=== PATIENT | female | born 1960 | race Caucasian/White ===

== ENCOUNTER 2020-12-03 07:13 | Outpatient (REF) | payer BC, SELFPAY ==
--- NOTE | ~2020-12-03 | XR_ITS ---
EXAMINATION: XR hand LT min 3V, XR hand RT min 3V CLINICAL INFORMATION: Other specified joint disorders both hands. COMPARISON: None. TECHNIQUE: 3 views of each hand. FINDINGS: RIGHT HAND: Mild degenerative changes are seen in the distal interphalangeal joints of the second through fifth digits and at the PIP joints of the second and third digits with joint space narrowing and mild marginal osteophytosis. Joint spaces are otherwise well-maintained. No erosions are demonstrated. Carpal bones are unremarkable. LEFT HAND: There are similar mild degenerative changes in the DIP joints and PIP joints of the second through fourth digits. No erosions. Carpal bones are unremarkable. 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
--- NOTE | ~2020-12-03 | XR_ITS ---
EXAMINATION: XR hand LT min 3V, XR hand RT min 3V CLINICAL INFORMATION: Other specified joint disorders both hands. COMPARISON: None. TECHNIQUE: 3 views of each hand. FINDINGS: RIGHT HAND: Mild degenerative changes are seen in the distal interphalangeal joints of the second through fifth digits and at the PIP joints of the second and third digits with joint space narrowing and mild marginal osteophytosis. Joint spaces are otherwise well-maintained. No erosions are demonstrated. Carpal bones are unremarkable. LEFT HAND: There are similar mild degenerative changes in the DIP joints and PIP joints of the second through fourth digits. No erosions. Carpal bones are unremarkable. XR/XR hand LT min 3V IMPRESSION: Mild changes of degenerative osteoarthritis in both hands as described.
[2020-12-03 07:43] LABS: MANUAL DIFF FLAG NO
[2020-12-03 07:54] LABS: Basophils Absolute Auto 0.1 X10*3/uL (0.0-0.2); Basophils Percent Auto 1.1 % (0-2); Eosinophils Absolute Auto 0.1 X10*3/uL (0.0-0.4); Eosinophils Percent Auto 1.9 % (0-4); Hematocrit 47.9 % (37-47); Hemoglobin 16.2 g/dl (12.0-16.0); Imm Gran Abs Auto 0.05 X10*3/uL (0.00-0.03); Imm Gran Pct Auto 0.7 % (0.0-0.4); Lymphocytes Absolute Auto 2.3 X10*3/uL (1.2-4.9); Lymphocytes Percent Auto 31.4 % (20-40); Mean Corpuscular HGB Conc 33.8 g/dl (31.0-35.0); Mean Corpuscular Hemoglobin 32.6 pg (27.0-33.0); Mean Corpuscular Volume 96.4 fL (80-98); Monocytes Absolute Auto 0.9 X10*3/uL (0.1-1.2); Monocytes Percent Auto 11.7 % (2-11); Neutrophils Absolute Auto 3.9 X10*3/uL (2.0-8.3); Neutrophils Percent Auto 53.2 % (45-73); Platelet Count 187 X10*3/uL (160-400); Red Blood Count 4.97 X10*6/uL (4.20-5.50); Red Cell Distribution Width 12.1 % (11.0-16.0); White Blood Count 7.2 X10*3/uL (4.8-10.8)
[2020-12-03 08:33] LABS: Alanine Aminotransferase 38 U/L (0-31); Alkaline Phosphatase 62 U/L (39-117); Anion Gap 16 (12-20); Aspartate Amino Transferase 33 U/L (5-31); Bilirubin Total 0.8 mg/dL (0.0-1.0); Blood Urea Nitrogen 21 mg/dL (9-16); Calcium 10.1 mg/dL (8.4-10.2); Carbon Dioxide 29 mmol/L (22-29); Chloride 102 mmol/L (96-108); Cholesterol 205 mg/dL; Estimated Glomerular Filt Rate > 60; Glucose Fasting 147 mg/dL (60-99); HDL Cholesterol 95 mg/dL; LDL Cholesterol Calculated 88 mg/dl; Potassium 4.6 mmol/L (3.3-5.1); Sodium 142 mmol/L (135-145); Total Protein 7.1 g/dL (6.5-8.0); Triglycerides 113 mg/dL
[2020-12-03 08:39] LABS: TSH reflex Free T4 2.17 uIU/mL (0.32-4.0)
[2020-12-08 12:11] LABS: Vitamin D 25-OH, D2 <4 ng/mL; Vitamin D 25-OH, D3 40 ng/mL; Vitamin D 25-OH, Total 40 ng/mL (30-100)
== END 2020-12-03 07:14 | disposition home or self-care (01) ==
LOC: HO.LAB 07:13
PROVIDERS: PCP Internal Medicine; Visit Provider Internal Medicine
DX: E66.9 Obesity, unspecified (principal); R73.02 Impaired glucose tolerance (oral); E78.5 Hyperlipidemia, unspecified; I10 Essential (primary) hypertension; E55.9 Vitamin D deficiency, unspecified; M25.841 Other specified joint disorders, right hand; M25.842 Other specified joint disorders, left hand; D64.9 Anemia, unspecified
CPT/HCPCS: 36415; 73130; 80053; 80061; 82306; 84443; 85025

== ENCOUNTER → 2021-01-04 12:59 | Outpatient (BNVA) | payer BC, SELFPAY | PROVIDERS: PCP Internal Medicine; Visit Provider Internal Medicine ==

== ENCOUNTER 2021-01-25 12:43 | Outpatient (REF) | payer BC, SELFPAY ==
--- NOTE | 2021-01-25 14:27 | PFT_ITS ---
FLOWS: FEV1 61% of predicted at 1.53 L. FVC 70% of predicted at 2.27 L. FEV1 to FVC ratio of 0.67. Positive bronchodilator response. LUNG VOLUMES: Total lung capacity 114% of predicted at 5.76 L. Residual volume 174% of predicted at 3.57 L. Slow vital capacity 72% of predicted at 2.19 L. Expiratory reserve volume 30% of predicted at 0.5 L. Diffusion capacity is mildly decreased, diffusion capacity adjust to normal after correction for alveolar ventilation. IMPRESSION: Moderate obstructive ventilatory defect with positive bronchodilator response. Increased residual volume suggests air trapping. Decreased expiratory reserve volume suggests extrathoracic restriction likely secondary to abdominal obesity. Mitch Carrillo MD AP/MODL / [id number]
== END 2021-01-25 12:44 | disposition home or self-care (01) ==
LOC: HO.RESP 12:43
PROVIDERS: Visit Provider Internal Medicine
DX: J42 Unspecified chronic bronchitis (principal); E66.9 Obesity, unspecified; Z87.891 Personal history of nicotine dependence
CPT/HCPCS: 94060; 94727; 94729

== ENCOUNTER → 2021-01-30 13:19 | Outpatient (BNVA) | payer BC, SELFPAY | PROVIDERS: PCP Internal Medicine; Visit Provider Internal Medicine ==

== ENCOUNTER 2021-09-16 15:22 | Emergency (ER) | payer BC, SELFPAY ==
--- NOTE | ~2021-09-16 | CT_ITS ---
EXAMINATION: CT ABDOMEN AND PELVIS WITHOUT CONTRAST CLINICAL INFORMATION: Left flank pain COMPARISON: None TECHNIQUE: Multidetector volumetric imaging was performed from the superior aspect of the liver through the pubic symphysis. Sagittal and coronal reformatted images were obtained on the technologist's workstation. This CT examination was performed using dose optimization techniques as appropriate, variously including the following: *Automated exposure control *Adjustment of mA and/or kV according to patient size (this includes techniques or standardized protocols for targeted exams where dose is matched to indication/reason for exam; i.e. extremities or head) *Use of iterative reconstruction technique DLP: 1172 mGy-cm FINDINGS: LUNG BASES: There are regions of mild subpleural groundglass opacity and reticulation which could reflect nonspecific interstitial lung disease. LIVER, GALLBLADDER, AND BILIARY TREE: There is hypoattenuation of the liver suspicious for steatosis. No intrahepatic biliary ductal dilatation is seen. Patient is status post cholecystectomy. PANCREAS: Unremarkable. SPLEEN: Unremarkable. ADRENAL GLANDS: Unremarkable. KIDNEYS AND URETERS: There is a 2 mm calculus at the left ureterovesicular junction with mild to moderate hydroureteronephrosis and subtle perinephric stranding. There is a 8 mm calculus located in the left lower pole. The calculus measures approximately 800 Hounsfield units in density. When measured from the posterior mid axillary skin line, the distance from the skin to the calculus is approximately 18 cm. No right-sided hydronephrosis or calculus. BLADDER: Nearly empty and not adequately evaluated. GASTROINTESTINAL TRACT: No evidence of bowel obstruction or significant wall thickening. No free fluid or free air is seen. ABDOMINAL WALL: No significant hernia is appreciated. LYMPH NODES: There is a low-density structure in the anterior upper abdomen along the midline measuring 2.7 x 2.1 x 2.3 cm with thin peripheral calcification, of uncertain etiology. VASCULAR: There is trace atherosclerotic calcification. PELVIC VISCERA: Small calcified uterine fibroids are suspected. OSSEOUS STRUCTURES: Degenerative changes are noted in the spine. CT/CT abdomen pelvis wo con IMPRESSION: 1. Calculus at the left ureterovesicular junction measuring 2 mm with mild to moderate hydroureteronephrosis. 2. Left lower pole renal calculi. 3. Hepatic steatosis. 4. Low-density structure in the anterior abdomen measuring up to 2.7 cm with thin peripheral calcification. This is of uncertain etiology and could reflect a complex cystic structure. Without prior studies to assess chronicity, follow-up CT in 3 months is advised to assess for stability. Fleischner guidelines were followed.
[2021-09-16 16:31] VITALS: PULSE 90; RESP 18; TEMP 36.8; O2SAT 96; BMI 41.1
[2021-09-16 16:39] LABS: Appearance Urine CLEAR; Color Urine STRAW; Glucose Urine UA NEG (NEG); Leukocyte Esterase Urine TRACE (NEG); Nitrite Urine NEG (NEG); Specific Gravity - Urine <= 1.005 (1.005-1.025); UACC Culture Trigger YES; Urine Blood 1+ (NEG); Urine Ketones NEG (NEG); Urine Protein NEG (NEG-TRACE)
[2021-09-16 16:50] LABS: Squamous Epithelial Cell Urine 1+ /LPF
[2021-09-16 20:11] LABS: MANUAL DIFF FLAG NO
[2021-09-16 20:16] LABS: Basophils Absolute Auto 0.1 X10*3/uL (0.0-0.2); Basophils Percent Auto 0.9 % (0-2); Eosinophils Absolute Auto 0.2 X10*3/uL (0.0-0.4); Eosinophils Percent Auto 1.6 % (0-4); Hematocrit 44.1 % (37.0-47.0); Hemoglobin 15.4 g/dl (12.0-16.0); Imm Gran Abs Auto 0.06 X10*3/uL (0.00-0.03); Imm Gran Pct Auto 0.6 % (0.0-0.4); Lymphocytes Absolute Auto 2.9 X10*3/uL (1.2-4.9); Lymphocytes Percent Auto 29.2 % (20-40); Mean Corpuscular HGB Conc 34.9 g/dl (31.0-35.0); Mean Corpuscular Hemoglobin 33.3 pg (27.0-33.0); Mean Corpuscular Volume 95.5 fL (80.0-98.0); Mean Platelet Volume 9.4 fL (9.4-12.3); Monocytes Absolute Auto 0.9 X10*3/uL (0.1-1.2); Monocytes Percent Auto 9.3 % (2-11); Neutrophils Absolute Auto 5.7 x10*3/uL (2.0-8.3); Neutrophils Percent Auto 58.4 % (45-73); Platelet Count 192 X10*3/uL (160-400); Red Blood Count 4.62 X10*6/uL (4.20-5.50); Red Cell Distribution Width 12.2 % (11.0-16.0); White Blood Count 9.8 X10*3/uL (4.8-10.8)
[2021-09-16 20:36] LABS: Alanine Aminotransferase 38 U/L (0-31); Albumin Level 3.9 g/dL (3.5-5.0); Alkaline Phosphatase 60 U/L (39-117); Anion Gap 12 (12-20); Aspartate Amino Transferase 31 U/L (5-31); Blood Urea Nitrogen 7 mg/dL (9-16); Calcium 9.4 mg/dL (8.4-10.2); Carbon Dioxide 28 mmol/L (22-29); Chloride 103 mmol/L (96-108); Creatinine Clr Calc Pharmacy 106.8; Estimated Glomerular Filt Rate > 60; Glucose Random 108 mg/dL (60-115); Potassium 3.3 mmol/L (3.3-5.1); Sodium 140 mmol/L (135-145); Total Protein 7.5 g/dL (6.5-8.0)
--- NOTE | 2021-09-16 22:28 | ED.ABDPAIN ---
HPI - Abdominal Pain General Chief Complaint: Abdominal Pain Stated Complaint: left flank pain Time Seen by Provider: 09/16/21 22:21 Source: patient Mode of arrival: ambulatory Limitations: no limitations History of Present Illness HPI narrative: Patient comes to emergency room complaining of left flank pain since yesterday. Patient states that she has a pulling sensation that radiates from the left flank towards the groin area. Patient also complaining of mild dysuria. Patient denies fever or chills. No hematuria. Patient has a history of kidney stones. Related Data Home Medications Medication Instructions Recorded Confirmed calcium citrate 315 mg 1 tab PO DAILY 01/04/21 calcium-vitamin D3 6.25 mcg (250 unit) tablet (Citracal + Vitamin D Maximum) acetaminophen 650 mg 1,300 mg PO Q12H 01/30/21 tablet,extended release (Tylenol Arthritis Pain) Previous Rx's Medication Instructions Recorded lisinopril 20 mg tablet 20 mg PO DAILY 90 Days #90 tab 12/19/20 Symbicort 160 mcg-4.5 2 puff PO BID #10.2 g NS 03/06/21 mcg/actuation HFA aerosol inhaler (budesonide-formoterol) albuterol sulfate 90 mcg/actuation 2 puff PO Q4H PRN #8.5 ea 08/07/21 aerosol inhaler clonazepam 0.5 mg tablet 0.5 mg PO BID 30 Days #60 tab 08/07/21 furosemide 40 mg tablet 40 mg PO DAILY #60 tab 08/09/21 metformin 500 mg tablet 500 mg PO BID 30 Days #60 tab 08/30/21 ibuprofen 600 mg tablet 600 mg PO Q6H PRN #20 tab 09/17/21 levofloxacin 500 mg tablet 500 mg PO DAILY #6 tab 09/17/21 ondansetron HCl 4 mg tablet 4 mg PO Q6H PRN #7 tab 09/17/21 (Zofran) prednisone 20 mg tablet 20 mg PO DAILY #3 tab 09/17/21 tamsulosin 0.4 mg capsule 0.4 mg PO DAILY #7 cap 09/17/21 Allergies Allergy/AdvReac Type Severity Reaction Status Date / Time bee pollen [BEE STINGS] Allergy Intermediate SWELLING, Verified 09/16/21 16:30 ITCHING--SENSITIVITY oxycodone [From PERCOCET] Allergy Intermediate N/V, RASH Verified 09/16/21 16:30 Penicillins [PENICILLINS] Allergy Intermediate RASH/ITCH Verified 09/16/21 16:30 vancomycin [VANCOMYCIN] Allergy Intermediate ITCHING Verified 09/16/21 16:30 codeine [Codeine] Allergy Unknown HIVES,VOMIT Verified 09/16/21 16:30 ING Review of Systems Review of Systems Constitutional : No Weight loss, No Fever, No Chills, No Night Sweats, No Fatigue, No Malaise ENT/Mouth : No Hearing loss, No Ear Pain, No Nasal Congestion, No Sinus Pain, No Hoarseness, No sore throat, No Rhinorrhea, No Swallowing Difficulty Eyes: No Eye Pain, No Swelling, No Redness, No Foreign Body, No Discharge, No Vision Changes Cardiovascular : No Chest Pain, No SOB, No Dyspnea on Exertion, No Orthopnea, No Edema, No Palpitations Respiratory : No Cough, No Sputum, No Wheezing, No Smoke Exposure, No Dyspnea Gastrointestinal : No Nausea, No Vomiting, No Diarrhea, No Constipation, No abdominal Pain, No Hematochezia, No Melena Genitourinary : no irregular bleeding, complaining of Dysuria, No Urinary Frequency, No Hematuria, No Urinary Incontinence, No Urgency, complaining of left-sided Flank Pain radiating towards the left groin area, No Urinary Flow Changes, No Hesitancy Musculoskeletal : No joint pain, No Myalgias, No Joint Swelling Skin : No Skin Lesions, No rash Neuro : No Weakness, No Numbness, No Paresthesias, No Loss of Consciousness, No Dizziness, No Headache Psych : No Anxiety/Panic, No Depression, No SI/HI/AH/VH, No Social Issues, Heme/Lymph: No Bruising, No Bleeding,No Lymphadenopathy Endocrine : No Polyuria, No Polydipsia, No Temperature Intolerance Physical Exam Vital Signs: Vital Signs: Last Vital Signs Temp 98.2 F 09/16/21 16:31 Pulse 90 09/16/21 16:31 Resp 18 09/16/21 16:31 Pulse Ox 96 09/16/21 16:31 BMI result Body Mass Index 41.1 Const: Other: Appearance: Alert. Oriented X3. No acute distress. Well-appearing Eyes: Pupils equal, round and reactive to light. ENT: Pharynx normal. Neck: Normal inspection. Neck supple. No lymph nodes noted. No crepitus CVS: Normal heart rate and rhythm. Pulses normal. Normal S1 and S2 Respiratory: No respiratory distress. Breath sounds normal. No Wheezing. No rales Abdomen: Soft and nontender. No rigidity. No distention. Back: Positive CVA tenderness on the left flank Skin: Skin warm and dry. Normal skin color. Normal skin turgor. Extremities: No lower extremity edema. No lower extremity edema. No Lacerations. No Rash Neuro: Oriented X 3. No motor deficit. No sensory deficit. Moving all extermities. No slurred speech. Course Course Course Narrative: I discussed with the patient that she does have a small stone at the UPJ on the left side. Patient was given Levaquin, she does have a slight UTI. Patient was given tamsulosin, prednisone MDM - Abdominal Pain Lab Data Result diagrams: 09/16/21 20:07 09/16/21 20:07 Labs: Lab Results 09/16/21 09/16/21 09/16/21 Range/Units 16:32 20:07 20:07 WBC 9.8 (4.8-10.8) X10*3/uL RBC 4.62 (4.20-5.50) X10*6/uL Hgb 15.4 (12.0-16.0) g/dl Hct 44.1 (37.0-47.0) % MCV 95.5 (80.0-98.0) fL MCH 33.3 H (27.0-33.0) pg MCHC 34.9 (31.0-35.0) g/dl RDW 12.2 (11.0-16.0) % Plt Count 192 (160-400) X10*3/uL MPV 9.4 (9.4-12.3) fL Immature Gran % (Auto) 0.6 H (0.0-0.4) % Neut % (Auto) 58.4 (45-73) % Lymph % (Auto) 29.2 (20-40) % [place] % (Auto) 9.3 (2-11) % Eos % (Auto) 1.6 (0-4) % Baso % (Auto) 0.9 (0-2) % Lymph # (Auto) 2.9 (1.2-4.9) X10*3/uL [place] # (Auto) 0.9 (0.1-1.2) X10*3/uL Eos # (Auto) 0.2 (0.0-0.4) X10*3/uL Baso # (Auto) 0.1 (0.0-0.2) X10*3/uL Abs Immat Gran (auto) 0.06 H (0.00-0.03) X10*3/uL Absolute Neuts (auto) 5.7 (2.0-8.3) x10*3/uL Absolute Nucleated RBC 0.000 (0.0-0.012) X10*3/uL Nucleated RBC % (auto) 0.0 (0.0-0.2) /100WBC Sodium 140 (135-145) mmol/L Potassium 3.3 D (3.3-5.1) mmol/L Chloride 103 (96-108) mmol/L Carbon Dioxide 28 (22-29) mmol/L Anion Gap 12 (12-20) BUN 7 L (9-16) mg/dL Creatinine 0.65 (0.5-1.4) mg/dL Estim Creat Clear Calc 106.8 Estimated GFR > 60 Random Glucose 108 (60-115) mg/dL Calcium 9.4 D (8.4-10.2) mg/dL Total Bilirubin 1.0 (0.0-1.0) mg/dL AST 31 (5-31) U/L ALT 38 H (0-31) U/L Alkaline Phosphatase 60 (39-117) U/L Total Protein 7.5 (6.5-8.0) g/dL Albumin 3.9 (3.5-5.0) g/dL Urine Color STRAW Urine Appearance CLEAR Urine pH 6.0 (5.0-8.0) Ur Specific [place] <= 1.005 (1.005-1.025) Urine Protein NEG (NEG-TRACE) MG/DL Urine Glucose (UA) NEG (NEG) MG/DL Urine Ketones NEG (NEG) MG/DL Urine Blood 1+ H (NEG) Urine Nitrite NEG (NEG) Ur Leukocyte Esterase TRACE H (NEG) Urine RBC 1-4 (0) /HPF Urine WBC 1-4 (0-4) /HPF Ur Squamous Epith Cells 1+ /LPF Urine Bacteria NONE /LPF Imaging Data CT scan - abdomen: Radiologist's impression: FINDINGS: LUNG BASES: There are regions of mild subpleural groundglass opacity and reticulation which could reflect nonspecific interstitial lung disease.? LIVER, GALLBLADDER, AND BILIARY TREE: There is hypoattenuation of the liver suspicious for steatosis. No intrahepatic biliary ductal dilatation is seen. Patient is status post cholecystectomy.? PANCREAS: Unremarkable.? SPLEEN: Unremarkable.? ADRENAL GLANDS: Unremarkable.? KIDNEYS AND URETERS: There is a 2 mm calculus at the left ureterovesicular junction with mild to moderate hydroureteronephrosis and subtle perinephric stranding. There is a 8 mm calculus located in the left lower pole. The calculus measures approximately 800 Hounsfield units in density. When measured from the posterior mid axillary skin line, the distance from the skin to the calculus is approximately 18 cm. No right-sided hydronephrosis or calculus. BLADDER: Nearly empty and not adequately evaluated.? GASTROINTESTINAL TRACT: No evidence of bowel obstruction or significant wall thickening. No free fluid or free air is seen. ABDOMINAL WALL: No significant hernia is appreciated.? LYMPH NODES: There is a low-density structure in the anterior upper abdomen along the midline measuring 2.7 x 2.1 x 2.3 cm with thin peripheral calcification, of uncertain etiology. VASCULAR: There is trace atherosclerotic calcification. PELVIC VISCERA: Small calcified uterine fibroids are suspected.? OSSEOUS STRUCTURES: Degenerative changes are noted in the spine.? CT/CT abdomen pelvis wo con IMPRESSION: 1.? Calculus at the left ureterovesicular junction measuring 2 mm with mild to moderate hydroureteronephrosis. 2.? Left lower pole renal calculi. 3.? Hepatic steatosis. 4.? Low-density structure in the anterior abdomen measuring up to 2.7 cm with thin peripheral calcification. This is of uncertain etiology and could reflect a complex cystic structure. Without prior studies to assess chronicity, follow-up CT in 3 months is advised to assess for stability. Discharge Plan Discharge Clinical Impression: Kidney stone, UTI (urinary tract infection) Patient Disposition: Home, Self-Care Instructions: Kidney Stones (ED), Urinary Tract Infection in Women (ED) Additional Instructions: Please follow-up with your primary care physician tomorrow. If you have any worsening or new symptoms, please return to the emergency room or call 911 Prescriptions: New tamsulosin 0.4 mg capsule 0.4 mg PO DAILY Qty: 7 RF: 0 prednisone 20 mg tablet 20 mg PO DAILY Qty: 3 RF: 0 ondansetron HCl [Zofran] 4 mg tablet 4 mg PO Q6H PRN (Reason: nausea and vomiting) Qty: 7 RF: 0 ibuprofen 600 mg tablet 600 mg PO Q6H PRN (Reason: fever or pain) Qty: 20 RF: 0 levofloxacin 500 mg tablet 500 mg PO DAILY Qty: 6 RF: 0 No Action lisinopril 20 mg tablet 20 mg PO DAILY 90 Days Qty: 90 RF: 3 budesonide-formoterol [Symbicort] 160-4.5 mcg/actuation HFA aerosol inhaler 2 puff PO BID Qty: 10.2 RF: 1 clonazepam 0.5 mg tablet 0.5 mg PO BID 30 Days Qty: 60 RF: 1 albuterol sulfate 90 mcg/actuation HFA aerosol inhaler 2 puff PO Q4H PRN (Reason: for wheezing) Qty: 8.5 RF: 0 furosemide 40 mg tablet 40 mg PO DAILY Qty: 60 RF: 1 metformin 500 mg tablet 500 mg PO BID 30 Days Qty: 60 RF: 6 calcium citrate-vitamin D3 [Citracal + D Maximum] 315 mg-6.25 mcg (250 unit) tablet 1 tab PO DAILY RF: 0 acetaminophen [Tylenol Arthritis Pain] 650 mg tablet extended release 1,300 mg PO Q12H RF: 0 Referrals: Luis Cruz MD [Physician] - 1 week Stand Alone Forms: Work/School Release [facility] Past Medical History Medical History Anxiety Calcification of left hand joint Calcification of right hand joint Chronic bronchitis COPD (chronic obstructive pulmonary disease) Diabetes mellitus Essential hypertension Ex-smoker Ex-smoker Hand pain Impaired glucose tolerance Left knee pain Obese Obesity Surgical History Ganglion cyst History of appendectomy Hx laparoscopic cholecystectomy Previous section Family History Family History Mother Hypertension Father Cancer Social History Social History (Updated 11/29/20 @ 08:12 by Gena Lucas Siva) Alcohol intake: current Alcohol intake frequency: holidays/special occasions only Advance Directives: No Advance Directives Information Provided: Yes
[2021-09-16] MEDS: levoFLOXacin 500 MG TABLET PO (22:43)
[2021-09-17] MEDS: predniSONE 20 MG TABLET PO (00:30)
[2021-09-17] MEDS: Tamsulosin HCL 0.4 MG CAPSULE PO (00:30)
[2021-09-17 00:31] VITALS: BP 182/96; PULSE 90; RESP 18; TEMP 37; O2SAT 97
== END 2021-09-17 00:36 | disposition home or self-care (01) ==
PROVIDERS: Emergency Provider Emergency Medicine; PCP Internal Medicine
DX: N20.0 Calculus of kidney (principal); N39.0 Urinary tract infection, site not specified; R10.9 Unspecified abdominal pain; Z79.899 Other long term (current) drug therapy
CPT/HCPCS: 36415; 74176; 80053; 81001; 85025; 87086; 99283; 99284

== ENCOUNTER 2022-05-31 10:16 | Outpatient (REF) | payer OTHER, SELFPAY ==
[2022-05-31 14:08] LABS: Hematocrit 38.7 % (37.0-47.0); Hemoglobin 12.7 g/dl (12.0-16.0); Mean Corpuscular HGB Conc 32.8 g/dl (31.0-35.0); Mean Corpuscular Hemoglobin 30.1 pg (27.0-33.0); Mean Corpuscular Volume 91.7 fL (80.0-98.0); Mean Platelet Volume 9.7 fL (9.4-12.3); Platelet Count 353 X10*3/uL (160-400); Red Blood Count 4.22 X10*6/uL (4.20-5.50); Red Cell Distribution Width 11.6 % (11.0-16.0); White Blood Count 6.9 X10*3/uL (4.8-10.8)
[2022-05-31 14:27] LABS: Alanine Aminotransferase 34 U/L (0-31); Albumin Level 3.6 g/dL (3.5-5.0); Alkaline Phosphatase 52 U/L (39-117); Anion Gap 13 (12-20); Aspartate Amino Transferase 28 U/L (5-31); Bilirubin Total 0.6 mg/dL (0.0-1.0); Blood Urea Nitrogen 12 mg/dL (9-16); Calcium 9.7 mg/dL (8.4-10.2); Carbon Dioxide 25 mmol/L (22-29); Chloride 104 mmol/L (96-108); Cholesterol 141 mg/dL; Estimated Glomerular Filt Rate > 60; Glucose Random 190 mg/dL (60-115); HDL Cholesterol 59 mg/dL; LDL Cholesterol Calculated 59 mg/dl; Potassium 4.4 mmol/L (3.3-5.1); Sodium 138 mmol/L (135-145); Total Protein 6.9 g/dL (6.5-8.0); Triglycerides 116 mg/dL
[2022-05-31 14:48] LABS: TSH reflex Free T4 0.95 uIU/mL (0.32-4.0)
== END 2022-05-31 10:17 | disposition home or self-care (01) ==
LOC: HO.HMGCLDS 10:16
PROVIDERS: Visit Provider Nurse Practitioner Family
DX: Z13.29 Encounter for screening for other suspected endocrine disorder (principal); Z13.220 Encounter for screening for lipoid disorders; E66.01 Morbid (severe) obesity due to excess calories; Z68.41 Body mass index [BMI] 40.0-44.9, adult; E11.9 Type 2 diabetes mellitus without complications; I10 Essential (primary) hypertension
CPT/HCPCS: 36415; 80053; 80061; 82043; 84443; 85027; 97802

== ENCOUNTER 2022-12-07 14:20 | Inpatient (IN) | payer OTHER, SELFPAY ==
--- NOTE | ~2022-12-07 | CT_ITS ---
EXAMINATION: CT ABDOMEN AND PELVIS WITHOUT CONTRAST CLINICAL INFORMATION: Elevated LFTs. Both lower quadrant abdominal pain COMPARISON: None available. TECHNIQUE: Multidetector volumetric imaging was performed from the superior aspect of the liver through the pubic symphysis. Sagittal and coronal reformatted images were obtained on the technologist's workstation. This CT examination was performed using dose optimization techniques as appropriate, variously including the following: *Automated exposure control *Adjustment of mA and/or kV according to patient size (this includes techniques or standardized protocols for targeted exams where dose is matched to indication/reason for exam; i.e. extremities or head) *Use of iterative reconstruction technique DLP: 759 mGy-cm FINDINGS: LUNG BASES: Subpleural reticular opacities at lung bases. No focal airspace opacity. No pleural effusion. LIVER, GALLBLADDER, AND BILIARY TREE: The liver is normal in size, shape, and attenuation. Right lobe of liver measures 18 cm superior inferior. No focal hepatic lesion or biliary ductal dilatation is present. Status post cholecystectomy PANCREAS: Unremarkable. SPLEEN: Unremarkable. ADRENAL GLANDS: Unremarkable. KIDNEYS AND URETERS: Left kidney: Moderate hydronephrosis of left kidney with distention of renal pelvis and calyces. There is an obstructing stone in the ureter at the upper pelvis without any centimeters proximal to the ureterovesical junction. Stone measures 8 x 5 mm in size. Coronal image 74/119 series 4. There is a nonobstructive 1 mm stone at the lower pole of left kidney. Right kidney: Right kidney and collecting system are normal. No hydronephrosis or calculus. BLADDER: Unremarkable. GASTROINTESTINAL TRACT: The small and large bowel are unremarkable. The appendix is nonvisualized. No inflammation the mesentery. ABDOMINAL WALL: No significant hernia is appreciated. LYMPH NODES: Normal. VASCULAR: Unremarkable. PELVIC VISCERA: Uterus is anteverted. Small calcifications within the uterus. OSSEOUS STRUCTURES: No acute osseous abnormality. CT/CT abdomen pelvis wo IV con IMPRESSION: Moderate hydronephrosis of left kidney. Obstructing 8 x 5 mm stone in the distal ureter at the upper pelvis. Fleischner guidelines were followed.
--- NOTE | ~2022-12-07 | FL_ITS ---
EXAMINATION: XR FLUOROSCOPY WITH IMAGES CLINICAL INFORMATION: Left kidney stone. COMPARISON: CT abdomen from 12/07/2022 TECHNIQUE: Fluoroscopy Supervised By: Dr. Lennon Fluoroscopy Time: 30 seconds. Cumulative Dose: 22.7 mGy. DAP: This information is not recorded/available. Images: 2. FL/FL guidance in OR FINDINGS/IMPRESSION: Limited fluoroscopic imaging shows interval deployment of a left ureteral stent.
[2022-12-07 14:28] VITALS: BP 133/73; PULSE 116; RESP 20; TEMP 36.9; O2SAT 96; BMI 41.5
--- NOTE | 2022-12-07 14:30 | ED_ITS ---
HPI - General Adult General Chief complaint: Urogenital-Female <MARTHA Vences - Last Filed: 12/07/22 18:24> Stated complaint: fever, dark urine, shaking, chills <MARTHA Vences - Last Filed: 12/07/22 18:24> Time Seen by Provider: 12/07/22 18:47 <MARTHA Vences - Last Filed: 12/07/22 18:24> Source: patient <Lizette Nicolas MD - Last Filed: 12/07/22 22:42> Mode of arrival: ambulatory <Lizette Nicolas MD - Last Filed: 12/07/22 22:42> Limitations: no limitations <Lizette Nciolas MD - Last Filed: 12/07/22 22:42> History of Present Illness HPI narrative: Patient comes to the emergency room complaining of 2 days of nausea, vomiting, bilateral lower quadrant pain, dysuria, questionably hematuria, fever of 102.0 F at home. Patient states that she is unable to keep p.o., patient vomits every time she tries to drink something. Patient states that she does not have flank pain, but she does have significant suprapubic tenderness. <Lizette Nicolas MD - Last Filed: 12/07/22 22:42> Related Data Home medications: Home Medications Medication Instructions Recorded Confirmed clonazepam 0.5 mg tablet 0.5 mg PO BID PRN Anxiety 12/07/22 12/07/22 furosemide 40 mg tablet 20 mg PO DAILY 12/07/22 12/07/22 Previous Rx's Medication Instructions Recorded ibuprofen 600 mg tablet 600 mg PO Q6H PRN fever or pain 09/17/21 #20 tabs metformin 500 mg tablet 500 mg PO BID 30 days #60 tabs 01/29/22 albuterol sulfate 90 mcg/actuation 2 puff PO Q4H PRN for wheezing 04/06/22 aerosol inhaler #8.5 ea lisinopril 40 mg tablet 40 mg PO DAILY #90 tabs 10/13/22 <MARTHA Vences - Last Filed: 12/07/22 18:24> Allergies/adverse reactions: Allergies Allergy/AdvReac Type Severity Reaction Status Date / Time bee pollen [BEE STINGS] Allergy Intermediate SWELLING, Verified 04/06/22 12:26 ITCHING--SENSITIVITY oxycodone [From PERCOCET] Allergy Intermediate N/V, RASH Verified 04/06/22 12:26 Penicillins [PENICILLINS] Allergy Intermediate RASH/ITCH Verified 04/06/22 12:26 vancomycin [VANCOMYCIN] Allergy Intermediate ITCHING Verified 04/06/22 12:26 codeine [Codeine] Allergy Unknown HIVES,VOMIT Verified 04/06/22 12:26 ING <MARTHA Vences - Last Filed: 12/07/22 18:24> Review of Systems Review of Systems: Constitutional : No Weight loss, No Fever, No Chills, No Night Sweats, complaining of generalized malaise ENT/Mouth : No Hearing loss, No Ear Pain, No Nasal Congestion, No Sinus Pain, No Hoarseness, No sore throat, No Rhinorrhea, No Swallowing Difficulty Eyes: No Eye Pain, No Swelling, No Redness, No Foreign Body, No Discharge, No Vision Changes Cardiovascular : No Chest Pain, No SOB, No Dyspnea on Exertion, No Orthopnea, No Edema, No Palpitations Respiratory : No Cough, No Sputum, No Wheezing, No Smoke Exposure, No Dyspnea Gastrointestinal : Complaining of nausea and vomiting No Diarrhea, No Constipation, complaining of suprapubic pain Genitourinary : no irregular bleeding, complaining of dysuria, frequency, and questionably hematuria, No Urinary Incontinence, No Urgency, No Flank Pain, No Urinary Flow Changes, No Hesitancy Musculoskeletal : No joint pain, No Myalgias, No Joint Swelling Skin : No Skin Lesions, No rash Neuro : No Weakness, No Numbness, No Paresthesias, No Loss of Consciousness, No Dizziness, No Headache Psych : No Anxiety/Panic, No Depression, No SI/HI/AH/VH, No Social Issues, Heme/Lymph: No Bruising, No Bleeding,No Lymphadenopathy Endocrine : No Polyuria, No Polydipsia, No Temperature Intolerance <Lizette Nicolas MD - Last Filed: 12/07/22 22:42> [facility] Past Medical History Medical History: Medical History Anxiety Calcification of left hand joint Calcification of right hand joint Chronic bronchitis COPD (chronic obstructive pulmonary disease) COVID-19 Diabetes mellitus Essential hypertension Ex-smoker Ex-smoker Hand pain Impaired glucose tolerance Left knee pain Obese Obesity Screen for colon cancer <MARTHA Vences - Last Filed: 12/07/22 18:24> Surgical History: Surgical History Ganglion cyst History of appendectomy Hx laparoscopic cholecystectomy Previous section <MARTHA Vences - Last Filed: 12/07/22 18:24> Family History Family History: Family History Mother Hypertension Father Cancer <MARTHA Vences - Last Filed: 12/07/22 18:24> Social History Social History: Social History Alcohol intake: current Alcohol intake frequency: holidays/special occasions only Patient Tobacco Use Status: Former Tobacco user Smoked in Last 30 Days: No Use of substances other than those prescribed or required for medical reasons: No Advance Directives: No Advance Directives Information Provided: No Patient : No service: No 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 Cognitive needs: No Hearing needs: No Vision needs: Yes <MARTHA Vences - Last Filed: 12/07/22 18:24> Physical Exam ED Vital Signs: Vital Signs - 24 hr 12/07/22 14:28 12/07/22 19:07 Temperature 98.4 F 98.5 F Pulse Rate 116 H 104 H Respiratory Rate 20 20 Blood Pressure 133/73 117/64 Pulse Oximetry 96 95 Oxygen Delivery Method Room Air Room Air BMI result Body Mass Index 41.5 <MARTHA Vences - Last Filed: 12/07/22 18:24> Vital Signs - 24 hr 12/07/22 14:28 12/07/22 19:07 Temperature 98.4 F 98.5 F Pulse Rate 116 H 104 H Respiratory Rate 20 20 Blood Pressure 133/73 117/64 Pulse Oximetry 96 95 Oxygen Delivery Method Room Air Room Air BMI result Body Mass Index 41.5 <Lizette Nicolas MD - Last Filed: 12/07/22 22:42> Const Other: Appearance: Alert. Oriented X3. Ill-appearing Eyes: Pupils equal, round and reactive to light. ENT: Pharynx normal. Neck: Normal inspection. Neck supple. No lymph nodes noted. No crepitus CVS: Normal heart rate and rhythm. Pulses normal. Normal S1 and S2 Respiratory: No respiratory distress. Breath sounds normal. No Wheezing. No rales Abdomen: Soft , suprapubic tenderness, no rebound, no guarding, no right upper quadrant pain, no CVA tenderness Skin: Skin warm , clammy. Normal skin color. Normal skin turgor. Extremities: No lower extremity edema. No Lacerations. No Rash Neuro: Oriented X 3. No motor deficit. No sensory deficit. Moving all extremities. No slurred speech. CN 2 through 12 grossly intact Psych: calm, cooperative, normal affect <Lizette Nicolas MD - Last Filed: 12/07/22 22:42> Course Course Course Narrative: RME--62yo F w/PMHx anxiey, DM, COPD, HTN, c/o fever Tmax 102 yesterday, chills, lower abdominal pain, low back pain, & dark colored urine with odor since Sat. Tachycardic in triage likely from pain, afebrile. Low suspicion for severe sepsis at this time. Labs, UA, Lactic/blood Cx, COVID ordered <MARTHA Vences - Last Filed: 12/07/22 18:24> Medications Administered Discontinued Medications Generic Name Dose Route Start Last Admin Trade Name Joseq PRN Reason Stop Dose Admin Fluconazole 150 mg 12/07/22 20:24 12/07/22 21:27 Fluconazole 150 Mg Tablet PO 12/07/22 20:25 150 mg ONCE ONE Administration Sodium Chloride 1,000 mls @ 999 mls/hr 12/07/22 18:30 12/07/22 20:20 Ns IV 12/07/22 19:30 999 mls/hr .Q1H1M ALE Administration Ceftriaxone Sodium 1 gm/ 50 mls @ 100 mls/hr 12/07/22 18:23 12/07/22 19:05 Sodium Chloride IV 12/07/22 18:52 100 mls/hr ONCE ONE Administration Sodium Chloride 2,000 mls @ 999 mls/hr 12/07/22 18:51 12/07/22 19:06 Ns IVCONT 12/07/22 20:51 999 mls/hr .Q2H1M ONE Administration Levofloxacin 500 mg in 100 mls @ 100 mls/hr 12/07/22 18:51 12/07/22 19:40 Levaquin IV 12/07/22 19:50 100 mls/hr ONCE ONE Administration Ondansetron HCl 4 mg 12/07/22 19:43 12/07/22 20:22 Ondansetron Hcl 4 Mg/2 Ml Vial IVPUSH 12/07/22 19:44 4 mg ONCE ONE Administration <MARTHA Vences - Last Filed: 12/07/22 18:24> Medications Administered Discontinued Medications Generic Name Dose Route Start Last Admin Trade Name Quinton PRN Reason Stop Dose Admin Fluconazole 150 mg 12/07/22 20:24 12/07/22 21:27 Fluconazole 150 Mg Tablet PO 12/07/22 20:25 150 mg ONCE ONE Administration Sodium Chloride 1,000 mls @ 999 mls/hr 12/07/22 18:30 12/07/22 20:20 Ns IV 12/07/22 19:30 999 mls/hr .Q1H1M ALE Administration Ceftriaxone Sodium 1 gm/ 50 mls @ 100 mls/hr 12/07/22 18:23 12/07/22 19:05 Sodium Chloride IV 12/07/22 18:52 100 mls/hr ONCE ONE Administration Sodium Chloride 2,000 mls @ 999 mls/hr 12/07/22 18:51 12/07/22 19:06 Ns IVCONT 12/07/22 20:51 999 mls/hr .Q2H1M ONE Administration Levofloxacin 500 mg in 100 mls @ 100 mls/hr 12/07/22 18:51 12/07/22 19:40 Levaquin IV 12/07/22 19:50 100 mls/hr ONCE ONE Administration Ondansetron HCl 4 mg 12/07/22 19:43 12/07/22 20:22 Ondansetron Hcl 4 Mg/2 Ml Vial IVPUSH 12/07/22 19:44 4 mg ONCE ONE Administration <Lizette Nicolas MD - Last Filed: 12/07/22 22:42> Medical Decision Making Medical Decision Making MDM Narrative: -patient was given 2 L of normal saline, fluid given 1 night deal weight of 55 kg, patient is obese. Levofloxacin was given to the patient IV. -patient's sodium is on the lower side, getting IV fluids -patient unable to tolerate p.o. -patient has newly elevated LFTs, no right upper quadrant pain or epigastric pain. CT scan of the abdomen shows moderate hydronephrosis of the left kidney, obstructing 5 mm x 5 mm stone in the distal ureter at the upper pelvis -I discussed the patient with Dr. Guerrero, patient being admitted <Lizette Nicolas MD - Last Filed: 12/07/22 22:42> Differential Diagnosis Differential Diagnoses: The differential diagnosis associated with the presentation includes (UTI, pyelonephritis, sepsis, ureterolithiasis) <Lizette Nicolas MD - Last Filed: 12/07/22 22:42> Admission/Observation Consideration of admission/observation: Escalation of care including admission/observation considered <Lizette Nicolas MD - Last Filed: 12/07/22 22:42> Consult Healthcare Provider Management of the patient was discussed with: Hospitalist <Lizette Nicolas MD - Last Filed: 12/07/22 22:42> Lab Data MDM Lab Attestation statement: I reviewed the patient's lab results. <Lizette Nicolas MD - Last Filed: 12/07/22 22:42> Result Diagrams: 12/07/22 15:00 12/07/22 15:00 <MARTHA Vences - Last Filed: 12/07/22 18:24> Labs: Lab Results 12/07/22 12/07/22 12/07/22 Range/Units 15:00 15:00 15:00 WBC 12.0 H (4.8-10.8) X10*3/uL RBC 4.20 (4.20-5.50) X10*6/uL Hgb 12.9 (12.0-16.0) g/dl Hct 37.8 (37.0-47.0) % MCV 90.0 (80.0-98.0) fL MCH 30.7 (27.0-33.0) pg MCHC 34.1 (31.0-35.0) g/dl RDW 12.9 (11.0-16.0) % Plt Count 154 L D (160-400) X10*3/uL MPV 10.0 (9.4-12.3) fL Immature Gran % (Auto) 1.0 H (0.0-0.4) % Neut % (Auto) 81.2 H (45-73) % Lymph % (Auto) 8.4 L (20-40) % [place] % (Auto) 8.8 (2-11) % Eos % (Auto) 0.2 (0-4) % Baso % (Auto) 0.4 (0-2) % Lymph # (Auto) 1.0 L (1.2-4.9) X10*3/uL [place] # (Auto) 1.1 (0.1-1.2) X10*3/uL Eos # (Auto) 0.0 (0.0-0.4) X10*3/uL Baso # (Auto) 0.1 (0.0-0.2) X10*3/uL Abs Immat Gran (auto) 0.12 H (0.00-0.03) X10*3/uL Absolute Neuts (auto) 9.7 H (2.0-8.3) x10*3/uL Absolute Nucleated RBC 0.000 (0.0-0.012) X10*3/uL Nucleated RBC % (auto) 0.0 (0.0-0.2) /100WBC PT 12.8 (10.0-13.1) SEC INR 1.1 (0.9-1.1) Sodium 130 L (135-145) mmol/L Potassium 3.8 (3.3-5.1) mmol/L Chloride 96 (96-108) mmol/L Carbon Dioxide 22 (22-29) mmol/L Anion Gap 16 (12-20) BUN 18 H (9-16) mg/dL Creatinine 0.88 (0.5-1.4) mg/dL Estim Creat Clear Calc 81.1 Estimated GFR > 60 Random Glucose 293 H (60-115) mg/dL Lactic Acid (0.5-2.0) mmol/L Calcium 8.7 D (8.4-10.2) mg/dL Magnesium 1.9 (1.6-2.6) mg/dL Total Bilirubin 2.9 H (0.0-1.0) mg/dL Direct Bilirubin 1.1 H (0.0-0.5) mg/dL AST 23 (5-31) U/L ALT 23 (0-31) U/L Alkaline Phosphatase 58 (39-117) U/L Total Protein 6.9 (6.5-8.0) g/dL Albumin 3.4 L (3.5-5.0) g/dL Lipase 36 (8-78) U/L Urine Color Urine Appearance Urine pH (5.0-9.0) Ur Specific [place] (1.005-1.025) Urine Protein (Neg-Trace) mg/dL Urine Glucose (UA) (Negative) mg/dL Urine Ketones (Negative) mg/dL Urine Blood (Negative) Urine Nitrite (Negative) Ur Leukocyte Esterase (Negative) Urine RBC (0-2) /HPF Urine WBC (0-5) /HPF Ur Squamous Epith Cells (0-2) /HPF Urine Bacteria (None Seen) Hyaline Casts (0-2) /LPF Urine Yeast COVID-19 (CRUZ) (Negative) COVID-19 Clin Com 12/07/22 12/07/22 12/07/22 Range/Units 15:00 15:00 15:00 WBC (4.8-10.8) X10*3/uL RBC (4.20-5.50) X10*6/uL Hgb (12.0-16.0) g/dl Hct (37.0-47.0) % MCV (80.0-98.0) fL MCH (27.0-33.0) pg MCHC (31.0-35.0) g/dl RDW (11.0-16.0) % Plt Count (160-400) X10*3/uL MPV (9.4-12.3) fL Immature Gran % (Auto) (0.0-0.4) % Neut % (Auto) (45-73) % Lymph % (Auto) (20-40) % [place] % (Auto) (2-11) % Eos % (Auto) (0-4) % Baso % (Auto) (0-2) % Lymph # (Auto) (1.2-4.9) X10*3/uL [place] # (Auto) (0.1-1.2) X10*3/uL Eos # (Auto) (0.0-0.4) X10*3/uL Baso # (Auto) (0.0-0.2) X10*3/uL Abs Immat Gran (auto) (0.00-0.03) X10*3/uL Absolute Neuts (auto) (2.0-8.3) x10*3/uL Absolute Nucleated RBC (0.0-0.012) X10*3/uL Nucleated RBC % (auto) (0.0-0.2) /100WBC PT (10.0-13.1) SEC INR (0.9-1.1) Sodium (135-145) mmol/L Potassium (3.3-5.1) mmol/L Chloride (96-108) mmol/L Carbon Dioxide (22-29) mmol/L Anion Gap (12-20) BUN (9-16) mg/dL Creatinine (0.5-1.4) mg/dL Estim Creat Clear Calc Estimated GFR Random Glucose (60-115) mg/dL Lactic Acid 1.7 (0.5-2.0) mmol/L Calcium (8.4-10.2) mg/dL Magnesium (1.6-2.6) mg/dL Total Bilirubin (0.0-1.0) mg/dL Direct Bilirubin (0.0-0.5) mg/dL AST (5-31) U/L ALT (0-31) U/L Alkaline Phosphatase (39-117) U/L Total Protein (6.5-8.0) g/dL Albumin (3.5-5.0) g/dL Lipase (8-78) U/L Urine Color Dark Yellow Urine Appearance Turbid Urine pH 6.0 (5.0-9.0) Ur Specific [place] 1.025 (1.005-1.025) Urine Protein 100 (2+) H (Neg-Trace) mg/dL Urine Glucose (UA) >=1000 H (Negative) mg/dL Urine Ketones Trace (Negative) mg/dL Urine Blood Large (3+) H (Negative) Urine Nitrite Negative (Negative) Ur Leukocyte Esterase Small (1+) H (Negative) Urine RBC >20 H (0-2) /HPF Urine WBC >50 H (0-5) /HPF Ur Squamous Epith Cells 11-20 (0-2) /HPF Urine Bacteria 4+ (None Seen) Hyaline Casts 0-2 (0-2) /LPF Urine Yeast Present COVID-19 (CRUZ) Negative (Negative) COVID-19 Clin Com See Note <MARTHA Vences - Last Filed: 12/07/22 18:24> Lab Results 12/07/22 12/07/22 12/07/22 Range/Units 15:00 15:00 15:00 WBC 12.0 H (4.8-10.8) X10*3/uL RBC 4.20 (4.20-5.50) X10*6/uL Hgb 12.9 (12.0-16.0) g/dl Hct 37.8 (37.0-47.0) % MCV 90.0 (80.0-98.0) fL MCH 30.7 (27.0-33.0) pg MCHC 34.1 (31.0-35.0) g/dl RDW 12.9 (11.0-16.0) % Plt Count 154 L D (160-400) X10*3/uL MPV 10.0 (9.4-12.3) fL Immature Gran % (Auto) 1.0 H (0.0-0.4) % Neut % (Auto) 81.2 H (45-73) % Lymph % (Auto) 8.4 L (20-40) % [place] % (Auto) 8.8 (2-11) % Eos % (Auto) 0.2 (0-4) % Baso % (Auto) 0.4 (0-2) % Lymph # (Auto) 1.0 L (1.2-4.9) X10*3/uL [place] # (Auto) 1.1 (0.1-1.2) X10*3/uL Eos # (Auto) 0.0 (0.0-0.4) X10*3/uL Baso # (Auto) 0.1 (0.0-0.2) X10*3/uL Abs Immat Gran (auto) 0.12 H (0.00-0.03) X10*3/uL Absolute Neuts (auto) 9.7 H (2.0-8.3) x10*3/uL Absolute Nucleated RBC 0.000 (0.0-0.012) X10*3/uL Nucleated RBC % (auto) 0.0 (0.0-0.2) /100WBC PT 12.8 (10.0-13.1) SEC INR 1.1 (0.9-1.1) Sodium 130 L (135-145) mmol/L Potassium 3.8 (3.3-5.1) mmol/L Chloride 96 (96-108) mmol/L Carbon Dioxide 22 (22-29) mmol/L Anion Gap 16 (12-20) BUN 18 H (9-16) mg/dL Creatinine 0.88 (0.5-1.4) mg/dL Estim Creat Clear Calc 81.1 Estimated GFR > 60 Random Glucose 293 H (60-115) mg/dL Lactic Acid (0.5-2.0) mmol/L Calcium 8.7 D (8.4-10.2) mg/dL Magnesium 1.9 (1.6-2.6) mg/dL Total Bilirubin 2.9 H (0.0-1.0) mg/dL Direct Bilirubin 1.1 H (0.0-0.5) mg/dL AST 23 (5-31) U/L ALT 23 (0-31) U/L Alkaline Phosphatase 58 (39-117) U/L Total Protein 6.9 (6.5-8.0) g/dL Albumin 3.4 L (3.5-5.0) g/dL Lipase 36 (8-78) U/L Urine Color Urine Appearance Urine pH (5.0-9.0) Ur Specific [place] (1.005-1.025) Urine Protein (Neg-Trace) mg/dL Urine Glucose (UA) (Negative) mg/dL Urine Ketones (Negative) mg/dL Urine Blood (Negative) Urine Nitrite (Negative) Ur Leukocyte Esterase (Negative) Urine RBC (0-2) /HPF Urine WBC (0-5) /HPF Ur Squamous Epith Cells (0-2) /HPF Urine Bacteria (None Seen) Hyaline Casts (0-2) /LPF Urine Yeast COVID-19 (CRUZ) (Negative) COVID-19 Clin Com 12/07/22 12/07/22 12/07/22 Range/Units 15:00 15:00 15:00 WBC (4.8-10.8) X10*3/uL RBC (4.20-5.50) X10*6/uL Hgb (12.0-16.0) g/dl Hct (37.0-47.0) % MCV (80.0-98.0) fL MCH (27.0-33.0) pg MCHC (31.0-35.0) g/dl RDW (11.0-16.0) % Plt Count (160-400) X10*3/uL MPV (9.4-12.3) fL Immature Gran % (Auto) (0.0-0.4) % Neut % (Auto) (45-73) % Lymph % (Auto) (20-40) % [place] % (Auto) (2-11) % Eos % (Auto) (0-4) % Baso % (Auto) (0-2) % Lymph # (Auto) (1.2-4.9) X10*3/uL [place] # (Auto) (0.1-1.2) X10*3/uL Eos # (Auto) (0.0-0.4) X10*3/uL Baso # (Auto) (0.0-0.2) X10*3/uL Abs Immat Gran (auto) (0.00-0.03) X10*3/uL Absolute Neuts (auto) (2.0-8.3) x10*3/uL Absolute Nucleated RBC (0.0-0.012) X10*3/uL Nucleated RBC % (auto) (0.0-0.2) /100WBC PT (10.0-13.1) SEC INR (0.9-1.1) Sodium (135-145) mmol/L Potassium (3.3-5.1) mmol/L Chloride (96-108) mmol/L Carbon Dioxide (22-29) mmol/L Anion Gap (12-20) BUN (9-16) mg/dL Creatinine (0.5-1.4) mg/dL Estim Creat Clear Calc Estimated GFR Random Glucose (60-115) mg/dL Lactic Acid 1.7 (0.5-2.0) mmol/L Calcium (8.4-10.2) mg/dL Magnesium (1.6-2.6) mg/dL Total Bilirubin (0.0-1.0) mg/dL Direct Bilirubin (0.0-0.5) mg/dL AST (5-31) U/L ALT (0-31) U/L Alkaline Phosphatase (39-117) U/L Total Protein (6.5-8.0) g/dL Albumin (3.5-5.0) g/dL Lipase (8-78) U/L Urine Color Dark Yellow Urine Appearance Turbid Urine pH 6.0 (5.0-9.0) Ur Specific [place] 1.025 (1.005-1.025) Urine Protein 100 (2+) H (Neg-Trace) mg/dL Urine Glucose (UA) >=1000 H (Negative) mg/dL Urine Ketones Trace (Negative) mg/dL Urine Blood Large (3+) H (Negative) Urine Nitrite Negative (Negative) Ur Leukocyte Esterase Small (1+) H (Negative) Urine RBC >20 H (0-2) /HPF Urine WBC >50 H (0-5) /HPF Ur Squamous Epith Cells 11-20 (0-2) /HPF Urine Bacteria 4+ (None Seen) Hyaline Casts 0-2 (0-2) /LPF Urine Yeast Present COVID-19 (CRUZ) Negative (Negative) COVID-19 Clin Com See Note <Lizette Nicolas MD - Last Filed: 12/07/22 22:42> Independent Interpretation I performed an independent interpretation of an: CT Scan (Interpretation of CT scan: Left-sided ureterolithiasis, distal ureter) <Lizette Nicolas MD - Last Filed: 12/07/22 22:42> Radiology Impression Discussion of test interpretation with radiology: I have reviewed the radiologist's reading. <Lizette Nicolas MD - Last Filed: 12/07/22 22:42> Radiologist Impression: FINDINGS: LUNG BASES: Subpleural reticular opacities at lung bases. No focal airspace opacity. No pleural effusion.? LIVER, GALLBLADDER, AND BILIARY TREE: The liver is normal in size, shape, and attenuation. Right lobe of liver measures 18 cm superior inferior. No focal hepatic lesion or biliary ductal dilatation is present. Status post cholecystectomy? PANCREAS: Unremarkable.? SPLEEN: Unremarkable.? ADRENAL GLANDS: Unremarkable.? KIDNEYS AND URETERS: Left kidney: Moderate hydronephrosis of left kidney with distention of renal pelvis and calyces. There is an obstructing stone in the ureter at the upper pelvis without any centimeters proximal to the ureterovesical junction. Stone measures 8 x 5 mm in size. Coronal image 74/119 series 4. There is a nonobstructive 1 mm stone at the lower pole of left kidney. Right kidney: Right kidney and collecting system are normal. No hydronephrosis or calculus.? BLADDER: Unremarkable.? GASTROINTESTINAL TRACT: The small and large bowel are unremarkable. The appendix is nonvisualized. No inflammation the mesentery. ABDOMINAL WALL: No significant hernia is appreciated.? LYMPH NODES: Normal. VASCULAR: Unremarkable. PELVIC VISCERA: Uterus is anteverted. Small calcifications within the uterus.? OSSEOUS STRUCTURES: No acute osseous abnormality.? CT/CT abdomen pelvis wo IV con IMPRESSION: Moderate hydronephrosis of left kidney. Obstructing 8 x 5 mm stone in the distal ureter at the upper pelvis. ? Fleischner guidelines were followed. <Lizette Nicolas MD - Last Filed: 12/07/22 22:42> Discharge Plan Discharge Clinical Impression: UTI (urinary tract infection), Acute hyponatremia, Vomiting, Ureterolithiasis <MARTHA Vences - Last Filed: 12/07/22 18:24> Patient Disposition: Admitted As Inpatient <MARTHA Vences - Last Filed: 12/07/22 18:24>
[2022-12-07 15:09] LABS: MANUAL DIFF FLAG NO
[2022-12-07 15:11] LABS: Appearance Urine Turbid; Color Urine Dark Yellow; Glucose Urine UA >=1000 mg/dL (Negative); Leukocyte Esterase Urine Small (1+) (Negative); Nitrite Urine Negative (Negative); Specific Gravity - Urine 1.025 (1.005-1.025); UMIC TRIGGER UACC YES; Urine Blood Large (3+) (Negative); Urine Ketones Trace mg/dL (Negative); Urine Protein 100 (2+) mg/dL (Neg-Trace)
[2022-12-07 15:12] LABS: Basophils Absolute Auto 0.1 X10*3/uL (0.0-0.2); Basophils Percent Auto 0.4 % (0-2); Eosinophils Percent Auto 0.2 % (0-4); Hematocrit 37.8 % (37.0-47.0); Hemoglobin 12.9 g/dl (12.0-16.0); Imm Gran Abs Auto 0.12 X10*3/uL (0.00-0.03); Lymphocytes Percent Auto 8.4 % (20-40); Mean Corpuscular HGB Conc 34.1 g/dl (31.0-35.0); Mean Corpuscular Hemoglobin 30.7 pg (27.0-33.0); Monocytes Absolute Auto 1.1 X10*3/uL (0.1-1.2); Monocytes Percent Auto 8.8 % (2-11); Neutrophils Absolute Auto 9.7 x10*3/uL (2.0-8.3); Neutrophils Percent Auto 81.2 % (45-73); Platelet Count 154 X10*3/uL (160-400); Red Cell Distribution Width 12.9 % (11.0-16.0)
[2022-12-07 15:15] LABS: INTERNATIONAL NORM RATIO 1.1 (0.9-1.1); Prothrombin Time 12.8 SEC (10.0-13.1)
[2022-12-07 15:18] LABS: Bacteria Urine 4+ (None Seen); Hyaline Casts Urine 0-2 /LPF (0-2); RBC Urine >20 /HPF (0-2); UACC Culture Trigger YES; WBC Urine >50 /HPF (0-5)
[2022-12-07 15:25] LABS: COVID-19 Test Negative (Negative); IDNOW Serial# BCCEAD1C
[2022-12-07 15:34] LABS: Lactic Acid 1.7 mmol/L (0.5-2.0)
[2022-12-07 15:37] LABS: Alanine Aminotransferase 23 U/L (0-31); Albumin Level 3.4 g/dL (3.5-5.0); Alkaline Phosphatase 58 U/L (39-117); Anion Gap 16 (12-20); Aspartate Amino Transferase 23 U/L (5-31); Bilirubin Direct 1.1 mg/dL (0.0-0.5); Bilirubin Total 2.9 mg/dL (0.0-1.0); Blood Urea Nitrogen 18 mg/dL (9-16); Calcium 8.7 mg/dL (8.4-10.2); Carbon Dioxide 22 mmol/L (22-29); Chloride 96 mmol/L (96-108); Creatinine Clr Calc Pharmacy 81.1; Estimated Glomerular Filt Rate > 60; Glucose Random 293 mg/dL (60-115); Lipase 36 U/L (8-78); Magnesium 1.9 mg/dL (1.6-2.6); Potassium 3.8 mmol/L (3.3-5.1); Sodium 130 mmol/L (135-145); Total Protein 6.9 g/dL (6.5-8.0)
[2022-12-07] MEDS: cefTRIAXone sodium 1 GM in 0.9 % Sodium Chloride 50 ML IV (19:05)
[2022-12-07] MEDS: 0.9 % Sodium Chloride 2,000 ML 999 ML IVCONT (19:06)
[2022-12-07 19:07] VITALS: BP 117/64; PULSE 104; RESP 20; TEMP 36.9; O2SAT 95
--- NOTE | 2022-12-07 19:25 | PC.NURSE ---
Patient alert and oriented x4, reports abdominal pain 4 out of 10. IV access right AC. Currently infusing cetrixone. Call alicia within reach.
[2022-12-07] MEDS: levoFLOXacin/D5W 500 MG/100 ML PIGGYBACK 100 MG IV (19:40)
[2022-12-07] MEDS: 0.9 % Sodium Chloride 1,000 ML 999 ML IV (20:20)
[2022-12-07] MEDS: ondansetron HCL 4 MG/2 ML VIAL IVPUSH (20:22)
--- NOTE | 2022-12-07 20:26 | PHA.MEDREC ---
MED REC COMPLETE, NO ISSUES Pharmacy Consult ? Medication Reconciliation Pharmacy has completed the medication reconciliation.
[2022-12-07] MEDS: Fluconazole 150 MG TABLET PO (21:27)
--- NOTE | 2022-12-07 21:27 | P.HPHOSP_ITS ---
History of Present Illness Date of Service: 12/07/22 Attending physician on admission: Stefany Tabares Chief Complaint: Fever, chills, dysuria Pt is a 62-year-old female with a PMH significant for?COPD, [id number] diabetes, and anxiety who presents to the ED with?fever, chills, diarrhea, and dysuria x3 days. Patient states symptoms began on Saturday when she began having shaking chills, abdominal pain, dysuria, and diarrhea. Patient notes that every time she ate or drank anything she is doing we have to go to the bathroom. States she has been incontinent of both urine and feces during this time. Patient reports fever was as high as 102.0, for which she took Tylenol which helped bring it down. Patient had nausea with dry heaves but no vomiting. Also has been experiencing vaginal itching. Denies hematuria or hematochezia. No flank pain. Denies chest pain/pressure, p alpitations. No recent change to chronic SOB. In the ED pt was afebrile but tachycardic. Labs were significant for WBC 12.0, sodium of 130, random glucose of 293, total bilirubin 2.9. UA positive for UTI. CT?of abdomen and pelvis showed moderate hydronephrosis of left kidney with obstructing 8 x 5 mm stone in the distal ureter at the upper pelvis.Pt was treated with ondansetron, ceftriaxone, levofloxacin, and 3 L of normal saline. Pt will be admitted to the hospital for treatment and further evaluation of UTI and nephrolithiasis with an obstructing stone. 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 Chronic bronchitis COPD (chronic obstructive pulmonary disease) COVID-19 Diabetes mellitus Essential hypertension Ex-smoker Ex-smoker Hand pain Impaired glucose tolerance Left knee pain Obese Obesity Screen for colon cancer Family History Mother Hypertension Father Cancer Surgical History Ganglion cyst History of appendectomy Hx laparoscopic cholecystectomy Previous section Social History Alcohol intake: current Alcohol intake frequency: holidays/special occasions only Patient Tobacco Use Status: Former Tobacco user Smoked in Last 30 Days: No Use of substances other than those prescribed or required for medical reasons: No Advance Directives: No Advance Directives Information Provided: No Patient : No service: No 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 Cognitive needs: No Hearing needs: No Vision needs: Yes Meds Allergies Allergy/AdvReac Type Severity Reaction Status Date / Time bee pollen [BEE STINGS] Allergy Intermediate SWELLING, Verified 04/06/22 12:26 ITCHING--SENSITIVITY oxycodone [From PERCOCET] Allergy Intermediate N/V, RASH Verified 04/06/22 12:26 Penicillins [PENICILLINS] Allergy Intermediate RASH/ITCH Verified 04/06/22 12:26 vancomycin [VANCOMYCIN] Allergy Intermediate ITCHING Verified 04/06/22 12:26 codeine [Codeine] Allergy Unknown HIVES,VOMIT Verified 04/06/22 12:26 ING Active Medications: Current Medications Acetaminophen (Acetaminophen 325 Mg Tablet) 650 mg PO Q6H PRN PRN Reason: Pain, Mild (Pain Scale 1-3) Albuterol Sulfate (Albuterol Sulfate 90 Mcg 8 Gm Inhaler) 2 puff INHALE Q4H PRN PRN Reason: Wheezing Clonazepam (Clonazepam 0.5 Mg Tablet) 0.5 mg PO BID PRN PRN Reason: Anxiety Enoxaparin Sodium (Enoxaparin Sodium 40 Mg/0.4 Ml Syringe) 40 mg SUBCUT Q24H ALE Furosemide (Furosemide 20 Mg Tablet) 20 mg PO DAILY ALE; Protocol Ondansetron HCl (Ondansetron Hcl 4 Mg/2 Ml Vial) 4 mg IVPUSH Q8H PRN PRN Reason: Nausea and Vomiting Pharmacy Consult (Consult Rx Perform Med Rec) 1 each MISCELLANE ONCE PRN PRN Reason: Consult order Sodium Chloride (0.9 % Sodium Chloride Flush 3 Ml Syringe) 3 ml IVFLUSH QSHIFT [facility] Home Medications Medication Instructions Recorded Confirmed Last Taken Type clonazepam 0.5 mg tablet 0.5 mg PO BID PRN Anxiety 12/07/22 12/07/22 Unknown History furosemide 40 mg tablet 20 mg PO DAILY 12/07/22 12/07/22 Unknown History Physical Exam Vital Signs and Narrative: Vital Signs: Last Vital Signs Temp 98.5 F 12/07/22 19:07 Pulse 104 H 12/07/22 19:07 Resp 20 12/07/22 19:07 BP 117/64 12/07/22 19:07 Pulse Ox 95 12/07/22 19:07 O2 Del Method Room Air 12/07/22 19:07 BMI result Body Mass Index 41.5 Constitutional: Alert, in no acute distress. Mental Status: Oriented to person, place and time. Eyes: Pupils are equal, round, and reactive to light. Ear, Nose, and Throat: Oropharynx clear, mucous membranes moist. Ears and nose without deformities. Trachea midline. Respiratory: Mild expiratory rhonchi in lower lobes bilaterally. Cardiovascular: S1, S2 regular. No murmurs, rubs, or gallops. Gastrointestinal: Abdomen soft, non-distended. Mild suprapubic tenderness. Normal bowel sounds. Neurologic: Cranial nerves II-XII are grossly intact bilaterally. No focal neurological deficits. Moves all extremities spontaneously. Skin: No rashes or lesions noted. Musculoskeletal: No cyanosis or clubbing. Extremities: No edema. Psychiatric: Normal mood and affect. Results Labs 12/07/22 15:00 12/07/22 15:00 Labs: Laboratory Results - last 24 hr 12/07/22 12/07/22 12/07/22 15:00 15:00 15:00 MCV 90.0 MCH 30.7 MCHC 34.1 RDW 12.9 Plt Count 154 L D MPV 10.0 Immature Gran % (Auto) 1.0 H Neut % (Auto) 81.2 H Lymph % (Auto) 8.4 L [place] % (Auto) 8.8 Eos % (Auto) 0.2 Baso % (Auto) 0.4 Lymph # (Auto) 1.0 L [place] # (Auto) 1.1 Eos # (Auto) 0.0 Baso # (Auto) 0.1 Abs Immat Gran (auto) 0.12 H Absolute Neuts (auto) 9.7 H Absolute Nucleated RBC 0.000 Nucleated RBC % (auto) 0.0 PT 12.8 INR 1.1 Anion Gap 16 Estim Creat Clear Calc 81.1 Estimated GFR > 60 Random Glucose 293 H Lactic Acid Calcium 8.7 D Magnesium 1.9 Total Bilirubin 2.9 H Direct Bilirubin 1.1 H AST 23 ALT 23 Alkaline Phosphatase 58 Total Protein 6.9 Albumin 3.4 L Lipase 36 Urine Color Urine Appearance Urine pH Ur Specific [place] Urine Protein Urine Glucose (UA) Urine Ketones Urine Blood Urine Nitrite Ur Leukocyte Esterase Urine RBC Urine WBC Ur Squamous Epith Cells Urine Bacteria Hyaline Casts Urine Yeast COVID-19 (CRUZ) COVID-19 Clin Com 12/07/22 12/07/22 12/07/22 15:00 15:00 15:00 MCV MCH MCHC RDW Plt Count MPV Immature Gran % (Auto) Neut % (Auto) Lymph % (Auto) [place] % (Auto) Eos % (Auto) Baso % (Auto) Lymph # (Auto) [place] # (Auto) Eos # (Auto) Baso # (Auto) Abs Immat Gran (auto) Absolute Neuts (auto) Absolute Nucleated RBC Nucleated RBC % (auto) PT INR Anion Gap Estim Creat Clear Calc Estimated GFR Random Glucose Lactic Acid 1.7 Calcium Magnesium Total Bilirubin Direct Bilirubin AST ALT Alkaline Phosphatase Total Protein Albumin Lipase Urine Color Dark Yellow Urine Appearance Turbid Urine pH 6.0 Ur Specific [place] 1.025 Urine Protein 100 (2+) H Urine Glucose (UA) >=1000 H Urine Ketones Trace Urine Blood Large (3+) H Urine Nitrite Negative Ur Leukocyte Esterase Small (1+) H Urine RBC >20 H Urine WBC >50 H Ur Squamous Epith Cells 11-20 Urine Bacteria 4+ Hyaline Casts 0-2 Urine Yeast Present COVID-19 (CRUZ) Negative COVID-19 Clin Com See Note Imaging Radiologist's Impressions: Impressions Abdomen/Pelvis CT 12/07/22 20:45 IMPRESSION: Moderate hydronephrosis of left kidney. Obstructing 8 x 5 mm stone in the distal ureter at the upper pelvis. Fleischner guidelines were followed. Assessment and Plan (1) UTI (urinary tract infection): Status: Acute (2) Kidney stone: Status: Inactive (3) Hyponatremia: Status: Acute Plan Pt is a 62-year-old female with a PMH significant for?COPD, [id number] diabetes, and anxiety who presents to the ED with?fever, chills, diarrhea, and dysuria x3 days. Pt will be admitted to the hospital for treatment and further evaluation of UTI and nephrolithiasis with an obstructing stone. UTI with systemic symptoms Patient with fever, chills, dysuria, suprapubic pain, UA positive for UTI Patient given ceftriaxone and levofloxacin in the ED Continue ceftriaxone 1 g daily Diarrhea, elevated bilirubin Etiology unclear CT of abdomen/pelvis to r/o acute abdomen GI panel Test for C diff Nephrolithiasis CT of abdomen and pelvis came back positive for moderate hydronephrosis of left kidney with an obstructing 8 x 5 mm stone in the distal ureter Nephrology consult Patient to be placed on maintenance IVF Patient currently not complaining of pain, analgesics as necessary Question of yeast infection Pt with pruritus, UA positive yeast Fluconazole 150 mg x 1 dose Sepsis Patient meets sepsis criteria: UTI, WBC, tachycardic, bilirubin of 2.9 Lactic acid WNL at 1.7 Patient resuscitated with 3L IVF in the ED, covered with broad-spectrum antibiotics Hyponatremia Patient was sodium of 130 upon presentation Patient given 3 L of normal saline in the ED Recheck BMP Vfz-ftfeeeo-bcrfwlvay diabetes Hold metformin SSI HTN Continue lisinopril Anxiety Continue clonazepam COPD Not in acute exacerbation Continue home inhalers DNR/DNI Attending:?Dr. Dumont DVT Prophylaxis: Lovenox Pt will require a hospitalization of at least two nights for treatment and further evaluation of?UTI with systemic symptoms and nephrolithiasis. Time Spent With Patient Time: Total time managing care of this patient today ____ minutes. Quality Stroke Does the patient have a stroke diagnosis?: No VTE Prior VTE?: No VTE Risk Level:: Medical - moderate - high VTE Device Contraindication: Treatment Not Indicated VTE Drug Contraindication: N/A - Med Ordered
[2022-12-07] MEDS: Enoxaparin Sodium 40 MG/0.4 ML SYRINGE SUBCUT (22:41)
[2022-12-07 22:56] LABS: Anion Gap 15 (12-20); Blood Urea Nitrogen 20 mg/dL (9-16); Calcium 7.9 mg/dL (8.4-10.2); Carbon Dioxide 23 mmol/L (22-29); Chloride 96 mmol/L (96-108); Creatinine Clr Calc Pharmacy 76.8; Estimated Glomerular Filt Rate > 60; Glucose Random 196 mg/dL (60-115); Potassium 3.5 mmol/L (3.3-5.1); Sodium 130 mmol/L (135-145)
[2022-12-07 23:35] LABS: CDiff Gene PCR NEGATIVE (Negative)
[2022-12-07 23:49] VITALS: BP 114/59; PULSE 93; RESP 16; TEMP 36.6; O2SAT 98
[2022-12-08] VITALS (8 sets, daily range): BP systolic 102–139; BP diastolic 48–72; PULSE 85–102; RESP 16–20; TEMP 36.1–37.2; O2SAT 95–97
[2022-12-08 06:08] LABS: Hematocrit 32.9 % (37.0-47.0); Mean Corpuscular HGB Conc 33.4 g/dl (31.0-35.0); Mean Corpuscular Hemoglobin 30.9 pg (27.0-33.0); Mean Corpuscular Volume 92.4 fL (80.0-98.0); Mean Platelet Volume 10.4 fL (9.4-12.3); Platelet Count 152 X10*3/uL (160-400); Red Blood Count 3.56 X10*6/uL (4.20-5.50); Red Cell Distribution Width 12.7 % (11.0-16.0); White Blood Count 9.8 X10*3/uL (4.8-10.8)
[2022-12-08 06:22] LABS: Anion Gap 14 (12-20); Blood Urea Nitrogen 17 mg/dL (9-16); Calcium 7.9 mg/dL (8.4-10.2); Carbon Dioxide 21 mmol/L (22-29); Chloride 99 mmol/L (96-108); Creatinine Clr Calc Pharmacy 96.4; Estimated Glomerular Filt Rate > 60; Glucose Random 159 mg/dL (60-115); Potassium 3.3 mmol/L (3.3-5.1); Sodium 131 mmol/L (135-145)
[2022-12-08 07:27] LABS: Glucose, Whole Blood 175 mg/dL (60-115)
[2022-12-08] MEDS: lisinopriL 40 MG TABLET PO (07:47)
[2022-12-08] MEDS: Furosemide 20 MG TABLET PO (07:47)
[2022-12-08] MEDS: 0.9 % Sodium Chloride Flush 3 ML SYRINGE IVFLUSH ×3 (10:12→23:07)
--- NOTE | 2022-12-08 10:54 | P.CNUR_ITS ---
History of Present Illness Consult details Consult date: 12/08/22 Narrative: 62-year-old female with a PMH significant for?COPD, [id number] diabetes, and anxiety who presened to the ED with?fever, chills, diarrhea, and dysuria x3 days.? Patient states symptoms began on Saturday when she began having shaking chills, abdominal pain, dysuria, and diarrhea.? Patient notes that every time she ate or drank anything she is doing we have to go to the bathroom.? States she has been incontinent of both urine and feces during this time.? Patient reports fever was as high as 102.0, for which she took Tylenol which helped bring it down.? Patient had nausea with dry heaves but no vomiting. Also has been experiencing vaginal itching. Denies hematuria or hematochezia.? No flank pain.? Denies chest pain/pressure, palpitations.? No recent change to chronic SOB. UA positive for UTI. CT?of abdomen and pelvis showed moderate hydronephrosis of left kidney with obstructing 8 x 5 mm stone in the distal ureter. . CT Imaging- Pertinent findings: KIDNEYS AND URETERS: Left kidney: Moderate hydronephrosis of left kidney with distention of renal pelvis and calyces. There is an obstructing stone in the ureter at the upper pelvis without any centimeters proximal to the ureterovesical junction. Stone measures 8 x 5 mm in size. There is a nonobstructive 1 mm stone at the lower pole of left kidney. Review of Systems Review of Systems: ROS negative other than stated in HPI [facility] Past Medical History Medical History Anxiety Calcification of left hand joint Calcification of right hand joint Chronic bronchitis COPD (chronic obstructive pulmonary disease) COVID-19 Diabetes mellitus Essential hypertension Ex-smoker Ex-smoker Hand pain Impaired glucose tolerance Left knee pain Obese Obesity Screen for colon cancer Family History Family History Mother Hypertension Father Cancer Surgical History Surgical History Ganglion cyst History of appendectomy Hx laparoscopic cholecystectomy Previous section Social History Social History Household Members: Family Household Members Other:: daughter Housing: House Do you presently have visiting nurse or other home services: No Alcohol intake: current Alcohol intake frequency: holidays/special occasions only Patient Tobacco Use Status: Former Tobacco user e-Cigarette/Vaping Use: Never Used Second Hand Smoke Exposure: No service: No 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 Cognitive needs: No Hearing needs: No Vision needs: Yes Meds Allergies Allergy/AdvReac Type Severity Reaction Status Date / Time bee pollen [BEE STINGS] Allergy Intermediate SWELLING, Verified 04/06/22 12:26 ITCHING--SENSITIVITY oxycodone [From PERCOCET] Allergy Intermediate N/V, RASH Verified 04/06/22 12:26 Penicillins [PENICILLINS] Allergy Intermediate RASH/ITCH Verified 04/06/22 12:26 vancomycin [VANCOMYCIN] Allergy Intermediate ITCHING Verified 04/06/22 12:26 codeine [Codeine] Allergy Unknown HIVES,VOMIT Verified 04/06/22 12:26 ING Active Medications: Current Medications Acetaminophen (Acetaminophen 325 Mg Tablet) 650 mg PO Q6H PRN PRN Reason: Pain, Mild (Pain Scale 1-3) Albuterol Sulfate (Albuterol Sulfate 90 Mcg 8 Gm Inhaler) 2 puff INHALE Q4H PRN PRN Reason: Wheezing Clonazepam (Clonazepam 0.5 Mg Tablet) 0.5 mg PO BID PRN PRN Reason: Anxiety Enoxaparin Sodium (Enoxaparin Sodium 40 Mg/0.4 Ml Syringe) 40 mg SUBCUT Q24H ALE Last Admin: 12/07/22 22:41 Dose: 40 mg Furosemide (Furosemide 20 Mg Tablet) 20 mg PO DAILY ALE; Protocol Last Admin: 12/08/22 07:47 Dose: 20 mg Glucose (Glucose Gel 15 Gm Gel..Gram.) 15 gm PO Q15M PRN; Protocol PRN Reason: per Hypoglycemia Standing Ord. Dextrose (D10) 250 mls @ 750 mls/hr IV Q15M PRN; Protocol PRN Reason: per Hypoglycemia Standing Ord. Ibuprofen (Ibuprofen 600 Mg Tablet) 600 mg PO Q6H PRN PRN Reason: fever or pain Insulin Human Lispro (Insulin Lispro 100 Unit/Ml 3 Ml Vial) 0 unit SUBCUT QIDACHS ALE; Protocol Last Admin: 12/08/22 08:33 Dose: Not Given Lisinopril (Lisinopril 40 Mg Tablet) 40 mg PO DAILY [facility]; Protocol Last Admin: 12/08/22 07:47 Dose: 40 mg Ondansetron HCl (Ondansetron Hcl 4 Mg/2 Ml Vial) 4 mg IVPUSH Q8H PRN PRN Reason: Nausea and Vomiting Pharmacy Consult (Consult Rx Perform Med Rec) 1 each MISCELLANE ONCE PRN PRN Reason: Consult order Sodium Chloride (0.9 % Sodium Chloride Flush 3 Ml Syringe) 3 ml IVFLUSH QSHIFT [facility] Last Admin: 12/08/22 10:12 Dose: 3 ml Home Medications Medication Instructions Recorded Confirmed Last Taken Type clonazepam 0.5 mg tablet 0.5 mg PO BID PRN Anxiety 12/07/22 12/07/22 Unknown History furosemide 40 mg tablet 20 mg PO DAILY 12/07/22 12/07/22 Unknown History Physical Exam Vital Signs: Vital Signs: Last Vital Signs Temp 97 F 12/08/22 07:05 Pulse 88 12/08/22 07:05 Resp 18 12/08/22 07:05 BP 139/64 12/08/22 07:05 Pulse Ox 97 12/08/22 07:05 O2 Del Method Room Air 12/08/22 07:05 BMI result Body Mass Index 41.5 Const: General: cooperative, healthy appearing and no acute distress Orientation/consciousness: patient oriented x3 HEENT: Head: Yes normal to inspection, Yes normocephalic and Yes atraumatic Eyes: Conjunctivae: conjunctivae normal Neck: Neck: Yes normal visual inspection and Yes trachea midline Chest: Chest palpation & inspection: normal inspection of the chest Resp: Effort & Inspection: normal respiratory effort Cardio: Rate: regular rate GI: Inspection: Yes normal to inspection Palpation (GI): Soft to palpation : General: Yes CVA tenderness on the left Back/Spine/Pelvis: Back: CVA tenderness Skin: General skin exam: no rashes or lesions noted Neuro: General: patient oriented x3 Extrem: General: No edema Psych: Appearance: grossly normal Results Labs 12/08/22 05:18 12/08/22 05:18 Labs: Abnormal lab results 12/07/22 12/07/22 12/07/22 Range/Units 15:00 15:00 15:00 WBC 12.0 H (4.8-10.8) X10*3/uL RBC (4.20-5.50) X10*6/uL Hgb (12.0-16.0) g/dl Hct (37.0-47.0) % Plt Count 154 L D (160-400) X10*3/uL Immature Gran % (Auto) 1.0 H (0.0-0.4) % Neut % (Auto) 81.2 H (45-73) % Lymph % (Auto) 8.4 L (20-40) % Lymph # (Auto) 1.0 L (1.2-4.9) X10*3/uL Abs Immat Gran (auto) 0.12 H (0.00-0.03) X10*3/uL Absolute Neuts (auto) 9.7 H (2.0-8.3) x10*3/uL Sodium 130 L (135-145) mmol/L Carbon Dioxide (22-29) mmol/L BUN 18 H (9-16) mg/dL POC Glucose (60-115) mg/dL Random Glucose 293 H (60-115) mg/dL Calcium (8.4-10.2) mg/dL Total Bilirubin 2.9 H (0.0-1.0) mg/dL Direct Bilirubin 1.1 H (0.0-0.5) mg/dL Albumin 3.4 L (3.5-5.0) g/dL Urine Protein 100 (2+) H (Neg-Trace) mg/dL Urine Glucose (UA) >=1000 H (Negative) mg/dL Urine Blood Large (3+) H (Negative) Ur Leukocyte Esterase Small (1+) H (Negative) Urine RBC >20 H (0-2) /HPF Urine WBC >50 H (0-5) /HPF 12/07/22 12/08/22 12/08/22 Range/Units 22:16 05:18 05:18 WBC (4.8-10.8) X10*3/uL RBC 3.56 L (4.20-5.50) X10*6/uL Hgb 11.0 L (12.0-16.0) g/dl Hct 32.9 L (37.0-47.0) % Plt Count 152 L (160-400) X10*3/uL Immature Gran % (Auto) (0.0-0.4) % Neut % (Auto) (45-73) % Lymph % (Auto) (20-40) % Lymph # (Auto) (1.2-4.9) X10*3/uL Abs Immat Gran (auto) (0.00-0.03) X10*3/uL Absolute Neuts (auto) (2.0-8.3) x10*3/uL Sodium 130 L 131 L (135-145) mmol/L Carbon Dioxide 21 L (22-29) mmol/L BUN 20 H 17 H (9-16) mg/dL POC Glucose (60-115) mg/dL Random Glucose 196 H 159 H (60-115) mg/dL Calcium 7.9 L D 7.9 L (8.4-10.2) mg/dL Total Bilirubin (0.0-1.0) mg/dL Direct Bilirubin (0.0-0.5) mg/dL Albumin (3.5-5.0) g/dL Urine Protein (Neg-Trace) mg/dL Urine Glucose (UA) (Negative) mg/dL Urine Blood (Negative) Ur Leukocyte Esterase (Negative) Urine RBC (0-2) /HPF Urine WBC (0-5) /HPF 12/08/ Range/Units 07:21 WBC (4.8-10.8) X10*3/uL RBC (4.20-5.50) X10*6/uL Hgb (12.0-16.0) g/dl Hct (37.0-47.0) % Plt Count (160-400) X10*3/uL Immature Gran % (Auto) (0.0-0.4) % Neut % (Auto) (45-73) % Lymph % (Auto) (20-40) % Lymph # (Auto) (1.2-4.9) X10*3/uL Abs Immat Gran (auto) (0.00-0.03) X10*3/uL Absolute Neuts (auto) (2.0-8.3) x10*3/uL Sodium (135-145) mmol/L Carbon Dioxide (22-29) mmol/L BUN (9-16) mg/dL POC Glucose 175 H (60-115) mg/dL Random Glucose (60-115) mg/dL Calcium (8.4-10.2) mg/dL Total Bilirubin (0.0-1.0) mg/dL Direct Bilirubin (0.0-0.5) mg/dL Albumin (3.5-5.0) g/dL Urine Protein (Neg-Trace) mg/dL Urine Glucose (UA) (Negative) mg/dL Urine Blood (Negative) Ur Leukocyte Esterase (Negative) Urine RBC (0-2) /HPF Urine WBC (0-5) /HPF Short CBC 12/07/22 12/08/22 Range/Units 15:00 05:18 WBC 12.0 H 9.8 (4.8-10.8) X10*3/uL Hgb 12.9 11.0 L (12.0-16.0) g/dl Hct 37.8 32.9 L (37.0-47.0) % Plt Count 154 L D 152 L (160-400) X10*3/uL BMP 12/07/22 12/07/22 12/08/22 15:00 22:16 05:18 Sodium 130 L 130 L 131 L Potassium 3.8 3.5 3.3 Chloride 96 96 99 Carbon Dioxide 22 23 21 L BUN 18 H 20 H 17 H Creatinine 0.88 0.93 0.74 Calcium 8.7 D 7.9 L D 7.9 L Liver Function 12/07/22 Range/Units 15:00 Total Bilirubin 2.9 H (0.0-1.0) mg/dL Direct Bilirubin 1.1 H (0.0-0.5) mg/dL AST 23 (5-31) U/L ALT 23 (0-31) U/L Alkaline Phosphatase 58 (39-117) U/L Albumin 3.4 L (3.5-5.0) g/dL Urine 12/07/22 Range/Units 15:00 Urine Color Dark Yellow Urine Appearance Turbid Urine pH 6.0 (5.0-9.0) Ur Specific [place] 1.025 (1.005-1.025) Urine Protein 100 (2+) H (Neg-Trace) mg/dL Urine Glucose (UA) >=1000 H (Negative) mg/dL Imaging Abdomen CT scan report/results: report reviewed and image reviewed CT scan - pelvis: report reviewed and image reviewed Additional studies: Date of Service: 12/07/22 EXAMINATION: CT ABDOMEN AND PELVIS WITHOUT CONTRAST? CLINICAL INFORMATION: Elevated LFTs. Both lower quadrant abdominal pain? COMPARISON: None available.? TECHNIQUE: Multidetector volumetric imaging was performed from the superior aspect of the liver through the pubic symphysis. Sagittal and coronal reformatted images were obtained on the technologist's workstation.? This CT examination was performed using dose optimization techniques as appropriate, variously including the following: *Automated exposure control *Adjustment of mA and/or kV according to patient size (this includes techniques or standardized protocols for targeted exams where dose is matched to indication/reason for exam; i.e. extremities or head) *Use of iterative reconstruction technique DLP: 759 mGy-cm FINDINGS: LUNG BASES: Subpleural reticular opacities at lung bases. No focal airspace opacity. No pleural effusion.? LIVER, GALLBLADDER, AND BILIARY TREE: The liver is normal in size, shape, and attenuation. Right lobe of liver measures 18 cm superior inferior. No focal hepatic lesion or biliary ductal dilatation is present. Status post cholecystectomy? PANCREAS: Unremarkable.? SPLEEN: Unremarkable.? ADRENAL GLANDS: Unremarkable.? KIDNEYS AND URETERS: Left kidney: Moderate hydronephrosis of left kidney with distention of renal pelvis and calyces. There is an obstructing stone in the ureter at the upper pelvis without any centimeters proximal to the ureterovesical junction. Stone measures 8 x 5 mm in size. Coronal image 74/119 series 4. There is a nonobstructive 1 mm stone at the lower pole of left kidney. Right kidney: Right kidney and collecting system are normal. No hydronephrosis or calculus.? BLADDER: Unremarkable.? GASTROINTESTINAL TRACT: The small and large bowel are unremarkable. The appendix is nonvisualized. No inflammation the mesentery. ABDOMINAL WALL: No significant hernia is appreciated.? LYMPH NODES: Normal. VASCULAR: Unremarkable. PELVIC VISCERA: Uterus is anteverted. Small calcifications within the uterus.? OSSEOUS STRUCTURES: No acute osseous abnormality.? IMPRESSION: Moderate hydronephrosis of left kidney. Obstructing 8 x 5 mm stone in the distal ureter at the upper pelvis. Assessment and Plan (1) UTI (urinary tract infection): Status: Acute (2) Kidney stone: Status: Inactive (3) Ureterolithiasis: Status: Acute (4) Hydronephrosis due to ureteral stricture: Status: Acute Plan Plan for Cystoscopy, Left ureteroscopy, possible laser lithotripsy, possible ureteral stent. Risks discussed included but not limited to, possible need to repeat procedure if stone is not completely fragmented, Irritative voiding symptoms, bladder spasms, urgency, blood in urine. Time Spent With Patient Time: Total time managing care of this patient today ____ minutes. Procedures Date of Service Date of Service: 12/08/22
[2022-12-08 11:09] LABS: Glucose, Whole Blood 180 mg/dL (60-115)
[2022-12-08 11:24] LABS: Adenovirus F 40/41 Not Detected (Not Detect.); Astrovirus Not Detected (Not Detect.); Campylobacter Not Detected (Not Detect.); Cryptosporidium Not Detected (Not Detect.); Cyclospora cayetanensis Not Detected (Not Detect.); E. coli EAEC Not Detected (Not Detect.); E. coli EPEC Not Detected (Not Detect.); E. coli ETEC Not Detected (Not Detect.); E. coli STEC Not Detected (Not Detect.); Entamoeba histolytica Not Detected (Not Detect.); Giardia lamblia Not Detected (Not Detect.); Norovirus GI/GII Not Detected (Not Detect.); Plesiomonas shigelloides Not Detected (Not Detect.); Rotavirus A Not Detected (Not Detect.); Salmonella Not Detected (Not Detect.); Sapovirus Not Detected (Not Detect.); Shigella sp./EIEC Not Detected (Not Detect.); Vibrio Not Detected (Not Detect.); Vibrio Cholerae Not Detected (Not Detect.); Yersinia enterocolitica Not Detected (Not Detect.)
[2022-12-08] MEDS: Insulin Lispro 100 UNIT/ML 3 ML VIAL SUBCUT ×3 (11:27→19:55)
--- NOTE | 2022-12-08 11:28 | P.CONAN_ITS ---
[facility] Active Problems Active Problems: All Active Problems (Updated 12/08/22 @ 10:55 by Herb Lennon MD) Hydronephrosis due to ureteral stricture (Acute) Ureterolithiasis (Acute) Hyponatremia (Acute) UTI (urinary tract infection) (Acute) Acute hyponatremia (Acute) Vomiting (Acute) Morbid obesity with BMI of 40.0-44.9, adult (Acute) Screening for hypothyroidism (Acute) Screening for hyperlipidemia (Acute) Screen for colon cancer (Acute) COVID-19 (Acute) COPD (chronic obstructive pulmonary disease) (Acute) Ex-smoker (Acute) Obesity (Acute) Ex-smoker (Acute) Hand pain (Acute) Diabetes mellitus (Acute) Calcification of right hand joint (Acute) Calcification of left hand joint (Acute) Left knee pain (Acute) Obese (Acute) Chronic bronchitis (Acute) Impaired glucose tolerance (Acute) Essential hypertension (Acute) Anxiety (Acute) Past Medical History Medical History Anxiety Calcification of left hand joint Calcification of right hand joint Chronic bronchitis COPD (chronic obstructive pulmonary disease) COVID-19 Diabetes mellitus Essential hypertension Ex-smoker Ex-smoker Hand pain Impaired glucose tolerance Left knee pain Obese Obesity Screen for colon cancer Family History Family History Mother Hypertension Father Cancer Surgical History Surgical History Ganglion cyst History of appendectomy Hx laparoscopic cholecystectomy Previous section Social History Social History Household Members: Family Household Members Other:: daughter Housing: House Do you presently have visiting nurse or other home services: No Alcohol intake: current Alcohol intake frequency: holidays/special occasions only Patient Tobacco Use Status: Former Tobacco user e-Cigarette/Vaping Use: Never Used Second Hand Smoke Exposure: No service: No 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 Cognitive needs: No Hearing needs: No Vision needs: Yes Meds Allergies Allergy/AdvReac Type Severity Reaction Status Date / Time bee pollen [BEE STINGS] Allergy Intermediate SWELLING, Verified 04/06/22 12:26 ITCHING--SENSITIVITY oxycodone [From PERCOCET] Allergy Intermediate N/V, RASH Verified 04/06/22 12:26 Penicillins [PENICILLINS] Allergy Intermediate RASH/ITCH Verified 04/06/22 12:26 vancomycin [VANCOMYCIN] Allergy Intermediate ITCHING Verified 04/06/22 12:26 codeine [Codeine] Allergy Unknown HIVES,VOMIT Verified 04/06/22 12:26 ING Active Medications: Current Medications Acetaminophen (Acetaminophen 325 Mg Tablet) 650 mg PO Q6H PRN PRN Reason: Pain, Mild (Pain Scale 1-3) Albuterol Sulfate (Albuterol Sulfate 90 Mcg 8 Gm Inhaler) 2 puff INHALE Q4H PRN PRN Reason: Wheezing Clonazepam (Clonazepam 0.5 Mg Tablet) 0.5 mg PO BID PRN PRN Reason: Anxiety Enoxaparin Sodium (Enoxaparin Sodium 40 Mg/0.4 Ml Syringe) 40 mg SUBCUT Q24H [facility] Last Admin: 12/07/22 22:41 Dose: 40 mg Furosemide (Furosemide 20 Mg Tablet) 20 mg PO DAILY [facility]; Protocol Last Admin: 12/08/22 07:47 Dose: 20 mg Glucose (Glucose Gel 15 Gm Gel..Gram.) 15 gm PO Q15M PRN; Protocol PRN Reason: per Hypoglycemia Standing Ord. Dextrose (D10) 250 mls @ 750 mls/hr IV Q15M PRN; Protocol PRN Reason: per Hypoglycemia Standing Ord. Levofloxacin (Levaquin) 500 mg in 100 mls @ 100 mls/hr IV PREOP ONE Stop: 12/08/22 12:06 Ibuprofen (Ibuprofen 600 Mg Tablet) 600 mg PO Q6H PRN PRN Reason: fever or pain Insulin Human Lispro (Insulin Lispro 100 Unit/Ml 3 Ml Vial) 0 unit SUBCUT QID ACHS [facility]; Protocol Last Admin: 12/08/22 08:33 Dose: Not Given Lisinopril (Lisinopril 40 Mg Tablet) 40 mg PO DAILY [facility]; Protocol Last Admin: 12/08/22 07:47 Dose: 40 mg Ondansetron HCl (Ondansetron Hcl 4 Mg/2 Ml Vial) 4 mg IVPUSH Q8H PRN PRN Reason: Nausea and Vomiting Pharmacy Consult (Consult Rx Perform Med Rec) 1 each MISCELLANE ONCE PRN PRN Reason: Consult order Sodium Chloride (0.9 % Sodium Chloride Flush 3 Ml Syringe) 3 ml IVFLUSH QSHIFT ALE Last Admin: 12/08/22 10:12 Dose: 3 ml Home Medications Medication Instructions Recorded Confirmed Last Taken Type clonazepam 0.5 mg tablet 0.5 mg PO BID PRN Anxiety 12/07/22 12/07/22 Unknown History furosemide 40 mg tablet 20 mg PO DAILY 12/07/22 12/07/22 Unknown History Exam Exam Date and Time: December 08, 2022 1128 Height,Weight and Vital Signs: Height 5 ft 5 in Weight 113.398 kg Last Vital Signs Temp 97 F 12/08/22 07:05 Pulse 88 12/08/22 07:05 Resp 18 12/08/22 07:05 BP 139/64 12/08/22 07:05 Pulse Ox 97 12/08/22 07:05 O2 Del Method Room Air 12/08/22 07:05 Pertinent Lab Results Pertinent Lab Results: Laboratory Tests 12/07/22 12/07/22 12/07/22 15:00 15:00 15:00 WBC 12.0 H RBC 4.20 Hgb 12.9 Hct 37.8 MCV 90.0 MCH 30.7 MCHC 34.1 RDW 12.9 Plt Count 154 L D MPV 10.0 Immature Gran % (Auto) 1.0 H Neut % (Auto) 81.2 H Lymph % (Auto) 8.4 L Door % (Auto) 8.8 Eos % (Auto) 0.2 Baso % (Auto) 0.4 Lymph # (Auto) 1.0 L Door # (Auto) 1.1 Eos # (Auto) 0.0 Baso # (Auto) 0.1 Abs Immat Gran (auto) 0.12 H Absolute Neuts (auto) 9.7 H Absolute Nucleated RBC 0.000 Nucleated RBC % (auto) 0.0 PT 12.8 INR 1.1 Sodium 130 L Potassium 3.8 Chloride 96 Carbon Dioxide 22 Anion Gap 16 BUN 18 H Creatinine 0.88 Estim Creat Clear Calc 81.1 Estimated GFR > 60 POC Glucose Random Glucose 293 H Lactic Acid Calcium 8.7 D Magnesium 1.9 Total Bilirubin 2.9 H Direct Bilirubin 1.1 H AST 23 ALT 23 Alkaline Phosphatase 58 Total Protein 6.9 Albumin 3.4 L Lipase 36 Urine Color Urine Appearance Urine pH Ur Specific [place] Urine Protein Urine Glucose (UA) Urine Ketones Urine Blood Urine Nitrite Ur Leukocyte Esterase Urine RBC Urine WBC Ur Squamous Epith Cells Urine Bacteria Hyaline Casts Urine Yeast Stl C. cayetanensis PCR Stool Rotavirus A PCR Stl Adenov PCR Stool Astrovirus (PCR) Stool Campylobacter PCR Stool Cryptosporidium PCR Stl Sh Tox Pr E STEC PCR Stool E coli O157 PCR Stl Enterotoxigenic E PCR Stool EPEC (PCR) Stool EAEC (PCR) Stl E. histolytica PCR Stool Giardia Lamblia PCR Stl P. shigelloides PCR Stool Salmonella PCR Stool Sapovirus (PCR) Stl Shigella/EIEC PCR St Y.enterocolitica PCR Stool Vibrio (PCR) Stl Vibrio cholerae PCR Stl Norovirus GI/GII PCR C. difficile Tox B Gene COVID-19 ([facility]) COVID-19 Clin Com 12/07/22 12/07/22 12/07/22 15:00 15:00 15:00 WBC RBC Hgb Hct MCV MCH MCHC RDW Plt Count MPV Immature Gran % (Auto) Neut % (Auto) Lymph % (Auto) Door % (Auto) Eos % (Auto) Baso % (Auto) Lymph # (Auto) Door # (Auto) Eos # (Auto) Baso # (Auto) Abs Immat Gran (auto) Absolute Neuts (auto) Absolute Nucleated RBC Nucleated RBC % (auto) PT INR Sodium Potassium Chloride Carbon Dioxide Anion Gap BUN Creatinine Estim Creat Clear Calc Estimated GFR POC Glucose Random Glucose Lactic Acid 1.7 Calcium Magnesium Total Bilirubin Direct Bilirubin AST ALT Alkaline Phosphatase Total Protein Albumin Lipase Urine Color Dark Yellow Urine Appearance Turbid Urine pH 6.0 Ur Specific [place] 1.025 Urine Protein 100 (2+) H Urine Glucose (UA) >=1000 H Urine Ketones Trace Urine Blood Large (3+) H Urine Nitrite Negative Ur Leukocyte Esterase Small (1+) H Urine RBC >20 H Urine WBC >50 H Ur Squamous Epith Cells 11-20 Urine Bacteria 4+ Hyaline Casts 0-2 Urine Yeast Present Stl C. cayetanensis PCR Stool Rotavirus A PCR Stl Adenov F PCR Stool Astrovirus (PCR) Stool Campylobacter PCR Stool Cryptosporidium PCR Stl Sh Tox Pr E STEC PCR Stool E coli O157 PCR Stl Enterotoxigenic E PCR Stool EPEC (PCR) Stool EAEC (PCR) Stl E. histolytica PCR Stool Giardia Lamblia PCR Stl P. shigelloides PCR Stool Salmonella PCR Stool Sapovirus (PCR) Stl Shigella/EIEC PCR St Y.enterocolitica PCR Stool Vibrio (PCR) Stl Vibrio cholerae PCR Stl Norovirus GI/GII PCR C. difficile Tox B Gene COVID-19 ([facility]) Negative COVID-19 Clin Com See Note 12/07/22 12/07/22 12/07/22 22:16 22:40 22:41 WBC RBC Hgb Hct MCV MCH MCHC RDW Plt Count MPV Immature Gran % (Auto) Neut % (Auto) Lymph % (Auto) Door % (Auto) Eos % (Auto) Baso % (Auto) Lymph # (Auto) Door # (Auto) Eos # (Auto) Baso # (Auto) Abs Immat Gran (auto) Absolute Neuts (auto) Absolute Nucleated RBC Nucleated RBC % (auto) PT INR Sodium 130 L Potassium 3.5 Chloride 96 Carbon Dioxide 23 Anion Gap 15 BUN 20 H Creatinine 0.93 Estim Creat Clear Calc 76.8 Estimated GFR > 60 POC Glucose Random Glucose 196 H Lactic Acid Calcium 7.9 L D Magnesium Total Bilirubin Direct Bilirubin AST ALT Alkaline Phosphatase Total Protein Albumin Lipase Urine Color Urine Appearance Urine pH Ur Specific [place] Urine Protein Urine Glucose (UA) Urine Ketones Urine Blood Urine Nitrite Ur Leukocyte Esterase Urine RBC Urine WBC Ur Squamous Epith Cells Urine Bacteria Hyaline Casts Urine Yeast Stl C. cayetanensis PCR Not Detected Stool Rotavirus A PCR Not Detected Stl Adenov F 40/41 PCR Not Detected Stool Astrovirus (PCR) Not Detected Stool Campylobacter PCR Not Detected Stool Cryptosporidium PCR Not Detected Stl Sh Tox Pr E STEC PCR Not Detected Stool E coli O157 PCR Not applicable Stl Enterotoxigenic E PCR Not Detected Stool EPEC (PCR) Not Detected Stool EAEC (PCR) Not Detected Stl E. histolytica PCR Not Detected Stool Giardia Lamblia PCR Not Detected Stl P. shigelloides PCR Not Detected Stool Salmonella PCR Not Detected Stool Sapovirus (PCR) Not Detected Stl Shigella/EIEC PCR Not Detected St Y.enterocolitica PCR Not Detected Stool Vibrio (PCR) Not Detected Stl Vibrio cholerae PCR Not Detected Stl Norovirus GI/GII PCR Not Detected C. difficile Tox B Gene NEGATIVE COVID-19 ([facility]) COVID-19 Clin Com 12/08/22 12/08/22 12/08/22 05:18 05:18 07:21 WBC 9.8 RBC 3.56 L Hgb 11.0 L Hct 32.9 L MCV 92.4 MCH 30.9 MCHC 33.4 RDW 12.7 Plt Count 152 L MPV 10.4 Immature Gran % (Auto) Neut % (Auto) Lymph % (Auto) Door % (Auto) Eos % (Auto) Baso % (Auto) Lymph # (Auto) Door # (Auto) Eos # (Auto) Baso # (Auto) Abs Immat Gran (auto) Absolute Neuts (auto) Absolute Nucleated RBC 0.000 Nucleated RBC % (auto) 0.0 PT INR Sodium 131 L Potassium 3.3 Chloride 99 Carbon Dioxide 21 L Anion Gap 14 BUN 17 H Creatinine 0.74 Estim Creat Clear Calc 96.4 Estimated GFR > 60 POC Glucose 175 H Random Glucose 159 H Lactic Acid Calcium 7.9 L Magnesium Total Bilirubin Direct Bilirubin AST ALT Alkaline Phosphatase Total Protein Albumin Lipase Urine Color Urine Appearance Urine pH Ur Specific [place] Urine Protein Urine Glucose (UA) Urine Ketones Urine Blood Urine Nitrite Ur Leukocyte Esterase Urine RBC Urine WBC Ur Squamous Epith Cells Urine Bacteria Hyaline Casts Urine Yeast Stl C. cayetanensis PCR Stool Rotavirus A PCR Stl Adenov F 40/41 PCR Stool Astrovirus (PCR) Stool Campylobacter PCR Stool Cryptosporidium PCR Stl Sh Tox Pr E STEC PCR Stool E coli O157 PCR Stl Enterotoxigenic E PCR Stool EPEC (PCR) Stool EAEC (PCR) Stl E. histolytica PCR Stool Giardia Lamblia PCR Stl P. shigelloides PCR Stool Salmonella PCR Stool Sapovirus (PCR) Stl Shigella/EIEC PCR St Y.enterocolitica PCR Stool Vibrio (PCR) Stl Vibrio cholerae PCR Stl Norovirus GI/GII PCR C. difficile Tox B Gene COVID-19 ([facility]) COVID-19 Clin Com 12/08/22 11:03 WBC RBC Hgb Hct MCV MCH MCHC RDW Plt Count MPV Immature Gran % (Auto) Neut % (Auto) Lymph % (Auto) Door % (Auto) Eos % (Auto) Baso % (Auto) Lymph # (Auto) Door # (Auto) Eos # (Auto) Baso # (Auto) Abs Immat Gran (auto) Absolute Neuts (auto) Absolute Nucleated RBC Nucleated RBC % (auto) PT INR Sodium Potassium Chloride Carbon Dioxide Anion Gap BUN Creatinine Estim Creat Clear Calc Estimated GFR POC Glucose 180 H Random Glucose Lactic Acid Calcium Magnesium Total Bilirubin Direct Bilirubin AST ALT Alkaline Phosphatase Total Protein Albumin Lipase Urine Color Urine Appearance Urine pH Ur Specific [place] Urine Protein Urine Glucose (UA) Urine Ketones Urine Blood Urine Nitrite Ur Leukocyte Esterase Urine RBC Urine WBC Ur Squamous Epith Cells Urine Bacteria Hyaline Casts Urine Yeast Stl C. cayetanensis PCR Stool Rotavirus A PCR Stl Adenov F 40/41 PCR Stool Astrovirus (PCR) Stool Campylobacter PCR Stool Cryptosporidium PCR Stl Sh Tox Pr E STEC PCR Stool E coli O157 PCR Stl Enterotoxigenic E PCR Stool EPEC (PCR) Stool EAEC (PCR) Stl E. histolytica PCR Stool Giardia Lamblia PCR Stl P. shigelloides PCR Stool Salmonella PCR Stool Sapovirus (PCR) Stl Shigella/EIEC PCR St Y.enterocolitica PCR Stool Vibrio (PCR) Stl Vibrio cholerae PCR Stl Norovirus GI/GII PCR C. difficile Tox B Gene COVID-19 ([facility]) COVID-19 Clin Com Airway Heart: RRR Lungs: CTA Assessment and Plan Final Anesthetic Review ASA Class: III and Emergency Final Preanesthetic Review: Meds/Allgs Chart Reviewed, Consent Obtained/Reviewed, Anes Risks/Benef Reviewed and DNR Form (If Appl.) Patient Risk: Intermediate Procedure Risk: Intermediate Anesthetic Plan Anesthetic Plan: GA Disposition: Standard PACU
--- NOTE | 2022-12-08 13:37 | MHC.SHP ---
Pre-Procedural Eval Section A Date of Service: 12/08/22 The patient is an INPATIENT: Yes The History & Physical has been completed within 30 days and I have reviewed it.: Yes Section B Chief Complaint: Diarrhea, dysuria Allergies: Allergies Allergy/AdvReac Type Severity Reaction Status Date / Time bee pollen [BEE STINGS] Allergy Intermediate SWELLING, Verified 04/06/22 12:26 ITCHING--SENSITIVITY oxycodone [From PERCOCET] Allergy Intermediate N/V, RASH Verified 04/06/22 12:26 Penicillins [PENICILLINS] Allergy Intermediate RASH/ITCH Verified 04/06/22 12:26 vancomycin [VANCOMYCIN] Allergy Intermediate ITCHING Verified 04/06/22 12:26 codeine [Codeine] Allergy Unknown HIVES,VOMIT Verified 04/06/22 12:26 ING Plan Diagnosis/Plan: Unchanged I have reviewed the history and physical and performed a pertinent physical examination on my patient. No changes have occurred unless specified. Plan for Cystoscopy, left ureteral stent, possible ureteroscopy, possible laser lithotripsy. Risks discussed included but not limited to, possible need to repeat procedure if stone is not completely fragmented, Irritative voiding symptoms, bladder spasms, urgency, blood in urine. Time Spent With Patient Time: Total time managing care of this patient today ____ minutes.
--- NOTE | 2022-12-08 13:40 | P.OP_ITS ---
Operative Note Operative Note Date of Service: 12/08/22 Narrative: PreOperative Diagnosis:?? UTI sepsis, left hydronephrosis secondary to left ureteral stone Post Operative Diagnosis:?? ?UTI sepsis, left hydronephrosis secondary to left ureteral stone Procedure:- cystoscopy, left retrograde- left ureteral stent placement, size 6 [place] by multi length cm Surgeon:?Dr Herb Lennon Anesthesia:? General Indications for procedure: 62-year-old female with a PMH significant for?COPD, [id number] diabetes, and anxiety who presented to ED with ?fever, chills, diarrhea, and dysuria x3 days.? Patient reports fever was as high as 102.0, for which she took Tylenol which helped bring it down. UA positive for UTI. CT?of abdomen and pelvis showed moderate hydronephrosis of left kidney with obstructing 8 x 5 mm stone in the distal ureter. . Procedure: After informed consent was verified the patient was brought to the operating placed on the OR table in supine position.? General Anesthesia was administered per protocol.? The patient was placed in lithotomy position, prepped and draped in the usual sterile fashion.? Safety pause time-out and side of surgery confirmed.? Antibiotics confirmed. A 22 [place] cystoscope was inserted transurethrally, The bladder was visualized.? 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 Both ureteric orifices were in normal position. The? left ureteric orifice was cannulated? and a retrograde examination was performed, there was contrast to the level of the stone in the upper 3rd of the distal left ureter. A hydrophilic guidewire was placed, There was some resistance at the level of the stone but the guidewire was able to be manipulated up to the level of the renal pelvis under fluoroscopy. there was cloudy urine noted draining from the urinary system. The open-ended catheter was passed over the guidewire had again noted resistance at the level of the stone the guidewire was removed. Urine was sent from the left renal system for culture. The guidewire was passed through the open-ended catheter into the kidney. After removing the open-ended ureteral catheter, A? 6 [place] by multi length stent was placed into the ureter and renal pelvis under a combination of fluoroscopy and direct visualization. The bladder was emptied.? The rigid cystoscope was removed. ? The patient tolerated the procedure well and was brought to the recovery room in stable condition. Complications: None Drains: Ureteral stent as dictated above
[2022-12-08] MEDS: Acetaminophen 1,000 MG/100 ML PIGGYBACK 400 MG IV (13:41)
--- NOTE | 2022-12-08 14:10 | P.CONNP_ITS ---
History of Present Illness Reason for Consult Consult date: 12/08/22 Chief Complaint Chief complaint: Diarrhea, dysuria History of Present Illness Narrative: 62-year-old female presented to the ED with?fever, chills, diarrhea, and dysuria and currently with low serum sodium. Patient states symptoms began on Saturday when she began having shaking chills, abdominal pain, dysuria, and diarrhea.? She denies chest pain and SOB and denies excessive fluid intake. CT?of abdomen and pelvis showed moderate hydronephrosis of left kidney with ob structing 8 x 5 mm stone in the distal ureter at the upper pelvis. Review of Systems Review of Systems 10 points ROS negative except for pertinent in HPI PMFSH Past Medical History Medical History Anxiety Calcification of left hand joint Calcification of right hand joint Chronic bronchitis COPD (chronic obstructive pulmonary disease) COVID-19 Diabetes mellitus Essential hypertension Ex-smoker Ex-smoker Hand pain Impaired glucose tolerance Left knee pain Obese Obesity Screen for colon cancer Family History Family History Mother Hypertension Father Cancer Surgical History Surgical History Ganglion cyst History of appendectomy Hx laparoscopic cholecystectomy Previous section Social History Social History Household Members: Family Household Members Other:: daughter Housing: House Do you presently have visiting nurse or other home services: No Alcohol intake: current Alcohol intake frequency: holidays/special occasions only Patient Tobacco Use Status: Former Tobacco user e-Cigarette/Vaping Use: Never Used Second Hand Smoke Exposure: No service: No 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 Cognitive needs: No Hearing needs: No Vision needs: Yes Meds Allergies Allergy/AdvReac Type Severity Reaction Status Date / Time bee pollen [BEE STINGS] Allergy Intermediate SWELLING, Verified 04/06/22 12:26 ITCHING--SENSITIVITY oxycodone [From PERCOCET] Allergy Intermediate N/V, RASH Verified 04/06/22 12:26 Penicillins [PENICILLINS] Allergy Intermediate RASH/ITCH Verified 04/06/22 12:26 vancomycin [VANCOMYCIN] Allergy Intermediate ITCHING Verified 04/06/22 12:26 codeine [Codeine] Allergy Unknown HIVES,VOMIT Verified 04/06/22 12:26 ING Active Medications: Current Medications Acetaminophen (Acetaminophen 325 Mg Tablet) 650 mg PO Q6H PRN PRN Reason: Pain, Mild (Pain Scale 1-3) Albuterol Sulfate (Albuterol Sulfate 90 Mcg 8 Gm Inhaler) 2 puff INHALE Q4H PRN PRN Reason: Wheezing Clonazepam (Clonazepam 0.5 Mg Tablet) 0.5 mg PO BID PRN PRN Reason: Anxiety Enoxaparin Sodium (Enoxaparin Sodium 40 Mg/0.4 Ml Syringe) 40 mg SUBCUT Q24H [facility] Last Admin: 12/07/22 22:41 Dose: 40 mg Furosemide (Furosemide 20 Mg Tablet) 20 mg PO DAILY [facility]; Protocol Last Admin: 12/08/22 07:47 Dose: 20 mg Glucose (Glucose Gel 15 Gm Gel..Gram.) 15 gm PO Q15M PRN; Protocol PRN Reason: per Hypoglycemia Standing Ord. Hydromorphone HCl (Hydromorphone Hcl 0.5 Mg/0.5 Ml Syringe) 0.25 mg IVPUSH Q5M PRN; Protocol PRN Reason: Pain, Severe (Pain Scale 7-10) Dextrose (D10) 250 mls @ 750 mls/hr IV Q15M PRN; Protocol PRN Reason: per Hypoglycemia Standing Ord. Ceftriaxone Sodium 1 gm/ (Sodium Chloride) 50 mls @ 100 mls/hr IV Q24H [facility] Ibuprofen (Ibuprofen 600 Mg Tablet) 600 mg PO Q6H PRN PRN Reason: fever or pain Insulin Human Lispro (Insulin Lispro 100 Unit/Ml 3 Ml Vial) 0 unit SUBCUT QIDACHS [facility]; Protocol Last Admin: 12/08/22 11:27 Dose: 2 unit Lisinopril (Lisinopril 40 Mg Tablet) 40 mg PO DAILY [facility]; Protocol Last Admin: 12/08/22 07:47 Dose: 40 mg Ondansetron HCl (Ondansetron Hcl 4 Mg/2 Ml Vial) 4 mg IVPUSH Q8H PRN PRN Reason: Nausea and Vomiting Ondansetron HCl (Ondansetron Hcl 4 Mg/2 Ml Vial) 4 mg IVPUSH ONCE PRN PRN Reason: Nausea and Vomiting Pharmacy Consult (Consult Rx Perform Med Rec) 1 each MISCELLANE ONCE PRN PRN Reason: Consult order Sodium Chloride (0.9 % Sodium Chloride Flush 3 Ml Syringe) [facility] Last Admin: 12/08/22 10:12 Dose: 3 ml Home Medications Medication Instructions Recorded Confirmed Last Taken Type clonazepam 0.5 mg tablet 0.5 mg PO BID PRN Anxiety 12/07/22 12/07/22 Unknown History furosemide 40 mg tablet 20 mg PO DAILY 12/07/22 12/07/22 Unknown History Physical Exam Vital Signs: Last Vital Signs Temp 98.9 F 12/08/22 13:50 Pulse 94 12/08/22 13:50 Resp 20 12/08/22 13:50 BP 107/52 L 12/08/22 13:50 Pulse Ox 95 12/08/22 13:50 O2 Del Method Room Air 12/08/22 13:50 O2 Flow Rate 2 12/08/22 13:40 BMI result Body Mass Index 41.5 Const General: no acute distress, alert and awake HEENT Head: Yes normocephalic and Yes atraumatic Neck Neck: Yes supple Resp Auscultation: clear to auscultation bilaterally Cardio Heart sounds: S1 normal heart sound present and S2 normal heart sound present GI Palpation (GI): Soft to palpation and nontender Extrem General: No edema Results Lab Results 12/08/22 05:18 12/08/22 05:18 Lab results: Chemistry 12/07/22 12/07/22 12/08/22 15:00 22:16 05:18 Sodium 130 L 130 L 131 L Potassium 3.8 3.5 3.3 Carbon Dioxide 22 23 21 L BUN 18 H 20 H 17 H Creatinine 0.88 0.93 0.74 Calcium 8.7 D 7.9 L D 7.9 L Hematology 12/07/22 12/08/22 15:00 05:18 WBC 12.0 H 9.8 Hgb 12.9 11.0 L Plt Count 154 L D 152 L Urinalysis 12/07/22 15:00 Urine Color Dark Yellow Urine Appearance Turbid Urine pH 6.0 Ur Specific [place] 1.025 Urine Protein 100 (2+) H Urine Glucose (UA) >=1000 H Urine Ketones Trace Urine Blood Large (3+) H Urine Nitrite Negative Ur Leukocyte Esterase Small (1+) H Urine RBC >20 H Urine WBC >50 H Ur Squamous Epith Cells 11-20 Hyaline Casts 0-2 Assessment and Plan (1) Hyponatremia: Status: Acute (2) Hydronephrosis: Status: Acute Plan hyponatremia most likely hypotonic in the setting of obstructive uropathy obstructive uropathy can cause tubular dysfunction cannot r/o pre renal state given clinical presentation CT scan showed left moderate hydronephrosis with left kidney stone s/p cystoscopy with stent placement REC Uosm and Sosm Mariann fluid restriction 1500 cc daily discontinue NSAID (ibuprofen) follow kidney function and electrolytes Time Spent With Patient Time: Total time managing care of this patient today ____ minutes. Procedures Date of Service Date of Service: 12/08/22
--- NOTE | 2022-12-08 14:30 | MHC.CM.PN ---
CM MET WITH PT AND BROTHER AT BEDSIDE PT REPORTS SHE LIVES WITH HER GRAND DAUGHTER AND HER BROTHER LIVES [place] SHE REPORTS SHE IS INDEPENDENT WITH CARE, HAS NO DME AND NO SERVICES PT REPORTS SHE HAS A HCP NAMING HER BROTHER HER AGENT, COPY REQUESTED SHE IS COVID [place] PCP: BOSTON BALLARD DCP: HOME NO SERVICES BROTHER TO TRANSPORT
--- NOTE | 2022-12-08 15:00 | HO.PM.IMPN ---
Subjective Subjective Date of Service: 12/08/22 Interval History: uti, nephrolithiasis Review of Systems Patient denies any shortness, denies dysuria denies any cough or sputum. Physical Exam Vital Signs: Vital Signs: Last Vital Signs Temp 98.9 F 12/08/22 13:50 Pulse 94 12/08/22 13:50 Resp 20 12/08/22 13:50 BP 107/52 L 12/08/22 13:50 Pulse Ox 95 12/08/22 13:50 O2 Del Method Room Air 12/08/22 13:50 O2 Flow Rate 2 12/08/22 13:40 BMI result Body Mass Index 41.5 Appearance: Alert.? Oriented X3.? not in distress.? cvs: [id number], [id number] . res: clear to auscultation ,no rhonchii or wheezing abd: no rebound or guarding ,nt, bs present. ext pulses present , no cyanosis . neuro: axo3 , nonfocal. Objective Data Active Medications Acetaminophen (Acetaminophen 325 Mg Tablet) 650 mg PO Q6H PRN PRN Reason: Pain, Mild (Pain Scale 1-3) Albuterol Sulfate (Albuterol Sulfate 90 Mcg 8 Gm Inhaler) 2 puff INHALE Q4H PRN PRN Reason: Wheezing Clonazepam (Clonazepam 0.5 Mg Tablet) 0.5 mg PO BID PRN PRN Reason: Anxiety Enoxaparin Sodium (Enoxaparin Sodium 40 Mg/0.4 Ml Syringe) 40 mg SUBCUT Q24H [facility] Last Admin: 12/07/22 22:41 Dose: 40 mg Documented By: ROHITH Furosemide (Furosemide 20 Mg Tablet) 20 mg PO DAILY [facility]; Protocol Last Admin: 12/08/22 07:47 Dose: 20 mg Documented By: PATRICK Glucose (Glucose Gel 15 Gm Gel..Gram.) 15 gm PO Q15M PRN; Protocol PRN Reason: per Hypoglycemia Standing Ord. Hydromorphone HCl (Hydromorphone Hcl 0.5 Mg/0.5 Ml Syringe) 0.25 mg IVPUSH Q5M PRN; Protocol PRN Reason: Pain, Severe (Pain Scale 7-10) Dextrose (D10) 250 mls @ 750 mls/hr IV Q15M PRN; Protocol PRN Reason: per Hypoglycemia Standing Ord. Ceftriaxone Sodium 1 gm/ (Sodium Chloride) 50 mls @ 100 mls/hr IV Q24H [facility] Ibuprofen (Ibuprofen 600 Mg Tablet) 600 mg PO Q6H PRN PRN Reason: fever or pain Insulin Human Lispro (Insulin Lispro 100 Unit/Ml 3 Ml Vial) 0 unit SUBCUT QIDACHS [facility]; Protocol Last Admin: 12/08/22 11:27 Dose: 2 unit Documented By: PATRICK Lisinopril (Lisinopril 40 Mg Tablet) 40 mg PO DAILY [facility]; Protocol Last Admin: 12/08/22 07:47 Dose: 40 mg Documented By: PATRICK Ondansetron HCl (Ondansetron Hcl 4 Mg/2 Ml Vial) 4 mg IVPUSH Q8H PRN PRN Reason: Nausea and Vomiting Ondansetron HCl (Ondansetron Hcl 4 Mg/2 Ml Vial) 4 mg IVPUSH ONCE PRN PRN Reason: Nausea and Vomiting Pharmacy Consult (Consult Rx Perform Med Rec) 1 each MISCELLANE ONCE PRN PRN Reason: Consult order Sodium Chloride (0.9 % Sodium Chloride Flush 3 Ml Syringe) 3 ml IVFLUSH QSHIFT [facility] Last Admin: 12/08/22 10:12 Dose: 3 ml Documented By: PATRICK Labs 12/08/22 05:18 12/08/22 05:18 Labs: Laboratory Results - last 24 hr 12/07/22 12/07/22 12/07/22 15:00 15:00 15:00 MCV 90.0 MCH 30.7 MCHC 34.1 RDW 12.9 Plt Count 154 L D MPV 10.0 Immature Gran % (Auto) 1.0 H Neut % (Auto) 81.2 H Lymph % (Auto) 8.4 L [place] % (Auto) 8.8 Eos % (Auto) 0.2 Baso % (Auto) 0.4 Lymph # (Auto) 1.0 L [place] # (Auto) 1.1 Eos # (Auto) 0.0 Baso # (Auto) 0.1 Abs Immat Gran (auto) 0.12 H Absolute Neuts (auto) 9.7 H Absolute Nucleated RBC 0.000 Nucleated RBC % (auto) 0.0 PT 12.8 INR 1.1 Anion Gap 16 Estim Creat Clear Calc 81.1 Estimated GFR > 60 POC Glucose Random Glucose 293 H Lactic Acid Calcium 8.7 D Magnesium 1.9 Total Bilirubin 2.9 H Direct Bilirubin 1.1 H AST 23 ALT 23 Alkaline Phosphatase 58 Total Protein 6.9 Albumin 3.4 L Lipase 36 Urine Color Urine Appearance Urine pH Ur Specific [place] Urine Protein Urine Glucose (UA) Urine Ketones Urine Blood Urine Nitrite Ur Leukocyte Esterase Urine RBC Urine WBC Ur Squamous Epith Cells Urine Bacteria Hyaline Casts Urine Yeast Stl C. cayetanensis PCR Stool Rotavirus A PCR Stl Adenov F 40/ PCR Stool Astrovirus (PCR) Stool Campylobacter PCR Stool Cryptosporidium PCR Stl Sh Tox Pr E STEC PCR Stool E coli O157 PCR Stl Enterotoxigenic E PCR Stool EPEC (PCR) Stool EAEC (PCR) Stl E. histolytica PCR Stool Giardia Lamblia PCR Stl P. shigelloides PCR Stool Salmonella PCR Stool Sapovirus (PCR) Stl Shigella/EIEC PCR St Y.enterocolitica PCR Stool Vibrio (PCR) Stl Vibrio cholerae PCR Stl Norovirus GI/GII PCR C. difficile Tox B Gene COVID-19 ([facility]) COVID-19 Clin Com 12/07/22 12/07/22 12/07/22 15:00 15:00 15:00 MCV MCH MCHC RDW Plt Count MPV Immature Gran % (Auto) Neut % (Auto) Lymph % (Auto) [place] % (Auto) Eos % (Auto) Baso % (Auto) Lymph # (Auto) [place] # (Auto) Eos # (Auto) Baso # (Auto) Abs Immat Gran (auto) Absolute Neuts (auto) Absolute Nucleated RBC Nucleated RBC % (auto) PT INR Anion Gap Estim Creat Clear Calc Estimated GFR POC Glucose Random Glucose Lactic Acid 1.7 Calcium Magnesium Total Bilirubin Direct Bilirubin AST ALT Alkaline Phosphatase Total Protein Albumin Lipase Urine Color Dark Yellow Urine Appearance Turbid Urine pH 6.0 Ur Specific [place] 1.025 Urine Protein 100 (2+) H Urine Glucose (UA) >=1000 H Urine Ketones Trace Urine Blood Large (3+) H Urine Nitrite Negative Ur Leukocyte Esterase Small (1+) H Urine RBC >20 H Urine WBC >50 H Ur Squamous Epith Cells 11-20 Urine Bacteria 4+ Hyaline Casts 0-2 Urine Yeast Present Stl C. cayetanensis PCR Stool Rotavirus A PCR Stl Adenov F 40/ PCR Stool Astrovirus (PCR) Stool Campylobacter PCR Stool Cryptosporidium PCR Stl Sh Tox Pr E STEC PCR Stool E coli O157 PCR Stl Enterotoxigenic E PCR Stool EPEC (PCR) Stool EAEC (PCR) Stl E. histolytica PCR Stool Giardia Lamblia PCR Stl P. shigelloides PCR Stool Salmonella PCR Stool Sapovirus (PCR) Stl Shigella/EIEC PCR St Y.enterocolitica PCR Stool Vibrio (PCR) Stl Vibrio cholerae PCR Stl Norovirus GI/GII PCR C. difficile Tox B Gene COVID-19 ([facility]) Negative COVID-19 Clin Com See Note 12/07/22 12/07/22 12/07/22 22:16 22:40 22:41 MCV MCH MCHC RDW Plt Count MPV Immature Gran % (Auto) Neut % (Auto) Lymph % (Auto) [place] % (Auto) Eos % (Auto) Baso % (Auto) Lymph # (Auto) [place] # (Auto) Eos # (Auto) Baso # (Auto) Abs Immat Gran (auto) Absolute Neuts (auto) Absolute Nucleated RBC Nucleated RBC % (auto) PT INR Anion Gap 15 Estim Creat Clear Calc 76.8 Estimated GFR > 60 POC Glucose Random Glucose 196 H Lactic Acid Calcium 7.9 L D Magnesium Total Bilirubin Direct Bilirubin AST ALT Alkaline Phosphatase Total Protein Albumin Lipase Urine Color Urine Appearance Urine pH Ur Specific [place] Urine Protein Urine Glucose (UA) Urine Ketones Urine Blood Urine Nitrite Ur Leukocyte Esterase Urine RBC Urine WBC Ur Squamous Epith Cells Urine Bacteria Hyaline Casts Urine Yeast Stl C. cayetanensis PCR Not Detected Stool Rotavirus A PCR Not Detected Stl Adenov F 40/41 PCR Not Detected Stool Astrovirus (PCR) Not Detected Stool Campylobacter PCR Not Detected Stool Cryptosporidium PCR Not Detected Stl Sh Tox Pr E STEC PCR Not Detected Stool E coli O157 PCR Not applicable Stl Enterotoxigenic E PCR Not Detected Stool EPEC (PCR) Not Detected Stool EAEC (PCR) Not Detected Stl E. histolytica PCR Not Detected Stool Giardia Lamblia PCR Not Detected Stl P. shigelloides PCR Not Detected Stool Salmonella PCR Not Detected Stool Sapovirus (PCR) Not Detected Stl Shigella/EIEC PCR Not Detected St Y.enterocolitica PCR Not Detected Stool Vibrio (PCR) Not Detected Stl Vibrio cholerae PCR Not Detected Stl Norovirus GI/GII PCR Not Detected C. difficile Tox B Gene NEGATIVE COVID-19 ([facility]) COVID-19 Clin Com 12/08/22 12/08/22 12/08/22 05:18 05:18 07:21 MCV 92.4 MCH 30.9 MCHC 33.4 RDW 12.7 Plt Count 152 L MPV 10.4 Immature Gran % (Auto) Neut % (Auto) Lymph % (Auto) [place] % (Auto) Eos % (Auto) Baso % (Auto) Lymph # (Auto) [place] # (Auto) Eos # (Auto) Baso # (Auto) Abs Immat Gran (auto) Absolute Neuts (auto) Absolute Nucleated RBC 0.000 Nucleated RBC % (auto) 0.0 PT INR Anion Gap 14 Estim Creat Clear Calc 96.4 Estimated GFR > 60 POC Glucose 175 H Random Glucose 159 H Lactic Acid Calcium 7.9 L Magnesium Total Bilirubin Direct Bilirubin AST ALT Alkaline Phosphatase Total Protein Albumin Lipase Urine Color Urine Appearance Urine pH Ur Specific [place] Urine Protein Urine Glucose (UA) Urine Ketones Urine Blood Urine Nitrite Ur Leukocyte Esterase Urine RBC Urine WBC Ur Squamous Epith Cells Urine Bacteria Hyaline Casts Urine Yeast Stl C. cayetanensis PCR Stool Rotavirus A PCR Stl Adenov F 40/41 PCR Stool Astrovirus (PCR) Stool Campylobacter PCR Stool Cryptosporidium PCR Stl Sh Tox Pr E STEC PCR Stool E coli O157 PCR Stl Enterotoxigenic E PCR Stool EPEC (PCR) Stool EAEC (PCR) Stl E. histolytica PCR Stool Giardia Lamblia PCR Stl P. shigelloides PCR Stool Salmonella PCR Stool Sapovirus (PCR) Stl Shigella/EIEC PCR St Y.enterocolitica PCR Stool Vibrio (PCR) Stl Vibrio cholerae PCR Stl Norovirus GI/GII PCR C. difficile Tox B Gene COVID-19 ([facility]) COVID-19 Clin Com 12/08/22 11:03 MCV MCH MCHC RDW Plt Count MPV Immature Gran % (Auto) Neut % (Auto) Lymph % (Auto) [place] % (Auto) Eos % (Auto) Baso % (Auto) Lymph # (Auto) [place] # (Auto) Eos # (Auto) Baso # (Auto) Abs Immat Gran (auto) Absolute Neuts (auto) Absolute Nucleated RBC Nucleated RBC % (auto) PT INR Anion Gap Estim Creat Clear Calc Estimated GFR POC Glucose 180 H Random Glucose Lactic Acid Calcium Magnesium Total Bilirubin Direct Bilirubin AST ALT Alkaline Phosphatase Total Protein Albumin Lipase Urine Color Urine Appearance Urine pH Ur Specific [place] Urine Protein Urine Glucose (UA) Urine Ketones Urine Blood Urine Nitrite Ur Leukocyte Esterase Urine RBC Urine WBC Ur Squamous Epith Cells Urine Bacteria Hyaline Casts Urine Yeast Stl C. cayetanensis PCR Stool Rotavirus A PCR Stl Adenov F 40/41 PCR Stool Astrovirus (PCR) Stool Campylobacter PCR Stool Cryptosporidium PCR Stl Sh Tox Pr E STEC PCR Stool E coli O157 PCR Stl Enterotoxigenic E PCR Stool EPEC (PCR) Stool EAEC (PCR) Stl E. histolytica PCR Stool Giardia Lamblia PCR Stl P. shigelloides PCR Stool Salmonella PCR Stool Sapovirus (PCR) Stl Shigella/EIEC PCR St Y.enterocolitica PCR Stool Vibrio (PCR) Stl Vibrio cholerae PCR Stl Norovirus GI/GII PCR C. difficile Tox B Gene COVID-19 ([facility]) COVID-19 Clin Com Microbiology Microbiology Results: Microbiology 12/07/22 15:00 Blood Culture - Preliminary Blood - Venous Prelim: GNR Gram Stain only 12/07/22 15:18 Urine Culture - Final Urine clean catch - Urine eagle top Assessment and Plan (1) Hydronephrosis: Status: Acute (2) UTI (urinary tract infection): Status: Acute (3) Acute hyponatremia: Status: Acute Plan 62-year-old female with a PMH significant for?COPD, tde-vryqxvo-modoexwzp diabetes, and anxiety who presents to the ED with?fever, chills, diarrhea, and dysuria x3 days.? Pt will be admitted to the hospital for treatment and further evaluation of UTI and nephrolithiasis with an obstructing stone. UTI with systemic symptoms Patient with fever, chills, dysuria, suprapubic pain, UA positive for UTI given ceftriaxone and levofloxacin in the ED blood grew gram neg rods Continue ceftriaxone 1 g daily ,d/w pharmacy -ceftriaxone 1 dose was given yesterday. Diarrhea, elevated bilirubin Etiology unclear CT of abdomen/pelvis to r/o acute abdomen GI panel neg,C diff neg Nephrolithiasis CT of abdomen and pelvis came back positive for moderate hydronephrosis of left kidney with an obstructing 8 x 5 mm stone in the distal ureter Nephrology consult Patient to be placed on maintenance IVF Patient currently not complaining of pain, analgesics as necessary Question of yeast infection Pt with pruritus, UA positive yeast Fluconazole 150 mg x 1 dose Sepsis Patient meets sepsis criteria:? UTI, WBC, tachycardic, bilirubin of 2.9 Lactic acid WNL at 1.7 Patient resuscitated with 3L IVF in the ED, covered with broad-spectrum antibiotics Hyponatremia Patient was sodium of 130 upon presentation Patient given 3 L of normal saline in the ED Recheck BMP Bbp-noexuci-cumnzjhdr diabetes Hold metformin SSI HTN Continue lisinopril Anxiety Continue clonazepam COPD Not in acute exacerbation Continue home inhalers. DVT Prophylaxis: Lovenox inaptient need:UTI with systemic symptoms and nephrolithiasis.need urologic procedure for nephrolithasis. Time Spent With Patient Time: Total time managing care of this patient today ____ minutes. Quality Stroke Does the patient have a stroke diagnosis?: No VTE Prior VTE?: No VTE Risk Level:: Medical - moderate - high VTE Device Contraindication: Treatment Not Indicated VTE Drug Contraindication: N/A - Med Ordered
[2022-12-08 15:18] LABS: Osmolality, Serum 280 mosm/kg (281-305)
[2022-12-08 16:19] LABS: Glucose, Whole Blood 171 mg/dL (60-115)
[2022-12-08] MEDS: cefTRIAXone sodium 1 GM in 0.9 % Sodium Chloride 50 ML IV (18:07)
[2022-12-08] MEDS: traMADoL HCL 50 MG TABLET PO (18:13)
[2022-12-08 18:30] LABS: Sodium Urine Random < 20.0 mmol/L
[2022-12-08 18:34] LABS: Osmolality Urine 306 mosm/kg (373-1093)
[2022-12-08 19:47] LABS: Glucose, Whole Blood 229 mg/dL (60-115)
[2022-12-08] MEDS: Enoxaparin Sodium 40 MG/0.4 ML SYRINGE SUBCUT (21:53)
[2022-12-08] MEDS: Ibuprofen 600 MG TABLET PO (21:55)
--- NOTE | 2022-12-08 23:08 | W.PM.IDCN ---
History of Present Illness Data of Consult Service Date: 12/08/22 Requesting physician: Sue Tucker Primary Care Provider: Barb Brown MD HPI Reason for consult: sepsis She presents to hospital with three days dysuria and pelvic discomfort. She has concern over obstructing kidney stone. She has seen Urology. 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 Chronic bronchitis COPD (chronic obstructive pulmonary disease) COVID-19 Diabetes mellitus Essential hypertension Ex-smoker Ex-smoker Hand pain Impaired glucose tolerance Left knee pain Obese Obesity Screen for colon cancer Family History Family History Mother Hypertension Father Cancer Family history: reviewed and not pertinent Surgical History Surgical History Ganglion cyst History of appendectomy Hx laparoscopic cholecystectomy Previous section Social History Social History Household Members: Family Household Members Other:: daughter Housing: House Do you presently have visiting nurse or other home services: No Alcohol intake: current Alcohol intake frequency: holidays/special occasions only Patient Tobacco Use Status: Former Tobacco user e-Cigarette/Vaping Use: Never Used Second Hand Smoke Exposure: No service: No 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 Cognitive needs: No Hearing needs: No Vision needs: Yes Meds Allergies Allergy/AdvReac Type Severity Reaction Status Date / Time bee pollen [BEE STINGS] Allergy Intermediate SWELLING, Verified 04/06/22 12:26 ITCHING--SENSITIVITY oxycodone [From PERCOCET] Allergy Intermediate N/V, RASH Verified 04/06/22 12:26 Penicillins [PENICILLINS] Allergy Intermediate RASH/ITCH Verified 04/06/22 12:26 vancomycin [VANCOMYCIN] Allergy Intermediate ITCHING Verified 04/06/22 12:26 codeine [Codeine] Allergy Unknown HIVES,VOMIT Verified 04/06/22 12:26 ING Active Medications: Current Medications Acetaminophen (Acetaminophen 325 Mg Tablet) 650 mg PO Q6H PRN PRN Reason: Pain, Mild (Pain Scale 1-3) Albuterol Sulfate (Albuterol Sulfate 90 Mcg 8 Gm Inhaler) 2 puff INHALE Q4H PRN PRN Reason: Wheezing Clonazepam (Clonazepam 0.5 Mg Tablet) 0.5 mg PO BID PRN PRN Reason: Anxiety Enoxaparin Sodium (Enoxaparin Sodium 40 Mg/0.4 Ml Syringe) 40 mg SUBCUT Q24H [facility] Last Admin: 12/08/22 21:53 Dose: 40 mg Furosemide (Furosemide 20 Mg Tablet) 20 mg PO DAILY [facility]; Protocol Last Admin: 12/08/22 07:47 Dose: 20 mg Glucose (Glucose Gel 15 Gm Gel..Gram.) 15 gm PO Q15M PRN; Protocol PRN Reason: per Hypoglycemia Standing Ord. Hydromorphone HCl (Hydromorphone Hcl 0.5 Mg/0.5 Ml Syringe) 0.25 mg IVPUSH Q5M PRN; Protocol PRN Reason: Pain, Severe (Pain Scale 7-10) Dextrose (D10) 250 mls @ 750 mls/hr IV Q15M PRN; Protocol PRN Reason: per Hypoglycemia Standing Ord. Ceftriaxone Sodium 1 gm/ (Sodium Chloride) 50 mls @ 100 mls/hr IV Q24H [facility] Last Infusion: 12/08/22 18:41 Dose: Infused Ibuprofen (Ibuprofen 600 Mg Tablet) 600 mg PO Q6H PRN PRN Reason: fever or pain Last Admin: 12/08/22 21:55 Dose: 600 mg Insulin Human Lispro (Insulin Lispro 100 Unit/Ml 3 Ml Vial) 0 unit SUBCUT QIDACHS [facility]; Protocol Last Admin: 12/08/22 19:55 Dose: 4 unit Lisinopril (Lisinopril 40 Mg Tablet) 40 mg PO DAILY [facility]; Protocol Last Admin: 12/08/22 07:47 Dose: 40 mg Ondansetron HCl (Ondansetron Hcl 4 Mg/2 Ml Vial) 4 mg IVPUSH Q8H PRN PRN Reason: Nausea and Vomiting Ondansetron HCl (Ondansetron Hcl 4 Mg/2 Ml Vial) 4 mg IVPUSH ONCE PRN PRN Reason: Nausea and Vomiting Pharmacy Consult (Consult Rx Perform Med Rec) 1 each MISCELLANE ONCE PRN PRN Reason: Consult order Sodium Chloride (0.9 % Sodium Chloride Flush 3 Ml Syringe) 3 ml IVFLUSH QSHIFT [facility] Last Admin: 12/08/22 23:07 Dose: 3 ml Tramadol HCl (Tramadol Hcl 50 Mg Tablet) 50 mg PO Q8H PRN PRN Reason: Pain, Severe (Pain Scale 7-10) Last Admin: 12/08/22 18:13 Dose: 50 mg Home Medications Medication Instructions Recorded Confirmed Last Taken Type clonazepam 0.5 mg tablet 0.5 mg PO BID PRN Anxiety 12/07/22 12/07/22 Unknown History furosemide 40 mg tablet 20 mg PO DAILY 12/07/22 12/07/22 Unknown History Physical Exam Vital Signs: Vital Signs: Last Vital Signs Temp 97.9 F 12/08/22 19:18 Pulse 85 12/08/22 19:18 Resp 18 12/08/22 19:18 BP 104/58 L 12/08/22 19:18 Pulse Ox 97 12/08/22 19:18 O2 Del Method Room Air 12/08/22 19:18 O2 Flow Rate 2 12/08/22 13:40 BMI result Body Mass Index 41.5 Const: General: cooperative HEENT: Head: Yes normal to inspection Face and sinus: Yes normal facial exam Mouth: Normal oral and palatal mucosa present Teeth and gingiva: dentition normal Eyes: General: appearance normal, both eyes and all related structures Pupils: Equal, round and reactive pupils present Resp: Effort & Inspection: normal respiratory effort Cardio: Rate: regular rate Rhythm: regular rhythm GI: Other: mild abdominal discomfort Palpation (GI): Soft to palpation and nontender : General: Yes no CVA tenderness Back/Spine/Pelvis: Back: no CVA tenderness Skin: General skin exam: no rashes or lesions noted Neuro: General: moves all extremities Cranial nerves: Yes Equal, round and reactive pupils present Extrem: General: Yes normal to inspection Psych: Appearance: grossly normal Results Labs 12/08/22 05:18 12/08/22 05:18 Labs: Short CBC 12/08/22 Range/Units 05:18 WBC 9.8 (4.8-10.8) X10*3/uL Hgb 11.0 L (12.0-16.0) g/dl Hct 32.9 L (37.0-47.0) % Plt Count 152 L (160-400) X10*3/uL BMP 12/08/22 05:18 Sodium 131 L Potassium 3.3 Chloride 99 Carbon Dioxide 21 L BUN 17 H Creatinine 0.74 Calcium 7.9 L Microbiology Microbiology Results: Microbiology 12/07/22 15:00 Blood - Venous Blood Culture - Preliminary No growth after 24 hours. 12/07/22 15:00 Blood - Venous Blood Culture - Preliminary Prelim: GNR Gram Stain only 12/07/22 15:18 Urine clean catch - Urine eagle top Urine Culture - Final Assessment and Plan (1) Hydronephrosis: Status: Acute She has obstructing kidney stone as source of infection likely Gram negative rods This could be Ecoli or Klebsiella (2) Ureterolithiasis: Status: Acute (3) UTI (urinary tract infection): Status: Acute Plan Continue Ceftriaxone Await cultures and adjust antibiotics as needed. Probable 14 days finish with po depends on sensitivities. Time Spent With Patient Time: Total time managing care of this patient today ____ minutes.
[2022-12-09 03:34] VITALS: BP 107/51; PULSE 71; RESP 16; TEMP 36.1; O2SAT 97
[2022-12-09 07:35] VITALS: BP 127/67; PULSE 70; RESP 16; TEMP 36.3; O2SAT 99
[2022-12-09] MEDS: Insulin Lispro 100 UNIT/ML 3 ML VIAL SUBCUT ×4 (07:48→21:00)
[2022-12-09] MEDS: 0.9 % Sodium Chloride Flush 3 ML SYRINGE IVFLUSH ×2 (07:49→17:38)
[2022-12-09 07:54] LABS: Glucose, Whole Blood 235 mg/dL (60-115)
[2022-12-09 07:59] LABS: Sodium 134 mmol/L (135-145)
[2022-12-09] MEDS: Acetaminophen 325 MG TABLET 650 MG PO ×2 (08:07→17:26)
--- NOTE | 2022-12-09 08:17 | PM.PNNEP ---
Subjective Subjective Date of Service: 12/09/22 Interval history: seen and examined sitting out of bed no complaints Physical Exam Vital Signs: Vital Signs: Last Vital Signs Temp 97.4 F 12/09/22 07:35 Pulse 70 12/09/22 07:35 Resp 16 12/09/22 07:35 BP 127/67 12/09/22 07:35 Pulse Ox 99 12/09/22 07:35 O2 Del Method Room Air 12/09/22 07:35 O2 Flow Rate 2 12/08/22 13:40 BMI result Body Mass Index 41.5 Const: General: no acute distress, alert and awake HEENT: Head: Yes normocephalic and Yes atraumatic Neck: Neck: Yes supple Resp: Auscultation: clear to auscultation bilaterally Cardio: Heart sounds: S1 normal heart sound present and S2 normal heart sound present GI: Palpation (GI): Soft to palpation and nontender Extrem: General: No edema Objective Data Labs 12/08/22 05:18 12/09/22 07:23 Labs: Laboratory Results - last 24 hr 12/07/22 12/08/22 12/08/22 22:41 11:03 14:37 Sodium POC Glucose 180 H Osmolality 280 L Urine Osmolality Ur Random Sodium Stl C. cayetanensis PCR Not Detected Stool Rotavirus A PCR Not Detected Stl Adenov F 40/41 PCR Not Detected Stool Astrovirus (PCR) Not Detected Stool Campylobacter PCR Not Detected Stool Cryptosporidium PCR Not Detected Stl Sh Tox Pr E STEC PCR Not Detected Stool E coli O157 PCR Not applicable Stl Enterotoxigenic E PCR Not Detected Stool EPEC (PCR) Not Detected Stool EAEC (PCR) Not Detected Stl E. histolytica PCR Not Detected Stool Giardia Lamblia PCR Not Detected Stl P. shigelloides PCR Not Detected Stool Salmonella PCR Not Detected Stool Sapovirus (PCR) Not Detected Stl Shigella/EIEC PCR Not Detected St Y.enterocolitica PCR Not Detected Stool Vibrio (PCR) Not Detected Stl Vibrio cholerae PCR Not Detected Stl Norovirus GI/GII PCR Not Detected 12/08/22 12/08/22 12/08/22 15:58 18:00 18:00 Sodium POC Glucose 171 H Osmolality Urine Osmolality 306 L Ur Random Sodium < 20.0 Stl C. cayetanensis PCR Stool Rotavirus A PCR Stl Adenov F 40/41 PCR Stool Astrovirus (PCR) Stool Campylobacter PCR Stool Cryptosporidium PCR Stl Sh Tox Pr E STEC PCR Stool E coli O157 PCR Stl Enterotoxigenic E PCR Stool EPEC (PCR) Stool EAEC (PCR) Stl E. histolytica PCR Stool Giardia Lamblia PCR Stl P. shigelloides PCR Stool Salmonella PCR Stool Sapovirus (PCR) Stl Shigella/EIEC PCR St Y.enterocolitica PCR Stool Vibrio (PCR) Stl Vibrio cholerae PCR Stl Norovirus GI/GII PCR 12/08/22 12/09/22 12/09/22 19:17 07:23 07:45 Sodium 134 L POC Glucose 229 H 235 H Osmolality Urine Osmolality Ur Random Sodium Stl C. cayetanensis PCR Stool Rotavirus A PCR Stl Adenov F PCR Stool Astrovirus (PCR) Stool Campylobacter PCR Stool Cryptosporidium PCR Stl Sh Tox Pr E STEC PCR Stool E coli O157 PCR Stl Enterotoxigenic E PCR Stool EPEC (PCR) Stool EAEC (PCR) Stl E. histolytica PCR Stool Giardia Lamblia PCR Stl P. shigelloides PCR Stool Salmonella PCR Stool Sapovirus (PCR) Stl Shigella/EIEC PCR St Y.enterocolitica PCR Stool Vibrio (PCR) Stl Vibrio cholerae PCR Stl Norovirus GI/GII PCR Microbiology Microbiology Results: Microbiology 12/07/22 15:00 Blood - Venous Blood Culture - Preliminary No growth after 24 hours. 12/07/22 15:00 Blood - Venous Blood Culture - Preliminary Prelim: GNR Gram Stain only 12/07/22 15:18 Urine clean catch - Urine eagle top Urine Culture - Final Procedures Date of Service Date of Service: 12/09/22 Assessment & Plan Assessment and plan (1) Hyponatremia: Status: Acute (2) Hydronephrosis: Status: Acute Plan Sna up hypotonic hyponatremia in the setting of obstructive uropathy obstructive uropathy can cause tubular dysfunction cannot r/o pre renal state given clinical presentation CT scan showed left moderate hydronephrosis with left kidney stone s/p cystoscopy with stent placement REC fluid restriction discontinue NSAID (ibuprofen) follow kidney function and electrolytes Time Spent With Patient Time: Total time managing care of this patient today ____ minutes. Progress Note: Quality Stroke Does the patient have a stroke diagnosis?: No
--- NOTE | 2022-12-09 10:47 | HO.PM.IMPN ---
Subjective Subjective Date of Service: 12/09/22 Interval History: uti, nephrolithiasis,bacteremia Review of Systems Patient denies any shortness, denies dysuria denies any cough? or sputum. Physical Exam Vital Signs: Vital Signs: Last Vital Signs Temp 97.4 F 12/09/22 07:35 Pulse 70 12/09/22 07:35 Resp 16 12/09/22 07:35 BP 127/67 12/09/22 07:35 Pulse Ox 99 12/09/22 07:35 O2 Del Method Room Air 12/09/22 07:35 O2 Flow Rate 2 12/08/22 13:40 BMI result Body Mass Index 41.5 Appearance: Alert.? Oriented X3.? not in distress.? cvs: [id number], [id number] . res: clear to auscultation ,no rhonchii or wheezing abd: no rebound or guarding ,nt, bs present. ext pulses present , no cyanosis . neuro: axo3 , nonfocal. Objective Data Active Medications Acetaminophen (Acetaminophen 325 Mg Tablet) 650 mg PO Q6H PRN PRN Reason: Pain, Mild (Pain Scale 1-3) Last Admin: 12/09/22 08:07 Dose: 650 mg Documented By: PATRICK Albuterol Sulfate (Albuterol Sulfate 90 Mcg 8 Gm Inhaler) 2 puff INHALE Q4H PRN PRN Reason: Wheezing Clonazepam (Clonazepam 0.5 Mg Tablet) 0.5 mg PO BID PRN PRN Reason: Anxiety Enoxaparin Sodium (Enoxaparin Sodium 40 Mg/0.4 Ml Syringe) 40 mg SUBCUT Q24H [facility] Last Admin: 12/08/22 21:53 Dose: 40 mg Documented By: CASTILJoe Furosemide (Furosemide 20 Mg Tablet) 20 mg PO DAILY [facility]; Protocol Last Admin: 12/08/22 07:47 Dose: 20 mg Documented By: PATRICK Glucose (Glucose Gel 15 Gm Gel..Gram.) 15 gm PO Q15M PRN; Protocol PRN Reason: per Hypoglycemia Standing Ord. Hydromorphone HCl (Hydromorphone Hcl 0.5 Mg/0.5 Ml Syringe) 0.25 mg IVPUSH Q5M PRN; Protocol PRN Reason: Pain, Severe (Pain Scale 7-10) Dextrose (D10) 250 mls @ 750 mls/hr IV Q15M PRN; Protocol PRN Reason: per Hypoglycemia Standing Ord. Ceftriaxone Sodium 1 gm/ (Sodium Chloride) 50 mls @ 100 mls/hr IV Q24H [facility] Last Infusion: 12/08/22 18:41 Dose: 0 mls/hr Documented By: PATRICK Insulin Human Lispro (Insulin Lispro 100 Unit/Ml 3 Ml Vial) 0 unit SUBCUT QIDACHS [facility]; Protocol Last Admin: 12/09/22 07:48 Dose: 4 unit Documented By: PATRICK Lisinopril (Lisinopril 40 Mg Tablet) 40 mg PO DAILY [facility]; Protocol Last Admin: 12/08/22 07:47 Dose: 40 mg Documented By: PATRICK Ondansetron HCl (Ondansetron Hcl 4 Mg/2 Ml Vial) 4 mg IVPUSH Q8H PRN PRN Reason: Nausea and Vomiting Ondansetron HCl (Ondansetron Hcl 4 Mg/2 Ml Vial) 4 mg IVPUSH ONCE PRN PRN Reason: Nausea and Vomiting Pharmacy Consult (Consult Rx Perform Med Rec) 1 each MISCELLANE ONCE PRN PRN Reason: Consult order Sodium Chloride (0.9 % Sodium Chloride Flush 3 Ml Syringe) [facility] Last Admin: 12/09/22 07:49 Dose: 3 ml Documented By: PATRICK Tramadol HCl (Tramadol Hcl 50 Mg Tablet) 50 mg PO Q8H PRN PRN Reason: Pain, Severe (Pain Scale 7-10) Last Admin: 12/08/22 18:13 Dose: 50 mg Documented By: PATRICK Labs 12/08/22 05:18 12/09/22 07:23 Labs: Laboratory Results - last 24 hr 12/07/22 12/08/22 12/08/22 22:41 11:03 14:37 POC Glucose 180 H Osmolality 280 L Urine Osmolality Ur Random Sodium Stl C. cayetanensis PCR Not Detected Stool Rotavirus A PCR Not Detected Stl Adenov F 40 PCR Not Detected Stool Astrovirus (PCR) Not Detected Stool Campylobacter PCR Not Detected Stool Cryptosporidium PCR Not Detected Stl Sh Tox Pr E STEC PCR Not Detected Stool E coli O157 PCR Not applicable Stl Enterotoxigenic E PCR Not Detected Stool EPEC (PCR) Not Detected Stool EAEC (PCR) Not Detected Stl E. histolytica PCR Not Detected Stool Giardia Lamblia PCR Not Detected Stl P. shigelloides PCR Not Detected Stool Salmonella PCR Not Detected Stool Sapovirus (PCR) Not Detected Stl Shigella/EIEC PCR Not Detected St Y.enterocolitica PCR Not Detected Stool Vibrio (PCR) Not Detected Stl Vibrio cholerae PCR Not Detected Stl Norovirus GI/GII PCR Not Detected 12/08/22 12/08/22 12/08/22 15:58 18:00 18:00 POC Glucose 171 H Osmolality Urine Osmolality 306 L Ur Random Sodium < 20.0 Stl C. cayetanensis PCR Stool Rotavirus A PCR Stl Adenov F 40/41 PCR Stool Astrovirus (PCR) Stool Campylobacter PCR Stool Cryptosporidium PCR Stl Sh Tox Pr E STEC PCR Stool E coli O157 PCR Stl Enterotoxigenic E PCR Stool EPEC (PCR) Stool EAEC (PCR) Stl E. histolytica PCR Stool Giardia Lamblia PCR Stl P. shigelloides PCR Stool Salmonella PCR Stool Sapovirus (PCR) Stl Shigella/EIEC PCR St Y.enterocolitica PCR Stool Vibrio (PCR) Stl Vibrio cholerae PCR Stl Norovirus GI/GII PCR 12/08/22 12/09/22 19:17 07:45 POC Glucose 229 H 235 H Osmolality Urine Osmolality Ur Random Sodium Stl C. cayetanensis PCR Stool Rotavirus A PCR Stl Adenov F 40/41 PCR Stool Astrovirus (PCR) Stool Campylobacter PCR Stool Cryptosporidium PCR Stl Sh Tox Pr E STEC PCR Stool E coli O157 PCR Stl Enterotoxigenic E PCR Stool EPEC (PCR) Stool EAEC (PCR) Stl E. histolytica PCR Stool Giardia Lamblia PCR Stl P. shigelloides PCR Stool Salmonella PCR Stool Sapovirus (PCR) Stl Shigella/EIEC PCR St Y.enterocolitica PCR Stool Vibrio (PCR) Stl Vibrio cholerae PCR Stl Norovirus GI/GII PCR Microbiology Microbiology Results: Microbiology 12/07/22 15:00 Blood Culture - Preliminary Blood - Venous Gram negative shakir 12/07/22 15:00 Blood Culture - Preliminary Blood - Venous No growth after 24 hours. 12/07/22 15:18 Urine Culture - Final Urine clean catch - Urine eagle top Assessment and Plan (1) Hydronephrosis: Status: Acute (2) UTI (urinary tract infection): Status: Acute (3) Acute hyponatremia: Status: Acute Plan 62-year-old female with a PMH significant for?COPD, gla-rcjxzql-snkglzzyw diabetes, and anxiety who presents to the ED with?fever, chills, diarrhea, and dysuria x3 days.? Pt will be admitted to the hospital for treatment and further evaluation of UTI and nephrolithiasis with an obstructing stone. UTI with systemic symptoms Patient with fever, chills, dysuria, suprapubic pain, UA positive for UTI given ceftriaxone and levofloxacin in the ED blood grew gram neg rods(1/2) Continue ceftriaxone 1 g daily ,urine cultures -pending Diarrhea, elevated bilirubin Etiology unclear CT of abdomen/pelvis to r/o acute abdomen GI panel neg,C diff neg Nephrolithiasis CT of abdomen and pelvis came back positive for moderate hydronephrosis of left kidney with an obstructing 8 x 5 mm stone in the distal ureter patient s/p:cystoscopy,? left retrograde- ? left ureteral stent placement, size 6 Kyr[place]z by multi length cm Patient currently not complaining of pain, analgesics as necessary Question of yeast infection Pt with pruritus, UA positive yeast Fluconazole 150 mg x 1 dose Sepsis Patient meets sepsis criteria:? UTI, WBC, tachycardic, bilirubin of 2.9 Lactic acid WNL at 1.7 Patient resuscitated with 3L IVF in the ED, covered with broad-spectrum antibiotics Hyponatremia Patient was sodium of 134 urine osmolarity>serum fluid restritcions Yrb-lecnlzc-qzevbczij diabetes Hold metformin SSI HTN Continue lisinopril Anxiety Continue clonazepam COPD Not in acute exacerbation Continue home inhalers. DVT Prophylaxis: Lovenox inaptient need:UTI with systemic symptoms and nephrolithiasis.need urologic procedure for nephrolithasis. Time Spent With Patient Time: Total time managing care of this patient today ____ minutes. Quality Stroke Does the patient have a stroke diagnosis?: No VTE Prior VTE?: No VTE Risk Level:: Medical - moderate - high VTE Device Contraindication: Treatment Not Indicated VTE Drug Contraindication: N/A - Med Ordered
[2022-12-09] MEDS: traMADoL HCL 50 MG TABLET PO (11:21)
[2022-12-09 11:47] LABS: Glucose, Whole Blood 213 mg/dL (60-115)
[2022-12-09 13:06] VITALS: O2SAT 99
[2022-12-09 15:17] VITALS: BP 128/61; PULSE 84; RESP 18; TEMP 36.4; O2SAT 99
--- NOTE | 2022-12-09 15:25 | HO.POSTANES ---
Post Anesthesia Evaluation Post Anesthesia Evaluation Vital Signs: Vital Signs Temp Pulse Resp BP Pulse Ox O2 Del Method 12/09/22 15:17 97.6 F 84 18 128/61 99 Room Air 12/09/22 13:06 99 Room Air 12/09/22 07:35 97.4 F 70 16 127/67 99 Room Air 12/09/22 03:34 96.9 F 71 16 107/51 L 97 Room Air Anesthesia: General Mental Status: Awake Pain Control: Satisfactory Nausea/Vomiting: None Hydration: Adequate Anesthesia-Related Issues: No Anes. Related Issues
[2022-12-09 16:16] LABS: Glucose, Whole Blood 202 mg/dL (60-115)
[2022-12-09] MEDS: cefTRIAXone sodium 1 GM in 0.9 % Sodium Chloride 50 ML IV (17:44)
[2022-12-09 19:13] VITALS: BP 136/64; PULSE 93; RESP 18; TEMP 36.2; O2SAT 97
[2022-12-09 20:17] LABS: Glucose, Whole Blood 202 mg/dL (60-115)
[2022-12-09] MEDS: Enoxaparin Sodium 40 MG/0.4 ML SYRINGE SUBCUT (21:01)
[2022-12-10 02:49] VITALS: BP 168/88; PULSE 91; RESP 20; TEMP 36.4; O2SAT 99
[2022-12-10] MEDS: traMADoL HCL 50 MG TABLET PO (05:47)
[2022-12-10 07:17] VITALS: BP 126/57; PULSE 84; RESP 18; TEMP 36.6; O2SAT 97
[2022-12-10 07:37] LABS: Glucose, Whole Blood 163 mg/dL (60-115)
[2022-12-10] MEDS: Insulin Lispro 100 UNIT/ML 3 ML VIAL SUBCUT ×2 (07:39→11:42)
[2022-12-10] MEDS: 0.9 % Sodium Chloride Flush 3 ML SYRINGE IVFLUSH (07:40)
[2022-12-10 08:30] LABS: Anion Gap 15 (12-20); Blood Urea Nitrogen 9 mg/dL (9-16); Calcium 8.6 mg/dL (8.4-10.2); Carbon Dioxide 23 mmol/L (22-29); Chloride 101 mmol/L (96-108); Creatinine Clr Calc Pharmacy 106.5; Estimated Glomerular Filt Rate > 60; Glucose Random 197 mg/dL (60-115); Potassium 3.3 mmol/L (3.3-5.1); Sodium 136 mmol/L (135-145)
--- NOTE | 2022-12-10 10:38 | PM.PNNEP ---
Subjective Subjective Date of Service: 12/11/22 Interval history: uti, nephrolithiasis,bacteremia Events noted Physical Exam Vital Signs: Vital Signs: Last Vital Signs Temp 97.8 F 12/10/22 07:17 Pulse 84 12/10/22 07:17 Resp 18 12/10/22 07:17 BP 126/57 L 12/10/22 07:17 Pulse Ox 97 12/10/22 07:17 O2 Del Method Room Air 12/10/22 07:17 O2 Flow Rate 2 12/08/22 13:40 BMI result Body Mass Index 41.5 Const: General: no acute distress, alert and awake HEENT: Head: Yes normocephalic and Yes atraumatic Neck: Neck: Yes supple Resp: Auscultation: clear to auscultation bilaterally Cardio: Heart sounds: S1 normal heart sound present and S2 normal heart sound present GI: Palpation (GI): Soft to palpation and nontender Extrem: General: No edema Objective Data Labs 12/08/22 05:18 12/10/22 07:55 Labs: Laboratory Results - last 24 hr 12/09/22 12/09/22 12/09/22 11:38 16:12 20:12 Sodium Potassium Chloride Carbon Dioxide Anion Gap BUN Creatinine Estim Creat Clear Calc Estimated GFR POC Glucose 213 H 202 H 202 H Random Glucose Calcium 12/10/22 12/10/22 07:20 07:55 Sodium 136 Potassium 3.3 Chloride 101 Carbon Dioxide 23 Anion Gap 15 BUN 9 Creatinine 0.67 Estim Creat Clear Calc 106.5 Estimated GFR > 60 POC Glucose 163 H Random Glucose 197 H Calcium 8.6 D Microbiology Microbiology Results: Microbiology 12/07/22 15:00 Blood - Venous Blood Culture - Final Escherichia coli 12/07/22 15:00 Blood - Venous Blood Culture - Preliminary No growth after 48 hours. 12/08/22 13:30 Urine Other - Kidney Left Urine Culture - Final No growth. 12/07/22 15:18 Urine clean catch - Urine eagle top Urine Culture - Final Procedures Date of Service Date of Service: 12/10/22 Assessment & Plan Assessment and plan (1) Hyponatremia: Status: Acute (2) Hydronephrosis: Status: Acute Plan Sna up hypotonic hyponatremia in the setting of obstructive uropathy obstructive uropathy can cause tubular dysfunction cannot r/o pre renal state given clinical presentation CT scan showed left moderate hydronephrosis with left kidney stone s/p cystoscopy with stent placement REC fluid restriction discontinue NSAID (ibuprofen) follow kidney function and electrolytes Renal function is at baseline. Hyponatremia has resolved. We will stop following actually. Please re-consult if necessary. Thank you Time Spent With Patient Time: Total time managing care of this patient today ____ minutes. Progress Note: Quality Stroke Does the patient have a stroke diagnosis?: No
--- NOTE | 2022-12-10 11:00 | P.DS_ITS ---
DS: Providers Provider Date of Service: 12/10/22 Date of admission: 12/07/22 21:17 Date of discharge: 12/10/22 Primary care physician: Barb Brown MD Consults: 12/07/22 22:17 Consult to Nephrology Routine Consulting Provider: Jacinto Eng Reason for consultation: Obstructing 8x5mm stone 12/08/22 07:12 Consult to Urology Routine Consulting Provider: [facility] Reason for consultation: left sided hydronephrosis /obstructing stone left ureter Has provider been notified: No 12/08/22 11:50 Consult to Infectious Diseases Routine Consulting Provider: [facility] Reason for consultation: uti/sepsis /nephrolithasis/bacteremia Has provider been notified: No DS: Diagnosis Discharge Diagnosis (1) Hyponatremia: Status: Acute (2) Hydronephrosis: Status: Acute (3) UTI (urinary tract infection): Status: Acute (4) Vomiting: Status: Acute (5) Acute hyponatremia: Status: Acute (6) Ureterolithiasis: Status: Acute (7) Sepsis: Status: Acute DS: Summary Hospital Course Hospital Course: 62-year-old female with a PMH significant for?COPD, nfh-gctpnhc-uomdrgjzg diabetes, and anxiety who presents to the ED with?fever, chills, diarrhea, and dysuria x3 days.? Patient states symptoms began on Saturday when she began having shaking chills, abdominal pain, dysuria, and diarrhea.? Patient notes that every time she ate or drank anything she is doing we have to go to the bathroom.? States she has been incontinent of both urine and feces during this time.? Patient reports fever was as high as 102.0, for which she took Tylenol which helped bring it down.? Patient had nausea with dry heaves but no vomiting. Also has been experiencing vaginal itching. Denies hematuria or hematochezia.? No flank pain.? Denies chest pain/pressure, palpitations.? No recent change to chronic SOB. In the ED pt was afebrile but tachycardic. Labs were significant for WBC 12.0, sodium of 130, random glucose of 293, total bilirubin 2.9. UA positive for UTI. CT?of abdomen and pelvis showed moderate hydronephrosis of left kidney with obstructing 8 x 5 mm stone in the distal ureter at the upper pelvis.Pt was treated with ondansetron, ceftriaxone, levofloxacin, and 3 L of normal saline. Pt will be admitted to the hospital for treatment and further evaluation of UTI and nephrolithiasis with an obstructing stone. hospital course: Patient was admitted left flank pain: Found to have stone in ureter as well as UTI/sepsis: Patient was started on IV antibiotic, pain management, hydration, antiemetic, blood cultures sent, also urology was consulted for nephrolithiasis: Patient is status post cystoscopy and left ureteral stent and Flomax added. Patient seems to be improved significantly with above supportive care, blood culture E coli: Antibiotics were switched as per sensitivities. No fever, leukocytosis resolved. Please complete the course of antibiotic, follow-up with Urology outpatient. hypotonic hyponatremia in the setting of obstructive uropathy-seems to be improved significantly, seen by an nephrology: Recommended to discontinue NSAID and fluid restrictions 1.5 liter a day-monitor BMP outpatient and then liberalize fluid intake outpatient. Monitor renal function and electrolyte out patiently and consider nephrology follow-up. Plan: Complete course of antibiotics(levofloxacin). Monitor renal function and electrolytes,Recommended to discontinue NSAID and fluid restrictions 1.5 liter a day-monitor BMP outpatient and then liberalize fluid intake outpatient, follow-up with Nephrology outpatient. Follow-up with Urology Time Spent with Patient Time attestation: Total time managing care of this patient today ____ minutes. Discharge coordination time: Greater than 30 minutes Quality: Safe Use of Opioids Does Pt have an Active Cancer Diagnosis on the Problem List?: No Quality: Stroke Does the patient have a stroke diagnosis?: No Physical Exam Vital Signs: Vital Signs: Last Vital Signs Temp 97.8 F 12/10/22 07:17 Pulse 84 12/10/22 07:17 Resp 18 12/10/22 07:17 BP 126/57 L 12/10/22 07:17 Pulse Ox 97 12/10/22 07:17 O2 Del Method Room Air 12/10/22 07:17 O2 Flow Rate 2 12/08/22 13:40 BMI result Body Mass Index 41.5 Appearance: Alert.? Oriented X3.? not in distress.? cvs: rrr, [id number] . res: clear to auscultation ,no rhonchii or wheezing abd: no rebound or guarding ,mild soarness ( seems improved significantly),, bs present. ext pulses present , no cyanosis . neuro: axo3 , nonfocal. DS: Data Data Completed and Pending Labs on day of discharge: Laboratory Results - last 24 hr 12/09/22 12/09/22 12/09/22 11:38 16:12 20:12 Sodium Potassium Chloride Carbon Dioxide Anion Gap BUN Creatinine Estim Creat Clear Calc Estimated GFR POC Glucose 213 H 202 H 202 H Random Glucose Calcium 12/10/22 12/10/22 07:20 07:55 Sodium 136 Potassium 3.3 Chloride 101 Carbon Dioxide 23 Anion Gap 15 BUN 9 Creatinine 0.67 Estim Creat Clear Calc 106.5 Estimated GFR > 60 POC Glucose 163 H Random Glucose 197 H Calcium 8.6 D Preliminary micro results at discharge 12/07/22 15:00 Blood Culture - Preliminary Blood - Venous No growth after 48 hours. Imaging Chest x-ray: Radiologist's impression: ITS Impressions Abdomen/Pelvis CT 12/07/22 20:45 IMPRESSION: Moderate hydronephrosis of left kidney. Obstructing 8 x 5 mm stone in the distal ureter at the upper pelvis. Fleischner guidelines were followed. Guidance Fluoroscopy 12/08/22 13:36 FINDINGS/IMPRESSION: Limited fluoroscopic imaging shows interval deployment of a left ureteral stent. Discharge Plan Discharge Anticipated Discharge Date/Time: 12/10/22 10:50 Patient Disposition: Home, Self-Care Discharge Diagnosis: sepsis sec to uti,nephrolithasis,hyponatremia Referrals: Herb Lennon MD [Physician] - 1 Week (follow up outpatient) Jacinto Eng MD [Physician] - 1 Week (follow up outpatient) Barb Khan MD [Primary Care Provider] - 1 Week Discharge Medications: New tramadol 50 mg Tablet 50 mg PO Q8H PRN (Reason: Pain, Severe (Pain Scale 7-10)) Qty: 10 0RF tamsulosin [Flomax] 0.4 mg capsule 0.4 mg PO BEDTIME Qty: 7 0RF levofloxacin 500 mg tablet 500 mg PO DAILY Qty: 12 0RF oxybutynin chloride 10 mg tablet extended release 24hr 10 mg PO DAILY Qty: 30 0RF Continued metformin 500 mg tablet 500 mg PO BID 30 Days Qty: 60 6RF lisinopril 40 mg tablet 40 mg PO DAILY Qty: 90 0RF clonazepam 0.5 mg tablet 0.5 mg PO BID PRN (Reason: Anxiety) furosemide 40 mg tablet 20 mg PO DAILY albuterol sulfate 90 mcg/actuation HFA aerosol inhaler 2 puff PO Q4H PRN (Reason: for wheezing) Qty: 8.5 0RF Discontinued ibuprofen 600 mg tablet 600 mg PO Q6H PRN (Reason: fever or pain) Qty: 20 0RF Discharge Orders: Discharge Order (Routine); Ordered 12/10/22 Ordered By: Sue Tucker Diet: Advance to usual diet Activity on Discharge: As tolerated Stand Alone Forms: Patient Portal Discharge page Care Plan Goals: Patient was admitted left flank pain: Found to have stone in ureter as well as UTI/sepsis: Patient was started on IV antibiotic, pain management, hydration, antiemetic, blood cultures sent, also urology was consulted for nephrolithiasis: Patient is status post cystoscopy and left ureteral stent and Flomax added. Patient seems to be improved significantly with above supportive care, blood culture E coli: Antibiotics were switched as per sensitivities. No fever, leukocytosis resolved. Please complete the course of antibiotic, follow-up with Urology outpatient. hypotonic hyponatremia in the setting of obstructive uropathy-seems to be improved significantly, seen by an nephrology: Recommended to discontinue NSAID and fluid restrictions 1.5 liter a day-monitor BMP outpatient and then liberalize fluid intake outpatient. Monitor renal function and electrolyte out patiently and consider nephrology follow-up. Health Concerns: as above. Plan of Treatment: as above. Assessment: as above. Patient Instructions: Sepsis (GEN), Ureteral Stones (DC), Urinary Tract Infection in Older Adults (DC)
--- NOTE | 2022-12-10 11:03 | MHC.CM.PN ---
PT WILL DC HOME TODAY WITH NO SERVICES BROTHER TO TRANSPORT
[2022-12-10 11:35] LABS: Glucose, Whole Blood 180 mg/dL (60-115)
[2022-12-10] MEDS: levoFLOXacin 500 MG TABLET PO (12:31)
[2022-12-10] MEDS: Acetaminophen 325 MG TABLET 650 MG PO (12:34)
--- NOTE | 2022-12-10 14:42 | P.CDIM_ITS ---
PROVIDER RESPONSE TEXT: To clarify, the appropriate diagnosis supported by the clinical indicators: Other (explain): obesity QUERY TEXT: PHYSICIAN'S DOCUMENTATION REQUEST Date of Query: 12/10/2022 09:13 AM EDT Patient Name: Vidhya Hanson Admit Date: 12/08/2022 Dear Sue Tucker, A review of the medical record indicates additional documentation may be needed. Please review below and update the documentation accordingly. Clinical Indicators: BMI: 41.6 5ft 5in 113.398kg If possible, please provide an associated diagnosis related to the abnormal BMI, such as: Overweight Morbid obesity Obesity Due to other cause Specify the other cause Other Unable to determine Other (explain) Clinically unable to determine (explain) Thank you, Christianne Holly, CCS, CDIS Use of terms such as suspected, likely, concern for, or probable (associated with a specific diagnosi s that is being evaluated, monitored, or treated as if it exists) are acceptable and can be coded in the inpatient se tting, when documented at the time of discharge. Please use your independent medical judgment in providing your response. THIS QUERY IS PART OF THE PERMANENT MEDICAL RECORD
== END 2022-12-10 16:22 | disposition home or self-care (01) | DRG 854 ==
LOC: HO.ED 19:52 → HO.EDOVER 21:29 → HO.S3 22:54
PROVIDERS: Internal Medicine; Internal Medicine Nephrology; Physician Assistant; Urology; Admitting Provider Student in an Organized Health Care Education/Training Program; Emergency Provider Emergency Medicine; PCP Internal Medicine; Visit Provider Internal Medicine
PROC: 0T778DZ Dilation of Left Ureter with Intraluminal Device, Via Natural or Artificial Opening Endoscopic (ICD-10-PCS; principal; 2022-12-08 11:30)
DX: A41.9 Sepsis, unspecified organism (principal); E87.1 Hypo-osmolality and hyponatremia; N13.6 Pyonephrosis; Z68.41 Body mass index [BMI] 40.0-44.9, adult; R19.7 Diarrhea, unspecified; Z66 Do not resuscitate; E66.9 Obesity, unspecified; E11.9 Type 2 diabetes mellitus without complications; F41.9 Anxiety disorder, unspecified; Z20.822 Contact with and (suspected) exposure to COVID-19; Z71.3 Dietary counseling and surveillance; Z87.891 Personal history of nicotine dependence; Z88.0 Allergy status to penicillin; Z88.5 Allergy status to narcotic agent; Z79.84 Long term (current) use of oral hypoglycemic drugs; Z79.899 Other long term (current) drug therapy
CPT/HCPCS: 36415; 74176; 80048; 80076; 81001; 82947; 83605; 83690; 83735; 83930; 83935; 84295; 84300; 85025; 85027; 85610; 87040; 87070; 87077; 87086; 87186; 87205; 87493; 87507; 87635; 96365; 96366; 96375; 99285; C1758; C1769; C2617; J0131; J0696; J1650; J1956; J2250; J2405; J3010; Q9967

== ENCOUNTER → 2022-12-14 09:23 | Outpatient (BNVA) | payer OTHER, SELFPAY | PROVIDERS: PCP Internal Medicine; Visit Provider Urology | DX: Z13.89 Encounter for screening for other disorder (principal) ==

== ENCOUNTER 2022-12-18 07:29 | Day surgery (SDC) | payer OTHER, SELFPAY ==
--- NOTE | ~2022-12-18 | FL_ITS ---
EXAMINATION: XR FLUOROSCOPY WITH IMAGES CLINICAL INFORMATION: The left urinary tract calculi. COMPARISON: CT abdomen and pelvis 12/07/2022 TECHNIQUE: Fluoroscopy Supervised By: Dr. Lennon. Fluoroscopy Time: 17 seconds. Cumulative Dose: 11.21 mGy. Images: 2. FINDINGS: There is a left ureteral stent in position with proximal end overlying left renal fossa or in distal end overlying left urinary bladder. There is a calculus adjacent to the distal left ureteral stent present, possibly within the bladder. FL/FL guidance in OR IMPRESSION: -Fluoroscopy for urologic procedures.
[2022-12-18 07:48] VITALS: BP 144/69; PULSE 84; RESP 18; TEMP 36.1; O2SAT 98; BMI 41.1
[2022-12-18 08:05] LABS: Glucose, Whole Blood 171 mg/dL (60-115)
[2022-12-18] MEDS: Lactated Ringers 1,000 ML 50 ML IVCONT (08:15)
--- NOTE | 2022-12-18 09:19 | MHC.SHP ---
Pre-Procedural Eval Section A Date of Service: 12/18/22 The patient is an INPATIENT: No The History & Physical has been completed within 30 days and I have reviewed it.: Yes Section B Chief Complaint: Calculus of kidney Allergies: Allergies Allergy/AdvReac Type Severity Reaction Status Date / Time bee pollen [BEE STINGS] Allergy Intermediate SWELLING, Verified 12/14/22 10:06 ITCHING--SENSITIVITY oxycodone [From PERCOCET] Allergy Intermediate N/V, RASH Verified 12/14/22 10:06 Penicillins [PENICILLINS] Allergy Intermediate RASH/ITCH Verified 12/14/22 10:06 vancomycin [VANCOMYCIN] Allergy Intermediate ITCHING Verified 12/14/22 10:06 codeine [Codeine] Allergy Unknown HIVES,VOMIT Verified 12/14/22 10:06 ING Plan Diagnosis/Plan: Unchanged I have reviewed the history and physical and performed a pertinent physical examination on my patient. No changes have occurred unless specified. Plan for Cystoscopy, Left ureteroscopy, possible laser lithotripsy, possible ureteral stent. Risks discussed included but not limited to, possible need to repeat procedure if stone is not completely fragmented, Irritative voiding symptoms, bladder spasms, urgency, blood in urine. Time Spent With Patient Time: Total time managing care of this patient today ____ minutes.
--- NOTE | 2022-12-18 10:00 | P.CONAN_ITS ---
[facility] Active Problems Active Problems: All Active Problems (Updated 12/14/22 @ 10:36 by Kita Sands) Hydronephrosis with obstructing calculus (Acute) Sepsis (Acute) Hydronephrosis (Acute) Hydronephrosis due to ureteral stricture (Acute) Ureterolithiasis (Acute) Hyponatremia (Acute) UTI (urinary tract infection) (Acute) Acute hyponatremia (Acute) Vomiting (Acute) Morbid obesity with BMI of 40.0-44.9, adult (Acute) Screening for hypothyroidism (Acute) Screening for hyperlipidemia (Acute) Screen for colon cancer (Acute) COVID-19 (Acute) COPD (chronic obstructive pulmonary disease) (Acute) Ex-smoker (Acute) Obesity (Acute) Ex-smoker (Acute) Hand pain (Acute) Diabetes mellitus (Acute) Calcification of right hand joint (Acute) Calcification of left hand joint (Acute) Left knee pain (Acute) Obese (Acute) Chronic bronchitis (Acute) Impaired glucose tolerance (Acute) Essential hypertension (Acute) Anxiety (Acute) Past Medical History Medical History Anxiety Calcification of left hand joint Calcification of right hand joint Chronic bronchitis COPD (chronic obstructive pulmonary disease) COVID-19 Diabetes mellitus Essential hypertension Ex-smoker Ex-smoker Hand pain Impaired glucose tolerance Left knee pain Obese Obesity Screen for colon cancer Family History Family History Mother Hypertension Father Cancer Family history of problems with anesthesia: No Surgical History Surgical History Ganglion cyst History of appendectomy Hx laparoscopic cholecystectomy Previous section History of Problems with Anesthesia: No Social History Social History Household Members: Family Household Members Other:: daughter Housing: House Do you presently have visiting nurse or other home services: No Alcohol intake: current Alcohol intake frequency: holidays/special occasions only Patient Tobacco Use Status: Former Tobacco user Quit Date: 1- 1/2 years ago e-Cigarette/Vaping Use: Never Used Second Hand Smoke Exposure: No Use of substances other than those prescribed or required for medical reasons: No Are you DNR?: No Advance Directives: No Advance Directives Information Provided: Yes service: No 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 Cognitive needs: No Hearing needs: No Vision needs: Yes Meds Allergies Allergy/AdvReac Type Severity Reaction Status Date / Time bee pollen [BEE STINGS] Allergy Intermediate SWELLING, Verified 12/14/22 10:06 ITCHING--SENSITIVITY oxycodone [From PERCOCET] Allergy Intermediate N/V, RASH Verified 12/14/22 10:06 Penicillins [PENICILLINS] Allergy Intermediate RASH/ITCH Verified 12/14/22 10:06 vancomycin [VANCOMYCIN] Allergy Intermediate ITCHING Verified 12/14/22 10:06 codeine [Codeine] Allergy Unknown HIVES,VOMIT Verified 12/14/22 10:06 ING Active Medications: Current Medications Lactated Ringer's (Lr) 1,000 mls @ 50 mls/hr IVCONT .Q20H ALE Last Admin: 12/18/22 08:15 Dose: 50 mls/hr Home Medications Medication Instructions Recorded Confirmed Last Taken Type clonazepam 0.5 mg tablet 0.5 mg PO BID PRN Anxiety 12/07/22 12/18/22 Unknown History furosemide 40 mg tablet 20 mg PO DAILY 12/07/22 12/18/22 Unknown History Exam Exam Date and Time: December 18, 2022 1000 Height,Weight and Vital Signs: Height 5 ft 4 in Weight 108.862 kg Last Vital Signs Temp 97.0 F 12/18/22 07:48 Pulse 84 12/18/22 07:48 Resp 18 12/18/22 07:48 BP 144/69 H 12/18/22 07:48 Pulse Ox 98 12/18/22 07:48 O2 Del Method Room Air 12/18/22 07:48 Pertinent Lab Results Pertinent Lab Results: Laboratory Tests 12/18/22 08:02 POC Glucose 171 H Airway Mallampati Class: IV TM Dist: >3cm Neck ROM: Full Heart: RRR Lungs: CTA Assessment and Plan Final Anesthetic Review Family History of Problems with Anesthesia: No History of Problems with Anesthesia: No NPO: Yes ASA Class: III Final Preanesthetic Review: Meds/Allgs Chart Reviewed, Consent Obtained/Reviewed and Anes Risks/Benef Reviewed Patient Risk: Intermediate Procedure Risk: Low Anesthetic Plan Anesthetic Plan: GA Disposition: Standard PACU
--- NOTE | 2022-12-18 11:06 | P.OP_ITS ---
Operative Note Operative Note Date of Service: 12/18/22 Narrative: PreOperative Diagnosis:?? Left ureteral stone, UTI status post left ureteral stent Post Operative Diagnosis:?? Left ureteral stone, UTI status post left ureteral stent Procedure: Cystoscopy, left ureteroscopy laser lithotripsy stent exchange, size 7 [place] by 24 cm Surgeon:?Dr Herb Lennon Anesthesia:? General Indications: The patient was admitted for UTI and left hydronephrosis secondary to obstructive left ureteral stone. She is status post left ureteral stent and course of antibiotic therapy. She is here for further management of left ureteral stone. Procedure: After informed consent was verified the patient was brought to the operating placed on the OR table in supine position.? General Anesthesia was administered per protocol.? The patient was placed in lithotomy position, prepped and draped in the usual sterile fashion.? Safety pause time-out and side of surgery confirmed.? Antibiotics confirmed. A 22 [place] cystoscope was inserted transurethrally, Both ureteric orifices were in normal position. The ureteral stent was curled in the bladder. The? distal end of the ureteral stent was grasped with the flexible grasping forceps. The stent was pulled retrograde through the urethra. A guidewire was passed through the stent into the renal pelvis. The cystoscope was removed, leaving the guidewire in place. The guidewire was used as the safety and was attached to the draping. The semi rigid ureteroscope was passed transurethrally to the level of the stone in the left ureter. Laser lithotripsy of the stone was done using the 365 fiber with a combination of dusting settings 0.3 J by 20 hertz and 0.8 joules by 6 hertz There was good fragmentation of the stone. The 0 degree basket was used to remove the stone fragments, which were sent for analysis. The ureteroscope was removed. The cystoscope was passed over the safety guidewire. A? 7 [place] by 24 cm stent was placed into the ureter and renal pelvis under a combination of fluoroscopy and direct visualization. The bladder was emptied.? The rigid cystoscope was removed. ? The patient tolerated the procedure well and was brought to the recovery room in stable condition. Complications: None Drains: Ureteral stent as dictated above
[2022-12-18 11:07] VITALS: BP 126/81; PULSE 80; RESP 16; TEMP 36.6; O2SAT 96
[2022-12-18 11:12] VITALS: BP 100/37; PULSE 74; RESP 18; O2SAT 95
[2022-12-18 11:17] VITALS: BP 99/47; PULSE 71; RESP 18; O2SAT 97
[2022-12-18 11:22] VITALS: BP 108/42; PULSE 62; RESP 18; O2SAT 97
[2022-12-18 11:37] VITALS: BP 104/47; PULSE 62; RESP 18; TEMP 36.6; O2SAT 98
--- NOTE | 2022-12-18 14:19 | HO.POSTANES ---
Post Anesthesia Evaluation Post Anesthesia Evaluation Vital Signs: Vital Signs Temp Pulse Resp BP Pulse Ox O2 Del Method 12/18/22 11:37 97.8 F 62 18 104/47 L 98 Room Air 12/18/22 11:22 62 18 108/42 L 97 Room Air 12/18/22 11:17 71 18 99/47 L 97 Room Air 12/18/22 11:12 74 18 100/37 L 95 Room Air 12/18/22 11:07 97.9 F 80 16 126/81 96 Room Air 12/18/22 07:48 97.0 F 84 18 144/69 H 98 Room Air Anesthesia: General LMA Mental Status: Awake Pain Control: Satisfactory Nausea/Vomiting: None Hydration: Adequate Anesthesia-Related Issues: No Anes. Related Issues
[2022-12-25 00:58] LABS: Stone Source LEFT URETERAL STONE
== END 2022-12-18 12:08 | disposition home or self-care (01) ==
PROVIDERS: PCP Internal Medicine; Visit Provider Urology
PROC: (CPT 52356; principal; 2022-12-18 09:20)
DX: N13.2 Hydronephrosis with renal and ureteral calculous obstruction (principal); Z96.0 Presence of urogenital implants; N39.0 Urinary tract infection, site not specified; F41.1 Generalized anxiety disorder; J42 Unspecified chronic bronchitis; Z87.891 Personal history of nicotine dependence; I10 Essential (primary) hypertension; E11.9 Type 2 diabetes mellitus without complications; Z79.84 Long term (current) use of oral hypoglycemic drugs; Z79.899 Other long term (current) drug therapy; Z88.0 Allergy status to penicillin; Z88.1 Allergy status to other antibiotic agents; Z88.8 Allergy status to other drugs, medicaments and biological substances; Z86.16 Personal history of COVID-19
CPT/HCPCS: 52356; 82365; 82947; 88300; C1769; C2617; J1100; J1956; J2250; J2405; J3010; Q9967

== ENCOUNTER → 2023-01-02 08:15 | Outpatient (BNVA) | payer OTHER, SELFPAY | PROVIDERS: PCP Internal Medicine; Visit Provider Urology | DX: N13.2 Hydronephrosis with renal and ureteral calculous obstruction (principal); N39.0 Urinary tract infection, site not specified | CPT/HCPCS: 52310 ==

== ENCOUNTER → 2023-03-05 14:46 | Outpatient (REF) | payer OTHER, SELFPAY ==
--- NOTE | 2023-03-05 14:49 | CA_ITS ---
Transthoracic Echocardiogram Patient (Last, First, Middle): Vidhya Hanson, Gender: Female Date of : 1960 Age: 62 Procedure Date: 03/05/2023 Procedure Type: Transthoracic Echocardiogram Location: OP Height: 165.1 cm Weight: 108.86 kg BSA: 2.14 m2 Heart Rate: bpm BP: 140 / 72 mmHg Cruise Consultant: TO Referring MD: José Miguel Baltazar MD Symptoms: R06.09 - Other forms of dyspnea Study Quality: Fair ECG Rhythm: Sinus Conclusions: - The left ventricular systolic function is hyperdynamic. The visually estimated ejection fraction is >70%. - No obvious valvular pathology seen on this study. Findings Procedure Information The patient declines contrast. Left Ventricle Normal left ventricular cavity size. The left ventricular systolic function is hyperdynamic. The visually estimated ejection fraction is >70%. There is no evidence of regional wall motion abnormalities. Diastolic function is normal for age. There is mild septal asymmetric hypertrophy. Low level intracavitary and LVOT gradients. Peak 18mmHg with valsalva. Right Ventricle Normal right ventricular cavity size and systolic function. Atria Both atria are normal in size. Aortic Valve There is a normal trileaflet aortic valve. There is no aortic valve stenosis. There is trace (trivial) aortic valve regurgitation. Mitral Valve The mitral valve appears normal. There is no mitral valve regurgitation. There is no mitral valve stenosis. Increase in mitral valve gradients due to high flow state. Pulmonic Valve The pulmonic valve is likely normal. Tricuspid Valve There is trace tricuspid valve regurgitation. There is no evidence of pulmonary hypertension. Great Vessels The asc aorta is normal in size. Venous The inferior vena cava is normal in size and collapses greater than 50% with inspiration. Pericardium/Pleural Prominent epicardial adipose tissue noted. There is no evidence of pericardial effusion. Prior Study Comparison No prior study available for comparison. Recommendations, Care & Conclusions No obvious valvular pathology seen on this study. Measurements 2D Linear Measurements IVSd: 1.22 0.6-0.9/0.6-1.0 cm LVIDd: 4.35 3.9-5.3/4.2-5.9 cm LVIDd Index: 2.03 2.4-3.2/2.2-3.1 cm/m2 LVIDs: 2.54 2.0-3.6 cm LVPWd: 0.92 0.7-1.1 cm LA Diam: 3.50 2.7-3.8/3.0-4.0 cm LAIDs Index: 1.64 1.5-2.3 cm/m2 LV Mass: 198.29 67-162/88-224 g LV Mass Index: 92.66 43-95/49-115 g/m2 LVOT Diam: 2.00 3.0+(-)1.3 cm Mitral Valve MV VTI: 0.37 MV Pk Juvencio: 1.45 MV Mn Juvencio: 0.95 MV Pk Grad: 8.00 MV Mn Grad: 4.00 MV Pk E: 1.13 MV PK A: 1.39 MV Decel Time: 184.00 E/A: 0.80 E'Lateral: 7.07 E'Medial: 6.64 E/E' Med: 17.00 E/E' Lat: 16.00 PHT: 54.00 MVA PHT: 4.07 MVA Continuity: 3.36 Decel [place]: 6.14 Aortic Valve AoV Pk Juvencio: 2.48 AoV Mn Juvencio: 1.59 AoV VTI: 0.47 AoV Pk Grad: 25.00 Aov Mn Grad: 12.00 JANET Cont.VTI: 2.68 LVOT LVOT Pk Juvencio: 1.95 LVOT Mn Juvencio: 1.39 LVOT VTI: 0.40 LVOT Pk Grad: 15.00 LVOT Mn Grad: 9.00 LVOT Diam: 2.00 LVOT Area: 3.14 Diastolic Function MV Pk E: 1.13 MV Pk A: 1.39 E/A: 0.80 E'Medial: 6.64 E/E' Med: 17.00 E' Laterial: 7.07 E/E' Lat: 16.00 Right Ventricle TAPSE (mm): 22.60 TVS' Juvencio: 12.20 Tricuspid Valve TR Pk Juvencio: 2.69 TR Pk Grad: 29.00 RA Press: 3.00 RVSP: 32.00 Great Vessels Aorta Sinus of Valsalva: 2.72 2.0-3.5 cm Ao Asc: 3.30 2.1-3.4 cm Updated in Other Vendor System with Status of Final Dash Daniels MD electronically signed on 03/07/2023 8:47:53 AM with status of Final
== END ==
LOC: HO.CARD 14:46
PROVIDERS: PCP Internal Medicine; Visit Provider Internal Medicine
DX: R06.09 Other forms of dyspnea (principal); R60.0 Localized edema
CPT/HCPCS: 93306

== ENCOUNTER 2023-04-10 08:13 | Outpatient (AMB) | payer OTHER, SELFPAY ==
--- NOTE | 2023-04-10 06:50 | A.OFFVIS_ITS ---
Intake Intake Visit Reasons: 2m/litholink Intake Note: Patient presents today for a 2mo follow-up, patient failed to do the Litholink. Meds- Furosemide Allergies to Antibiotic- Penicillin & Vancomycin Blood Thinner- None PVR- 0ML Allergies bee pollen [BEE STINGS] Allergy (Intermediate, Verified 04/23/23 07:29) SWELLING, ITCHING--SENSITIVITY oxycodone [From PERCOCET] Allergy (Intermediate, Verified 04/23/23 07:29) N/V, RASH Penicillins [PENICILLINS] Allergy (Intermediate, Verified 04/23/23 07:29) RASH/ITCH vancomycin [VANCOMYCIN] Allergy (Intermediate, Verified 04/23/23 07:29) ITCHING codeine [Codeine] Allergy (Unknown, Verified 04/23/23 07:29) HIVES,VOMITING HPI HPI Comments History of Present Illness Details Vidhya is a 62-year-old female who presents to the office for a 2-month follow up visit. Last visit: 01/02/2023-- She was initially evaluated as an in-patient due to UTI sepsis and left hydronephrosis secondary to obstructive left ureteral stone. The patient has a history of kidney stones that she has passed in the past.? She is status post left ureteral stent on 12/08/2022.? She is status post cystoscopy, left ureteroscopy, laser lithotripsy, and stent exchange on 12/18/22 for left ureteral stone. Evaluation today: Blood: 10 Mendoza/uL, leukocytes: negative. Cystoscopy stent removal. Plan:? Discussed further evaluation with metabolic workup. Today's visit-04/10/2023? Vidhya is a 62-year-old female who presents today to the office for a 2-month follow up visit. She was last seen on the office on 01/02/2023 at which time cystoscopy and stent removal was performed. She states that 3 weeks ago she had a feeling of left sided flank pain with increased urinary urgency. She states that the symptoms have resolved at this time. She states that she has increased fluid intake. She states that she has completed the 24 hour urine test. Evaluation today UA?04/10/2023?leucocytes: negative; blood: negative. Plan:Telehealth fu to review 24 hr urine, pt completed but results are not yet available [facility] Medical History Anxiety Calcification of left hand joint Calcification of right hand joint Chronic bronchitis COPD (chronic obstructive pulmonary disease) COVID-19 Diabetes mellitus Essential hypertension Ex-smoker Ex-smoker GERD without esophagitis Hand pain Impaired glucose tolerance Left knee pain Obese Obesity Osteoarthritis Screen for colon cancer Surgical History Ganglion cyst History of appendectomy Hx laparoscopic cholecystectomy Previous section Family History Mother Hypertension Father Cancer Social History Household Members: Family Household Members Other:: daughter Housing: House Do you presently have visiting nurse or other home services: No Alcohol intake: current Alcohol intake frequency: holidays/special occasions only Patient Tobacco Use Status: Former Tobacco user Quit Date: 1- 1/2 years ago Tobacco use type: Cigarette e-Cigarette/Vaping Use: Never Used Second Hand Smoke Exposure: No service: No 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 Cognitive needs: No Hearing needs: No Vision needs: Yes Review of Systems Const All systems reviewed & are unremarkable except as noted in HPI and below Reports no additional complaints Eyes Reports no additional complaints ENT Reports no additional complaints Card Denies dyspnea Resp Denies cough and Denies dyspnea GI Reports no additional complaints Reports no additional complaints Musc Reports no additional complaints Skin/Breast Denies rash and Denies unusual bruising Neuro Reports no additional complaints Psych Reports no additional complaints Endo Reports no additional complaints Uriel/Lymph Reports no additional complaints Aller/Immun Reports no additional complaints Office Procedures Post Void Residual Post Residual Void Post Void Residual (PVR): 0 50140-Pfak Void Residual by ultrasound Results AMB Urinalysis, Automated UA Leukoctes 0 Dave/uL Last Edit by SAMIRA Brown on 04/10/23 08:29 UA Nitrite Negative Last Edit by SAMIRA Brown on 04/10/23 08:29 UA Urobilinogen 0.2 mg/dL Last Edit by SAMIRA Brown on 04/10/23 08:2 9 UA Protein 15 mg/dL Last Edit by SAMIRA Brown on 04/10/23 08:29 UA pH 5.0 Last Edit by Teressa Mon, RMA on 04/10/23 08:29 UA Blood 0 Mendoza/uL Last Edit by Teressa Mon, RMA on 04/10/23 08:29 UA Specific [place] 1.025 Last Edit by Teressa Mon, RMA on 04/10/23 08: 29 UA Ketone Negative Last Edit by Teressa Mon RMA on 04/10/23 08:29 UA Bilirubin 0 mg/dL Last Edit by Teressa Mon, RMA on 04/10/23 08:29 UA Glucose 1000 mg/dL Last Edit by Teressa Mon RMA on 04/10/23 08:29 Results Reviewed Results Reviewed: Laboratory Last Values Urine pH (Auto) 5.0 04/10/23 08:27 Specific [place] (Auto) 1.025 04/10/23 08:27 Urine Protein (Auto) 15 mg/dL 04/10/23 08:27 Glucose (UA)(Auto) 1000 mg/dL 04/10/23 08:27 Urine Ketones (Auto) Negative 04/10/23 08:27 Urine Blood (Auto) 0 Mendoza/uL 04/10/23 08:27 Urine Nitrite (Auto) Negative 04/10/23 08:27 Urine Bilirubin (Auto) 0 mg/dL 04/10/23 08:27 Urine Urobilinogen (Auto) 0.2 mg/dL 04/10/23 08:27 Leukocyte Esterase (Auto) 0 Dave/uL 04/10/23 08:27 Date of Service: 12/07/22 Procedure(s): CT abdomen pelvis wo IV con Accession Number(s): [id number] cc: Lizette Nicolas MD~ EXAMINATION: CT ABDOMEN AND PELVIS WITHOUT CONTRAST? CLINICAL INFORMATION: Elevated LFTs. Both lower quadrant abdominal pain? COMPARISON: None available.? TECHNIQUE: Multidetector volumetric imaging was performed from the superior aspect of the liver through the pubic symphysis. Sagittal and coronal reformatted images were obtained on the technologist's workstation.? This CT examination was performed using dose optimization techniques as appropriate, variously including the following: *Automated exposure control *Adjustment of mA and/or kV according to patient size (this includes techniques or standardized protocols for targeted exams where dose is matched to indication/reason for exam; i.e. extremities or head) *Use of iterative reconstruction technique DLP: 759 mGy-cm FINDINGS: LUNG BASES: Subpleural reticular opacities at lung bases. No focal airspace opacity. No pleural effusion.? LIVER, GALLBLADDER, AND BILIARY TREE: The liver is normal in size, shape, and attenuation. Right lobe of liver measures 18 cm superior inferior. No focal hepatic lesion or biliary ductal dilatation is present. Status post cholecystectomy? PANCREAS: Unremarkable.? SPLEEN: Unremarkable.? ADRENAL GLANDS: Unremarkable.? KIDNEYS AND URETERS: Left kidney: Moderate hydronephrosis of left kidney with distention of renal pelvis and calyces. There is an obstructing stone in the ureter at the upper pelvis without any centimeters proximal to the ureterovesical junction. Stone measures 8 x 5 mm in size. Coronal image 74/119 series 4. There is a nonobstructive 1 mm stone at the lower pole of left kidney. Right kidney: Right kidney and collecting system are normal. No hydronephrosis or calculus.? BLADDER: Unremarkable.? GASTROINTESTINAL TRACT: The small and large bowel are unremarkable. The? appendix is nonvisualized. No inflammation the mesentery. ABDOMINAL WALL: No significant hernia is appreciated.? LYMPH NODES: Normal. VASCULAR: Unremarkable. PELVIC VISCERA: Uterus is anteverted. Small calcifications within the uterus.? OSSEOUS STRUCTURES: No acute osseous abnormality.? IMPRESSION: Moderate hydronephrosis of left kidney. Obstructing 8 x 5 mm stone in the distal ureter at the upper pelvis. Assessment & Plan Assessment & Plan (1) Kidney stone: Code(s): N20.0 - Calculus of kidney Plan Telehealth fu to review 24 hr urine, pt completed but results are not yet available Orders: Orders AMB Urinalysis Automated 04/10/23 Z13.9 - Encounter for screening, unspecified AMB Post Void Residual by ultrasound 04/10/23 N39.0 - Urinary tract infection, site not specified Medications: Discontinued clonazepam 0.5 mg PO BID 30 days 60 tabs 1RF furosemide 40 mg PO DAILY 60 tabs 1RF Patient Instructions: Diet sheet for renal calculi prevention was provided to the patient. Discussed to reduce sodium intake. Discussed to consume adequate amount of water. The patient had an opportunity to ask questions regarding treatment plan. All questions were answered. Imaging, Laboratory studies and physical exam results were discussed and reviewed in detail. No major barriers to understanding were identified. The patient expressed understanding and agreement with the above treatment plan.? ? ? The patient is aware they should contact our office by phone for worsening of their current condition or the appearance of new symptoms. Compliance is encouraged with any medications and followup testing that is ordered.? ? ? It is a privilege to be allowed the opportunity to participate in the urologic care of your patient. If you have any questions or concerns regarding treatment for the above conditions please do not hesitate to contact me. The office telephone contact is [phone].? ? ? This note is constructed in part using voice recognition software. While every effort has been made to ensure accuracy internal medicine doctor errors may have been included.? ? ? Yours sincerely,? ? ? Herb Lennon MD? Coding Level of Care Code Est Pt Level 3 (36527) Diagnoses Kidney stone N20.0 CPT Codes Post Residual Void - PVR CPT Code: 45790-Crmr Void Residual by ultrasound ([id number])
== END 2023-04-10 09:23 | disposition home or self-care (01) ==
PROVIDERS: PCP Internal Medicine; Visit Provider Urology
DX: N20.0 Calculus of kidney (principal)
CPT/HCPCS: 99213

== ENCOUNTER 2023-04-10 08:13 | Outpatient (REF) | payer OTHER, SELFPAY ==
[2023-04-10 09:50] LABS: MANUAL DIFF FLAG NO
[2023-04-10 10:23] LABS: Basophils Absolute Auto 0.1 X10*3/uL (0.0-0.2); Basophils Percent Auto 1.1 % (0-2); Eosinophils Absolute Auto 0.1 X10*3/uL (0.0-0.4); Eosinophils Percent Auto 1.9 % (0-4); Hematocrit 37.4 % (37.0-47.0); Hemoglobin 12.2 g/dl (12.0-16.0); Imm Gran Abs Auto 0.04 X10*3/uL (0.00-0.03); Imm Gran Pct Auto 0.6 % (0.0-0.4); Lymphocytes Percent Auto 31.2 % (20-40); Mean Corpuscular HGB Conc 32.6 g/dl (31.0-35.0); Mean Corpuscular Hemoglobin 28.8 pg (27.0-33.0); Mean Corpuscular Volume 88.4 fL (80.0-98.0); Mean Platelet Volume 9.7 fL (9.4-12.3); Monocytes Absolute Auto 0.6 X10*3/uL (0.1-1.2); Monocytes Percent Auto 8.7 % (2-11); Neutrophils Absolute Auto 3.6 x10*3/uL (2.0-8.3); Neutrophils Percent Auto 56.5 % (45-73); Platelet Count 229 X10*3/uL (160-400); Red Blood Count 4.23 X10*6/uL (4.20-5.50); White Blood Count 6.3 X10*3/uL (4.8-10.8)
[2023-04-10 10:49] LABS: Estimated Average Glucose 206 mg/dL; Hemoglobin A1c % 8.8 %
[2023-04-10 11:04] LABS: B Type Natriuretic Peptide 30 pg/mL (<100)
[2023-04-10 11:26] LABS: Alanine Aminotransferase 84 U/L (0-31); Albumin Level 3.6 g/dL (3.5-5.0); Alkaline Phosphatase 80 U/L (39-117); Anion Gap 11 (12-20); Aspartate Amino Transferase 100 U/L (5-31); Bilirubin Total 0.6 mg/dL (0.0-1.0); Blood Urea Nitrogen 13 mg/dL (9-16); Calcium 9.7 mg/dL (8.4-10.2); Carbon Dioxide 25 mmol/L (22-29); Chloride 106 mmol/L (96-108); Cholesterol 153 mg/dL; Estimated Glomerular Filt Rate > 60; Glucose Fasting 286 mg/dL (60-99); HDL Cholesterol 72 mg/dL; LDL Cholesterol Calculated 62 mg/dl; Potassium 4.3 mmol/L (3.3-5.1); Sodium 138 mmol/L (135-145); Total Protein 7.5 g/dL (6.5-8.0); Triglycerides 97 mg/dL
[2023-04-10 11:30] LABS: TSH reflex Free T4 1.47 uIU/mL (0.32-4.0); Vitamin D 25-OH Total 13.4 ng/mL (>30)
[2023-04-10 11:33] LABS: Folate 8.9 ng/mL (> or = 4.0); Vitamin B12 422 pg/mL (200-900)
== END 2023-04-10 08:14 | disposition home or self-care (01) ==
LOC: HO.LAB 08:13
PROVIDERS: Absent Provider Urology; PCP Internal Medicine; Visit Provider Internal Medicine
DX: R30.0 Dysuria (principal); N39.0 Urinary tract infection, site not specified; I10 Essential (primary) hypertension; E78.00 Pure hypercholesterolemia, unspecified; E55.9 Vitamin D deficiency, unspecified; N20.0 Calculus of kidney; E11.9 Type 2 diabetes mellitus without complications; E53.8 Deficiency of other specified B group vitamins; R60.0 Localized edema
CPT/HCPCS: 36415; 51798; 80053; 80061; 82306; 82607; 82746; 83036; 83880; 84443; 85025

== ENCOUNTER 2023-04-17 14:21 | Outpatient (AMB) | payer OTHER, SELFPAY ==
[2023-04-17 14:23] VITALS: BP 168/88; PULSE 95; O2SAT 97; BMI 43.4
--- NOTE | 2023-04-17 14:23 | A.OFFPC_ITS ---
Vital Signs 04/17/23 14:23 Height 5 ft 4 in Weight 253 lb BMI 43.4 BP 168/88 H Blood Pressure Location Lt brachial Position Sitting Pulse 95 Pulse Source Pulse Oximeter Pulse Oximetry (%) 97 Oxygen Delivery Method Room Air Intake Visit Reasons: COPD Allergies bee pollen [BEE STINGS] Allergy (Intermediate, Verified 04/17/23 14:55) SWELLING, ITCHING--SENSITIVITY oxycodone [From PERCOCET] Allergy (Intermediate, Verified 04/17/23 14:55) N/V, RASH Penicillins [PENICILLINS] Allergy (Intermediate, Verified 04/17/23 14:55) RASH/ITCH vancomycin [VANCOMYCIN] Allergy (Intermediate, Verified 04/17/23 14:55) ITCHING codeine [Codeine] Allergy (Unknown, Verified 04/17/23 14:55) HIVES,VOMITING Medication List - Last Reconciled 04/17/23 by José Miguel Baltazar MD albuterol sulfate 90 mcg/actuation 2 puffs PO Q4H PRN clonazepam 0.5 mg PO BID PRN furosemide 40 mg PO DAILY lisinopril 40 mg PO DAILY metformin 500 mg PO BID 30 days omeprazole 20 mg PO DAILY Tobacco use date assessed: 12/31/22 Fall risk assessment: No Falls in past year Last assessed Fall Risk: 04/17/23 Dental Screening Dental Screen Date: 04/17/23 Did you have a dental visit in the last 12 months?: Yes Did you have a dental problem in the last 6 months where you did not have access to dental care?: No Was dental information given to patient?: Patient has dentist HPI COPD HPI Details Patient comes in today for her follow up visit States that she feels okay She denies any headaches or dizziness Denies any chest pains, no SOB No nausea/vomiting, no abdominal pain No change in bowel habits noted Needs a few of her Rx refilled Had her follow up labs done last week - to discuss her results [facility] Medical History Anxiety Calcification of left hand joint Calcification of right hand joint Chronic bronchitis COPD (chronic obstructive pulmonary disease) COVID-19 Diabetes mellitus Essential hypertension Ex-smoker Ex-smoker GERD without esophagitis Hand pain Impaired glucose tolerance Left knee pain Obese Obesity Osteoarthritis Screen for colon cancer Surgical History Ganglion cyst History of appendectomy Hx laparoscopic cholecystectomy Previous section Family History Mother Hypertension Father Cancer Social History Household Members: Family Household Members Other:: daughter Housing: House Do you presently have visiting nurse or other home services: No Alcohol intake: current Alcohol intake frequency: holidays/special occasions only Patient Tobacco Use Status: Former Tobacco user Quit Date: 1- 1/2 years ago Tobacco use type: Cigarette e-Cigarette/Vaping Use: Never Used Second Hand Smoke Exposure: No service: No 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 1. Little interest or pleasure in doing things: not at all 2. Feeling down, depressed, or hopeless: not at all 3. Trouble falling or staying asleep, or sleeping too much: not at all 4. Feeling tired or having little energy: not at all 5. Poor appetite or overeating: not at all 6. Feeling bad about yourself - or that you are a failure or have let yourself or your family down: not at all 7. Trouble concentrating on things, such as reading the newspaper or watching television: not at all 8. Moving or speaking so slowly that other people could have noticed. Or the opposite - being so fidgety or restless that you have been moving around a lot more than usual: not at all 9. Thoughts that you would be better off or of hurting yourself in some way: not at all Total score: 0 Depression Screening Interpretation: Negative 49906 - PHQ-9 Billing: Yes Source: Developed by Drs. Nathan Guthrie, Fernanda Sarah, Paul Ellsworth and colleagues, with an educational sabrina from [employer]. Thrive Questionnaire Date Thrive assessed: 12/31/22 AUDIT C Alcohol Use Questionnaire (AUDIT-C) 1. How often do you have a drink containing alcohol?: Monthly or less 2. How many drinks containing alcohol do you have on a typical day when you are drinking?: 1 or 2 Total Score: 1 Score Reviewed/Action Taken: Yes PRIMO-7 AMB Questionnaire PRIMO-7 Date PRIMO - 7 assessed: 12/31/22 Source: Developed by Drs. Nathan Guthrie, Fernanda Sarah, Paul Ellsworth and colleagues, with an educational sabrina from [employer]. Review of Systems Const Denies chills, Reports fatigue, Denies fever(s) and Denies headache(s) ENT Denies dysphagia, Denies dizziness, Denies headache(s), Denies odynophagia and Denies sore throat Card Denies chest pain, Denies palpitations and Reports dyspnea on exertion (mild) Resp Reports cough (occasional; coughs up thick whitish phlegm at times), Reports dyspnea on exertion (mild) and Denies wheezing GI Denies abdominal pain, Denies constipation, Denies dysphagia, Denies heartburn, Denies diarrhea, Denies nausea, Denies odynophagia and Denies vomiting Denies difficulty voiding, Denies nocturia and Denies dysuria Musc Reports arthralgias (left knee; both hands) and Reports stiffness Neuro Denies dizziness and Denies headache(s) Endo Reports fatigue and Denies palpitations Aller/Immun Denies wheezing Physical exam (Primary Care) Vital Signs: Last Vital Signs Pulse 95 04/17/23 14:23 BP 168/88 H 04/17/23 14:23 Pulse Ox 97 04/17/23 14:23 Oxygen Delivery Method Room Air 04/17/23 14:23 BMI result Body Mass Index 43.4 Tobacco/Smoking Status: Tobacco use Status Tobacco use date assessed 12/31/22 04/17/23 14:26 Patient Tobacco Use Status Former Tobacco user 04/17/23 14:26 Tobacco use type Cigarette 04/17/23 14:26 e-Cigarette/Vaping Use Never Used 04/17/23 14:26 PHQ-9: PHQ-9 Score PHQ-9: Total score 0 04/17/23 14:26 Depression Screening Interpretation: Negative Thrive Assessment: Date of Thrive Assessment Date Thrive assessed 12/31/22 04/17/23 14:26 Const General: no acute distress and alert HENMT Ears: TM's normal bilaterally and EAC's normal Throat: Yes posterior oropharynx normal and Yes tonsils normal (no TP congestion) Neck Neck: Yes no lymphadenopathy and Yes supple Resp Auscultation: no rales, rhonchi (occasional) throughout, no wheezes and diminished lung sounds (slightly) bilateral Cardio Rate: regular rate Rhythm: regular rhythm Heart sounds: no murmurs GI Palpation (GI): Soft to palpation and nontender Auscultation: normal bowel sounds Skin Rashes: no rashes Extrem General: No clubbing, No cyanosis and Yes pedal edema (trace bilaterally) Left lower extremity: knee Details: tenderness; no swelling Results Reviewed Results Reviewed: Laboratory Tests 04/10/23 04/10/23 04/10/23 08:27 09:48 09:48 WBC 6.3 Hgb 12.2 Hct 37.4 Plt Count 229 D Sodium 138 Potassium 4.3 D Creatinine 0.77 Estimated GFR > 60 Fasting Glucose 286 H Hemoglobin A1c % Calcium 9.7 D AST 100 H ALT 84 H B-Natriuretic Peptide Triglycerides 97 Cholesterol 153 LDL Cholesterol, Calc 62 HDL Cholesterol 72 Vitamin B12 25-OH Vitamin D Total 13.4 TSH 1.47 Specific [place] (Auto) 1.025 Urine Protein (Auto) 15 Glucose (UA)(Auto) 1000 04/10/23 04/10/23 04/10/23 09:48 09:48 09:48 WBC Hgb Hct Plt Count Sodium Potassium Creatinine Estimated GFR Fasting Glucose Hemoglobin A1c % 8.8 Calcium AST ALT B-Natriuretic Peptide 30 Triglycerides Cholesterol LDL Cholesterol, Calc HDL Cholesterol Vitamin B12 422 25-OH Vitamin D Total TSH Specific [place] (Auto) Urine Protein (Auto) Glucose (UA)(Auto) Assessment and Plan Assessment & Plan (1) COPD (chronic obstructive pulmonary disease): Comment: SHE DOES HAVE EVIDENCE OF MODERATELY SEVERE OBSTRUCTIVE PULMONARY DISEASE. GOOD RESPONSE TO BRONCHODILATORS IS INDICATED OF OF ASTHMA COPD OVERLAP SYNDROME. TX AFTER GOOD DISCUSSION WITH THE PATIENT WE HAVE AGREED TO TRY COMBINATION ICS /LABD AGENT ( ADVAIR OR WIXELA 250-50 )ONE INH BID Code(s): J44.9 - Chronic obstructive pulmonary disease, unspecified Qualifiers: COPD type: unspecified COPD Qualified Code(s): J44.9 - Chronic obstructive pulmonary disease, unspecified Plan: Ex-smoker - patient quit smoking a couple of years ago in September 2020 Continue Albuterol HFA 2 inhalations Q 6 hours PRN Was supposed to also be on Advair or Wixela but unclear as to why she is not on Rx at this time Follow up with pulmonary (Dr. Brown) as scheduled (2) Diabetes mellitus: Code(s): E11.9 - Type 2 diabetes mellitus without complications Qualifiers: Diabetes mellitus type: type 2 Diabetes mellitus superintendent container terminal insulin use: without superintendent container terminal use Diabetes mellitus complication status: without complication Qualified Code(s): E11.9 - Type 2 diabetes mellitus without complications Plan: HgbA1c has increased to 8.8% on her labs done last week (in-office HgbA1c was at 8.3% a few months ago) - goal is <7.0% Reinforced diabetic diet Continue Metformin 500 mg BID for now Will have patient recheck her labs in 3 months for follow up (3) Essential hypertension: Code(s): I10 - Essential (primary) hypertension Plan: Reinforced low sodium diet - goal is systolic BP of at least 120 to 130 mm or less Her BP is significantly higher today, most likely in relation to her recent increased weight gain Continue Lisinopril 40 mg QD for now; also takes Furosemide 40 mg Q AM for her edema (4) Ureterolithiasis: Code(s): N20.1 - Calculus of ureter Plan: Patient had moderate hydronephrosis of the left kidney with obstructing calculus a few months ago that required stenting - this has resolved with Tx and she had the stent removed by urology subsequently and has not had any recurrence of kidney stones since Follow up with urology as scheduled (5) Elevated LFTs: Code(s): R79.89 - Other specified abnormal findings of blood chemistry Plan: Cautioned that her LFTs have increased significantly on her recent labs - LFTs are at least 2 to 3 times above normal now Discussed that these are most likely related to her weight and her recent weight gain She is not on any medications currently that can cause her LFTs to increase this much and her recent abdominal CT done in November 2022 revealed NO liver abnormalities or enlargement Advised that her LFTs should trend back to normal gradually with weight loss Will continue to monitor her LFTs regularly (6) Osteoarthritis: Code(s): M19.90 - Unspecified osteoarthritis, unspecified site Qualifiers: Osteoarthritis location: multiple joints Osteoarthritis type: primary Qualified Code(s): M15.9 - Polyosteoarthritis, unspecified Plan: Involving multiple joints, especially her left knee and both hands Continue OTC Tylenol PRN for pain Follow up with Dr. Forde at [facility] as scheduled for rheumatology follow up (7) GERD without esophagitis: Code(s): K21.9 - Gastro-esophageal reflux disease without esophagitis Plan: Dietary restrictions reinforced Continue Omeprazole 20 mg QD (8) Edema of both lower extremities: Code(s): R60.0 - Localized edema Plan: Most likely stasis/dependent edema BNP done on her recent labs was normal; echocardiogram done a couple of months ago (February 2023) revealed a hyperdynamic left ventricle, with visually estimated ejection fraction of >70% and no valvular pathology seen Continue Furosemide 40 mg Q AM PRN (9) Anxiety: Code(s): F41.9 - Anxiety disorder, unspecified Plan: Continue Clonazepam 0.5 mg BID PRN - Rx refilled (10) Morbid obesity with BMI of 40.0-44.9, adult: Comment: BMI 42.6 on 05/31/22 Code(s): E66.01 - Morbid (severe) obesity due to excess calories; Z68.41 - Body mass index [BMI] 40.0-44.9, adult Plan: Reinforced diet/exercise as tolerated/lose weight - she has gained about 17 pounds since her last visit Per request, will refer her again for MEDICAL weight management to get her some help in losing weight Plan Follow up in 3 months Orders: Orders Comprehensive [place]. Panel Fast 3 Months E78.00 - Pure hypercholesterolemia, unspecified José Miguel Baltazar MD Lipid Panel 3 Months E78.00 - Pure hypercholesterolemia, unspecified José Miguel Baltazar MD Hemoglobin A1c 3 Months E11.9 - Type 2 diabetes mellitus without complications José Miguel Baltazar MD Complete Blood Count Auto Diff 3 Months I10 - Essential (primary) hypertension José Miguel Baltazar MD Microalbumin, Random (w Creat) 3 Months E11.9 - Type 2 diabetes mellitus without complications José Miguel Baltazar MD TSH reflex Free T4 3 Months E78.00 - Pure hypercholesterolemia, unspecified José Miguel Baltazar MD UA CC w/rflx Micro + Cult 3 Months R30.0 - Dysuria José Miguel Baltazar MD Vitamin D 25-OH Total 3 Months E55.9 - Vitamin D deficiency, unspecified José Miguel Baltazar MD Vitamin B12 and Folate 3 Months E53.8 - Deficiency of other specified B group vitamins José Miguel Baltazar MD Referrals Medical Weight Management Referral E11.9 - Type 2 diabetes mellitus without complications, E66.01 - Morbid (severe) obesity due to excess calories, I10 - Essential (primary) hypertension, Z68.41 - Body mass index [BMI] 40.0-44.9, adult José Miguel Baltazar MD Medications: New cholecalciferol (vitamin D3) 50 mcg PO DAILY 90 days 90 caps 3RF E55.9 - Vitamin D deficiency, unspecified José Miguel Baltazar MD clonazepam 0.5 mg PO BID PRN 60 tabs 0RF Anxiety José Miguel Baltazar MD Refilled lisinopril 40 mg PO DAILY 90 tabs 3RF I10 - Essential (primary) hypertension José Miguel Baltazar MD metformin 500 mg PO BID 30 days 60 tabs 6RF E11.9 - Type 2 diabetes mellitus without complications José Miguel Baltazar MD Discontinued clonazepam 0.5 mg PO BID 60 tabs 1RF 30 days Sirena Maciver, RPh furosemide 40 mg PO DAILY 60 tabs 1RF Sirena Maciver, RPh Coding Level of Care Code Est Pt Level 4 (92740) Diagnoses COPD (chronic obstructive pulmonary disease) J44.9 COPD type: unspecified COPD Diabetes mellitus E11.9 Diabetes mellitus type: type 2 Diabetes mellitus superintendent container terminal insulin use: without mcc use Diabetes mellitus complication status: without complication Essential hypertension I10 Ureterolithiasis N20.1 Elevated LFTs R79.89 Osteoarthritis M15.9 Osteoarthritis location: multiple joints Osteoarthritis type: primary GERD without esophagitis K21.9 Edema of both lower extremities R60.0 Anxiety F41.9 Morbid obesity with BMI of 40.0-44.9, adult E66.01; Z68.41
== END 2023-04-17 15:09 | disposition home or self-care (01) ==
PROVIDERS: Visit Provider Internal Medicine
DX: E11.9 Type 2 diabetes mellitus without complications (principal); F41.9 Anxiety disorder, unspecified; E66.01 Morbid (severe) obesity due to excess calories; Z68.41 Body mass index [BMI] 40.0-44.9, adult; J44.9 Chronic obstructive pulmonary disease, unspecified; I10 Essential (primary) hypertension; N20.1 Calculus of ureter; R79.89 Other specified abnormal findings of blood chemistry; M15.9 Polyosteoarthritis, unspecified; K21.9 Gastro-esophageal reflux disease without esophagitis; R60.0 Localized edema
CPT/HCPCS: 99214

== ENCOUNTER 2023-04-23 07:18 | Outpatient (AMB) | payer OTHER, SELFPAY ==
--- NOTE | 2023-04-23 07:19 | MHC.PC.OV ---
Intake Visit Reasons: n/v/d Allergies bee pollen [BEE STINGS] Allergy (Intermediate, Verified 04/23/23 07:29) SWELLING, ITCHING--SENSITIVITY oxycodone [From PERCOCET] Allergy (Intermediate, Verified 04/23/23 07:29) N/V, RASH Penicillins [PENICILLINS] Allergy (Intermediate, Verified 04/23/23 07:29) RASH/ITCH vancomycin [VANCOMYCIN] Allergy (Intermediate, Verified 04/23/23 07:29) ITCHING codeine [Codeine] Allergy (Unknown, Verified 04/23/23 07:29) HIVES,VOMITING Medication List - Last Reconciled 04/23/23 by JULITA Mcfadden albuterol sulfate 90 mcg/actuation 2 puffs PO Q4H PRN cholecalciferol (vitamin D3) 50 mcg PO DAILY 90 days clonazepam 0.5 mg PO BID PRN furosemide 40 mg PO DAILY lisinopril 40 mg PO DAILY metformin 500 mg PO BID 30 days omeprazole 20 mg PO DAILY Tobacco use date assessed: 12/31/22 Fall risk assessment: No Falls in past year Last assessed Fall Risk: 04/23/23 Dental Screening Dental Screen Date: 04/23/23 Did you have a dental visit in the last 12 months?: Yes Did you have a dental problem in the last 6 months where you did not have access to dental care?: No HPI HPI Comments History of Present Illness Details 62-year-old female past medical history significant for GERD, osteoarthritis, hyponatremia, COPD, diabetes mellitus and anxiety. Patient Dr. Baltazar patient presents today for a telehealth visit for. Patient states temp 102.0, severe stomach pain, nausea and diarrhea. Patient denies any blood in her stool, does report that stool is foul smelling and has stool flakes that sink in the toilet. Patient does report that she is starting to feel better. Denies any fever, chills, abdominal pain at this time. Patient reports she is staying well hydrated, still has poor appetite. Patient does report similar episode 2 months ago and she is concerned that it is not related to a viral infection. [facility] Medical History Anxiety Calcification of left hand joint Calcification of right hand joint Chronic bronchitis COPD (chronic obstructive pulmonary disease) COVID-19 Diabetes mellitus Essential hypertension Ex-smoker Ex-smoker GERD without esophagitis Hand pain Impaired glucose tolerance Left knee pain Obese Obesity Osteoarthritis Screen for colon cancer Surgical History Ganglion cyst History of appendectomy Hx laparoscopic cholecystectomy Previous section Family History Mother Hypertension Father Cancer Social History Household Members: Family Household Members Other:: daughter Housing: House Do you presently have visiting nurse or other home services: No Alcohol intake: current Alcohol intake frequency: holidays/special occasions only Patient Tobacco Use Status: Former Tobacco user Quit Date: 1- 1/2 years ago Tobacco use type: Cigarette e-Cigarette/Vaping Use: Never Used Second Hand Smoke Exposure: No service: No 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 1. Little interest or pleasure in doing things: not at all 2. Feeling down, depressed, or hopeless: not at all 3. Trouble falling or staying asleep, or sleeping too much: not at all 4. Feeling tired or having little energy: not at all 5. Poor appetite or overeating: not at all 6. Feeling bad about yourself - or that you are a failure or have let yourself or your family down: not at all 7. Trouble concentrating on things, such as reading the newspaper or watching television: not at all 8. Moving or speaking so slowly that other people could have noticed. Or the opposite - being so fidgety or restless that you have been moving around a lot more than usual: not at all 9. Thoughts that you would be better off or of hurting yourself in some way: not at all Total score: 0 Depression Screening Interpretation: Negative [id number] - PHQ-9 Billing: Yes Source: Developed by Drs. Nathan Guthrie, Fernanda Sarah, Paul Ellsworth and colleagues, with an educational sabrina from [employer] Thrive Questionnaire Date Thrive assessed: 12/31/22 AUDIT C Alcohol Use Questionnaire (AUDIT-C) 1. How often do you have a drink containing alcohol?: Monthly or less 2. How many drinks containing alcohol do you have on a typical day when you are drinking?: 1 or 2 Total Score: 1 Score Reviewed/Action Taken: Yes PRIMO-7 AMB Questionnaire PRIMO-7 Date PRIMO - 7 assessed: 12/31/22 Source: Developed by Drs. Nathan Guthrie, Fernanda Sarah, Paul Ellsworth and colleagues, with an educational sabrina from [employer]. Review of Systems GI Denies abdominal pain, Denies melena, Reports diarrhea, Reports nausea and Denies hematemesis Physical exam (Primary Care) Vital Signs: Unable to complete physical exam as this is a telehealth appointment. Tobacco/Smoking Status: Tobacco use Status Tobacco use date assessed 12/31/22 04/23/23 07:21 Patient Tobacco Use Status Former Tobacco user 04/23/23 07:21 Tobacco use type Cigarette 04/23/23 07:21 e-Cigarette/Vaping Use Never Used 04/23/23 07:21 PHQ-9: PHQ-9 Score PHQ-9: Total score 0 04/23/23 07:35 Depression Screening Interpretation: Negative Thrive Assessment: Date of Thrive Assessment Date Thrive assessed 12/31/22 04/23/23 07:21 Telehealth Telehealth Location of provider rendering services: practice address Location of patient: address on file Patient Identification confirmed using: Name, : Yes Telehealth method: video (Iphone) Patient verbally consented to treatment: Yes Patient verbally consented to billing insurance company: Yes Patient informed of any privacy concerns related to visit: Yes Assessment and Plan Assessment & Plan (1) Diarrhea: Code(s): R19.7 - Diarrhea, unspecified Plan: Likely related to have viral gastroenteritis, however given patient's concern kids is her 2nd episode of this in the last 2 months will complete Stool studies and C diff ordered, CBC, CMP, ESR and CRP to exclude other causes. Patient agreeable with plan of care. (2) Diabetes mellitus: Code(s): E11.9 - Type 2 diabetes mellitus without complications Qualifiers: Diabetes mellitus type: type 2 Diabetes mellitus skilled nursing insulin use: without predatory animal exterminator use Diabetes mellitus complication status: without complication Qualified Code(s): E11.9 - Type 2 diabetes mellitus without complications Plan: Continue on metformin 500 mg b.i.d.. Follow low-carbohydrate diet. (3) Essential hypertension: Code(s): I10 - Essential (primary) hypertension Plan: Continue on lisinopril 40 mg daily. Follow low-salt diet and exercise. Plan Keep scheduled follow-up with PCP or follow-up sooner if needed. Orders: Orders Comprehensive [place]. Panel Fast Today R19.7 - Diarrhea, unspecified C Reactive Protein Today R19.7 - Diarrhea, unspecified Complete Blood Count Auto Diff Today Z13.0 - Encounter for screening for diseases of the blood and blood-forming organs and certain disorders involving the immune mechanism Erythrocyte Sedimentation Rate Today R19.7 - Diarrhea, unspecified CDiff Gene PCR Today R19.7 - Diarrhea, unspecified Giardia Ag Stool EIA Today R19.7 - Diarrhea, unspecified H pylori Ag Stool Today R19.7 - Diarrhea, unspecified Ova and Parasite Today R19.7 - Diarrhea, unspecified Leukocytes Stool Qualitative Today R19.7 - Diarrhea, unspecified Medications: Discontinued clonazepam 0.5 mg PO BID 30 days 60 tabs 1RF furosemide 40 mg PO DAILY 60 tabs 1RF Coding Level of Care Code Tele Est Pt Level 3 (24649) Diagnoses Diarrhea R19.7 Diabetes mellitus E11.9 Diabetes mellitus type: type 2 Diabetes mellitus predatory animal exterminator insulin use: without predatory animal exterminator use Diabetes mellitus complication status: without complication Essential hypertension I10
== END 2023-04-23 07:37 | disposition home or self-care (01) ==
LOC: HO.HMGH 07:18
PROVIDERS: PCP Internal Medicine; Visit Provider Nurse Practitioner Family
DX: R19.7 Diarrhea, unspecified (principal); E11.9 Type 2 diabetes mellitus without complications; I10 Essential (primary) hypertension
CPT/HCPCS: 99213

== ENCOUNTER 2023-04-24 06:38 | Outpatient (REF) | payer OTHER, SELFPAY ==
[2023-04-24 11:41] LABS: Hematocrit 35.4 % (37.0-47.0); Hemoglobin 11.4 g/dl (12.0-16.0); Mean Corpuscular HGB Conc 32.2 g/dl (31.0-35.0); Mean Corpuscular Hemoglobin 28.8 pg (27.0-33.0); Mean Corpuscular Volume 89.4 fL (80.0-98.0); Mean Platelet Volume 10.7 fL (9.4-12.3); Platelet Count 236 X10*3/uL (160-400); Red Blood Count 3.96 X10*6/uL (4.20-5.50); Red Cell Distribution Width 13.2 % (11.0-16.0); White Blood Count 7.2 X10*3/uL (4.8-10.8)
[2023-04-24 12:03] LABS: Band Neutrophils Percent 2 % (3-5); Eosinophils Absolute Manual 0.4 X10*3/uL (0.0-0.4); Eosinophils Percent Manual 5 % (0-4); Lymphocytes Absolute Manual 1.6 X10*3/uL (1.2-4.9); Lymphocytes Percent Manual 22 % (20-40); Metamyelocytes Absolute 0.1 X10*3/uL; Metamyelocytes Percent 1 %; Monocytes Absolute Manual 1.3 X10*3/uL (0.1-1.2); Monocytes Percent Manual 18 % (2-11); Myelocytes Absolute 0.1 X10*/uL; Myelocytes Percent 1 %; Neutrophils Absolute Manual 3.8 X10*3/uL (2.0-8.3); Neutrophils Percent Manual 51 % (45-73)
[2023-04-24 12:05] LABS: Burr Cells 2+ (3-5) /OIF; Platelet Estimate NORMAL (NORMAL); Polychromasia 1+ (0-2) /OIF; RBC Morphology NOTED
[2023-04-24 12:06] LABS: Large Platelet PRESENT; Platelet Morphology Comment NOTED
[2023-04-24 12:10] LABS: Alanine Aminotransferase 46 U/L (0-31); Albumin Level 3.3 g/dL (3.5-5.0); Alkaline Phosphatase 57 U/L (39-117); Anion Gap 16 (12-20); Aspartate Amino Transferase 60 U/L (5-31); Bilirubin Total 0.6 mg/dL (0.0-1.0); Blood Urea Nitrogen 8 mg/dL (9-16); C Reactive Protein 5.71 mg/dL (< or = 0.50); Calcium 9.1 mg/dL (8.4-10.2); Carbon Dioxide 25 mmol/L (22-29); Chloride 100 mmol/L (96-108); Estimated Glomerular Filt Rate > 60; Glucose Fasting 160 mg/dL (60-99); Potassium 3.2 mmol/L (3.3-5.1); Sodium 138 mmol/L (135-145); Total Protein 6.9 g/dL (6.5-8.0)
[2023-04-24 12:23] LABS: Erythrocyte Sedimentation Rate 60 MM/HR (0-20)
[2023-04-24 13:22] LABS: CDiff Gene PCR NEGATIVE (Negative)
[2023-04-24 13:30] LABS: Leukocytes Stool Qualitative NEGATIVE (NEGATIVE)
== END 2023-04-24 06:39 | disposition home or self-care (01) ==
LOC: HO.HMGCLDS 06:38
PROVIDERS: PCP Internal Medicine; Visit Provider Nurse Practitioner Family
DX: R19.7 Diarrhea, unspecified (principal); Z13.0 Encounter for screening for diseases of the blood and blood-forming organs and certain disorders involving the immune mechanism
CPT/HCPCS: 36415; 80053; 85007; 85027; 85652; 86140; 87177; 87209; 87329; 87338; 87493; 89055

== ENCOUNTER 2023-05-03 14:34 | Outpatient (REF) | payer OTHER, SELFPAY ==
[2023-05-03 16:55] LABS: Potassium 3.8 mmol/L (3.3-5.1)
== END 2023-05-03 14:35 | disposition home or self-care (01) ==
LOC: HO.HMGCLDS 14:34
PROVIDERS: PCP Internal Medicine; Visit Provider Internal Medicine
DX: E87.6 Hypokalemia (principal)
CPT/HCPCS: 36415; 84132

== ENCOUNTER 2023-06-09 11:25 | Emergency (ER) | payer OTHER, SELFPAY ==
--- NOTE | ~2023-06-09 | CT_ITS ---
EXAMINATION: CT ABDOMEN AND PELVIS WITHOUT CONTRAST CLINICAL INFORMATION: Right flank pain. Right lower quadrant pain. History of calculi. COMPARISON: X-ray 12/07/2022 TECHNIQUE: Multidetector volumetric imaging was performed from the superior aspect of the liver through the pubic symphysis. Sagittal and coronal reformatted images were obtained on the technologist's workstation. This CT examination was performed using dose optimization techniques as appropriate, variously including the following: *Automated exposure control *Adjustment of mA and/or kV according to patient size (this includes techniques or standardized protocols for targeted exams where dose is matched to indication/reason for exam; i.e. extremities or head) *Use of iterative reconstruction technique DLP: 879 mGy-cm FINDINGS: LUNG BASES: Stable subpleural reticular opacities at the lung bases. No focal airspace disease. No pleural effusion. No pericardial effusion. LIVER, GALLBLADDER, AND BILIARY TREE: The liver is normal in size, shape, and attenuation. No focal hepatic lesion or biliary ductal dilatation is present. Status postcholecystectomy PANCREAS: Unremarkable. No acute inflammatory changes. SPLEEN: Unremarkable. ADRENAL GLANDS: Unremarkable. KIDNEYS AND URETERS: 2 mm nonobstructing calculus in the lower pole left kidney. No right renal calculi. The previously seen calculus in the left ureter is no longer visualized. No radiopaque ureteral calculi seen. No hydronephrosis. No suspicious renal lesions. Minimal left renal perinephric stranding. BLADDER: Suboptimally distended. No radiopaque calculi seen. GASTROINTESTINAL TRACT: The small and large bowel are unremarkable. No bowel obstruction. The appendix is nonvisualized. No pericecal or right lower quadrant significant inflammatory changes evident. No free fluid. No free air. ABDOMINAL WALL: No significant hernia is appreciated. LYMPH NODES: No pathologically enlarged lymph nodes are seen. VASCULAR: Normal caliber aorta. PELVIC VISCERA: Anteverted uterus. Redemonstrated are multiple calcifications in the uterus. OSSEOUS STRUCTURES: No acute osseous abnormality. CT/CT abdomen pelvis wo IV con IMPRESSION: 2 mm nonobstructing lower pole left renal calculus. No radiopaque ureteral calculi. No hydronephrosis. Cause of the patient's symptoms has not been determined by CT. Fleischner guidelines were followed.
[2023-06-09 11:30] VITALS: BP 178/88; PULSE 116
[2023-06-09 11:35] VITALS: BP 131/65; PULSE 102; RESP 16; TEMP 37.4; O2SAT 97; BMI 40.2
[2023-06-09 11:38] LABS: Glucose, Whole Blood 304 mg/dL (60-115)
--- NOTE | 2023-06-09 11:55 | ED_ITS ---
HPI - Female Genitourinary General Chief complaint: Urogenital-Female Stated complaint: ABD PAIN,H/O STONES PER EMS Time Seen by Provider: 06/09/23 11:47 Source: patient, EMS and RN notes reviewed Mode of arrival: EMS Limitations: no limitations History of Present Illness HPI Narrative: Patient is a 62-year-old female with history of kidney stones requiring ureteral stents, UTI with sepsis, DM, chronic bronchitis, HTN presenting to the emergency department with complaint of lower abdominal pain and bilateral flank pain as well as fevers and urinary incontinence since Saturday. States symptoms began as lower abdominal pain with urinary incontinence which she states is typical for her episodes of calculi, urinary incontinence is not new. Reports fever to 103 earlier in the week. Reports nausea but denies vomiting, diarrhea, constipation. States that she feels she passed a stone on Saturday as well as as she could visibly see them in the toilet without a strainer. Reports attempting to increase fluid intake without change in symptoms. Denies bee hematuria but states urine has been darker than normal. MD elicited complaint: flank pain and urinary incontinence Pertinent past history: recurrent UTIs and other (renal calculi) Onset (ago): day(s) Location of symptoms: suprapubic and flank Severity: moderate Quality of pain: aching Consistency: constant Vaginal discharge: none Vaginal bleeding: none Urinary symptoms: Flank Pain Exacerbating factors: none Relieving factors: none Associated symptoms: fever and nausea Treatment prior to arrival: none Sexual activity: No Patient : No Related Data Home Medications Medication Instructions Recorded Confirmed furosemide 40 mg tablet 40 mg PO DAILY 12/31/22 04/23/23 omeprazole 20 mg capsule,delayed 20 mg PO DAILY 12/31/22 04/23/23 release Previous Rx's Medication Instructions Recorded albuterol sulfate 90 mcg/actuation 2 puff PO Q4H PRN for wheezing 01/10/23 aerosol inhaler #8.5 ea cholecalciferol (vitamin D3) 50 50 mcg PO DAILY 90 days #90 caps 04/17/23 mcg (2,000 unit) capsule clonazepam 0.5 mg tablet 0.5 mg PO BID PRN Anxiety #60 tabs 04/17/23 lisinopril 40 mg tablet 40 mg PO DAILY #90 tabs 04/17/23 metformin 500 mg tablet 500 mg PO BID 30 days #60 tabs 04/18/23 ondansetron 4 mg disintegrating 4 mg PO Q8H PRN nausea and 06/09/23 tablet vomiting #10 tabs phenazopyridine 100 mg tablet 100 mg PO TID PRN pain 6 doses #6 06/09/23 tabs Allergies Allergy/AdvReac Type Severity Reaction Status Date / Time bee pollen [BEE STINGS] Allergy Intermediate SWELLING, Verified 04/23/23 07:29 ITCHING--SENSITIVITY oxycodone [From PERCOCET] Allergy Intermediate N/V, RASH Verified 04/23/23 07:29 Penicillins [PENICILLINS] Allergy Intermediate RASH/ITCH Verified 04/23/23 07:29 vancomycin [VANCOMYCIN] Allergy Intermediate ITCHING Verified 04/23/23 07:29 codeine [Codeine] Allergy Unknown HIVES,VOMIT Verified 04/23/23 07:29 ING Review of Systems 2 Review of Systems: As per HPI. Yes all other systems are reviewed and are negative Constitutional: Constitutional: Reports as per HPI PMFSH Past Medical History Medical History Anxiety Calcification of left hand joint Calcification of right hand joint Chronic bronchitis COPD (chronic obstructive pulmonary disease) COVID-19 Diabetes mellitus Essential hypertension Ex-smoker Ex-smoker GERD without esophagitis Hand pain Impaired glucose tolerance Left knee pain Obese Obesity Osteoarthritis Screen for colon cancer Surgical History Ganglion cyst History of appendectomy Hx laparoscopic cholecystectomy Previous section Family History Family History Mother Hypertension Father Cancer Social History Social History Household Members: Family Household Members Other:: daughter Housing: House Do you presently have visiting nurse or other home services: No Alcohol intake: current Alcohol intake frequency: does not drink Patient Tobacco Use Status: Former Tobacco user Quit Date: 1- 1/2 years ago Tobacco use type: Cigarette Smoked in Last 30 Days: No e-Cigarette/Vaping Use: Never Used Second Hand Smoke Exposure: No Use of substances other than those prescribed or required for medical reasons: No Advance Directives: No Advance Directives Information Provided: Yes Patient : No service: No 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 Blood pressure normal. Heart rate slightly tachycardic. Respiratory rate normal. Temperature normal. Oxygen saturation normal. Const: General: cooperative, healthy appearing and no acute distress O rientation/consciousness: oriented to person, oriented to place, oriented to time and patient oriented x3 Limitations: no limitations HEENT: Head: Yes normocephalic and Yes atraumatic Ears: external ears normal General nose exam: Normal external nose present Face and sinus: Yes face symmetric Mouth: oropharynx normal and moist mucous membranes T hroat: Yes uvula midline Eyes: Pupils: Equal, round and reactive pupils present Neck: Neck: Yes normal visual inspection and Yes supple Resp: Effort & Inspection: normal respiratory effort and able to speak in complete sentences Auscultation: clear to auscultation bilaterally Cardio: Rate: regular rate Rhythm: regular rhythm Heart sounds: S1 normal heart sound present and S2 normal heart sound present GI: Palpation (GI): Soft to palpation, Tenderness to palpation present (GI) in the RLQ, no guarding and No Rebound tenderness present Auscultation: n ormoactive bowel sounds : General: Yes no CVA tenderness Back/Spine/Pelvis: Back: no CVA tenderness Thoracic/Lumbar Spine: thoracic and lumbar spine normal to inspection, No thoracic spinal tenderness and No lumbar spinal tenderness Skin: General skin exam: elasticity normal and turgor normal Neuro: General: oriented to person, oriented to place, oriented to time, patient oriented x3, moves all extremities, no focal motor deficits and CN's II- XI intact bilaterally Cranial nerves: Yes Equal, round and reactive pupils present Cognition (Neuro): normal cognition Extrem: General: Yes full ROM, Yes no pedal edema and Yes no calf tenderness Psych: Mental Status: mental status grossly normal Affect: normal affect Thought process: Normal thought process present Medications Administered Discontinued Medications Generic Name Dose Route Start Last Admin Trade Name Joseq PRN Reason Stop Dose Admin Sodium Chloride 1,000 mls @ 999 mls/hr 06/09/23 13:30 06/09/23 15:13 Ns IV 06/09/23 14:30 Infused .Q1H1M ALE Infusion Potassium Chloride 10 meq 06/09/23 13:28 06/09/23 13:38 Potassium Chloride Er 10 Meq Tablet.Er PO 06/09/23 13:29 10 meq ONCE ONE Administration Medical Decision Making Medical Decision Making [facility] Narrative: 12:15 Patient is a 62-year-old female with history of kidney stones requiring ureteral stents, UTI with sepsis, DM, chronic bronchitis, HTN presenting to the emergency department with complaint of lower abdominal pain and bilateral flank pain as well as fevers and urinary incontinence since Saturday. On exam patient is awake, A+Ox3, slightly tachycardic, VS otherwise WNL, afebrile, normal neurological exam without focal deficits, nontoxic-appearing, physical exam findings as above. Given reported symptoms and physical exam findings, initial differential includes UTI, pyelonephritis, renal or ureteral calculi. Do not suspect sepsis at this time. Labs notable for no leukocytosis, mild anemia consistent with baseline, mild hyperkalemia and hyponatremia, similar with priors, normal saline and KCL ordered. CT notable for 2mm nonobstructing calculus to lower pole of left kidney, no hydronephrosis, no ureteral calculi. My interpretation is in agreement with the radiologist's interpretation. UA positive for 1+ leukocytes, negative nitrates, 0-5 wbc's, no bacteria seen, greater than 20 epithelial cells indicating contamination. Do not feel antibiotics are indicated at this time. Discussed with patient that her symptoms are likely related to inflammation of her ureters and bladder from possibly passing stones earlier in the week. Will prescribe ondansetron for nausea as well as Pyridium. Strict return precautions discussed with patient. Instructed patient to follow-up with primary care provider this week. Patient and verbalized understanding of and agreement with plan. Differential Diagnosis Differential Diagnoses: The differential diagnosis associated with the presentation includes As per MDM. Lab Data [facility] Lab Attestation statement: I reviewed the patient's lab results. As per MDM. 06/09/23 12:51 06/09/23 12:51 Labs: Lab Results 06/09/23 06/09/23 06/09/23 Range/Units 11:35 12:51 13:46 WBC 7.9 (4.8-10.8) X10*3/uL RBC 4.00 L (4.20-5.50) X10*6/uL Hgb 11.1 L (12.0-16.0) g/dl Hct 33.4 L (37.0-47.0) % MCV 83.5 (80.0-98.0) fL MCH 27.8 (27.0-33.0) pg MCHC 33.2 (31.0-35.0) g/dl RDW 14.0 (11.0-16.0) % Plt Count 145 L D (160-400) X10*3/uL MPV 10.7 (9.4-12.3) fL Immature Gran % (Auto) 1.1 H (0.0-0.4) % Neut % (Auto) 85.8 H (45-73) % Lymph % (Auto) 6.1 L (20-40) % [place] % (Auto) 5.7 (2-11) % Eos % (Auto) 0.9 (0-4) % Baso % (Auto) 0.4 (0-2) % Lymph # (Auto) 0.5 L (1.2-4.9) X10*3/uL [place] # (Auto) 0.5 (0.1-1.2) X10*3/uL Eos # (Auto) 0.1 (0.0-0.4) X10*3/uL Baso # (Auto) 0.0 (0.0-0.2) X10*3/uL Abs Immat Gran (auto) 0.09 H (0.00-0.03) X10*3/uL Absolute Neuts (auto) 6.8 (2.0-8.3) x10*3/uL Absolute Nucleated RBC 0.000 (0.0-0.012) X10*3/uL Nucleated RBC % (auto) 0.0 (0.0-0.2) /100WBC Sodium 131 L (135-145) mmol/L Potassium 3.2 L (3.3-5.1) mmol/L Chloride 98 (96-108) mmol/L Carbon Dioxide 20 L (22-29) mmol/L Anion Gap 16 (12-20) BUN 10 (9-16) mg/dL Creatinine 0.81 (0.5-1.4) mg/dL Estim Creat Clear Calc 86.4 Estimated GFR > 60 POC Glucose 304 H (60-115) mg/dL Random Glucose 284 H (60-115) mg/dL Calcium 9.2 (8.4-10.2) mg/dL Total Bilirubin 1.3 H (0.0-1.0) mg/dL AST 40 H (5-31) U/L ALT 39 H (0-31) U/L Alkaline Phosphatase 64 (39-117) U/L Total Protein 6.8 (6.5-8.0) g/dL Albumin 3.2 L (3.5-5.0) g/dL Urine Color Dark Yellow Urine Appearance Cloudy Urine pH 6.0 (5.0-9.0) Ur Specific [place] 1.025 (1.005-1.025) Urine Protein Trace (Neg-Trace) mg/dL Urine Glucose (UA) >=1000 H (Negative) mg/dL Urine Ketones Trace (Negative) mg/dL Urine Blood Negative (Negative) Urine Nitrite Negative (Negative) Ur Leukocyte Esterase Small (1+) H (Negative) Urine RBC 3-5 H (0-2) /HPF Urine WBC 0-5 (0-5) /HPF Ur Squamous Epith Cells >20 (0-2) /HPF Urine Bacteria None Seen (None Seen) Hyaline Casts 3-5 (0-2) /LPF Independent Interpretation I performed an independent interpretation of an: CT Scan Interpretation: 2 mm calculi to lower pole left kidney, no hydronephrosis, no ureteral calculi Radiology Impression Discussion of test interpretation with radiology: I have reviewed the radiologist's reading. Radiologist Impression: CT/CT abdomen pelvis wo IV con IMPRESSION: 2 mm nonobstructing lower pole left renal calculus. No radiopaque ureteral calculi. No hydronephrosis. Cause of the patient's symptoms has not been determined by CT. Fleischner guidelines were followed. Independent Historian Clinical information obtained from an independent historian. History obtained from or confirmed by: Spouse External Record Review External record reviewed: Inpatient record, Office record and Outpatient record Prescription Management I considered prescription management with: Pain Medication Discharge Plan Discharge Clinical Impression: Acute hyponatremia, Suprapubic abdominal pain Patient Disposition: Home, Self-Care Instructions: Kidney Stones (ED), Hyponatremia (ED) Additional Instructions: You have been evaluated in the emergency department today for abdominal pain and urinary symptoms. Your evaluation did not show evidence of medical conditions requiring emergent intervention at this time. Please schedule an appointment with your primary care physician this week. Please follow-up with your urologist for any ongoing symptoms. Return to the emergency department if you experience worsening or uncontrolled pain, fevers 100.4? F or greater, recurrent vomiting, inability to tolerate food or fluids by mouth, bloody stools or vomit, black or tarry stools, or any other concerning symptoms. Prescriptions: New ondansetron 4 mg tablet,disintegrating 4 mg PO Q8H PRN (Reason: nausea and vomiting) Qty: 10 0RF phenazopyridine 100 mg tablet 100 mg PO TID PRN (Reason: pain) Qty: 6 0RF No Action metformin 500 mg tablet 500 mg PO BID 30 Days Qty: 60 6RF furosemide 40 mg tablet 40 mg PO DAILY cholecalciferol (vitamin D3) 50 mcg (2,000 unit) capsule 50 mcg PO DAILY 90 Days Qty: 90 3RF clonazepam 0.5 mg tablet 0.5 mg PO BID PRN (Reason: Anxiety) Qty: 60 0RF lisinopril 40 mg tablet 40 mg PO DAILY Qty: 90 3RF omeprazole 20 mg capsule,delayed release(DR/EC) 20 mg PO DAILY albuterol sulfate 90 mcg/actuation HFA aerosol inhaler 2 puff PO Q4H PRN (Reason: for wheezing) Qty: 8.5 0RF
[2023-06-09 12:58] LABS: MANUAL DIFF FLAG NO
[2023-06-09 13:04] LABS: Basophils Percent Auto 0.4 % (0-2); Eosinophils Absolute Auto 0.1 X10*3/uL (0.0-0.4); Eosinophils Percent Auto 0.9 % (0-4); Hematocrit 33.4 % (37.0-47.0); Hemoglobin 11.1 g/dl (12.0-16.0); Imm Gran Abs Auto 0.09 X10*3/uL (0.00-0.03); Imm Gran Pct Auto 1.1 % (0.0-0.4); Lymphocytes Absolute Auto 0.5 X10*3/uL (1.2-4.9); Lymphocytes Percent Auto 6.1 % (20-40); Mean Corpuscular HGB Conc 33.2 g/dl (31.0-35.0); Mean Corpuscular Hemoglobin 27.8 pg (27.0-33.0); Mean Corpuscular Volume 83.5 fL (80.0-98.0); Mean Platelet Volume 10.7 fL (9.4-12.3); Monocytes Absolute Auto 0.5 X10*3/uL (0.1-1.2); Monocytes Percent Auto 5.7 % (2-11); Neutrophils Absolute Auto 6.8 x10*3/uL (2.0-8.3); Neutrophils Percent Auto 85.8 % (45-73); White Blood Count 7.9 X10*3/uL (4.8-10.8)
[2023-06-09 13:05] LABS: Platelet Count 145 X10*3/uL (160-400)
[2023-06-09 13:12] LABS: Alanine Aminotransferase 39 U/L (0-31); Albumin Level 3.2 g/dL (3.5-5.0); Alkaline Phosphatase 64 U/L (39-117); Anion Gap 16 (12-20); Aspartate Amino Transferase 40 U/L (5-31); Bilirubin Total 1.3 mg/dL (0.0-1.0); Blood Urea Nitrogen 10 mg/dL (9-16); Calcium 9.2 mg/dL (8.4-10.2); Carbon Dioxide 20 mmol/L (22-29); Chloride 98 mmol/L (96-108); Creatinine Clr Calc Pharmacy 86.4; Estimated Glomerular Filt Rate > 60; Glucose Random 284 mg/dL (60-115); Potassium 3.2 mmol/L (3.3-5.1); Sodium 131 mmol/L (135-145); Total Protein 6.8 g/dL (6.5-8.0)
[2023-06-09] MEDS: Potassium Chloride ER 10 MEQ TABLET.ER PO (13:38)
[2023-06-09 13:39] VITALS: BP 139/62; PULSE 105; RESP 18; O2SAT 99
--- NOTE | 2023-06-09 13:40 | PC.NURSE ---
to ct scan
[2023-06-09 13:54] LABS: Appearance Urine Cloudy; Color Urine Dark Yellow; Glucose Urine UA >=1000 mg/dL (Negative); Leukocyte Esterase Urine Small (1+) (Negative); Nitrite Urine Negative (Negative); Specific Gravity - Urine 1.025 (1.005-1.025); UMIC TRIGGER UACC YES; Urine Blood Negative (Negative); Urine Ketones Trace mg/dL (Negative); Urine Protein Trace mg/dL (Neg-Trace)
[2023-06-09] MEDS: 0.9 % Sodium Chloride 1,000 ML 999 ML IV (13:59)
[2023-06-09 14:05] LABS: Bacteria Urine None Seen (None Seen); Squamous Epithelial Cell Urine >20 /HPF (0-2); UACC Culture Trigger YES; WBC Urine 0-5 /HPF (0-5)
[2023-06-09 15:44] VITALS: BP 135/61; PULSE 105; RESP 18; TEMP 37.3; O2SAT 98
[2023-06-09 15:52] VITALS: BP 125/70
[2023-06-09] MEDS: Ondansetron ODT 4 MG TAB.RAPDIS TRANSLINGU (15:53)
== END 2023-06-09 16:20 | disposition home or self-care (01) ==
PROVIDERS: Registered Nurse Emergency; Emergency Provider Emergency Medicine
DX: E87.1 Hypo-osmolality and hyponatremia (principal); R10.33 Periumbilical pain; Z79.899 Other long term (current) drug therapy; Z87.891 Personal history of nicotine dependence; Z87.442 Personal history of urinary calculi
CPT/HCPCS: 36415; 74176; 80053; 81001; 82947; 85025; 87086; 96361; 96374; 99284

== ENCOUNTER 2023-07-03 08:54 | Outpatient (AMB) | payer OTHER, SELFPAY ==
[2023-07-03 10:25] VITALS: BP 122/80; PULSE 78; TEMP 36.6; O2SAT 96; BMI 41.5
--- NOTE | 2023-07-03 10:25 | AM.OFFWIN_ITS ---
Intake Vital Signs 07/03/23 10:25 Height 5 ft 5 in Weight 249 lb 5 oz BMI 41.5 BP 122/80 Blood Pressure Location Lt brachial Position Sitting Pulse 78 Pulse Source Pulse Oximeter Temp 97.9 F Temp Source Temporal Artery Scan Pulse Oximetry (%) 96 Intake Visit Reasons: EP a few Cyst on labia (lobby) Intake Note: pt is here for c/o boils/cysts on labia/groin area Patient Tobacco Use Status: Former Tobacco user Quit Date: 1- 1/2 years ago Allergies bee pollen [BEE STINGS] Allergy (Intermediate, Verified 07/03/23 10:30) SWELLING, ITCHING--SENSITIVITY oxycodone [From PERCOCET] Allergy (Intermediate, Verified 07/03/23 10:30) N/V, RASH Penicillins [PENICILLINS] Allergy (Intermediate, Verified 07/03/23 10:30) RASH/ITCH vancomycin [VANCOMYCIN] Allergy (Intermediate, Verified 07/03/23 10:30) ITCHING codeine [Codeine] Allergy (Unknown, Verified 07/03/23 10:30) HIVES,VOMITING Do you need a note to return to daycare/school/sports/work: Yes HPI EP a few Cyst on labia (lobby) HPI Details 62-year-old female patient presents toda y with irritation in her perineal area. She reports that she wears panty liners due to some urine leakage, and she recently started using larger ones, and she thinks that the edges of these caused irritation her skin, where was rubbing up against sides of kevin area lateral to labia. She reports that she develops red lumps which have been painful. She has put an otc cream on them which helped somewhat. She denies fever/chills. [facility] Medical History Osteoarthritis GERD without esophagitis Screen for colon cancer COVID-19 COPD (chronic obstructive pulmonary disease) Ex-smoker Obesity Ex-smoker Hand pain Diabetes mellitus Calcification of right hand joint Calcification of left hand joint Left knee pain Obese Chronic bronchitis Impaired glucose tolerance Essential hypertension Anxiety Surgical History Ganglion cyst History of appendectomy Hx laparoscopic cholecystectomy Previous section Family History Mother Hypertension Father Cancer Social History Household Members: Family Household Members Other:: daughter Housing: House Do you presently have visiting nurse or other home services: No Alcohol intake: current Alcohol intake frequency: does not drink Patient Tobacco Use Status: Former Tobacco user Quit Date: 1- 1/2 years ago Tobacco use type: Cigarette e-Cigarette/Vaping Use: Never Used Second Hand Smoke Exposure: No service: No 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 Cognitive needs: No Hearing needs: No Vision needs: Yes Review of Systems Const All systems reviewed & are unremarkable except as noted in HPI and below Physical Exam Vital Signs: Last Vital Signs Temp 97.9 F 07/03/23 10:25 Pulse 78 07/03/23 10:25 BP 122/80 07/03/23 10:25 Pulse Ox 96 07/03/23 10:25 BMI result Body Mass Index 41.5 Const General: cooperative and no acute distress Neck Neck: Yes no lymphadenopathy Resp Effort & Inspection: normal respiratory effort Auscultation: clear to auscultation bilaterally Cardio Jugular venous distension: no JVD Palpation: normal PMI Rate: regular rate Rhythm: regular rhythm Other: Erythema, tenderness, scabbed ulcerations on lateral aspects of labia/kevin area. No fluctuance or drainable abscess. beefy redness between skin folds of kevin area and under panus. Extrem General: Yes capillary refill normal Psych Appearance: grossly normal Mental Status: mental status grossly normal Speech and movement: Normal speech and movement present Assessment & Plan Assessment & Plan (1) Cutaneous abscess of perineum: Code(s): L02.215 - Cutaneous abscess of perineum Plan: I am going to start her on cephalexin q.i.d.. She reports she has tolerated this antibiotic previously. She can also apply warm compresses to area. Advised Tylenol/Motrin for any discomfort. If she does not improve with antibiotics, or if she develops any increase in pain/size of these abscesses, or if they appear drainable, she should return to the clinic for further evaluation. She verbalizes understanding and agrees to plan. (2) Candidiasis of skin: Code(s): B37.2 - Candidiasis of skin and nail Plan: Advised to wash and dry skin thoroughly with mild soap and water, and pat areas try, and leave open to air as long as possible prior to dressing. Advised cotton underwear, and advised to change panty liner had very frequently. I will start her on a nystatin powder that she can apply to this area and under her pannus, which also is consistent with a Caroline infection of the skin. Medications: New 2 nystatin 1 appl topical BID 30 grams 1RF B37.2 - Candidiasis of skin and nail cephalexin 500 mg PO QID 28 tabs 0RF 7 days L02.215 - Cutaneous abscess of perineum Coding Level of Care Code Est Pt Level 3 (78620) Diagnoses Cutaneous abscess of perineum L02.215 Candidiasis of skin B37.2
== END 2023-07-03 10:53 | disposition home or self-care (01) ==
PROVIDERS: PCP Internal Medicine; Visit Provider Nurse Practitioner Family
DX: L02.215 Cutaneous abscess of perineum (principal); B37.2 Candidiasis of skin and nail
CPT/HCPCS: 99213

== ENCOUNTER 2023-07-26 13:16 | Outpatient (AMB) | payer OTHER, SELFPAY ==
[2023-07-26 13:24] VITALS: BP 136/72; PULSE 99; O2SAT 97; BMI 40.0
--- NOTE | 2023-07-26 13:24 | A.OFFPC_ITS ---
Vital Signs 07/26/23 13:24 Height 5 ft 5 in Weight 240 lb 6 oz BMI 40.0 BP 136/72 Blood Pressure Location Lt brachial Position Sitting Pulse 99 Pulse Source Pulse Oximeter Pulse Oximetry (%) 97 Oxygen Delivery Method Room Air Intake Visit Reasons: 3 month f/u Medical Technologist Hematology Required: No Accompanied by: Self / Same As Patient Allergies bee pollen [BEE STINGS] Allergy (Intermediate, Verified 07/26/23 13:57) SWELLING, ITCHING--SENSITIVITY oxycodone [From PERCOCET] Allergy (Intermediate, Verified 07/26/23 13:57) N/V, RASH Penicillins [PENICILLINS] Allergy (Intermediate, Verified 07/26/23 13:57) RASH/ITCH vancomycin [VANCOMYCIN] Allergy (Intermediate, Verified 07/26/23 13:57) ITCHING codeine [Codeine] Allergy (Unknown, Verified 07/26/23 13:57) HIVES,VOMITING Medication List - Last Reconciled 07/26/23 by José Miguel Baltazar MD albuterol sulfate 90 mcg/actuation 2 puffs PO Q4H PRN cholecalciferol (vitamin D3) 50 mcg PO DAILY 90 days clonazepam 0.5 mg PO BID PRN furosemide 40 mg PO DAILY lisinopril 40 mg PO DAILY metformin 500 mg PO BID 30 days nystatin 1 appl topical BID omeprazole 20 mg PO DAILY ondansetron 4 mg PO Q8H PRN Tobacco use date assessed: 07/26/23 Fall risk assessment: No Falls in past year Last assessed Fall Risk: 07/26/23 Dental Screening Dental Screen Date: 07/26/23 Did you have a dental visit in the last 12 months?: Yes Did you have a dental problem in the last 6 months where you did not have access to dental care?: No Was dental information given to patient?: Patient has dentist HPI 3 month f/u HPI Details Patient comes in today for her follow up visit Patient went to the ER about 6 to 7 weeks ago for increasing lower abdominal pain, flank pain, fever and urinary incontinence for several days Was diagnosed with kidney stones and hyponatremia although the stone was a 2 mm stone in the lower pole of the left kidney and there were no evidence of urinary tract obstruction seen Her symptoms improved with hydration and symptomatic Tx in the ER and she was discharged home later on with Rx for Ondansetron and Pyridium PRN for symptomatic relief States that she currently feels okay and no longer has any of the aforementioned symptoms She denies any headaches or dizziness Denies any chest pains, no SOB No nausea/vomiting, no abdominal pain No change in bowel habits noted States that her most recent labs were the ones done in the ER and she has not had any other follow up labs done since [facility] Medical History Osteoarthritis GERD without esophagitis Screen for colon cancer COVID-19 COPD (chronic obstructive pulmonary disease) Ex-smoker Obesity Ex-smoker Hand pain Diabetes mellitus Calcification of right hand joint Calcification of left hand joint Left knee pain Obese Chronic bronchitis Impaired glucose tolerance Essential hypertension Anxiety Surgical History Ganglion cyst History of appendectomy Hx laparoscopic cholecystectomy Previous section Family History Mother Hypertension Father Cancer Social History Household Members: Family Household Members Other:: daughter Housing: House Do you presently have visiting nurse or other home services: No Alcohol intake: current Alcohol intake frequency: does not drink Patient Tobacco Use Status: Former Tobacco user Quit Date: 1- 1/2 years ago Tobacco use type: Cigarette e-Cigarette/Vaping Use: Never Used Second Hand Smoke Exposure: No service: No 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 1. Little interest or pleasure in doing things: not at all 2. Feeling down, depressed, or hopeless: not at all 3. Trouble falling or staying asleep, or sleeping too much: not at all 4. Feeling tired or having little energy: not at all 5. Poor appetite or overeating: not at all 6. Feeling bad about yourself - or that you are a failure or have let yourself or your family down: not at all 7. Trouble concentrating on things, such as reading the newspaper or watching television: not at all 8. Moving or speaking so slowly that other people could have noticed. Or the opposite - being so fidgety or restless that you have been moving around a lot more than usual: not at all 9. Thoughts that you would be better off or of hurting yourself in some way: not at all Total score: 0 Depression Screening Interpretation: Negative Depression Screening Done: Yes 82804 - PHQ-9 Billing: Yes Source: Developed by Drs. Nathan Guthrie, Fernanda Sarah, Paul Ellsworth and colleagues, with an educational sabrina from [employer]. Thrive Questionnaire Date Thrive assessed: 07/26/23 I am a: Patient What is your living situation today?: I have a steady place to live Within the past 12 months, did the food you bought not last and you didn't have the money to get more?: Never true Within the past 12 months, did you worry whether your food would run out before you got money to buy more?: Never true Do you have trouble paying for medicines?: No Do you have trouble getting transportation to medical appointments?: No Do you have trouble paying your heating and electricity bill?: No Do you have trouble taking care of your child, family member or friend?: No Do you have trouble with day-to-day activities such as bathing, preparing meals, shopping, managing finances, etc.?: No Are you currently unemployed and looking for a job?: No Are you interested in more education?: No Please select the resources that you would like help with: None Currently or been in a relationship where the following occur: no concerns reported AUDIT C Alcohol Use Questionnaire (AUDIT-C) 1. How often do you have a drink containing alcohol?: Monthly or less 2. How many drinks containing alcohol do you have on a typical day when you are drinking?: 1 or 2 Total Score: 1 Score Reviewed/Action Taken: Yes PRIMO-7 AMB Questionnaire PRIMO-7 Date PRIMO - 7 assessed: 07/26/23 Feeling nervous, anxious, or on edge: 0 = Not at all Not being able to stop or control worryin = Not at all Worrying too much about different things: 0 = Not at all Trouble relaxin = Not at all Being so restless that it is hard to sit still: 0 = Not at all Becoming easily annoyed or irritable: 0 = Not at all Feeling afraid as if something awful might happen: 0 = Not at all Total PRIMO-7 score (0-4 normal; 5-9 mild; 10-14 moderate; 15-21 severe): 0 Source: Developed by Drs. Nathan Guthrie, Fernanda Sarah, Paul Ellsworth and colleagues, with an educational sabrina from [employer]. Review of Systems Const Denies chills, Reports fatigue, Denies fever(s) and Denies headache(s) ENT Denies dysphagia, Denies dizziness, Denies otalgia, Denies headache(s), Denies odynophagia and Denies sore throat Card Denies chest pain, Denies palpitations and Reports dyspnea on exertion (mild) Resp Denies chest congestion, Reports cough (occasional; coughs up thick whitish phlegm at times), Reports dyspnea on exertion (mild) and Denies wheezing GI Denies abdominal pain, Denies constipation, Denies dysphagia, Denies heartburn, Denies diarrhea, Denies nausea, Denies odynophagia and Denies vomiting Denies difficulty voiding, Denies nocturia and Denies dysuria Musc Reports arthralgias (left knee; both hands) and Reports stiffness Skin/Breast Denies rash Neuro Denies dizziness and Denies headache(s) Endo Reports fatigue and Denies palpitations Aller/Immun Denies wheezing Physical exam (Primary Care) Vital Signs: Last Vital Signs Pulse 99 07/26/23 13:24 BP 136/72 07/26/23 13:24 Pulse Ox 97 07/26/23 13:24 Oxygen Delivery Method Room Air 07/26/23 13:24 BMI result Body Mass Index 40.0 Tobacco/Smoking Status: Tobacco use Status Tobacco use date assessed 07/26/23 07/26/23 13:26 Patient Tobacco Use Status Former Tobacco user 07/26/23 13:26 Tobacco use type Cigarette 07/26/23 13:26 e-Cigarette/Vaping Use Never Used 07/26/23 13:26 PHQ-9: PHQ-9 Score PHQ-9: Total score 0 07/26/23 14:19 Depression Screening Interpretation: Negative Thrive Assessment: Date of Thrive Assessment Date Thrive assessed 07/26/23 07/26/23 13:26 Currently or been in a relationship where the following occur: no concerns reported Const General: no acute distress and alert HENMT Ears: TM's normal bilaterally and EAC's normal Throat: Yes posterior oropharynx normal and Yes tonsils normal (no TP congestion) Neck Neck: Yes no lymphadenopathy and Yes supple Resp Auscultation: no rales, rhonchi (occasional) throughout, no wheezes and diminished lung sounds (slightly) bilateral Cardio Rate: regular rate Rhythm: regular rhythm Heart sounds: no murmurs GI Palpation (GI): Soft to palpation and nontender Auscultation: normal bowel sounds Skin Rashes: no rashes Extrem General: No clubbing, No cyanosis and Yes pedal edema (trace bilaterally) Left lower extremity: knee Details: tenderness; no swelling Results AMB Hemoglobin A1c AMB Hemoglobin A1c 11.3 % Last Edit by Girma Steel on 07/26/23 14:20 Results Reviewed Results Reviewed: Laboratory Last Values Hgb A1c (Clinic) 11.3 % (4.0-6.0) H 07/26/23 14:19 Assessment and Plan Assessment & Plan (1) Diabetes mellitus: Code(s): E11.9 - Type 2 diabetes mellitus without complications Qualifiers: Diabetes mellitus type: type 2 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 use: without residential use Diabetes mellitus complication status: without complication Qualified Code(s): E11.9 - Type 2 diabetes mellitus without complications Plan: Results of her labs done back in May 2023 reviewed and discussed with patient - advised that these were mostly done in the ER when she presented there a few weeks ago and are nonfasting labs and did not include a fasting lipid profile In-office HgbA1c done today has increased further to 11.3% (HgbA1c was at 8.8% a few months ago) - goal is <7.0% Reinforced diabetic diet Continue Metformin 500 mg BID; will start additionally on Jardiance 10 mg Q AM IF insurance will cover Rx - have advised patient to reach out to us immediately if her insurance won't cover her Rx Will have patient recheck her labs and fasting lipids in 3 months for follow up - will just have patient use her current orders (updated) for her next lab draw Will also include PRIMO Ab as well as a C-peptide level with her next labs for further evaluation of her diabetes and to see if she is insulin-requiring at th is point or not (2) COPD (chronic obstructive pulmonary disease): Comment: SHE DOES HAVE EVIDENCE OF MODERATELY SEVERE OBSTRUCTIVE PULMONARY DISEASE. GOOD RESPONSE TO BRONCHODILATORS IS INDICATED OF OF ASTHMA COPD OVERLAP SYNDROME. TX AFTER GOOD DISCUSSION WITH THE PATIENT WE HAVE AGREED TO TRY COMBINATION ICS /LABD AGENT ( ADVAIR OR WIXELA 250-50 )ONE INH BID Code(s): J44.9 - Chronic obstructive pulmonary disease, unspecified Qualifiers: COPD type: unspecified COPD Qualified Code(s): J44.9 - Chronic obstructive pulmonary disease, unspecified Plan: She is an ex-smoker - patient quit smoking back in September 2020 Continue Albuterol HFA 2 inhalations Q 6 hours PRN Was supposed to also be on Advair or Wixela but unclear as to why she is not on Rx at this time Follow up with pulmonary (Dr. Brown) as scheduled (3) Essential hypertension: Code(s): I10 - Essential (primary) hypertension Plan: Reinforced low sodium diet - goal is systolic BP of at least 120 to 130 mm or less Continue Lisinopril 40 mg QD; she also takes Furosemide 40 mg Q AM for her edema Patient is advised to continue monitoring her blood pressure regularly (4) Ureterolithiasis: Code(s): N20.1 - Calculus of ureter Plan: Patient had moderate hydronephrosis of the left kidney with obstructing calculus a few months ago that required stenting - this has resolved with Tx and she had the stent removed by urology subsequently and has not had any recurrence/bouts of kidney stones since although she went to the ER about 6 to 7 weeks ago for similar presentation of symptoms Abdominal and pelvic CT revealed a 2 mm non-obstructing stone in the lower pole of the left kidney but there were no evidence or findings of urinary tract obstruction Follow up with urology as scheduled (5) Elevated LFTs: Code(s): R79.89 - Other specified abnormal findings of blood chemistry Plan: Her LFTs have been gradually improving on her recent labs Advised again that these are most likely related to her weight and improvement should continue with weight loss Abdominal CT done back in November 2022 and more recently in late May 2023 revealed NO liver abnormalities or enlargement Will continue to monitor her LFTs regularly (6) Osteoarthritis: Code(s): M19.90 - Unspecified osteoarthritis, unspecified site Qualifiers: Osteoarthritis location: multiple joints Osteoarthritis type: primary Qualified Code(s): M15.9 - Polyosteoarthritis, unspecified Plan: Involving multiple joints, especially her left knee and both hands Continue OTC Tylenol PRN for pain Follow up with rheumatology (Dr. Forde) at the [facility] as scheduled (7) GERD without esophagitis: Code(s): K21.9 - Gastro-esophageal reflux disease without esophagitis Plan: Dietary restrictions reinforced Continue Omeprazole 20 mg QD (8) Edema of both lower extremities: Code(s): R60.0 - Localized edema Plan: Most likely stasis/dependent edema BNP done on labs earlier this year was normal; echocardiogram done in February 2023 revealed a hyperdynamic left ventricle, with visually estimated ejection fraction of >70% and no valvular pathology seen Continue Furosemide 40 mg Q AM PRN (9) Anxiety: Code(s): F41.9 - Anxiety disorder, unspecified Plan: Continue Clonazepam 0.5 mg BID PRN (10) Morbid obesity with BMI of 40.0-44.9, adult: Comment: BMI 42.6 on 05/31/22 Code(s): E66.01 - Morbid (severe) obesity due to excess calories; Z68.41 - Body mass index [BMI] 40.0-44.9, adult Plan: Reinforced diet/exercise as tolerated/lose weight - she has lost about 13 pounds since her last visit with me a few months ago Per request, she was referred again for MEDICAL weight management to get her some help in losing weight Plan Follow up in 3 months Orders: Orders Glutamic acid decarboxylase Ab 10/17/23 E11.9 - Type 2 diabetes mellitus without complications C Peptide 10/17/23 E11.9 - Type 2 diabetes mellitus without complications AMB Hemoglobin A1c 07/26/23 Z13.9 - Encounter for screening, unspecified Medications: New empagliflozin (Jardiance) 10 mg PO QAM 90 days 90 tabs 1RF E11.9 - Type 2 diabetes mellitus without complications Coding Level of Care Code Est Pt Level 4 (20194) Diagnoses Type 2 diabetes mellitus without complication, without long-term current use of insulin E11.9 Diabetes mellitus type: type 2 Diabetes mellitus residential insulin use: without residential use Diabetes mellitus complication status: without complication Chronic obstructive pulmonary disease, unspecified COPD type J44.9 COPD type: unspecified COPD Essential hypertension I10 Ureterolithiasis N20.1 Elevated LFTs R79.89 Primary osteoarthritis involving multiple joints M15.9 Osteoarthritis location: multiple joints Osteoarthritis type: primary GERD without esophagitis K21.9 Edema of both lower extremities R60.0 Anxiety F41.9 Morbid obesity with BMI of 40.0-44.9, adult E66.01; Z68.41
== END 2023-07-26 14:22 | disposition home or self-care (01) ==
PROVIDERS: PCP Internal Medicine; Visit Provider Internal Medicine
DX: E11.9 Type 2 diabetes mellitus without complications (principal)
CPT/HCPCS: 83036; 99214

== ENCOUNTER 2023-09-26 09:05 | Outpatient (AMB) | payer OTHER, SELFPAY ==
--- NOTE | 2023-09-26 09:13 | MHC.OFFWIV ---
Intake Vital Signs 09/26/23 09:14 Height 5 ft 5 in Weight 240 lb BMI 39.9 BP 132/72 Blood Pressure Location Rt brachial Position Sitting Pulse 94 Pulse Source Pulse Oximeter Temp 98.6 F Temp Source Oral Pulse Oximetry (%) 95 Oxygen Delivery Method Room Air Intake Visit Reasons: EST/ [place],stomach pains (lobby masked) Intake Note: pt is here for c.o chills, stomach pain Patient Tobacco Use Status: Former Tobacco user Quit Date: 1- 1/2 years ago Allergies bee pollen [BEE STINGS] Allergy (Intermediate, Verified 09/26/23 09:14) SWELLING, ITCHING--SENSITIVITY oxycodone [From PERCOCET] Allergy (Intermediate, Verified 09/26/23 09:14) N/V, RASH Penicillins [PENICILLINS] Allergy (Intermediate, Verified 09/26/23 09:14) RASH/ITCH vancomycin [VANCOMYCIN] Allergy (Intermediate, Verified 09/26/23 09:14) ITCHING codeine [Codeine] Allergy (Unknown, Verified 09/26/23 09:14) HIVES,VOMITING Medication List - Last Reconciled 09/26/23 by Munira Robins, ELISA albuterol sulfate 90 mcg/actuation 2 puffs PO Q4H PRN cholecalciferol (vitamin D3) 50 mcg PO DAILY 90 days clonazepam 0.5 mg PO BID PRN empagliflozin (Jardiance) 10 mg PO QAM 90 days furosemide 40 mg PO DAILY lisinopril 40 mg PO DAILY metformin 500 mg PO BID 30 days metoclopramide HCl (Reglan) 10 mg PO Q6H PRN nystatin 1 appl topical BID omeprazole 20 mg PO DAILY ondansetron 4 mg PO Q8H PRN Do you need a note to return to daycare/school/sports/work: Yes HPI HPI Comments History of Present Illness Details 63 y/o white female presents to walk-in clinic with c/o diarrhea and vomiting since yesterday. The whole family with similar systoms at home. She has been taking Zofran with some relief. Has not taken anything for Diarrhea. She has been hydrating with fluids and plenty of rest. Denies fevers ut reports chills. [facility] Medical History Osteoarthritis GERD without esophagitis Screen for colon cancer COVID-19 COPD (chronic obstructive pulmonary disease) Ex-smoker Obesity Ex-smoker Hand pain Diabetes mellitus Calcification of right hand joint Calcification of left hand joint Left knee pain Obese Chronic bronchitis Impaired glucose tolerance Essential hypertension Anxiety Surgical History Ganglion cyst History of appendectomy Hx laparoscopic cholecystectomy Previous section Family History Mother Hypertension Father Cancer Social History Household Members: Family Household Members Other:: daughter Housing: House Do you presently have visiting nurse or other home services: No Alcohol intake: current Alcohol intake frequency: does not drink Patient Tobacco Use Status: Former Tobacco user Quit Date: 1- 1/2 years ago Tobacco use type: Cigarette e-Cigarette/Vaping Use: Never Used Second Hand Smoke Exposure: No service: No 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 Cognitive needs: No Hearing needs: No Vision needs: Yes Review of Systems Const All systems reviewed & are unremarkable except as noted in HPI and below Physical Exam Vital Signs: Last Vital Signs Temp 98.6 F 09/26/23 09:14 Pulse 94 09/26/23 09:14 BP 132/72 09/26/23 09:14 Pulse Ox 95 09/26/23 09:14 Oxygen Delivery Method Room Air 09/26/23 09:14 BMI result Body Mass Index 39.9 Const General: no acute distress HEENT Head: Yes normocephalic Ears: external ears normal and TM's normal bilaterally General nose exam: No nasal discharge present Face and sinus: Yes sinuses nontender Mouth: oropharynx normal and moist mucous membranes Throat: Yes posterior oropharynx normal, Yes tonsils normal and Yes uvula midline Resp Effort & Inspection: normal respiratory effort Auscultation: clear to auscultation bilaterally Cardio Rate: regular rate Rhythm: regular rhythm Assessment & Plan Assessment & Plan (1) Diarrhea: Code(s): R19.7 - Diarrhea, unspecified Qualifiers: Diarrhea type: unspecified type Qualified Code(s): R19.7 - Diarrhea, unspecified Plan: Advised to get some rest. Hydrate with plenty of fluids. [place] diet continue with Zofran for nause and upset stomach Added Reglan. (2) Vomiting: Code(s): R11.10 - Vomiting, unspecified Qualifiers: Nausea presence: with nausea Vomiting type: unspecified Qualified Code(s): R11.2 - Nausea with vomiting, unspecified Plan Advised to get some rest. Hydrate with plenty of fluids. [place] diet continue with Zofran for nause and upset stomach Added Reglan. Medications: New metoclopramide HCl (Reglan) 10 mg PO Q6H PRN 30 tabs 0RF nausea and vomiting Coding Level of Care Code Est Pt Level 3 (31982) Diagnoses Diarrhea, unspecified type R19.7 Diarrhea type: unspecified type Nausea and vomiting, unspecified vomiting type R11.2 Nausea presence: with nausea Vomiting type: unspecified Time Spent (min) 15
[2023-09-26 09:14] VITALS: BP 132/72; PULSE 94; TEMP 37; O2SAT 95; BMI 39.9
== END 2023-09-26 09:48 | disposition home or self-care (01) ==
PROVIDERS: PCP Internal Medicine; Visit Provider Nurse Practitioner Family
DX: R19.7 Diarrhea, unspecified (principal); R11.2 Nausea with vomiting, unspecified
CPT/HCPCS: 99213

== ENCOUNTER 2024-03-18 15:59 | Outpatient (AMB) | payer OTHER, SELFPAY ==
[2024-03-18 16:01] VITALS: BP 142/70; PULSE 99; O2SAT 96; BMI 41.9
--- NOTE | 2024-03-18 16:01 | A.OFFPC_ITS ---
Vital Signs 03/18/24 16:01 Height 5 ft 5 in Weight 252 lb BMI 41.9 BP 142/70 H Blood Pressure Location Lt brachial Position Sitting Pulse 99 Pulse Source Pulse Oximeter Pulse Oximetry (%) 96 Oxygen Delivery Method Room Air Intake Visit Reasons: Anxiety follow-up Intensive Care Unit Nurse Required: No Allergies bee pollen [BEE STINGS] Allergy (Intermediate, Verified 03/18/24 17:08) SWELLING, ITCHING--SENSITIVITY oxycodone [From PERCOCET] Allergy (Intermediate, Verified 03/18/24 17:08) N/V, RASH Penicillins [PENICILLINS] Allergy (Intermediate, Verified 03/18/24 17:08) RASH/ITCH vancomycin [VANCOMYCIN] Allergy (Intermediate, Verified 03/18/24 17:08) ITCHING codeine [Codeine] Allergy (Unknown, Verified 03/18/24 17:08) HIVES,VOMITING Medication List - Last Reconciled 03/18/24 by José Miguel Baltazar MD albuterol sulfate 90 mcg/actuation 2 puffs PO Q4H PRN cholecalciferol (vitamin D3) 50 mcg PO DAILY 90 days clonazepam 0.5 mg PO BID PRN empagliflozin (Jardiance) 10 mg PO QAM 90 days fluconazole 100 mg PO DAILY 3 days furosemide 40 mg PO DAILY lisinopril 40 mg PO DAILY metformin 500 mg PO BID 30 days metoclopramide HCl (Reglan) 10 mg PO Q6H PRN nystatin 1 appl topical BID omeprazole 20 mg PO DAILY ondansetron 4 mg PO Q8H PRN Tobacco use date assessed: 03/18/24 Fall risk assessment: No Falls in past year Last assessed Fall Risk: 03/18/24 Dental Screening Dental Screen Date: 07/26/23 HPI Anxiety follow-up HPI Details Patient comes in today for her follow-up visit States that she feels okay Notes that her blood pressure is high today likely because she just got out of work and has not gotten any sleep yet She denies any headaches or dizziness Denies any chest pains, no increased shortness of breath No nausea/vomiting, no abdominal pain No change in bowel habits noted Needs a couple of her Rx refilled She was not able to get her follow-up labs done yet - states that she can try to get them done as soon as possible Adds that she is again experiencing increased pain in her knee recently States that she realizes that a lot of her problems are related to her weight and would now like to look into bariatric surgery as an option and is requesting for a referral to the weight management program here at [facility] Medical History Osteoarthritis GERD without esophagitis Screen for colon cancer COVID-19 COPD (chronic obstructive pulmonary disease) Ex-smoker Obesity Ex-smoker Hand pain Diabetes mellitus Calcification of right hand joint Calcification of left hand joint Left knee pain Obese Chronic bronchitis Impaired glucose tolerance Essential hypertension Anxiety Surgical History Ganglion cyst History of appendectomy Hx laparoscopic cholecystectomy Previous section Family History Mother Hypertension Father Cancer Social History Household Members: Family Household Members Other:: daughter Housing: House Do you presently have visiting nurse or other home services: No Alcohol intake: current Alcohol intake frequency: does not drink Patient Tobacco Use Status: Former Tobacco user Tobacco use type: Cigarette e-Cigarette/Vaping Use: Never Used Second Hand Smoke Exposure: No service: No 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 1. Little interest or pleasure in doing things: not at all 2. Feeling down, depressed, or hopeless: not at all 3. Trouble falling or staying asleep, or sleeping too much: not at all 4. Feeling tired or having little energy: not at all 5. Poor appetite or overeating: not at all 6. Feeling bad about yourself - or that you are a failure or have let yourself or your family down: not at all 7. Trouble concentrating on things, such as reading the newspaper or watching television: not at all 8. Moving or speaking so slowly that other people could have noticed. Or the opposite - being so fidgety or restless that you have been moving around a lot more than usual: not at all 9. Thoughts that you would be better off or of hurting yourself in some way: not at all Total score: 0 Depression Screening Interpretation: Negative Depression Screening Done: Yes 97388 - PHQ-9 Billing: Yes Source: Developed by Drs. Nathan Guthrie, Fernanda Sarah, Paul Ellsworth and colleagues, with an educational sabrina from [employer]. Thrive Questionnaire Date Thrive assessed: 03/18/24 I am a: Patient What is your living situation today?: I have a steady place to live Within the past 12 months, did the food you bought not last and you didn't have the money to get more?: Never true Within the past 12 months, did you worry whether your food would run out before you got money to buy more?: Never true Do you have trouble paying for medicines?: No Do you have trouble getting transportation to medical appointments?: No Do you have trouble paying your heating and electricity bill?: No Do you have trouble taking care of your child, family member or friend?: No Do you have trouble with day-to-day activities such as bathing, preparing meals, shopping, managing finances, etc.?: No Are you currently unemployed and looking for a job?: No Are you interested in more education?: No Please select the resources that you would like help with: None Currently or been in a relationship where the following occur: No concerns reported THRIVE Score: 0 AUDIT C Alcohol Use Questionnaire (AUDIT-C) 1. How often do you have a drink containing alcohol?: Monthly or less 2. How many drinks containing alcohol do you have on a typical day when you are drinking?: 1 or 2 Total Score: 1 Score Reviewed/Action Taken: Yes PRIMO-7 AMB Questionnaire PRIMO-7 Date PRIMO - 7 assessed: 03/18/24 Feeling nervous, anxious, or on edge: 0 = Not at all Not being able to stop or control worryin = Not at all Worrying too much about different things: 0 = Not at all Trouble relaxin = Not at all Being so restless that it is hard to sit still: 0 = Not at all Becoming easily annoyed or irritable: 0 = Not at all Feeling afraid as if something awful might happen: 0 = Not at all Total PRIMO-7 score (0-4 normal; 5-9 mild; 10-14 moderate; 15-21 severe): 0 Source: Developed by Drs. Nathan Guthrie, Fernanda Sarah, Paul Ellsworth and colleagues, with an educational sabrina from [employer]. PRIMO-7 Assessment Billing PRIMO-7 Assessment Tool: PRIMO-7 Assessment 02757 Review of Systems Const Denies chills, Reports fatigue, Denies fever(s) and Denies headache(s) ENT Denies dysphagia, Denies dizziness, Denies otalgia, Denies headache(s), Denies odynophagia and Denies sore throat Card Denies chest pain, Denies palpitations and Reports dyspnea on exertion (mild) Resp Denies chest congestion, Reports cough (occasional; coughs up thick whitish phlegm at times), Reports dyspnea on exertion (mild) and Denies wheezing GI Denies abdominal pain, Denies constipation, Denies dysphagia, Denies heartburn, Denies diarrhea, Denies nausea, Denies odynophagia and Denies vomiting Denies difficulty voiding, Denies nocturia, Denies dysuria and Denies urinary urgency Musc Reports arthralgias (left knee; both hands) and Reports stiffness Skin/Breast Denies rash Neuro Denies dizziness and Denies headache(s) Endo Reports fatigue and Denies palpitations Aller/Immun Denies wheezing Physical exam (Primary Care) Vital Signs: Last Vital Signs Pulse 99 03/18/24 16:01 BP 142/70 H 03/18/24 16:01 Pulse Ox 96 03/18/24 16:01 Oxygen Delivery Method Room Air 03/18/24 16:01 BMI result Body Mass Index 41.9 Tobacco/Smoking Status: Tobacco use Status Tobacco use date assessed 03/18/24 03/18/24 16:02 Patient Tobacco Use Status Former Tobacco user 03/18/24 16:02 Tobacco use type Cigarette 03/18/24 16:02 e-Cigarette/Vaping Use Never Used 03/18/24 16:02 PHQ-9: PHQ-9 Score PHQ-9: Total score 0 03/19/24 00:08 Depression Screening Interpretation: Negative Thrive Assessment: Date of Thrive Assessment Date Thrive assessed 03/18/24 03/18/24 16:30 Currently or been in a relationship where the following occur: No concerns reported Const General: no acute distress and alert HENMT Ears: TM's normal bilaterally and EAC's normal Throat: Yes posterior oropharynx normal and Yes tonsils normal (no TP congestion) Neck Neck: Yes no lymphadenopathy and Yes supple Thyroid: Thyroid normal Resp Auscultation: clear to auscultation bilaterally, no rales, no wheezes and diminished lung sounds (slightly) bilateral Cardio Rate: regular rate Rhythm: regular rhythm Heart sounds: no murmurs GI Palpation (GI): Soft to palpation and nontender Auscultation: normal bowel sounds General: Yes no CVA tenderness Back/Spine/Pelvis Back: no CVA tenderness Skin Rashes: no rashes Extrem General: Yes no clubbing, cyanosis or edema Left lower extremity: knee Details: tenderness; no swelling Results AMB Hemoglobin A1c AMB Hemoglobin A1c 10.3 % Last Edit by SAMIRA Murphy on 03/18/24 16:33 Results Reviewed Results Reviewed: Laboratory Last Values Hgb A1c (Clinic) 10.3 % (4.0-6.0) H 03/18/24 16:30 Assessment and Plan Assessment & Plan (1) Diabetes mellitus: Code(s): E11.9 - Type 2 diabetes mellitus without complications Qualifiers: Diabetes mellitus complication status: without complication Diabetes mellitus continuous churn buttermaker insulin use: without continuous churn buttermaker use Diabetes mellitus type: type 2 Qualified Code(s): E11.9 - Type 2 diabetes mellitus without complications Plan: In-office HgbA1c done today is at 10.3% (she was at 11.3% a few months ago) - goal is <7.0% Reinforced diabetic diet Continue Metformin 500 mg BID and Jardiance 10 mg Q AM but will consider increasing her Jardiance to 25 mg QD if her PRIMO Ab and C-peptide level come back normal when patient gets her labs done in the next few days (2) COPD (chronic obstructive pulmonary disease): Comment: SHE DOES HAVE EVIDENCE OF MODERATELY SEVERE OBSTRUCTIVE PULMONARY DISEASE. GOOD RESPONSE TO BRONCHODILATORS IS INDICATED OF OF ASTHMA COPD OVERLAP SYNDROME. TX AFTER GOOD DISCUSSION WITH THE PATIENT WE HAVE AGREED TO TRY COMBINATION ICS /LABD AGENT ( ADVAIR OR WIXELA 250-50 )ONE INH BID Code(s): J44.9 - Chronic obstructive pulmonary disease, unspecified Qualifiers: COPD type: unspecified COPD Qualified Code(s): J44.9 - Chronic obstructive pulmonary disease, unspecified Plan: She is an ex-smoker - patient quit smoking back in September 2020 Continue Albuterol HFA 2 inhalations Q 6 hours PRN Was supposed to also be on Advair or Wixela but states that she was supposedly advised by Dr. Brown that she does not need to continue on them She currently only uses her Albuterol inhaler occasionally when needed Follow up with pulmonary (Dr. Brown) as scheduled (3) Essential hypertension: Code(s): I10 - Essential (primary) hypertension Plan: Reinforced low sodium diet - goal is systolic BP of at least 120 to 130 mm or less Continue Lisinopril 40 mg QD; she also takes Furosemide 40 mg Q AM for her edema States that her blood pressure is elevated at this time as she just got out of work after a 12 hour shift and has not gotten any sleep yet Patient is advised to continue monitoring her blood pressure regularly (4) Ureterolithiasis: Code(s): N20.1 - Calculus of ureter Plan: Patient had moderate hydronephrosis of the left kidney with obstructing calculus a few months ago that required stenting - this has resolved with Tx and she had the stent removed by urology subsequently and has not had any recurrence/bouts of kidney stones since Abdominal and pelvic CT revealed a 2 mm non-obstructing stone in the lower pole of the left kidney but there were no evidence or findings of urinary tract obstruction Follow up with urology as scheduled (5) Elevated LFTs: Code(s): R79.89 - Other specified abnormal findings of blood chemistry Plan: Her LFTs have been gradually improving on her recent labs Advised again that these are most likely related to her weight and improvement should continue with weight loss Abdominal CT done back in November 2022 and more recently in late May 2023 revealed NO liver abnormalities or enlargement Will continue to monitor her LFTs regularly (6) Osteoarthritis: Code(s): M19.90 - Unspecified osteoarthritis, unspecified site Qualifiers: Osteoarthritis location: multiple joints Osteoarthritis type: primary Qualified Code(s): M15.9 - Polyosteoarthritis, unspecified Plan: Involving multiple joints, especially her left knee and both hands Continue OTC Tylenol PRN for pain Follow up with rheumatology (Dr. Forde) at the [facility] as scheduled (7) GERD without esophagitis: Code(s): K21.9 - Gastro-esophageal reflux disease without esophagitis Plan: Dietary restrictions reinforced Continue Omeprazole 20 mg QD (8) Edema of both lower extremities: Code(s): R60.0 - Localized edema Plan: Most likely stasis/dependent edema BNP done on labs earlier this year was normal; echocardiogram done in February 2023 revealed a hyperdynamic left ventricle, with visually estimated ejection fraction of >70% and no valvular pathology seen Continue Furosemide 40 mg Q AM PRN (9) Anxiety: Code(s): F41.9 - Anxiety disorder, unspecified Plan: Continue Clonazepam 0.5 mg BID PRN (10) Morbid obesity with BMI of 40.0-44.9, adult: Comment: BMI 42.6 on 05/31/22 Code(s): E66.01 - Morbid (severe) obesity due to excess calories; Z68.41 - Body mass index [BMI] 40.0-44.9, adult Plan: Reinforced diet/exercise as tolerated/lose weight Per request, will refer her to weight management for consideration for bariatric surgery if appropriate Plan Follow up in 3 months Orders: Orders AMB Hemoglobin A1c 03/18/24 E11.9 - Type 2 diabetes mellitus without complications Complete Blood Count Auto Diff 3 Months D64.9 - Anemia, unspecified TSH reflex Free T4 3 Months E78.00 - Pure hypercholesterolemia, unspecified UA CC w/rflx Micro + Cult 3 Months R30.0 - Dysuria Hemoglobin A1c 3 Months E11.9 - Type 2 diabetes mellitus without complications Lipid Panel 3 Months E78.00 - Pure hypercholesterolemia, unspecified Comprehensive [place]. Panel Fast 3 Months E78.00 - Pure hypercholesterolemia, unspecified Microalbumin, Random (w Creat) 3 Months E11.9 - Type 2 diabetes mellitus without complications Vitamin D 25-OH Total 3 Months E55.9 - Vitamin D deficiency, unspecified Vitamin B12 and Folate 3 Months E53.8 - Deficiency of other specified B group vitamins Referrals Bariatric Surgery Referral E66.01 - Morbid (severe) obesity due to excess calories, Z68.41 - Body mass index [BMI] 40.0-44.9, adult Medications: Changed From albuterol sulfate 90 mcg/actuation 2 puffs PO Q4H PRN 8.5 ea 0RF for wheezing To Ventolin HFA 90 mcg/actuation (albuterol sulfate) 2 puffs PO Q4-6H 30 days PRN 18 grams 5RF shortness of breath or wheezing NS Refilled clonazepam 0.5 mg PO BID PRN 60 tabs 0RF Anxiety Coding Level of Care Code Est Pt Level 4 (60514) Complex EM visit Add On G2211 Diagnoses Type 2 diabetes mellitus without complication, without long-term current use of insulin E11.9 Diabetes mellitus complication status: without complication Diabetes mellitus chcf insulin use: without continuous churn buttermaker use Diabetes mellitus type: type 2 Chronic obstructive pulmonary disease, unspecified COPD type J44.9 COPD type: unspecified COPD Essential hypertension I10 Ureterolithiasis N20.1 Elevated LFTs R79.89 Primary osteoarthritis involving multiple joints M15.9 Osteoarthritis location: multiple joints Osteoarthritis type: primary GERD without esophagitis K21.9 Edema of both lower extremities R60.0 Anxiety F41.9 Morbid obesity with BMI of 40.0-44.9, adult E66.01; Z68.41 Additional Codes PRIMO-7 Assessment Billing - PRIMO-7 Assessment Tool: PRIMO-7 Assessment 25111 ([id number])
== END 2024-03-18 17:19 | disposition home or self-care (01) ==
PROVIDERS: PCP Internal Medicine; Visit Provider Internal Medicine
DX: E11.9 Type 2 diabetes mellitus without complications (principal)
CPT/HCPCS: 83036; 99214; G2211

== ENCOUNTER 2024-09-05 11:57 | Outpatient (AMB) | payer OTHER, SELFPAY ==
[2024-09-05 12:47] VITALS: BP 168/70; PULSE 91; TEMP 36.7; O2SAT 97; BMI 41.8
--- NOTE | 2024-09-05 12:47 | MHC.OFFWIV ---
Intake Vital Signs 09/05/24 12:47 Height 5 ft 5 in Weight 251 lb BMI 41.8 BP 168/70 H Blood Pressure Location Lt brachial Position Sitting Pulse 91 Pulse Source Pulse Oximeter Temp 98.1 F Temp Source Oral Pulse Oximetry (%) 97 Oxygen Delivery Method Room Air Intake Visit Reasons: EP Open wound on lower leg Intake Note: Pt is here today c/o ?cellulitis Lt lower leg Patient Tobacco Use Status: Former Tobacco user Allergies bee pollen [BEE STINGS] Allergy (Intermediate, Verified 09/05/24 13:00) SWELLING, ITCHING--SENSITIVITY oxycodone [From PERCOCET] Allergy (Intermediate, Verified 09/05/24 13:00) N/V, RASH Penicillins [PENICILLINS] Allergy (Intermediate, Verified 09/05/24 13:00) RASH/ITCH vancomycin [VANCOMYCIN] Allergy (Intermediate, Verified 09/05/24 13:00) ITCHING codeine [Codeine] Allergy (Unknown, Verified 09/05/24 13:00) HIVES,VOMITING HPI EP Open wound on lower leg HPI Details Patient with chronic venous stasis dermatitis presents with left lower extremity redness pain and swelling at site of denuded skin. She has been trying to elevate lower extremity, applying Neosporin and wrapping with gauze. Currently no fevers or chills. Otherwise feels well PFSH Medical History Osteoarthritis GERD without esophagitis Screen for colon cancer COVID-19 COPD (chronic obstructive pulmonary disease) Ex-smoker Obesity Ex-smoker Hand pain Diabetes mellitus Calcification of right hand joint Calcification of left hand joint Left knee pain Obese Chronic bronchitis Impaired glucose tolerance Essential hypertension Anxiety Surgical History Ganglion cyst History of appendectomy Hx laparoscopic cholecystectomy Previous section Family History Mother Hypertension Father Cancer Social History Household Members: Family Household Members Other:: daughter Housing: House Do you presently have visiting nurse or other home services: No Alcohol intake: current Alcohol intake frequency: does not drink Patient Tobacco Use Status: Former Tobacco user Tobacco use type: Cigarette e-Cigarette/Vaping Use: Never Used Second Hand Smoke Exposure: No service: No 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 Cognitive needs: No Hearing needs: No Vision needs: Yes Review of Systems Const Denies chills, Denies fatigue, Denies fever(s), Denies headache(s) and Denies weakness ENT Denies dizziness and Denies headache(s) Card Denies dyspnea Resp Denies cough, Denies dyspnea, Denies wheezing and Denies other ( shortness of breath) Musc Denies numbness and Denies tingling Skin/Breast Details: See HPI Neuro Denies dizziness, Denies headache(s), Denies numbness, Denies tingling, Denies paresthesias and Denies weakness Psych Denies anxiety and Denies depression Endo Denies fatigue Aller/Immun Denies wheezing Physical Exam Vital Signs: Last Vital Signs Temp 98.1 F 09/05/24 12:47 Pulse 91 09/05/24 12:47 BP 168/70 H 09/05/24 12:47 Pulse Ox 97 09/05/24 12:47 Oxygen Delivery Method Room Air 09/05/24 12:47 BMI result Body Mass Index 41.8 Const General: no acute distress and well developed Nutritional Appearance: well nourished Orientation/consciousness: patient oriented x3 HEENT Head: Yes normocephalic and Yes atraumatic Eyes General: appearance normal, both eyes and all related structures Pupils: Equal, round and reactive pupils present EOM: EOMs intact bilaterally Resp Effort & Inspection: normal respiratory effort Auscultation: clear to auscultation bilaterally Cardio Rate: regular rate Rhythm: regular rhythm Heart sounds: S1 normal heart sound present, S2 normal heart sound present, no gallops, no murmurs and no rubs Skin Other: Anterolateral aspect of distal thomas with abraded/denuded skin surrounded by increased erythema, swelling and has increased tenderness to palpation. Mild weeping but no pus Bilateral lower legs with venous stasis dermatitis Neuro General: patient oriented x3 and gait normal Cranial nerves: Yes Equal, round and reactive pupils present Psych Affect: normal affect Assessment & Plan Assessment & Plan (1) Cellulitis: Code(s): L03.90 - Cellulitis, unspecified Plan: Left lower leg cellulitis Patient is allergic to penicillins Start Bactrim DS Elevate leg Continue triple antibiotic, nonstick pad and keep wrapped with gauze Should improve and resolve. Discussed S/S of worsening cellulitis/infection. She will call or return to office if not improving or worsens. Medications: New sulfamethoxazole-trimethoprim 800-160 mg (Bactrim DS) 1 tab PO Q12H 10 days 20 tabs 0RF Coding Level of Care Code Est Pt Level 3 (14199) Diagnoses Cellulitis L03.90
== END 2024-09-05 13:53 | disposition home or self-care (01) ==
LOC: HO.HMCWIC 11:57
PROVIDERS: PCP Internal Medicine; Visit Provider Family Medicine
DX: L03.90 Cellulitis, unspecified (principal)

== ENCOUNTER 2024-11-18 10:50 | Outpatient (AMB) | payer OTHER, SELFPAY ==
--- NOTE | 2024-11-18 11:07 | A.OFFPC_ITS ---
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 Accompanied by: Self / Same As Patient Allergies bee pollen [BEE STINGS] Allergy (Intermediate, Verified 11/18/24 11:42) SWELLING, ITCHING--SENSITIVITY oxycodone [From PERCOCET] Allergy (Intermediate, Verified 11/18/24 11:42) N/V, RASH Penicillins [PENICILLINS] Allergy (Intermediate, Verified 11/18/24 11:42) RASH/ITCH vancomycin [VANCOMYCIN] Allergy (Intermediate, Verified 11/18/24 11:42) ITCHING codeine [Codeine] Allergy (Unknown, Verified 11/18/24 11:42) HIVES,VOMITING Medication List - Last Reconciled 11/18/24 by CORINNE Gerardo cholecalciferol (vitamin D3) 50 mcg PO DAILY 90 days clonazepam 0.5 mg PO BID PRN furosemide 40 mg PO DAILY lisinopril 40 mg PO DAILY metformin 500 mg PO BID 30 days metoclopramide HCl (Reglan) 10 mg PO Q6H PRN omeprazole 20 mg PO DAILY Ventolin HFA 90 mcg/actuation (albuterol sulfate) 2 puffs PO Q4-6H PRN 30 days NS Tobacco use date assessed: 11/18/24 Fall risk assessment: No Falls in past year Last assessed Fall Risk: 11/18/24 Dental Screening Dental Screen Date: 11/18/24 Did you have a dental visit in the last 12 months?: No Did you have a dental problem in the last 6 months where you did not have access to dental care?: No Was dental information given to patient?: Patient has dentist HPI cellulitis and Open wound HPI Details Patient is a 64-year-old female who was presenting for bilateral leg cellulitis and wounds Patient reports that her legs has been red and swollen for a couple of years now Reports that she never had sores but now her legs are almost purple She reports that she has stabbing, burning pain in her legs that is affecting her sleep at night 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 We will put the patient on doxycycline 100 mg b.i.d. times 10 days and refer her to the wound clinic. Gabapentin 100 mg b.i.d. ordered for shooting leg pain. We will also refer the patient to vascular. Patient reports that she we will go to the wound clinic as long as they do not try physically debriding her leg-she will only accept Santyl ointment A1c 10.4%: The patient is currently on metformin 500 mg b.i.d. patient reports that she was prescribed Jardiance but her insurance stopped covering it. Patient refused long-acting insulin and endocrine referral. Metformin increased with 1000 mg b.i.d. Januvia 100 mg daily was ordered. Elevated blood pressure: BP 152/74, the patient reports that this is normal for her. She is currently on lisinopril 40 mg and she is also on furosemide 40 mg daily. Amlodipine 5 mg daily started, patient to return in 4 weeks for evaluation of her BP FOR[facility]LY [facility], [facility] Medical History Osteoarthritis GERD without esophagitis Screen for colon cancer COVID-19 COPD (chronic obstructive pulmonary disease) Ex-smoker Obesity Ex-smoker Hand pain Diabetes mellitus Calcification of right hand joint Calcification of left hand joint Left knee pain Obese Chronic bronchitis Impaired glucose tolerance Essential hypertension Anxiety Surgical History Ganglion cyst History of appendectomy Hx laparoscopic cholecystectomy Previous section Family History Mother Hypertension Father Cancer Social History Household Members: Family Household Members Other:: daughter Housing: House Do you presently have visiting nurse or other home services: No Alcohol intake: current Alcohol intake frequency: does not drink Patient Tobacco Use Status: Former Tobacco user Tobacco use type: Cigarette e-Cigarette/Vaping Use: Never Used Second Hand Smoke Exposure: No service: No 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 1. Little interest or pleasure in doing things: not at all 2. Feeling down, depressed, or hopeless: not at all 3. Trouble falling or staying asleep, or sleeping too much: not at all 4. Feeling tired or having little energy: not at all 5. Poor appetite or overeating: not at all 6. Feeling bad about yourself - or that you are a failure or have let yourself or your family down: not at all 7. Trouble concentrating on things, such as reading the newspaper or watching television: not at all 8. Moving or speaking so slowly that other people could have noticed. Or the opposite - being so fidgety or restless that you have been moving around a lot more than usual: not at all 9. Thoughts that you would be better off or of hurting yourself in some way: not at all Total score: 0 Depression Screening Interpretation: Negative Depression Screening Done: Yes 82230 - PHQ-9 Billing: Yes Source: Developed by Drs. Nathan Guthrie, Fernanda Sarah, Paul Ellsworth and colleagues, with an educational sabrina from [employer]. Thrive Questionnaire Date Thrive assessed: 11/18/24 I am a: Patient What is your living situation today?: I have a steady place to live Within the past 12 months, did the food you bought not last and you didn't have the money to get more?: Never true Within the past 12 months, did you worry whether your food would run out before you got money to buy more?: Never true Do you have trouble paying for medicines?: No Do you have trouble getting transportation to medical appointments?: No Do you have trouble paying your heating and electricity bill?: No Do you have trouble taking care of your child, family member or friend?: No Do you have trouble with day-to-day activities such as bathing, preparing meals, shopping, managing finances, etc.?: No Are you currently unemployed and looking for a job?: No Are you interested in more education?: No Please select the resources that you would like help with: None Currently or been in a relationship where the following occur: No concerns reported THRIVE Score: 0 AUDIT C Alcohol Use Questionnaire (AUDIT-C) 2. How many drinks containing alcohol do you have on a typical day when you are drinking?: 1 or 2 3. How often do you have six or more drinks on one occasion?: Never Total Score: 0 PRIMO-7 AMB Questionnaire PRIMO-7 Date PRIMO - 7 assessed: 11/18/24 Feeling nervous, anxious, or on edge: 0 = Not at all Not being able to stop or control worryin = Not at all Worrying too much about different things: 0 = Not at all Trouble relaxin = Not at all Being so restless that it is hard to sit still: 0 = Not at all Becoming easily annoyed or irritable: 0 = Not at all Feeling afraid as if something awful might happen: 0 = Not at all Total PRIMO-7 score (0-4 normal; 5-9 mild; 10-14 moderate; 15-21 severe): 0 Source: Developed by Drs. Nathan Guthrie, Fernanda Sarah, Paul Ellsworth and colleagues, with an educational sabrina from [employer]. PRIMO-7 Assessment Billing PRIMO-7 Assessment Tool: PRIMO-7 Assessment 75506 Review of Systems Const Details: Denies chills, Denies fatigue, Denies fever(s), Denies headache(s) and Denies weakness HEENT Denies change in vision, Denies dizziness, Denies headache(s), Denies hearing loss, Denies nasal congestion, Denies sinus pain, Denies sinus pressure and Denies sore throat Card Denies chest pain, Denies lightheadedness, Denies dyspnea and Denies other (palpitations) Resp Denies cough, Denies dyspnea and Denies wheezing GI Denies abdominal pain, Denies melena, Denies hematochezia, Denies change in bowel habits, Denies dyspepsia and Denies nausea Denies hematuria and Denies dysuria Musc Denies abnormal gait, +myalgias/nerve (bilateral lower legs shooting pain), Denies arthralgias, Denies numbness and Denies tingling Skin/Breast Denies rash, Denies unusual bruising and Denies wounds Neuro Denies abnormal gait, Denies dizziness, Denies headache(s), Denies memory loss, Denies numbness, Denies Sensory deficit (Neuro), Denies tingling and Denies weakness Psych Denies anxiety, Denies depression and Denies memory loss Endo Denies cold intolerance, Denies fatigue, Denies heat intolerance, Denies polydipsia and Denies polyuria Uriel/Lymph Denies easy bleeding and Denies easy bruising Aller/Immun Denies wheezing Physical exam (Primary Care) Vital Signs: Last Vital Signs Temp 98.7 F 11/18/24 11:10 Pulse 86 11/18/24 11:10 Resp 16 11/18/24 11:10 BP 152/74 H 11/18/24 11:10 Pulse Ox 98 11/18/24 11:10 Oxygen Delivery Method Room Air 11/18/24 11:10 BMI result Body Mass Index 42.6 Tobacco/Smoking Status: Tobacco use Status Tobacco use date assessed 11/18/24 11/18/24 11:15 Patient Tobacco Use Status Former Tobacco user 11/18/24 11:09 Tobacco use type Cigarette 11/18/24 11:09 e-Cigarette/Vaping Use Never Used 11/18/24 11:09 PHQ-9: PHQ-9 Score PHQ-9: Total score 0 11/18/24 11:45 Depression Screening Interpretation: Negative Thrive Assessment: Date of Thrive Assessment Date Thrive assessed 11/18/24 11/18/24 11:15 Currently or been in a relationship where the following occur: No concerns repo rted Const Other: General: no acute distress, well developed, alert and awake Nutritional Appearance: well nourished Orientation/consciousness: patient oriented x3 HENMT Head: Yes normocephalic and Yes atraumatic Eyes Pupils: Equal, round and reactive pupils present and Pupil accommodation reflex normal EOM: EOMs intact bilaterally Neck Neck: Yes normal visual inspection, Yes no lymphadenopathy Thyroid: Thyroid normal Lymphatic: no lymphadenopathy noted Resp Effort & Inspection: normal respiratory effort Auscultation: clear to auscultation bilaterally Cardio Rate: regular rate Rhythm: regular rhythm Heart sounds: S1 normal heart sound present, S2 normal heart sound present, no gallops, no murmurs and no rubs GI Palpation (GI): Abdomen is soft and nontender Auscultation: normal bowel sounds General: Yes no CVA tenderness MSK: Bilateral lower leg shooting pain, edema and erythematous, +3-4 nonpitting edema, BLE taut Skin General: warm and dry. Normal skin color. Normal skin turgor Wounds: LLE abraded appearing areas, oozing, lower abraded area with slough in the middle Nails: normal Extrem General: Yes normal to inspection, +edema/erythema, +3-4 nonpitting edema (taut) and No calf tenderness Psych Appearance: grossly normal Affect: normal affect Attitude: cooperative Thought process: Normal thought process present Results AMB Hemoglobin A1c AMB Hemoglobin A1c 10.4 % Last Edit by Desire Torres CMA on 11/18/24 11:34 Results Reviewed Results Reviewed: Laboratory Last Values Hgb A1c (Clinic) 10.4 % (4.0-6.0) H 11/18/24 11:31 Coding Level of Care Code Est Pt Level 4 (56126) Diagnoses Dry skin L85.3 Type 2 diabetes mellitus without complication, without long-term current use of insulin E11.9 Diabetes mellitus type: type 2 Diabetes mellitus continuous churn buttermaker insulin use: without continuous churn buttermaker use Diabetes mellitus complication status: without complication Morbid obesity with BMI of 40.0-44.9, adult E66.01; Z68.41 Bilateral cellulitis of lower leg L03.116; L03.115 Wound of left lower extremity, initial encounter S81.802A Encounter type: initial encounter Essential hypertension I10 Additional Codes PRIMO-7 Assessment Billing - PRIMO-7 Assessment Tool: PRIMO-7 Assessment 33549 ([id number]) PHQ-9 - 00787 - PHQ-9 Billing: Yes ([id number]) Time Spent (min) 38 Assessment & Plan Assessment & Plan (1) Dry skin: Code(s): L85.3 - Xerosis cutis Category: Medical Plan: The patient report that when her lower legs are not oozing, they are dry and scaly. Lac-Hydrin 12% topical b.i.d. ordered (2) Diabetes mellitus: Code(s): E11.9 - Type 2 diabetes mellitus without complications Category: Medical Qualifiers: Diabetes mellitus type: type 2 Diabetes mellitus snf insulin use: without snf use Diabetes mellitus complication status: without complication Qualified Code(s): E11.9 - Type 2 diabetes mellitus without complications Plan: A1c 10.4 % in office. She is currently on metformin 500 mg b.i.d.. Metformin was increased to a 1000 mg b.i.d.. Patient reports that she was started on Jardiance but her insurance stopped covering it. Januvia 100 mg daily ordered. The patient refused long-acting insulin in Endocrine referral. We will recheck labs in 3 months (3) Morbid obesity with BMI of 40.0-44.9, adult: Comment: BMI 42.6 on 05/31/22 Code(s): E66.01 - Morbid (severe) obesity due to excess calories; Z68.41 - Body mass index [BMI] 40.0-44.9, adult Category: Medical Plan: Diet/exercise discussed in detail Encouraged to exercise for at least 30 minutes a day/5 days a week Healthy eating discussed. Encouraged to eat fruits/vegetables, protein- fish/baked chicken, and to avoid salty/fried foods, sweets, caffeine and carbohydrates. Encouraged to increase water intake 6-8 glasses a day (4) Bilateral cellulitis of lower leg: Code(s): L03.116 - Cellulitis of left lower limb; L03.115 - Cellulitis of right lower limb Category: Medical Plan: Doxycycline 100 mg b.i.d. times 10 days ordered (5) Wound of left lower extremity: Code(s): S81.802A - Unspecified open wound, left lower leg, initial encounter Category: Medical Qualifiers: Encounter type: initial encounter Qualified Code(s): S81.802A - Unspecified open wound, left lower leg, initial encounter Plan: Two abraded areas to the lateral aspect of left lower extremity. Both areas oozing, but lower area has slough in the middle. Patient was referral to the wound clinic (6) Essential hypertension: Code(s): I10 - Essential (primary) hypertension Category: Medical Plan: Blood pressure elevated in office Reinforced low-sodium diet Continue lisinopril 40 mg and furosemide 40 mg daily Start amlodipine 5 mg daily Patient to return in 4 weeks for evaluation Orders: Orders Comprehensive [place]. Panel Fast 3 Months E11.9 - Type 2 diabetes mellitus without complications, E66.01 - Morbid (severe) obesity due to excess calories, E66.9 - Obesity, unspecified, E87.1 - Hypo-osmolality and hyponatremia, F41.9 - Anxiety disorder, unspecified, J42 - Unspecified chronic bronchitis, J44.9 - Chronic obstructive pulmonary disease, unspecified, K21.9 - Gastro-esophageal reflux disease without esophagitis, R79.89 - Other specified abnormal findings of blood chemistry, Z68.41 - Body mass index [BMI] 40.0-44.9, adult TSH reflex Free T4 3 Months E11.9 - Type 2 diabetes mellitus without complications, E66.01 - Morbid (severe) obesity due to excess calories, E66.9 - Obesity, unspecified, E87.1 - Hypo-osmolality and hyponatremia, F41.9 - Anxiety disorder, unspecified, J42 - Unspecified chronic bronchitis, J44.9 - Chronic obstructive pulmonary disease, unspecified, K21.9 - Gastro-esophageal reflux disease without esophagitis, R79.89 - Other specified abnormal findings of blood chemistry, Z68.41 - Body mass index [BMI] 40.0-44.9, adult Hemoglobin A1c 3 Months E11.9 - Type 2 diabetes mellitus without complications, E66.01 - Morbid (severe) obesity due to excess calories, E66.9 - Obesity, unspecified, E87.1 - Hypo-osmolality and hyponatremia, F41.9 - Anxiety disorder, unspecified, J42 - Unspecified chronic bronchitis, J44.9 - Chronic obstructive pulmonary disease, unspecified, K21.9 - Gastro-esophageal reflux disease without esophagitis, R79.89 - Other specified abnormal findings of blood chemistry, Z68.41 - Body mass index [BMI] 40.0-44.9, adult Glucose Fasting 3 Months E11.9 - Type 2 diabetes mellitus without complications, E66.01 - Morbid (severe) obesity due to excess calories, E66.9 - Obesity, unspecified, E87.1 - Hypo-osmolality and hyponatremia, F41.9 - Anxiety disorder, unspecified, J42 - Unspecified chronic bronchitis, J44.9 - Chronic obstructive pulmonary disease, unspecified, K21.9 - Gastro-esophageal reflux disease without esophagitis, R79.89 - Other specified abnormal findings of blood chemistry, Z68.41 - Body mass index [BMI] 40.0-44.9, adult Complete Blood Count Auto Diff 3 Months E11.9 - Type 2 diabetes mellitus without complications, E66.01 - Morbid (severe) obesity due to excess calories, E66.9 - Obesity, unspecified, E87.1 - Hypo-osmolality and hyponatremia, F41.9 - Anxiety disorder, unspecified, J42 - Unspecified chronic bronchitis, J44.9 - Chronic obstructive pulmonary disease, unspecified, K21.9 - Gastro-esophageal reflux disease without esophagitis, R79.89 - Other specified abnormal findings of blood chemistry, Z68.41 - Body mass index [BMI] 40.0-44.9, adult Lipid Panel 3 Months E11.9 - Type 2 diabetes mellitus without complications, E66.01 - Morbid (severe) obesity due to excess calories, E66.9 - Obesity, unspecified, E87.1 - Hypo-osmolality and hyponatremia, F41.9 - Anxiety disorder, unspecified, J42 - Unspecified chronic bronchitis, J44.9 - Chronic obstructive pulmonary disease, unspecified, K21.9 - Gastro-esophageal reflux disease without esophagitis, R79.89 - Other specified abnormal findings of blood chemistry, Z68.41 - Body mass index [BMI] 40.0-44.9, adult Vitamin D 25-OH Total 3 Months E11.9 - Type 2 diabetes mellitus without complications, E66.01 - Morbid (severe) obesity due to excess calories, E66.9 - Obesity, unspecified, E87.1 - Hypo-osmolality and hyponatremia, F41.9 - Anxiety disorder, unspecified, J42 - Unspecified chronic bronchitis, J44.9 - Chronic obstructive pulmonary disease, unspecified, K21.9 - Gastro-esophageal reflux disease without esophagitis, R79.89 - Other specified abnormal findings of blood chemistry, Z68.41 - Body mass index [BMI] 40.0-44.9, adult UA CC w/rflx Micro + Cult 3 Months E11.9 - Type 2 diabetes mellitus without complications, E66.01 - Morbid (severe) obesity due to excess calories, E66.9 - Obesity, unspecified, E87.1 - Hypo-osmolality and hyponatremia, F41.9 - Anxiety disorder, unspecified, J42 - Unspecified chronic bronchitis, J44.9 - Chronic obstructive pulmonary disease, unspecified, K21.9 - Gastro-esophageal reflux disease without esophagitis, R79.89 - Other specified abnormal findings of blood chemistry, Z68.41 - Body mass index [BMI] 40.0-44.9, adult Referrals Vascular Surgery Referral R60.0 - Localized edema Wound Care Referral E11.9 - Type 2 diabetes mellitus without complications, S81.802A - Unspecified open wound, left lower leg, initial encounter Medications: New amlodipine 5 mg PO DAILY 30 days 30 tabs 1RF I10 - Essential (primary) hypertension doxycycline hyclate 100 mg PO BID 10 days 20 caps 0RF L03.90 - Cellulitis, unspecified ammonium lactate 12% 1 appl topical BID 400 grams 0RF L85.3 - Xerosis cutis sitagliptin phosphate (Januvia) a1c 10 100 mg PO DAILY 30 tabs 2RF E11.9 - Type 2 diabetes mellitus without complications gabapentin 100 mg PO BID 30 days 60 caps 2RF Changed From metformin 500 mg PO BID 30 days 60 tabs 0RF E11.9 - Type 2 diabetes mellitus without complications To metformin 1,000 mg (2 x 500 mg) PO BID 30 days 120 tabs 3RF E11.9 - Type 2 diabetes mellitus without complications
[2024-11-18 11:10] VITALS: BP 152/74; PULSE 86; RESP 16; TEMP 37.1; O2SAT 98; BMI 42.6
--- OUTSIDE RECORDS SUMMARY | 2024-11-18 12:59 | XMS_ITS | Clinical Summary ---
Author Organization [facility] Facility Address [address] [place] [id number] Care Team Providers Care Supervisor Bindery Name Role Phone Barb Khan MD Primary Care Provider [phone] Social History Tobacco Use Types Packs/Day Years Used Date Smoking Tobacco: Never Assessed Comments Unknown Sex and Gender Information Value Date Recorded Sex Assigned at Not on file Legal Sex Female 8:46 AM EDT Gender Identity Not on file Sexual Orientation Not on file Plan of Treatment Health Maintenance Due Date Last Done Comments Breast Cancer Screening 1960 Colorectal Cancer Screening: Annual FOBT 2007 Colorectal Cancer Screening: Colonoscopy 2007 Colorectal Cancer Screening: Sigmoidoscopy 2007 Pneumococcal Vaccine: 65+ Ye ars (1 of 1 - PCV) 2023 Influenza Vaccine (#1) 2024 Hepatitis B Vaccine Aged Out No longe r eligible based on patient's age to complete this topic Insurance [employer] [place]AYLA [id number] [employer] [place] [id number] Care Teams Supervisor Bindery Relationship Specialty Start Date End Date Barb Khan MD [address] [place], [place] PCP - General Internal Medicine 12/12/22
== END 2024-11-18 12:32 | disposition home or self-care (01) ==
PROVIDERS: PCP Internal Medicine
DX: L85.3 Xerosis cutis (principal); E11.9 Type 2 diabetes mellitus without complications; E66.01 Morbid (severe) obesity due to excess calories; Z68.41 Body mass index [BMI] 40.0-44.9, adult; L03.116 Cellulitis of left lower limb; L03.115 Cellulitis of right lower limb; S81.802A Unspecified open wound, left lower leg, initial encounter; I10 Essential (primary) hypertension

== ENCOUNTER → 2024-11-18 10:50 | Outpatient (BNVA) | payer OTHER, SELFPAY | PROVIDERS: PCP Internal Medicine | DX: L85.3 Xerosis cutis (principal); E11.9 Type 2 diabetes mellitus without complications; E66.01 Morbid (severe) obesity due to excess calories; Z68.41 Body mass index [BMI] 40.0-44.9, adult; L03.116 Cellulitis of left lower limb; L03.115 Cellulitis of right lower limb; S81.802A Unspecified open wound, left lower leg, initial encounter; I10 Essential (primary) hypertension; Z79.84 Long term (current) use of oral hypoglycemic drugs; Z79.899 Other long term (current) drug therapy | CPT/HCPCS: 83036; 96127 ==

== ENCOUNTER 2024-11-27 13:30 | Outpatient (RCR) | payer OTHER, SELFPAY | END 2024-12-08 09:58 | disposition left against medical advice (07) | LOC: HO.WCC 13:30 | PROVIDERS: PCP Internal Medicine; Visit Provider Colon & Rectal Surgery | DX: E11.622 Type 2 diabetes mellitus with other skin ulcer (principal); L97.822 Non-pressure chronic ulcer of other part of left lower leg with fat layer exposed; I87.2 Venous insufficiency (chronic) (peripheral); I10 Essential (primary) hypertension; Z79.84 Long term (current) use of oral hypoglycemic drugs; Z87.891 Personal history of nicotine dependence | CPT/HCPCS: 97597; 97598; 99212 ==

== ENCOUNTER 2024-12-03 12:38 | Outpatient (AMB) | payer OTHER, SELFPAY ==
[2024-12-03 12:49] VITALS: BMI 42.6
--- NOTE | 2024-12-03 12:49 | MHC.OFFVIS ---
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 Wound started about a month ago, started as a scratch from her dog and turned into a blister. Was seen by woundcare, they were using alginate which made it worse, now using zinc. Pt does dressing changes QOD. Accompanied by: Self / Same As Patient Allergies bee pollen [BEE STINGS] Allergy (Intermediate, Verified 12/03/24 12:55) SWELLING, ITCHING--SENSITIVITY oxycodone [From PERCOCET] Allergy (Intermediate, Verified 12/03/24 12:55) N/V, RASH Penicillins [PENICILLINS] Allergy (Intermediate, Verified 12/03/24 12:55) RASH/ITCH vancomycin [VANCOMYCIN] Allergy (Intermediate, Verified 12/03/24 12:55) ITCHING codeine [Codeine] Allergy (Unknown, Verified 12/03/24 12:55) HIVES,VOMITING HPI HPI LOG WASHER Edema: Details: Vidhya, a pleasant 64-year-old female patient, is presenting today on a referral from her PCP for bilateral lower extremity swelling and pain, left greater than right. She is also having some weeping from her legs and blisters that continue to pop. She does have a left lower extremity wound that has been going on for approximately 2 months now. Complaints include pain over, swelling of lower extremities, cramping, fatigue, and heaviness of the lower extremities. It has been affecting their daily activities including walking, standing, and physical activity. It is noted more so in the left leg. She is a diabetic, her last A1c was 10.4%. She is a former smoker, quitting over 5 years ago. Patient denies any previous venous surgery or injections. Patient denies any history of DVT/ PE. Patient denies any history of phlebitis. Trial of compression includes - elevation with a little relief They now present for vascular evaluation regarding their varicose veins. [facility] Medical History Osteoarthritis GERD without esophagitis Screen for colon cancer COVID-19 COPD (chronic obstructive pulmonary disease) Ex-smoker Obesity Ex-smoker Hand pain Diabetes mellitus Calcification of right hand joint Calcification of left hand joint Left knee pain Obese Chronic bronchitis Impaired glucose tolerance Essential hypertension Anxiety Surgical History Ganglion cyst History of appendectomy Hx laparoscopic cholecystectomy Previous section Family History Mother Hypertension Father Cancer Social History Household Members: Family Household Members Other:: daughter Housing: House Do you presently have visiting nurse or other home services: No Alcohol intake: current Alcohol intake frequency: does not drink Patient Tobacco Use Status: Former Tobacco user Tobacco use type: Cigarette e-Cigarette/Vaping Use: Never Used Second Hand Smoke Exposure: No service: No 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 Cognitive needs: No Hearing needs: No Vision needs: Yes Review of Systems Const Reports as per HPI and Denies weakness ENT Reports Normal hearing present and Denies dizziness Card Reports as per HPI, Denies chest pain, Denies chest pain at rest, Denies chest pain with activity, Denies dyspnea and Denies dyspnea on exertion Resp Reports as per HPI, Denies cough, Denies dyspnea and Denies dyspnea on exertion GI Reports as per HPI, Denies abdominal pain, Denies nausea and Denies vomiting Musc Denies numbness Skin/Breast Reports as per HPI, Denies erythema and Denies wounds Neuro Reports Normal hearing present, Denies dizziness, Denies numbness, Denies Sensory deficit (Neuro) and Denies weakness Psych Reports no additional complaints Endo Reports no additional complaints Physical Exam Vital Signs: BMI result Body Mass Index 42.6 Const General: healthy appearing and no acute distress Orientation/consciousness: patient oriented x3 HEENT Head: Yes normal to inspection Ears: hearing grossly normal bilaterally Mouth: Normal oral and palatal mucosa present Resp Effort & Inspection: normal respiratory effort and able to speak in complete sentences Auscultation: clear to auscultation bilaterally Cardio Jugular venous distension: no JVD Rate: regular rate Rhythm: regular rhythm Heart sounds: S1 normal heart sound present and S2 normal heart sound present Bruits: no abdominal aortic bruits, no carotid bruits, no femoral bruits and no renal bruits Peripheral pulses: Peripheral pulses 2+ throughout GI Inspection: Yes normal to inspection Palpation (GI): No Abdominal aortic bruit present Skin General skin exam: no rashes or lesions noted Wounds: no wounds Hair: normal Neuro General: patient oriented x3 Cranial nerves: Yes Normal hearing present Cognition (Neuro): normal cognition Gait exam (Neuro): Normal gait present Motor exam (neuro): 5/5 motor strength present throughout Sensory Exam: No Sensory deficit (Neuro) Extrem Other: Bilateral lower extremities: Skin is taut. Erythema noted from the tibial tuberosity to her ankles. +3 pitting edema noted. Palpable DP pulses Left lower extremity:Small circular wound noted on the lateral aspect of the lower calf. Painful to palpation. No bleeding noted. Small amt of yellow slough noted throughout the wound. CEAP: C - 4 E - primary A - superficial P - reflux General: Yes normal to inspection, Yes full ROM, Yes capillary refill normal and Yes normal gait Assessment & Plan Assessment & Plan (1) Varicose veins of both lower extremities with inflammation: Code(s): I83.11 - Varicose veins of right lower extremity with inflammation; I83.12 - Varicose veins of left lower extremity with inflammation Category: Medical Plan: Vidhya is presenting today on a referral from her PCP for bilateral lower extremity swelling and pain. In short, the patient has evidence of venous insufficiency. I have discussed the pathophysiology with the patient. In addition I have provided informational material regarding venous disease to the patient. We have discussed conservative measures including compression, elevation, and exercise. She states she will start wrapping her legs with the Abel bandages; at this point, she is unable to wear socks due to the swelling. I have taken the liberty of ordering venous insufficiency testing with the patient. They will follow up with me after testing. The patient had an opportunity to ask questions regarding the treatment plan. All questions were answered. Imaging studies, laboratory studies and physical exam results were discussed and reviewed in detail. No major barriers to understanding were identified. The patient expressed understanding and agreement with the above treatment plan. The patient is aware they should contact our office by phone for worsening of the current condition or the appearance of new symptoms. Thank you for allowing me to participate in the vascular care of this patient. If you have any questions or concerns regarding the treatment for the above condition please do not hesitate to contact me. The office telephone contact is [phone]. This note is constructed using voice recognition software. While every effort has been made to ensure accuracy, general assembler errors may have been included. Thank you for allowing me to participate in the care of your patient. Yours sincerely, MARTHA Hemphill (2) Lymphedema: Code(s): I89.0 - Lymphedema, not elsewhere classified Category: Medical Plan: Vidhya is presenting today for concerns of bilateral lower extremity swelling. In short the patient has late onset lymphedema. Patient has tried 30 mm of mercury compression garments, elevation, exercise, healthy diet, and doing manual says self MLD to the best of their ability for over 4 weeks but with no significant relief. She has been compliant with the program but has provided minimal relief. In addition, on physical exam, we are noticing hyperpigmentation, lymphorrhea, and hyperplasia. It appears that she has stage 2 lymphedema. Patient has completed multiple forms of conservative therapy yet significant symptoms remain. Patient requires the use of a pneumatic compression device which we will assist in trying to have the patient obtain them. A pneumatic compression device will help reduce swelling and other lymphedema comorbidities. We will have the patient attend our lymphedema clinic on February 24. Thank you for allowing us to assist in this patient's care. Orders: Orders US venous duplex LE BI 1 Week I83.11 - Varicose veins of right lower extremity with inflammation, I83.12 - Varicose veins of left lower extremity with inflammation Coding Level of Care Code New Pt Level 4 (06551) Diagnoses Varicose veins of both lower extremities with inflammation I83.11; I83.12 Lymphedema I89.0
--- OUTSIDE RECORDS SUMMARY | 2024-12-03 15:01 | XMS_ITS | Clinical Summary ---
Author Organization [facility] Facility Address [address] [place] [id number] Care Team Providers Care Physician'S Aide Name Role Phone Barb Khan MD Primary Care Provider [phone] Social History Tobacco Use Types Packs/Day Years [...] patient's age to complete this topic Insurance [employer] [place] JAYLA [id number] [employer] [place] [id number] Care Teams Physician'S Aide Relationship Specialty Start Date End Date Barb hKan MD [address] [place], [place] PCP - General Internal Medicine 12/12/22
== END 2024-12-03 13:27 | disposition home or self-care (01) ==
LOC: HO.HVS 12:39
PROVIDERS: PCP Internal Medicine; Visit Provider Physician Assistant Surgical
DX: I83.11 Varicose veins of right lower extremity with inflammation (principal); I83.12 Varicose veins of left lower extremity with inflammation; I89.0 Lymphedema, not elsewhere classified
CPT/HCPCS: 99204

== ENCOUNTER → 2024-12-03 12:38 | Outpatient (BNVA) | payer OTHER, SELFPAY | PROVIDERS: PCP Internal Medicine; Visit Provider Physician Assistant Surgical ==

== ENCOUNTER 2024-12-16 13:11 | Outpatient (AMB) | payer OTHER, SELFPAY ==
[2024-12-16 13:25] VITALS: BP 164/70; PULSE 92; RESP 24; O2SAT 98; BMI 42.5
--- NOTE | 2024-12-16 13:25 | A.OFFPC_ITS ---
Vital Signs 12/16/24 13:25 Height 5 ft 5 in Weight 255 lb 9.6 oz BMI 42.5 BP 164/70 H Blood Pressure Location Lt brachial Position Sitting Respiration 24 H Pulse 92 Pulse Source Pulse Oximeter Pulse Oximetry (%) 98 Oxygen Delivery Method Room Air Intake Visit Reasons: HTN-new med started Line Maintenance Required: No Accompanied by: Self / Same As Patient Allergies bee pollen [BEE STINGS] Allergy (Intermediate, Verified 12/16/24 13:52) SWELLING, ITCHING--SENSITIVITY oxycodone [From PERCOCET] Allergy (Intermediate, Verified 12/16/24 13:52) N/V, RASH Penicillins [PENICILLINS] Allergy (Intermediate, Verified 12/16/24 13:52) RASH/ITCH vancomycin [VANCOMYCIN] Allergy (Intermediate, Verified 12/16/24 13:52) ITCHING codeine [Codeine] Allergy (Unknown, Verified 12/16/24 13:52) HIVES,VOMITING Medication List - Last Reconciled 12/16/24 by CORINNE Gerardo amlodipine 5 mg PO DAILY ammonium lactate 12% 1 appl topical BID cholecalciferol (vitamin D3) 50 mcg PO DAILY clonazepam 0.5 mg PO BID PRN furosemide 40 mg PO DAILY 30 days gabapentin 100 mg PO BID 30 days lisinopril 40 mg PO DAILY metformin 1,000 mg (2 x 500 mg) PO BID 30 days omeprazole 20 mg PO DAILY sitagliptin phosphate (Januvia) 100 mg PO DAILY tramadol 50 mg PO BEDTIME Ventolin HFA 90 mcg/actuation (albuterol sulfate) 2 puffs PO Q4-6H PRN 30 days NS Tobacco use date assessed: 12/16/24 Fall risk assessment: No Falls in past year Last assessed Fall Risk: 12/16/24 Dental Screening Dental Screen Date: 11/18/24 HPI HTN-new med started HPI Details The patient is a 64-year-old female who is presenting we will follow up for elevated blood pressure On the previous visit, the patient was placed on amlodipine 5 mg daily as on addition to her lisinopril 40 mg daily and furosemide 40 mg daily. The patient blood pressure then was 152/74. This patient is presenting with a blood pressure of 164/70. The patient reports that her blood pressure is elevated due to pain. The patient on the previous visit was sent to the wound clinic for left lower leg wound with slough covering it. The patient reports that they debrided wound, now she has a hole in her legs and another open area that was caused during the debridement. Reports that the pain is severe to the point is waking her up out of her sleep at night. Patient denies chest pain, shortness of breath, heart palpitation and dizziness [facility] Medical History Osteoarthritis GERD without esophagitis Screen for colon cancer COVID-19 COPD (chronic obstructive pulmonary disease) Ex-smoker Obesity Ex-smoker Hand pain Diabetes mellitus Calcification of right hand joint Calcification of left hand joint Left knee pain Obese Chronic bronchitis Impaired glucose tolerance Essential hypertension Anxiety Surgical History Ganglion cyst History of appendectomy Hx laparoscopic cholecystectomy Previous section Family History Mother Hypertension Father Cancer Social History Household Members: Family Household Members Other:: daughter Housing: House Do you presently have visiting nurse or other home services: No Alcohol intake: current Alcohol intake frequency: does not drink Patient Tobacco Use Status: Former Tobacco user Tobacco use type: Cigarette e-Cigarette/Vaping Use: Never Used Second Hand Smoke Exposure: No service: No 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 1. Little interest or pleasure in doing things: not at all 2. Feeling down, depressed, or hopeless: not at all 3. Trouble falling or staying asleep, or sleeping too much: nearly every day 4. Feeling tired or having little energy: several days 5. Poor appetite or overeating: not at all 6. Feeling bad about yourself - or that you are a failure or have let yourself or your family down: not at all 7. Trouble concentrating on things, such as reading the newspaper or watching television: not at all 8. Moving or speaking so slowly that other people could have noticed. Or the opposite - being so fidgety or restless that you have been moving around a lot more than usual: not at all 9. Thoughts that you would be better off or of hurting yourself in some way: not at all Total score: 4 Source: Developed by Drs. Nathan Guthrie, Paul Moe and colleagues, with an educational sabrina from [facility]. Thrive Questionnaire Date Thrive assessed: 12/16/24 I am a: Patient What is your living situation today?: I have a steady place to live Within the past 12 months, did the food you bought not last and you didn't have the money to get more?: Never true Within the past 12 months, did you worry whether your food would run out before you got money to buy more?: Never true Do you have trouble paying for medicines?: No Do you have trouble getting transportation to medical appointments?: No Do you have trouble paying your heating and electricity bill?: No Do you have trouble taking care of your child, family member or friend?: No Do you have trouble with day-to-day activities such as bathing, preparing meals, shopping, managing finances, etc.?: No Are you currently unemployed and looking for a job?: No Are you interested in more education?: No Please select the resources that you would like help with: None Currently or been in a relationship where the following occur: No concerns reported THRIVE Score: 0 PRIMO-7 AMB Questionnaire PRIMO-7 Date PRIMO - 7 assessed: 12/16/24 Feeling nervous, anxious, or on edge: 1 = Several days Not being able to stop or control worryin = Not at all Worrying too much about different things: 0 = Not at all Trouble relaxin = More than half the days Being so restless that it is hard to sit still: 0 = Not at all Becoming easily annoyed or irritable: 0 = Not at all Feeling afraid as if something awful might happen: 0 = Not at all Total PRIMO-7 score (0-4 normal; 5-9 mild; 10-14 moderate; 15-21 severe): 3 Source: Developed by Drs. Nathan Guthrie, Paul Moe and colleagues, with an educational sabrina from [facility]. Review of Systems ENT Denies sore throat Card Denies chest pain, Denies leg edema and Denies lightheadedness Resp Denies cough and Denies hemoptysis GI Denies abdominal pain, Denies melena, Denies constipation, Denies diarrhea and Denies vomiting Denies urinary frequency, Denies dysuria and Denies urinary urgency Musc Reports other (Left lower leg pain (wound debridement)) Neuro Denies Abnormal speech present Physical exam (Primary Care) Vital Signs: Last Vital Signs Pulse 92 12/16/24 13:25 Resp 24 H 12/16/24 13:25 BP 164/70 H 12/16/24 13:25 Pulse Ox 98 12/16/24 13:25 Oxygen Delivery Method Room Air 12/16/24 13:25 BMI result Body Mass Index 42.5 Tobacco/Smoking Status: Tobacco use Status Tobacco use date assessed 12/16/24 12/16/24 13:41 Patient Tobacco Use Status Former Tobacco user 12/16/24 13:27 Tobacco use type Cigarette 12/16/24 13:27 e-Cigarette/Vaping Use Never Used 12/16/24 13:27 PHQ-9: PHQ-9 Score PHQ-9: Total score 4 12/16/24 14:13 Thrive Assessment: Date of Thrive Assessment Date Thrive assessed 12/16/24 12/16/24 13:41 Currently or been in a relationship where the following occur: No concerns reported Const General: healthy appearing, no acute distress, alert and awake Nutritional Appearance: well nourished Orientation/consciousness: oriented to person, oriented to place and oriented to time HENMT Ears: external ears normal General nose exam: Normal external nose present Eyes Conjunctivae: conjunctivae normal Sclerae: sclerae normal Pupils: Equal, round and reactive pupils present Neck Neck: Yes no lymphadenopathy and Yes no JVD Thyroid: Thyroid normal Carotids: no bruits Resp Effort & Inspection: normal respiratory effort and not tachypneic Auscultation: no crackles, no rales, no rhonchi and no wheezes Cardio Rate: regular rate Rhythm: regular rhythm Heart sounds: no murmurs and normal S1 and S2 GI Palpation (GI): Soft to palpation, nontender, no hepatomegaly and no splenom egaly Auscultation: normal bowel sounds Skin General skin exam: no rashes or lesions noted and dry skin Wounds: wounds noted (left lower leg wound-dsg intact) Neuro General: oriented to person, oriented to place and oriented to time Cranial nerves: Yes Equal, round and reactive pupils present Speech: No Abnormal speech present Gait exam (Neuro): Normal gait present Motor exam (neuro): no tremor noted Extrem Right upper extremity: full ROM Left upper extremity: full ROM Right lower extremity: full ROM and edema Left lower extremity: full ROM, edema and lower leg (wound-s/p debridement (dsg intact)); no cyanosis Psych Mental Status: mental status grossly normal Speech and movement: Normal speech and movement present Affect: normal affect Attitude: cooperative Thought process: Normal thought process present Coding Level of Care Code Est Pt Level 3 (89839) Diagnoses Pain of left lower extremity M79.605 Laterality: left Essential hypertension I10 Time Spent (min) 33 Assessment & Plan Assessment & Plan (1) Leg pain: Code(s): M79.606 - Pain in leg, unspecified Category: Medical Qualifiers: Laterality: left Qualified Code(s): M79.605 - Pain in left leg Plan: Left leg wound debridement by wound clinic. Patient reports that she has not going back to wound clinic due to the experience. She was connected with Vascular and that appointment was beneficial. 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 Tramadol 50 mg at bedtime PRN was ordered. Informed the patient to follow up for any concerns. (2) Essential hypertension: Code(s): I10 - Essential (primary) hypertension Category: Medical Plan: Uncontrolled. 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 The patient requested for he medication to be refilled, so she could start taking the medication again. Amlodipine 5 mg was added on her previous visit. Reinforced low-sodium diet. Patient blood pressure increased from last visit, seems to be due to poor pain control. Tramadol 50 mg at bedtime was added to the patient regimen. We will have the patient follow up in 4 weeks to see the nurse for a blood pressure check. Medications: New tramadol 50 mg PO BEDTIME 30 tabs 0RF M79.606 - Pain in leg, unspecified Changed From furosemide 40 mg PO DAILY To furosemide 40 mg PO DAILY 30 days 30 tabs 2RF Refilled gabapentin 100 mg PO BID 30 days 60 caps 2RF metformin 1,000 mg (2 x 500 mg) PO BID 30 days 120 tabs 3RF E11.9 - Type 2 diabetes mellitus without complications
--- OUTSIDE RECORDS SUMMARY | 2024-12-16 15:46 | XMS_ITS | Clinical Summary ---
Author Organization [facility] Facility Address [address] [place] [id number] Care Team Providers Care Lavender Farm Worker Name Role Phone Barb Khan MD Primary Care Provider [phone] Social History Tobacco Use Types Packs/Day Years [...] Pneumococcal Vaccine: 65+ Ye ars (1 of - PCV) 2023 Influenza Vaccine (Season Ended) 2025 Hepatitis B Vaccine Aged Out No longe r eligible based on patient's age to complete this topic Insurance [employer] [place] [id number] [employer] [place] [id number] Care Teams Lavender Farm Worker Relationship Specialty Start Date End Date Barb Khan MD [address] [place], [place] PCP - General Internal Medicine 12/12/22
== END 2024-12-16 14:17 | disposition home or self-care (01) ==
LOC: HO.HMCH 13:12
PROVIDERS: PCP Internal Medicine
DX: M79.605 Pain in left leg (principal); I10 Essential (primary) hypertension

== ENCOUNTER → 2024-12-16 13:11 | Outpatient (BNVA) | payer OTHER, SELFPAY | PROVIDERS: PCP Internal Medicine ==

== ENCOUNTER 2024-12-28 12:31 | Outpatient (REF) | payer OTHER, SELFPAY ==
--- NOTE | ~2024-12-28 | US_ITS ---
EXAMINATION: US LOWER EXTREMITY VENOUS (REFLUX EXAM), BILATERAL CLINICAL INFORMATION: Varices. COMPARISON: February 13, 2017. TECHNIQUE: Color flow triplex imaging and compression Doppler was performed to evaluate both the deep and the superficial systems bilaterally. To evaluate the superficial system, the examination was performed in the upright position. Color-flow Doppler ultrasound and compression ultrasound were utilized. In addition, maneuvers were utilized to demonstrate reflux. FINDINGS: 1. DEEP VENOUS ULTRASOUND OF THE RIGHT LOWER EXTREMITY: Common Femoral Vein: Compressible, normal respiratory variation and augmented flow. Femoral Vein: Compressible, normal color flow and augmentation. Popliteal Vein: Compressible, normal augmentation. Deep Reflux: There is no evidence of reflux in the deep system in either the common femoral vein, superficial femoral or the popliteal vein. There is no evidence of a Blue's cyst. 2. SUPERFICIAL ULTRASOUND WITH DOPPLER OF RIGHT LOWER EXTREMITY: GREAT SAPHENOUS VEIN: Saphenofemoral Junction: 0.6 cm; Reflux: 0 ms Proximal Thigh: 0.5 cm; Reflux: 0 ms Mid Thigh: 0.3 cm; Reflux: 0 ms Distal Thigh: 0.2 cm; Reflux: 0 ms At Knee: 0.3 cm; Reflux: 0 ms Proximal Calf: 0.3 cm; Reflux: 0 ms Mid Calf: 0.4 cm; Reflux: 0 ms Distal Calf: 0.2 cm; Reflux: 0 ms DUPLICATED MEDIAL GREAT SAPHENOUS VEIN: Diameter: None imaged Reflux: NA DUPLICATED LATERAL GREAT SAPHENOUS VEIN: Diameter: 0.2 cm. Reflux: NA SMALL SAPHENOUS VEIN: Saphenopopliteal Junction: 0.4 cm; Reflux: 0 ms Proximal: 0.2 cm; Reflux: 0 ms Distal: 0.3 cm; Reflux: 0 ms VEIN OF GIACOMINI: Size: 0.2 cm. Reflux: NA PERFORATORS: Location: Distal thigh anteriorly calf. Size: 0.2-0.4 cm. Reflux: NA VARICOSITIES: Location: Mid calf. Size: 0.3 cm. Reflux: NA 3. DEEP VENOUS ULTRASOUND OF THE LEFT LOWER EXTREMITY: Common Femoral Vein: Compressible, normal respiratory variation and augmented flow. Femoral Vein: Compressible, normal color flow and augmentation. Popliteal Vein: Compressible, normal augmentation. Deep Reflux: There is no evidence of reflux in the deep system in either the common femoral vein, superficial femoral or the popliteal vein. There is no evidence of a Blue's cyst. 4. SUPERFICIAL ULTRASOUND WITH DOPPLER OF LEFT LOWER EXTREMITY: GREAT SAPHENOUS VEIN: Saphenofemoral Junction: 0.7 cm; Reflux: 0 ms Proximal Thigh: 0.7 cm; Reflux: 0 ms Mid Thigh: 0.4 cm; Reflux: 0 ms Distal Thigh: 0.3 cm; Reflux: 0 ms At Knee: 0.3 cm; Reflux: 0 ms Proximal Calf: 0.3 cm; Reflux: 0 ms Mid Calf: 0.3 cm; Reflux: 0 ms Distal Calf: 0.2 cm; Reflux: 0 ms DUPLICATED MEDIAL GREAT SAPHENOUS VEIN: Diameter: None imaged Reflux: NA DUPLICATED LATERAL GREAT SAPHENOUS VEIN: Diameter: None imaged. Reflux: NA SMALL SAPHENOUS VEIN: Saphenopopliteal Junction: 0.5 cm; Reflux: 0 ms Proximal: 0.4 cm; Reflux: 0 ms Distal: 0.3 cm; Reflux: 0 ms VEIN OF GIACOMINI: Size: 0.2 cm. Reflux: NA PERFORATORS: Location: Mid calf. Size: 0.2-0.3 cm. Reflux: NA VARICOSITIES: Location: Distal thigh and proximal calf. Size: 0.3 cm. Reflux: NA US/US venous insuf bilat IMPRESSION: Right: No venous insufficiency. Varices and perforators without reflux. Left: No venous insufficiency. Varices and perforators without reflux. Electronically signed by: Rodri Briones MD 12/29/2024 09:38 AM EDT
--- OUTSIDE RECORDS SUMMARY | 2024-12-28 14:25 | XMS_ITS | Clinical Summary ---
Author Organization [facility] Facility Address [address] [place] [id number] Care Team Providers Care Anthropology And Archeology Instructor Name Role Phone Barb Khan MD Primary Care Provider [phone] Social History Tobacco Use Types Packs/Day Years [...] Colorectal Cancer Screening: Sigmoidoscopy 2007 Pneumococcal Vaccine: 50+ Ye ars (1 of - PCV) 2023 Influenza Vaccine (Season Ended) 2025 Hepatitis B Vaccine Aged Out No longe r eligible based on patient's age to complete this topic Insurance [employer] [place] JAYLA [id number] [employer] [place]AY[place] [id number] Care Teams Anthropology And Archeology Instructor Relationship Specialty Start Date End Date Barb Khan MD [address] [place], [place] PCP - General Internal Medicine 12/12/22
== END 2024-12-28 12:32 | disposition home or self-care (01) ==
LOC: HO.US 12:31
PROVIDERS: PCP Internal Medicine; Visit Provider Physician Assistant Surgical
DX: I83.11 Varicose veins of right lower extremity with inflammation (principal); I83.12 Varicose veins of left lower extremity with inflammation
CPT/HCPCS: 93970

== ENCOUNTER → 2024-12-28 12:34 | Outpatient (BNV) | payer OTHER, SELFPAY | PROVIDERS: PCP Internal Medicine; Visit Provider Radiology Diagnostic Radiology | DX: I83.11 Varicose veins of right lower extremity with inflammation (principal) | CPT/HCPCS: 93970 ==

== ENCOUNTER 2024-12-31 13:34 | Outpatient (AMB) | payer OTHER, SELFPAY ==
--- NOTE | 2024-12-31 13:48 | MHC.OFFVIS ---
Intake Visit Reasons: follow up s/p US 12/28/24 Intake Note: Patient presents for follow up US performed on 12/28/24. Patient has swelling and pain. She has a painful wound on her left leg that she believes got worse after a small debridment at wound care. Accompanied by: Self / Same As Patient Allergies bee pollen [BEE STINGS] Allergy (Intermediate, Verified 12/31/24 13:50) SWELLING, ITCHING--SENSITIVITY oxycodone [From PERCOCET] Allergy (Intermediate, Verified 12/31/24 13:50) N/V, RASH Penicillins [PENICILLINS] Allergy (Intermediate, Verified 12/31/24 13:50) RASH/ITCH vancomycin [VANCOMYCIN] Allergy (Intermediate, Verified 12/31/24 13:50) ITCHING codeine [Codeine] Allergy (Unknown, Verified 12/31/24 13:50) HIVES,VOMITING HPI HPI follow up s/p US 12/28/24: Details: Vidhya is presenting today for a follow up to US, performed on 12/28/24. She continues to endorse bilateral L>R swelling and nonhealing, weeping wounds on the left lower extremity. She states she is changing the dressing daily but continues to have weeping. She states it is painful only in 1 small spot on the lateral aspect of the wound. She has no new concerns today. [facility] Medical History Osteoarthritis GERD without esophagitis Screen for colon cancer COVID-19 COPD (chronic obstructive pulmonary disease) Ex-smoker Obesity Ex-smoker Hand pain Diabetes mellitus Calcification of right hand joint Calcification of left hand joint Left knee pain Obese Chronic bronchitis Impaired glucose tolerance Essential hypertension Anxiety Surgical History Ganglion cyst History of appendectomy Hx laparoscopic cholecystectomy Previous section Family History Mother Hypertension Father Cancer Social History Household Members: Family Household Members Other:: daughter Housing: House Do you presently have visiting nurse or other home services: No Alcohol intake: current Alcohol intake frequency: does not drink Patient Tobacco Use Status: Former Tobacco user Tobacco use type: Cigarette e-Cigarette/Vaping Use: Never Used Second Hand Smoke Exposure: No service: No 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 Cognitive needs: No Hearing needs: No Vision needs: Yes Review of Systems Const Reports as per HPI and Denies weakness ENT Reports Normal hearing present and Denies dizziness Card Reports as per HPI, Denies chest pain, Denies chest pain at rest, Denies chest pain with activity, Denies dyspnea and Denies dyspnea on exertion Resp Reports as per HPI, Denies cough, Denies dyspnea and Denies dyspnea on exertion GI Reports as per HPI, Denies abdominal pain, Denies nausea and Denies vomiting Musc Denies numbness Skin/Breast Reports as per HPI, Denies erythema and Denies wounds Neuro Reports Normal hearing present, Denies dizziness, Denies numbness, Denies Sensory deficit (Neuro) and Denies weakness Psych Reports no additional complaints Endo Reports no additional complaints Physical Exam Const General: healthy appearing and no acute distress Orientation/consciousness: patient oriented x3 HEENT Head: Yes normal to inspection Ears: hearing grossly normal bilaterally Mouth: Normal oral and palatal mucosa present Resp Effort & Inspection: normal respiratory effort and able to speak in complete sentences Auscultation: clear to auscultation bilaterally Cardio Jugular venous distension: no JVD Rate: regular rate Rhythm: regular rhythm Heart sounds: S1 normal heart sound present and S2 normal heart sound present Bruits: no abdominal aortic bruits, no carotid bruits, no femoral bruits and no renal bruits Peripheral pulses: Peripheral pulses 2+ throughout GI Inspection: Yes normal to inspection Palpation (GI): No Abdominal aortic bruit present Skin General skin exam: no rashes or lesions noted Wounds: no wounds Hair: normal Neuro General: patient oriented x3 Cranial nerves: Yes Normal hearing present Cognition (Neuro): normal cognition Gait exam (Neuro): Normal gait present Motor exam (neuro): 5/5 motor strength present throughout Sensory Exam: No Sensory deficit (Neuro) Extrem Other: Bilateral lower extremities: Skin is taut. Erythema noted from the tibial tuberosity to her ankles. +3 pitting edema noted. Palpable DP pulses Left lower extremity:Small circular wound noted on the lateral aspect of the lower calf, not changed from last visit. Painful to palpation. No bleeding noted. Small amt of yellow slough noted throughout the wound General: Yes normal to inspection, Yes full ROM, Yes capillary refill normal and Yes normal gait Results Reviewed Results Reviewed: Brief summary of venous insufficiency testing is as follows: right great saphenous vein: negative right small saphenous vein: negative right accessory vein: none present left great saphenous vein: negative left small saphenous vein: negative left accessory vein: none present Please note there is no evidence of any venous aneurysms or significant tortuosity Assessment & Plan Assessment & Plan (1) Varicose veins of both lower extremities with inflammation: Code(s): I83.11 - Varicose veins of right lower extremity with inflammation; I83.12 - Varicose veins of left lower extremity with inflammation Category: Medical Plan: Vidhya is presenting today as a follow up to venous insufficiency ultrasound, performed on 12/28/2024. She continues to endorse weeping, discoloration, and an open wound to the lateral aspect of her left lower extremity. The venous insufficiency ultrasound was negative for insufficiency. She is happy with that. We do have her scheduled for our lymphedema clinic on February 24 due to the ongoing lymphorrhea, hyperpigmentation, and hyperkeratosis. She also is requesting a wound check follow up in 3 weeks, prior to the lymphedema clinic and a wedding she is going to be going to. We discussed continuing with the current dressing changes of alginate and Allevyn type dressing over. If there are any questions or concerns, please do not hesitate to reach out to us. Coding Level of Care Code Est Pt Level 4 (07431) Diagnoses Varicose veins of both lower extremities with inflammation I83.11; I83.12 Comment Wound care, review of venous insufficiency ultrasound
--- OUTSIDE RECORDS SUMMARY | 2024-12-31 16:38 | XMS_ITS | Clinical Summary ---
Author Organization [facility] Facility Address [address] [place] [id number] Care Team Providers Care Crew Truck Driver Name Role Phone Barb Khan MD Primary Care Provider [phone] Social History Tobacco Use Types Packs/Day Years [...] 50+ Ye ars (1 of - PCV) 2008 Influenza Vaccine (Season Ended) 2025 Hepatitis B Vaccine Aged Out No longe r eligible based on patient's age to complete this topic Insurance [place] Plan Administrators MD JAYLA [id number] [place] Plan Administrators [place]LA [id number] Care Teams Crew Truck Driver Relationship Specialty Start Date End Date Barb Khan MD [address] [place], [place] PCP - General Internal Medicine 12/12/22
== END 2024-12-31 14:57 | disposition home or self-care (01) ==
LOC: HO.HVS 13:35
PROVIDERS: PCP Internal Medicine; Visit Provider Physician Assistant Surgical
DX: I83.11 Varicose veins of right lower extremity with inflammation (principal); I83.12 Varicose veins of left lower extremity with inflammation
CPT/HCPCS: 99214

== ENCOUNTER → 2024-12-31 13:34 | Outpatient (BNVA) | payer OTHER, SELFPAY | PROVIDERS: PCP Internal Medicine; Visit Provider Physician Assistant Surgical ==

== ENCOUNTER 2025-02-04 13:06 | Outpatient (AMB) | payer OTHER, SELFPAY ==
--- OUTSIDE RECORDS SUMMARY | 2025-02-04 13:09 | XMS_ITS | Clinical Summary ---
Author Organization [facility] Facility Address [address] [place] [id number] Care Team Providers Care Identification Printing Machine Setter Name Role Phone Barb Khan MD Primary Care Provider [phone] Social History Tobacco Use Types Packs/Day Years [...] patient's age to complete this topic Insurance [place] Plan Administrators [place] JAYLA [id number] [place] Plan Administrators [place]LA [id number] Care Teams Identification Printing Machine Setter Relationship Specialty Start Date End Date Barb Khan MD [address] [place], [place] PCP - General Internal Medicine 12/12/22
[2025-02-04 13:17] VITALS: BMI 42.4
--- NOTE | 2025-02-04 13:17 | A.OFFVIS_ITS ---
Vital Signs 02/04/25 13:17 Height 5 ft 5 in Weight 255 lb BMI 42.4 Intake Visit Reasons: wound check Intake Note: follow up for bilateral LE lymphedema w/ lymphorhea causing breakdown of the skin bilaterally, waiting for lymphedema clinic but states she has bought all the supllies she could from her local pharmacy. 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 She states the weeping, pain, and swelling has worsened. She states the wound on the left lower extremity has gotten a little better but she is now having increased weeping down the right leg, which is causing open, red, irritated skin, worsened with the weeping. She states she has been using different types of adhesive dressings to control the weeping and prevent the weeping from irritating the wounds more. She states she has had to leave work early due to the weeping and pain. She denies a fever, chills, and body aches. She denies any injuries. [facility] Medical History Osteoarthritis GERD without esophagitis Screen for colon cancer COVID-19 COPD (chronic obstructive pulmonary disease) Ex-smoker Obesity Ex-smoker Hand pain Diabetes mellitus Calcification of right hand joint Calcification of left hand joint Left knee pain Obese Chronic bronchitis Impaired glucose tolerance Essential hypertension Anxiety Surgical History Ganglion cyst History of appendectomy Hx laparoscopic cholecystectomy Previous section Family History Mother Hypertension Father Cancer Social History Household Members: Family Household Members Other:: daughter Housing: House Do you presently have visiting nurse or other home services: No Alcohol intake: current Alcohol intake frequency: does not drink Patient Tobacco Use Status: Former Tobacco user Tobacco use type: Cigarette e-Cigarette/Vaping Use: Never Used Second Hand Smoke Exposure: No service: No 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 Cognitive needs: No Hearing needs: No Vision needs: Yes Review of Systems Const Reports as per HPI and Denies weakness ENT Reports Normal hearing present and Denies dizziness Card Reports as per HPI, Denies chest pain, Denies chest pain at rest, Denies chest pain with activity, Denies dyspnea and Denies dyspnea on exertion Resp Reports as per HPI, Denies cough, Denies dyspnea and Denies dyspnea on exertion GI Reports as per HPI, Denies abdominal pain, Denies nausea and Denies vomiting Musc Denies numbness Skin/Breast Reports as per HPI, Denies erythema and Denies wounds Neuro Reports Normal hearing present, Denies dizziness, Denies numbness, Denies Sensory deficit (Neuro) and Denies weakness Psych Reports no additional complaints Endo Reports no additional complaints Physical Exam Vital Signs: BMI result Body Mass Index 42.4 Const General: healthy appearing and no acute distress Orientation/consciousness: patient oriented x3 HEENT Head: Yes normal to inspection Ears: hearing grossly normal bilaterally Mouth: Normal oral and palatal mucosa present Resp Effort & Inspection: normal respiratory effort and able to speak in complete sentences Auscultation: clear to auscultation bilaterally Cardio Jugular venous distension: no JVD Rate: regular rate Rhythm: regular rhythm Heart sounds: S1 normal heart sound present and S2 normal heart sound present Bruits: no abdominal aortic bruits, no carotid bruits, no femoral bruits and no renal bruits Peripheral pulses: Peripheral pulses 2+ throughout GI Inspection: Yes normal to inspection Palpation (GI): No Abdominal aortic bruit present Skin General skin exam: no rashes or lesions noted Wounds: no wounds Hair: normal Neuro General: patient oriented x3 Cranial nerves: Yes Normal hearing present Cognition (Neuro): normal cognition Gait exam (Neuro): Normal gait present Motor exam (neuro): 5/5 motor strength present throughout Sensory Exam: No Sensory deficit (Neuro) Extrem Other: Bilateral lower extremities: Skin is taut. Erythema noted from the tibial tuberosity to her ankles. +3 pitting edema noted. Palpable DP pulses. Increased lymphorrhea noted with open areas under the weeping, causing open areas of skin, painful to palpation on the lateral aspect of the lower calf. Left lower extremity:Small circular wound noted on the lateral aspect of the lower calf, looking better than last visit. Not painful to palpation. No bleeding noted. Small amt of yellow slough noted on the outer edges of the wound with some small areas of scabbing noted. Increased lymporrhea, causing open areas of skin on the medial aspect of the lower calf, very painful to palpation. General: Yes normal to inspection, Yes full ROM, Yes capillary refill normal and Yes normal gait Assessment & Plan Assessment & Plan (1) Lymphedema: Code(s): I89.0 - Lymphedema, not elsewhere classified Category: Medical Plan: Vidhya is presenting today for a wound check; she wanted to be seen prior to attending the lymphedema clinic next month. She states that she has a couple new smaller wounds, she states likely due to the increased lymporrhea that has been occurring over the last week or so. She states she is needing to change the bandages often and she had to leave work the other day due to the pain and weeping. We used foam absorbent dressings, abd pads, and kerlix wrap; we discussed with her that this is the most absorbent dressing to do. We discussed to not use adhesive dressings, they can cause further damage to the skin. We will reach out to Cody from [facility] to see if he can see her soon at home; we discussed that a lot of the problems with the new wounds and the old wound not healing is the amount of lymporrhea that is occurring. We will have him reach out to her to schedule a home visit. She will follow up with us in 2w to see how she is doing. If there are any questions or concerns, please do not hesitate to reach out to us. Coding Level of Care Code Est Pt Level 3 (12939) Diagnoses Lymphedema I89.0
== END 2025-02-04 14:02 | disposition home or self-care (01) ==
LOC: HO.HVS 13:07
PROVIDERS: PCP Internal Medicine; Visit Provider Physician Assistant Surgical
DX: I89.0 Lymphedema, not elsewhere classified (principal)
CPT/HCPCS: 99213

== ENCOUNTER → 2025-02-04 13:06 | Outpatient (BNVA) | payer OTHER, SELFPAY | PROVIDERS: PCP Internal Medicine; Visit Provider Physician Assistant Surgical ==

== ENCOUNTER 2025-02-18 10:31 | Outpatient (AMB) | payer OTHER, SELFPAY ==
[2025-02-18 10:41] VITALS: BMI 42.4
--- NOTE | 2025-02-18 10:41 | MHC.OFFVIS ---
Vital Signs 02/18/25 10:41 Height 5 ft 5 in Weight 255 lb BMI 42.4 Intake Visit Reasons: 2 wk follow up bilateral wounds Intake Note: Pt follow up for bilateral wounds, Right LE is better than the Left LE. Pt was seen by [facility] for lymphedema pumps. Pt states that the Right Wounds are drying out and the Left LE wounds are draining heavily. Electrolysis Operator Required: No Accompanied by: Self / Same As Patient Allergies bee pollen [BEE STINGS] Allergy (Intermediate, Verified 02/18/25 10:43) SWELLING, ITCHING--SENSITIVITY oxycodone [From PERCOCET] Allergy (Intermediate, Verified 02/18/25 10:43) N/V, RASH Penicillins [PENICILLINS] Allergy (Intermediate, Verified 02/18/25 10:43) RASH/ITCH vancomycin [VANCOMYCIN] Allergy (Intermediate, Verified 02/18/25 10:43) ITCHING codeine [Codeine] Allergy (Unknown, Verified 02/18/25 10:43) HIVES,VOMITING HPI HPI 2 wk follow up bilateral wounds: Details: The patient is a 64-year-old female presenting with lymphedema and associated skin ulceration. Initially, she experienced swelling in her leg due to lymphedema, which led to skin splitting and ulcer formation. The drainage from the ulcer is described as acidic and exacerbating the skin condition by causing rivero. She underwent unwanted surgical debridement at a wound care clinic, resulting in significant pain and distress. She no longer feels comfortable seeking care at that facility, and her symptoms, including leg swelling and shortness of breath, have progressively worsened, impacting her mobility. 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 She now presents for follow-up regarding lower extremity wounds. [facility], [facility] Medical History Osteoarthritis GERD without esophagitis Screen for colon cancer COVID-19 COPD (chronic obstructive pulmonary disease) Ex-smoker Obesity Ex-smoker Hand pain Diabetes mellitus Calcification of right hand joint Calcification of left hand joint Left knee pain Obese Chronic bronchitis Impaired glucose tolerance Essential hypertension Anxiety Surgical History Ganglion cyst History of appendectomy Hx laparoscopic cholecystectomy Previous section Family History Mother Hypertension Father Cancer Social History Household Members: Family Household Members Other:: daughter Housing: House Do you presently have visiting nurse or other home services: No Alcohol intake: current Alcohol intake frequency: does not drink Patient Tobacco Use Status: Former Tobacco user Tobacco use type: Cigarette e-Cigarette/Vaping Use: Never Used Second Hand Smoke Exposure: No service: No 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 Cognitive needs: No Hearing needs: No Vision needs: Yes Review of Systems Const Reports as per HPI ENT Reports no additional complaints Card Denies chest pain, Denies chest pain at rest and Denies chest pain with activity Resp Denies chest congestion and Denies cough GI Reports no additional complaints Musc Details: pain over varicosities, aching of lower extremities, swelling, cramping, heaviness and tiredness, itching Denies abnormal gait Skin/Breast Reports pruritus and Denies wounds Neuro Reports no additional complaints and Denies abnormal gait Psych Denies no additional complaints Physical Exam Vital Signs: BMI result Body Mass Index 42.4 Const General: cooperative, healthy appearing and comfortable Orientation/consciousness: oriented to person, oriented to place and oriented to time Neck Carotids: no bruits Chest Chest palpation & inspection: normal inspection of the chest and normal palpation of entire chest wall Resp Effort & Inspection: normal respiratory effort and able to speak in complete sentences Cardio Rate: regular rate Heart sounds: S1 normal heart sound present and S2 normal heart sound present Peripheral pulses: Peripheral pulses 2+ throughout GI Inspection: Yes normal to inspection Skin Other: +2 edema, left greater than right. Areas of open ulceration with serous drainage. Left greater than right Lymphorrhea CEAP Classification C6 - open wounds Ep - Etiology Primary As - superficial veins P - reflux General skin exam: dry skin Wounds: wounds noted Neuro General: oriented to person, oriented to place and oriented to time Extrem Right lower extremity: full ROM, normal capillary refill and edema Left lower extremity: full ROM, normal capillary refill and edema Psych Mental Status: mental status grossly normal Results Reviewed Results Reviewed: Brief summary of venous insufficiency testing is as follows: right great saphenous vein: negative right small saphenous vein: negative right accessory vein: none present left great saphenous vein: negative left small saphenous vein: negative left accessory vein: none present Please note there is no evidence of any venous aneurysms or significant tortuosity Assessment & Plan Assessment & Plan (1) Lymphedema: Code(s): I89.0 - Lymphedema, not elsewhere classified Category: Medical Plan: We have prescribed the patient lymphedema pumps. She is in the process of being sized and getting them. She will follow up with us on an as-needed basis. (2) Wound of left lower extremity: Code(s): S81.802A - Unspecified open wound, left lower leg, initial encounter Category: Medical Qualifiers: Encounter type: initial encounter Qualified Code(s): S81.802A - Unspecified open wound, left lower leg, initial encounter Plan: In terms of the wounds she does have significant amount of edema and serous drainage. We have changed her out to a foam dressing with Kerlix wrap and overlying Abel. She has had issues with the [facility]. Would like to refer her to another Wound Care Center as I definitely think she would benefit from there insight and help. (3) Varicose veins of both lower extremities with inflammation: Code(s): I83.11 - Varicose veins of right lower extremity with inflammation; I83.12 - Varicose veins of left lower extremity with inflammation Category: Medical Plan: Patient is negative for any significant reflux in addition has palpable arterial pulses. Does not appear to have a vascular issue. (4) SOB (shortness of breath): Code(s): R06.02 - Shortness of breath Category: Medical Plan: We will refer to cardiology as the patient does have some shortness of breath in addition to significant lower extremity edema. Would like to rule out any underlying cardiac issues. Orders: Referrals Cardiology Referral R06.02 - Shortness of breath Coding Level of Care Code Est Pt Level 4 (29356) Diagnoses Lymphedema I89.0 Wound of left lower extremity, initial encounter S81.802A Encounter type: initial encounter Varicose veins of both lower extremities with inflammation I83.11; I83.12 SOB (shortness of breath) R06.02
--- OUTSIDE RECORDS SUMMARY | 2025-02-18 12:22 | XMS_ITS | Clinical Summary ---
Author Organization [facility] Facility Address [address] [place] [id number] Care Team Providers Care Rigger Chief Name Role Phone Barb Khan MD Primary Care Provider [phone] Social History Tobacco Use Types Packs/Day Years [...] patient's age to complete this topic Insurance [place] Plan Administrators MD JAYLA [id number] [place] Plan Administrators [place] JAYLA [id number] Care Teams Rigger Chief Relationship Specialty Start Date End Date Barb Khan MD [address] [place], [place] PCP - General Internal Medicine 12/12/22
== END 2025-02-18 11:18 | disposition home or self-care (01) ==
LOC: HO.HVS 10:32
PROVIDERS: PCP Internal Medicine; Visit Provider Surgery Vascular Surgery
DX: I89.0 Lymphedema, not elsewhere classified (principal); S81.802A Unspecified open wound, left lower leg, initial encounter; I83.11 Varicose veins of right lower extremity with inflammation; I83.12 Varicose veins of left lower extremity with inflammation; R06.02 Shortness of breath
CPT/HCPCS: 99214

== ENCOUNTER 2025-02-23 10:33 | Outpatient (AMB) | payer OTHER, SELFPAY ==
--- NOTE | 2025-02-23 10:51 | A.OFFVIS_ITS ---
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 Allergies bee pollen [BEE STINGS] Allergy (Intermediate, Verified 02/18/25 10:43) SWELLING, ITCHING--SENSITIVITY oxycodone [From PERCOCET] Allergy (Intermediate, Verified 02/18/25 10:43) N/V, RASH Penicillins [PENICILLINS] Allergy (Intermediate, Verified 02/18/25 10:43) RASH/ITCH vancomycin [VANCOMYCIN] Allergy (Intermediate, Verified 02/18/25 10:43) ITCHING codeine [Codeine] Allergy (Unknown, Verified 02/18/25 10:43) HIVES,VOMITING Medication List - Last Reconciled 02/23/25 by Dash Daniels MD amlodipine 5 mg PO DAILY cholecalciferol (vitamin D3) 50 mcg PO DAILY clonazepam 0.5 mg PO BID PRN furosemide 40 mg PO DAILY 30 days gabapentin 100 mg PO BID 30 days lisinopril 40 mg PO DAILY metformin 1,000 mg (2 x 500 mg) PO BID 30 days omeprazole 20 mg PO DAILY sitagliptin phosphate (Januvia) 100 mg PO DAILY tramadol 50 mg PO BEDTIME Ventolin HFA 90 mcg/actuation (albuterol sulfate) 2 puffs PO Q4-6H PRN 30 days NS HPI Comments Details: Vidhya is here for consultation regarding bilateral lower extremity swelling. Apparently this started about 6 months to a year ago. Over this time, she has been having progressive leg swelling. She has seen vascular surgery who have diagnosed her with lymphedema. She also developed some shortness of breath with exertion. No anginal-type symptoms. There is a history of COPD related to smoking but no known coronary disease or myocardial infarction. Hypertensive on amlodipine but it seems that the edema was present even before amlodipine was started. Diabetic on medications. Does not seem well controlled as the hemoglobin A1c is more than 10%. [facility] Medical History Osteoarthritis GERD without esophagitis Screen for colon cancer COVID-19 COPD (chronic obstructive pulmonary disease) Ex-smoker Obesity Ex-smoker Hand pain Diabetes mellitus Calcification of right hand joint Calcification of left hand joint Left knee pain Obese Chronic bronchitis Impaired glucose tolerance Essential hypertension Anxiety Surgical History Ganglion cyst History of appendectomy Hx laparoscopic cholecystectomy Previous section Family History Mother Hypertension Father Cancer Social History Household Members: Family Household Members Other:: daughter Housing: House Do you presently have visiting nurse or other home services: No Alcohol intake: current Alcohol intake frequency: does not drink Patient Tobacco Use Status: Former Tobacco user Tobacco use type: Cigarette e-Cigarette/Vaping Use: Never Used Second Hand Smoke Exposure: No service: No 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 Cognitive needs: No Hearing needs: No Vision needs: Yes Review of Systems Const Denies weakness ENT Denies dizziness Card Denies chest pain, Denies chest pain with activity, Denies syncope, Denies rapid heart rate, Denies pedal edema, Denies edema, Denies leg edema, Denies lightheadedness, Denies palpitations, Reports dyspnea, Denies dyspnea on exertion and Denies orthopnea Resp Denies cough, Reports dyspnea and Denies dyspnea on exertion GI Denies hematochezia and Denies change in stool character Musc Denies abnormal gait, Reports joint swelling, Denies muscle cramps, Denies muscle weakness, Denies numbness, Denies radiating pain into limb and Reports tingling Neuro Denies abnormal gait, Denies dizziness, Denies syncope, Denies numbness, Reports tingling and Denies weakness Endo Denies palpitations Physical Exam Vital Signs: Last Vital Signs BP 130/70 02/23/25 10:52 BMI result Body Mass Index 42.4 Const General: comfortable and no acute distress Orientation/consciousness: patient oriented x3 HEENT Other: Unremarkable Head: Yes normal to inspection Neck Neck: Yes normal visual inspection Chest Chest palpation & inspection: normal inspection of the chest Resp Auscultation: clear to auscultation bilaterally Cardio Palpation: normal PMI Heart sounds: S1 normal heart sound present, S2 normal heart sound present, no gallops, Murmur heart sound present systolic II/ and no rubs GI Palpation (GI): Soft to palpation Back/Spine/Pelvis Other: unremarkable Skin General skin exam: no rashes or lesions noted Neuro General: patient oriented x3 Extrem Other: Swelling; dressing on lower extremities Psych Mental Status: mental status grossly normal Office Procedures EKG Details: EKG with mild sinus tachycardia at 109/Min; rightward axis; no ischemic changes; [place] [id number], Complete Assessment & Plan Assessment & Plan (1) Edema of lower extremity: Code(s): R60.0 - Localized edema Category: Medical (2) Shortness of breath on exertion: Code(s): R06.02 - Shortness of breath Category: Medical (3) Obesity: Comment: PATIENT INTENDS TO SEE A CERTIFIED PHLEBOTOMIST AND TRIED TO LOSE WEIGHT MUCH POSSIBLE. Code(s): E66.9 - Obesity, unspecified Category: Medical (4) Type 2 diabetes mellitus with unspecified complications: Code(s): E11.8 - Type 2 diabetes mellitus with unspecified complications Category: Medical (5) Essential hypertension: Code(s): I10 - Essential (primary) hypertension Category: Medical Plan Bilateral lower extremity swelling diagnosed by vascular surgery as lymphedema. In the last echocardiogram from last year, hyperdynamic LVEF, > 70% and low- level interventricular/LVOT gradients. No significant valvular findings. IVC was normal size/collapsibility. Venous ultrasound shows no venous insufficiency. Sleep study from 2017-minimal obstructive sleep apnea although patient states she has no history of this. As the symptoms are of recent onset within the last 6 months or so, we will repeat echocardiogram to ensure there is no change. We will also do a cardiac BNP although previously it was normal couple of years ago. Additionally, she has not had any renal function checked in quite some time and needs that done as well. Other possibilities include swelling related to obesity, uncontrolled diabetes, less likely heart failure. We will follow up after the testing. Discussion Notes I discussed with the patient the potential diagnosis of lymphedema, considering bilateral leg swelling and absence of known cardiac causes. Emphasis was placed on the necessity of repeat echocardiogram and BNP testing to thoroughly exclude cardiac factors like heart failure. Risks and benefits of continued diuretic use were communicated, alongside ensuring she understands how to manage symptoms with these interventions. I addressed concerns regarding previous wound clinic experience and involvement of compression stockings. We discussed the need for these diagnostic investigations given the symptomatology shift over the last six months. Follow-up in three months is planned post-testing to gauge therapeutic responses and direct ongoing care, with provisions for earlier intervention should symptom exacerbation occur. Patient was informed and verbally consented to the use of an ambient scribe for clinic note documentation during this visit. Orders: Orders CA echo transthoracic complete Today I50.9 - Heart failure, unspecified B Type Natriuretic Peptide Today I50.9 - Heart failure, unspecified Patient Instructions: - Schedule echocardiogram and BNP testing. - Use compression stockings as advised for managing leg swelling. - Monitor symptoms closely, especially any increase in swelling or shortness of breath. - Contact me immediately if new symptoms arise or if your condition worsens. - Follow up in three months unless issues prompt earlier consultation. Coding Level of Care Code New Pt Level 4 (41957) Complex EM visit Add On G2211 Diagnoses Edema of lower extremity R60.0 Shortness of breath on exertion R06.02 Obesity E66.9 Type 2 diabetes mellitus with unspecified complications E11.8 Essential hypertension I10 CPT Codes EKG - CPT: 18259-[id number], Complete ([id number])
[2025-02-23 10:52] VITALS: BP 130/70; BMI 42.4
--- OUTSIDE RECORDS SUMMARY | 2025-02-23 12:21 | XMS_ITS | Clinical Summary ---
Author Organization [facility] Facility Address [address] [place] [id number] Care Team Providers Care Project Construction Assistant Manager Name Role Phone Barb Khan MD Primary Care Provider [phone] Social History Tobacco Use Types Packs/Day Years [...] patient's age to complete this topic Insurance [place] Plan Administrators MD JAYLA [id number] [place] Plan Administrators [place] JAYLA [id number] Care Teams Project Construction Assistant Manager Relationship Specialty Start Date End Date Barb Khan MD [address] [place], [place] PCP - General Internal Medicine 12/12/22
== END 2025-02-23 11:25 | disposition home or self-care (01) ==
LOC: HO.HCS 10:34
PROVIDERS: PCP Internal Medicine; Visit Provider Internal Medicine
DX: R60.0 Localized edema (principal); R06.02 Shortness of breath; E66.9 Obesity, unspecified; E11.8 Type 2 diabetes mellitus with unspecified complications; I10 Essential (primary) hypertension
CPT/HCPCS: 93010; 99214; G2211

== ENCOUNTER → 2025-02-23 10:33 | Outpatient (BNVA) | payer OTHER, SELFPAY | PROVIDERS: PCP Internal Medicine; Visit Provider Internal Medicine | DX: R06.02 Shortness of breath (principal); R60.0 Localized edema; E66.9 Obesity, unspecified; E11.8 Type 2 diabetes mellitus with unspecified complications; I10 Essential (primary) hypertension; Z68.41 Body mass index [BMI] 40.0-44.9, adult | CPT/HCPCS: 93005 ==

== ENCOUNTER 2025-04-05 06:20 | Outpatient (REF) | payer OTHER, SELFPAY ==
[2025-04-05 06:48] LABS: MANUAL DIFF FLAG NO
[2025-04-05 07:32] LABS: Hematocrit 27.6 % (37.0-47.0); Hemoglobin 7.7 g/dl (12.0-16.0); Imm Gran Abs Auto 0.06 X10*3/uL (0.00-0.03); Imm Gran Pct Auto 0.9 % (0.0-0.4); Lymphocytes Absolute Auto 1.5 X10*3/uL (1.2-4.9); Mean Corpuscular HGB Conc 27.9 g/dl (31.0-35.0); Mean Corpuscular Hemoglobin 21.0 pg (27.0-33.0); Mean Corpuscular Volume 75.4 fL (80.0-98.0); NRBC Abs Auto 0.000 X10*3/uL (0.0-0.012); NRBC Pct Auto 0.0 /100WBC (0.0-0.2); Platelet Count 356 X10*3/uL (160-400); Red Blood Count 3.66 X10*6/uL (4.20-5.50); White Blood Count 6.7 X10*3/uL (4.8-10.8)
[2025-04-05 07:57] LABS: Appearance Urine Cloudy; Glucose Urine UA Negative (Negative); PH 6.0 (5.0-9.0); Specific Gravity - Urine 1.020 (1.005-1.025); UMIC TRIGGER UACC YES
[2025-04-05 08:08] LABS: UACC Culture Trigger YES
[2025-04-05 08:15] LABS: Hemoglobin A1C 146.2322 umol/L; Total Hemoglobin (HGBA1C) 2064.5656 umol/L
[2025-04-05 08:20] LABS: B Type Natriuretic Peptide 39 pg/mL (<100)
[2025-04-05 08:22] LABS: Alanine Aminotransferase 17 U/L (0-31); Albumin Level 3.4 g/dL (3.5-5.0); Alkaline Phosphatase 37 U/L (39-117); Anion Gap 16 (12-20); Aspartate Amino Transferase 22 U/L (5-31); Blood Urea Nitrogen 14 mg/dL (9-16); Calcium 9.1 mg/dL (8.4-10.2); Carbon Dioxide 25 mmol/L (22-29); Chloride 101 mmol/L (96-108); Cholesterol 109 mg/dL (<200); Estimated Glomerular Filt Rate > 60; HDL Cholesterol 50 mg/dL (>40); Potassium 4.1 mmol/L (3.3-5.1); Sodium 138 mmol/L (135-145); Total Protein 7.6 g/dL (6.5-8.0); Triglycerides 71 mg/dL (<150)
[2025-04-05 08:31] LABS: Microalbum/Creatinine Ratio Ur 9.5 ug/mg cr (<30)
[2025-04-05 08:49] LABS: Folate 7.5 ng/mL (> or = 4.0); Vitamin B12 437 pg/mL (200-900)
[2025-04-05 15:13] LABS: MANUAL DIFF FLAG NO
[2025-04-05 16:21] LABS: Hematocrit 26.2 % (37.0-47.0); Hemoglobin 7.5 g/dl (12.0-16.0); Imm Gran Abs Auto 0.06 X10*3/uL (0.00-0.03); Imm Gran Pct Auto 0.7 % (0.0-0.4); Lymphocytes Absolute Auto 1.6 X10*3/uL (1.2-4.9); Mean Corpuscular HGB Conc 28.6 g/dl (31.0-35.0); Mean Corpuscular Hemoglobin 21.2 pg (27.0-33.0); Mean Corpuscular Volume 74.0 fL (80.0-98.0); NRBC Abs Auto 0.000 X10*3/uL (0.0-0.012); NRBC Pct Auto 0.0 /100WBC (0.0-0.2); Platelet Count 363 X10*3/uL (160-400); Red Blood Count 3.54 X10*6/uL (4.20-5.50); Reticulocytes Absolute 0.086 X10*6/uL (0.026-0.095); White Blood Count 8.2 X10*3/uL (4.8-10.8)
[2025-04-05 16:40] LABS: Iron 12 mcg/dL (30-160); Percent Iron Saturation 3 % (15-50); Total Iron Binding Capacity 362 mcg/dL (228-428); Unsaturated Iron Binding 350 ug/dL
== END 2025-04-05 06:21 | disposition home or self-care (01) ==
LOC: HO.LAB 06:20
PROVIDERS: Absent Provider Internal Medicine; PCP Internal Medicine; Visit Provider Internal Medicine
DX: E78.00 Pure hypercholesterolemia, unspecified (principal); E55.9 Vitamin D deficiency, unspecified; E53.8 Deficiency of other specified B group vitamins; D50.9 Iron deficiency anemia, unspecified; L03.116 Cellulitis of left lower limb; E11.9 Type 2 diabetes mellitus without complications; J44.9 Chronic obstructive pulmonary disease, unspecified; M15.9 Polyosteoarthritis, unspecified; K21.9 Gastro-esophageal reflux disease without esophagitis; F41.9 Anxiety disorder, unspecified; E66.01 Morbid (severe) obesity due to excess calories; Z68.41 Body mass index [BMI] 40.0-44.9, adult; Z71.3 Dietary counseling and surveillance; I11.0 Hypertensive heart disease with heart failure; I50.9 Heart failure, unspecified; R30.0 Dysuria
CPT/HCPCS: 36415; 80053; 80061; 81001; 82043; 82306; 82570; 82607; 82668; 82746; 83036; 83540; 83880; 84443; 85025; 85045; 87086; 96127

== ENCOUNTER 2025-04-05 12:53 | Outpatient (AMB) | payer OTHER, SELFPAY ==
[2025-04-05 13:17] VITALS: BP 120/62; PULSE 106; O2SAT 97; BMI 41.6
--- NOTE | 2025-04-05 13:17 | MHC.PC.OV ---
Vital Signs 04/05/25 13:17 Height 5 ft 5 in Weight 250 lb BMI 41.6 BP 120/62 Blood Pressure Location Lt brachial Position Sitting Pulse 106 H Pulse Source Pulse Oximeter Pulse Oximetry (%) 97 Oxygen Delivery Method Room Air Intake Visit Reasons: 3 month f/u Deputy Felony Clerk Required: No Accompanied by: Self / Same As Patient Allergies bee pollen (BEE STINGS) Allergy (Intermediate, Verified 04/05/25 14:01) SWELLING, ITCHING--SENSITIVITY oxycodone (From PERCOCET) Allergy (Intermediate, Verified 04/05/25 14:01) N/V, RASH Penicillins (PENICILLINS) Allergy (Intermediate, Verified 04/05/25 14:01) RASH/ITCH vancomycin (VANCOMYCIN) Allergy (Intermediate, Verified 04/05/25 14:01) ITCHING codeine (Codeine) Allergy (Unknown, Verified 04/05/25 14:01) HIVES,VOMITING Medication List - Last Reconciled 04/05/25 by José Miguel Baltazar MD amlodipine 5 mg PO DAILY cholecalciferol (vitamin D3) 50 mcg PO DAILY clonazepam 0.5 mg PO BID PRN furosemide 40 mg PO DAILY 30 days gabapentin 100 mg PO BID 30 days lisinopril 40 mg PO DAILY metformin 1,000 mg (2 x 500 mg) PO BID 30 days omeprazole 20 mg PO DAILY sitagliptin phosphate (Januvia) 100 mg PO DAILY tramadol 50 mg PO BEDTIME Ventolin HFA 90 mcg/actuation (albuterol sulfate) 2 puffs PO Q4-6H PRN 30 days NS Tobacco use date assessed: 04/05/25 Fall risk assessment: No Falls in past year Last assessed Fall Risk: 04/05/25 Dental Screening Dental Screen Date: 04/05/25 Did you have a dental visit in the last 12 months?: Yes Did you have a dental problem in the last 6 months where you did not have access to dental care?: No Was dental information given to patient?: Patient has dentist HPI 3 month f/u HPI Details Patient comes in today for follow-up visit - I have not seen patient since March 2024 Relates that she has been experiencing increased pain in her left leg lately Notes that the distal half of her leg has been draining slightly since November 2024 and states that skin on her left lower leg looks somewhat red and feels swollen at present Patient states that she feels okay otherwise She denies any fever, headaches or dizziness Denies any chest pains, no increased shortness of breath No nausea/vomiting, no abdominal pain No change in bowel habits noted She had some of her follow-up labs done earlier this morning - to discuss her results [facility] Medical History (Updated 04/12/25 @ 05:00 by José Miguel Baltazar MD) Anemia Osteoarthritis GERD without esophagitis Screen for colon cancer COVID-19 COPD (chronic obstructive pulmonary disease) Ex-smoker Obesity Ex-smoker Hand pain Diabetes mellitus Calcification of right hand joint Calcification of left hand joint Left knee pain Obese Chronic bronchitis Impaired glucose tolerance Essential hypertension Anxiety Surgical History Ganglion cyst History of appendectomy Hx laparoscopic cholecystectomy Previous section Family History Mother Hypertension Father Cancer Social History Household Members: Family Household Members Other:: daughter Housing: House Do you presently have visiting nurse or other home services: No Alcohol intake: current Alcohol intake frequency: does not drink Patient Tobacco Use Status: Former Tobacco user Tobacco use type: Cigarette e-Cigarette/Vaping Use: Never Used Second Hand Smoke Exposure: No service: No 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 1. Little interest or pleasure in doing things: not at all 2. Feeling down, depressed, or hopeless: not at all 3. Trouble falling or staying asleep, or sleeping too much: not at all 4. Feeling tired or having little energy: not at all 5. Poor appetite or overeating: not at all 6. Feeling bad about yourself - or that you are a failure or have let yourself or your family down: not at all 7. Trouble concentrating on things, such as reading the newspaper or watching television: not at all 8. Moving or speaking so slowly that other people could have noticed. Or the opposite - being so fidgety or restless that you have been moving around a lot more than usual: not at all 9. Thoughts that you would be better off or of hurting yourself in some way: not at all Total score: 0 Depression Screening Interpretation: Negative Depression Screening Done: Yes 80377 - PHQ-9 Billing: Yes Source: Developed by Drs. Nathan Guthrie, Fernanda Sarah, Paul Ellsworth and colleagues, with an educational sabrina from [employer]. Thrive Questionnaire Date Thrive assessed: 04/05/25 I am a: Patient What is your living situation today?: I have a steady place to live Within the past 12 months, did the food you bought not last and you didn't have the money to get more?: Never true Within the past 12 months, did you worry whether your food would run out before you got money to buy more?: Never true Do you have trouble paying for medicines?: No Do you have trouble getting transportation to medical appointments?: No Do you have trouble paying your heating and electricity bill?: No Do you have trouble taking care of your child, family member or friend?: No Do you have trouble with day-to-day activities such as bathing, preparing meals, shopping, managing finances, etc.?: No Are you currently unemployed and looking for a job?: No Are you interested in more education?: No Please select the resources that you would like help with: None Currently or been in a relationship where the following occur: No concerns reported THRIVE Score: 0 AUDIT C Alcohol Use Questionnaire (AUDIT-C) 1. How often do you have a drink containing alcohol?: 2-3 times a week 2. How many drinks containing alcohol do you have on a typical day when you are drinking?: 1 or 2 3. How often do you have six or more drinks on one occasion?: Never Total Score: 3 Score Reviewed/Action Taken: Yes PRIMO-7 AMB Questionnaire PRIMO-7 Date PRIMO - 7 assessed: 12/16/24 Feeling nervous, anxious, or on edge: 0 = Not at all Not being able to stop or control worryin = Not at all Worrying too much about different things: 0 = Not at all Trouble relaxin = Not at all Being so restless that it is hard to sit still: 0 = Not at all Becoming easily annoyed or irritable: 0 = Not at all Feeling afraid as if something awful might happen: 0 = Not at all Total PRIMO-7 score (0-4 normal; 5-9 mild; 10-14 moderate; 15-21 severe): 0 Source: Developed by Drs. Nathan Guthrie, Fernanda Sarah, Paul Ellsworth and colleagues, with an educational sabrina from [employer]. Review of Systems Const Denies chills, Reports fatigue, Denies fever(s) and Denies headache(s) ENT Denies dysphagia, Denies dizziness, Denies otalgia, Denies headache(s), Denies neck pain, Denies odynophagia and Denies sore throat Card Denies chest pain, Denies palpitations and Reports dyspnea on exertion (mild) Resp Denies chest congestion, Denies cough and Reports dyspnea on exertion (mild) GI Denies abdominal pain, Denies constipation, Denies dysphagia, Denies heartburn, Denies diarrhea, Denies nausea, Denies odynophagia and Denies vomiting Denies difficulty voiding, Denies nocturia, Denies dysuria and Denies urinary urgency Musc Denies back pain, Reports arthralgias (left knee; both hands), Denies neck pain and Reports stiffness Skin/Breast Details: (+) increased redness and some swelling noted over the left lower leg Neuro Denies dizziness and Denies headache(s) Endo Reports fatigue and Denies palpitations Physical exam (Primary Care) Vital Signs: Last Vital Signs Pulse 106 H 04/05/25 13:17 BP 120/62 04/05/25 13:17 Pulse Ox 97 04/05/25 13:17 Oxygen Delivery Method Room Air 04/05/25 13:17 BMI result Body Mass Index 41.6 Tobacco/Smoking Status: Tobacco use Status Tobacco use date assessed 04/05/25 04/05/25 13:22 Patient Tobacco Use Status Former Tobacco user 04/05/25 13:22 Tobacco use type Cigarette 04/05/25 13:22 e-Cigarette/Vaping Use Never Used 04/05/25 13:22 PHQ-9: PHQ-9 Score PHQ-9: Total score 0 04/12/25 04:51 Depression Screening Interpretation: Negative Thrive Assessment: Date of Thrive Assessment Date Thrive assessed 04/05/25 04/05/25 13:22 Currently or been in a relationship where the following occur: No concerns reported Const General: no acute distress and alert HENMT Ears: TM's normal bilaterally and EAC's normal Throat: Yes posterior oropharynx normal and Yes tonsils normal (no TP congestion) Neck Neck: Yes supple and No lymphadenopathy Thyroid: Thyroid normal Resp Auscultation: clear to auscultation bilaterally, no rales, no wheezes and diminished lung sounds (slightly) bilateral Cardio Rate: regular rate Rhythm: regular rhythm Heart sounds: no murmurs GI Palpation (GI): Soft to palpation and nontender Auscultation: normal bowel sounds General: Yes no CVA tenderness Back/Spine/Pelvis Back: no CVA tenderness Thoracic/Lumbar Spine: No lumbar spinal tenderness Skin Rashes: no rashes Extrem Other: (+) increased erythema of the left lower leg, with 2+ edema noted Left lower extremity: knee Details: tenderness; no swelling Results Reviewed Results Reviewed: Laboratory Tests 06/09/23 06/09/23 07/26/23 12:51 13:46 14:19 WBC 7.9 Hgb 11.1 L Hct 33.4 L Plt Count 145 L D Sodium 131 L Potassium 3.2 L Creatinine 0.81 Estimated GFR > 60 Random Glucose 284 H Fasting Glucose Hgb A1c (Clinic) 11.3 H Hemoglobin A1c % Calcium 9.2 Total Bilirubin 1.3 H AST 40 H ALT 39 H B-Natriuretic Peptide Triglycerides Cholesterol LDL Cholesterol, Calc HDL Cholesterol Vitamin B12 25-OH Vitamin D Total TSH Urine pH 6.0 Ur Specific [place] 1.025 Urine Protein Trace Urine Glucose (UA) >=1000 H Urine Blood Negative Urine Nitrite Ur Leukocyte Esterase Microalb/Creat Ratio 04/05/25 04/05/25 06:42 06:47 WBC 6.7 Hgb 7.7 L D Hct 27.6 L Plt Count 356 D Sodium 138 Potassium 4.1 Creatinine 0.64 Estimated GFR > 60 Random Glucose Fasting Glucose 203 H Hgb A1c (Clinic) Hemoglobin A1c % 8.6 H Calcium 9.1 Total Bilirubin AST 22 ALT 17 B-Natriuretic Peptide 39 Triglycerides 71 Cholesterol 109 LDL Cholesterol, Calc 45 HDL Cholesterol 50 Vitamin B12 437 25-OH Vitamin D Total 52.6 TSH 1.81 Urine pH Ur Specific [place] 1.020 Urine Protein Trace Urine Glucose (UA) Negative Urine Blood Negative Urine Nitrite Negative Ur Leukocyte Esterase Small (1+) H Microalb/Creat Ratio 9.5 Coding Level of Care Code Est Pt Level 4 (82877) Diagnoses Cellulitis of left leg L03.116 Type 2 diabetes mellitus without complication, without long-term current use of insulin E11.9 Diabetes mellitus complication status: without complication Diabetes mellitus intermediate accountant insulin use: without intermediate accountant use Diabetes mellitus type: type 2 Chronic obstructive pulmonary disease, unspecified COPD type J44.9 COPD type: unspecified COPD Essential hypertension I10 Anemia, unspecified type D64.9 Anemia type: unspecified type Ureterolithiasis N20.1 Elevated LFTs R79.89 Primary osteoarthritis involving multiple joints M15.9 Osteoarthritis location: multiple joints Osteoarthritis type: primary GERD without esophagitis K21.9 Anxiety F41.9 Morbid obesity with BMI of 40.0-44.9, adult E66.01; Z68.41 Additional Codes PHQ-9 - 65394 - PHQ-9 Billing: Yes ([id number]) Assessment & Plan Assessment & Plan (1) Cellulitis of left leg: Code(s): L03.116 - Cellulitis of left lower limb Category: Medical Plan: Will start patient empirically on Doxycycline 100 mg BID x 7 days She is advised to continue to keep her legs elevated as often as she can to help minimize her edema (2) Diabetes mellitus: Code(s): E11.9 - Type 2 diabetes mellitus without complications Category: Medical Qualifiers: Diabetes mellitus complication status: without complication Diabetes mellitus intermediate accountant insulin use: without intermediate accountant use Diabetes mellitus type: type 2 Qualified Code(s): E11.9 - Type 2 diabetes mellitus without complications Plan: Her HgbA1c was at 8.6% on her labs done earlier today - goal is at least <7.0% Reinforced diabetic diet Continue Metformin 1000 mg BID and Januvia 100 mg QD We will consider referring her to endocrinology for further management if she still can not get her diabetes controlled better over the next few months (3) COPD (chronic obstructive pulmonary disease): Comment: SHE DOES HAVE EVIDENCE OF MODERATELY SEVERE OBSTRUCTIVE PULMONARY DISEASE. GOOD RESPONSE TO BRONCHODILATORS IS INDICATED OF OF ASTHMA COPD OVERLAP SYNDROME. TX AFTER GOOD DISCUSSION WITH THE PATIENT WE HAVE AGREED TO TRY COMBINATION ICS /LABD AGENT ( ADVAIR OR WIXELA 250-50 )ONE INH BID Code(s): J44.9 - Chronic obstructive pulmonary disease, unspecified Category: Medical Qualifiers: COPD type: unspecified COPD Qualified Code(s): J44.9 - Chronic obstructive pulmonary disease, unspecified Plan: She is an ex-smoker - patient quit smoking back in September 2020 Continue Albuterol HFA 2 inhalations Q 6 hours PRN She was supposed to also be on Advair or Wixela but states that she was advised by Dr. Brown that she does not need to continue on them She currently only uses her Albuterol inhaler occasionally when needed Follow up with pulmonary (Dr. Brown) as scheduled (4) Essential hypertension: Code(s): I10 - Essential (primary) hypertension Category: Medical Plan: Reinforced low sodium diet - goal is systolic BP of at least 120 to 130 mm or less Continue Lisinopril 40 mg QD and Amlodipine 5 mg QD; she also takes Furosemide 40 mg Q AM for her edema Patient is reminded to continue monitoring her blood pressure regularly (5) Anemia: Code(s): D64.9 - Anemia, unspecified Category: Medical Qualifiers: Anemia type: unspecified type Qualified Code(s): D64.9 - Anemia, unspecified Plan: Patient was noted to be significantly anemic on her recent labs, with H/H of 7.7/27.6 Will send her for additional labs VERA for further evaluation of her anemia if her H/H is significantly lower than her most recent numbers, she may require blood transfusion (6) Ureterolithiasis: Code(s): N20.1 - Calculus of ureter Category: Medical Plan: Patient had moderate hydronephrosis of the left kidney with obstructing calculus a few months ago that required stenting - this has resolved with Tx and she had the stent removed by urology subsequently and has not had any recurrence/bouts of kidney stones since Abdominal and pelvic CT revealed a 2 mm non-obstructing stone in the lower pole of the left kidney but there were no evidence or findings of urinary tract obstruction Follow up with urology as scheduled (7) Elevated LFTs: Code(s): R79.89 - Other specified abnormal findings of blood chemistry Category: Medical Plan: Her LFTs have been gradually improving on her recent labs Advised again that these are most likely related to her weight and improvement should continue with weight loss Abdominal CT done back in November 2022 and more recently in late May 2023 revealed NO liver abnormalities or enlargement Will continue to monitor her LFTs regularly (8) Osteoarthritis: Code(s): M19.90 - Unspecified osteoarthritis, unspecified site Category: Medical Qualifiers: Osteoarthritis location: multiple joints Osteoarthritis type: primary Qualified Code(s): M15.9 - Polyosteoarthritis, unspecified Plan: [facility] [address] [place] [address] Drive [address] [place] [address] Primary Care Office Visit Signed Patient: Vidhya Hanson MR#: [id number] : 1960 Acct:[id number] Age/Sex: 63 / F ADM/SER Date: 03/18/24 [facility] AD[facility]/SER Time:1559 Attending Provider: José Miguel Baltazar MD cc: José Miguel Baltazar MD~ Vital Signs 03/18/2416:01 Height 5 ft 5 in Weight 252 lb BMI 41.9 BP 142/70 H Blood Pressure Location Lt brachial Position Sitting Pulse 99 Pulse Source Pulse Oximeter Pulse Oximetry (%) 96 Oxygen Delivery Method Room Air Intake Visit Reasons: Anxiety follow-up Deputy Felony Clerk Required: No Allergies bee pollen [BEE STINGS] Allergy (Intermediate, Verified 03/18/24 17:08) SWELLING, ITCHING--SENSITIVITYoxycodone [From PERCOCET] Allergy (Intermediate, Verified 03/18/24 17:08) N/V, RASHPenicillins [PENICILLINS] Allergy (Intermediate, Verified 03/18/24 17:08) RASH/ITCHvancomycin [VANCOMYCIN] Allergy (Intermediate, Verified 03/18/24 17:08) ITCHINGcodeine [Codeine] Allergy (Unknown, Verified 03/18/24 17:08) HIVES,VOMITING Medication List - Last Reconciled 03/18/24 by José Miguel Baltazar MD albuterol sulfate 90 mcg/actuation 2 puffs PO Q4H PRN cholecalciferol (vitamin D3) 50 mcg PO DAILY 90 days clonazepam 0.5 mg PO BID PRN empagliflozin (Jardiance) 10 mg PO QAM 90 days fluconazole 100 mg PO DAILY 3 days furosemide 40 mg PO DAILY lisinopril 40 mg PO DAILY metformin 500 mg PO BID 30 days metoclopramide HCl (Reglan) 10 mg PO Q6H PRN nystatin 1 appl topical BID omeprazole 20 mg PO DAILY ondansetron 4 mg PO Q8H PRN Tobacco use date assessed: 03/18/24 Fall risk assessment: No Falls in past year Last assessed Fall Risk: 03/18/24 Dental Screening Dental Screen Date: 07/26/23 HPI Anxiety follow-up HPI Details Patient comes in today for her follow-up visit States that she feels okay Notes that her blood pressure is high today likely because she just got out of work and has not gotten any sleep yet She denies any headaches or dizziness Denies any chest pains, no increased shortness of breath No nausea/vomiting, no abdominal pain No change in bowel habits noted Needs a couple of her Rx refilled She was not able to get her follow-up labs done yet - states that she can try to get them done as soon as possible Adds that she is again experiencing increased pain in her knee recently States that she realizes that a lot of her problems are related to her weight and would now like to look into bariatric surgery as an option and is requesting for a referral to the weight management program here at [facility] Medical History Osteoarthritis GERD without esophagitis Screen for colon cancer COVID-19 COPD (chronic obstructive pulmonary disease) Ex-smoker Obesity Ex-smoker Hand pain Diabetes mellitus Calcification of right hand joint Calcification of left hand joint Left knee pain Obese Chronic bronchitis Impaired glucose tolerance Essential hypertension Anxiety Surgical History Ganglion cyst History of appendectomy Hx laparoscopic cholecystectomy Previous section Family History Mother HypertensionFather Cancer Social History Household Members: Family Household Members Other:: daughter Housing: House Do you presently have visiting nurse or other home services: No Alcohol intake: current Alcohol intake frequency: does not drink Patient Tobacco Use Status: Former Tobacco user Tobacco use type: Cigarette e-Cigarette/Vaping Use: Never Used Second Hand Smoke Exposure: No service: No 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 1. Little interest or pleasure in doing things: not at all 2. Feeling down, depressed, or hopeless: not at all 3. Trouble falling or staying asleep, or sleeping too much: not at all 4. Feeling tired or having little energy: not at all 5. Poor appetite or overeating: not at all 6. Feeling bad about yourself - or that you are a failure or have let yourself or your family down: not at all 7. Trouble concentrating on things, such as reading the newspaper or watching television: not at all 8. Moving or speaking so slowly that other people could have noticed. Or the opposite - being so fidgety or restless that you have been moving around a lot more than usual: not at all 9. Thoughts that you would be better off or of hurting yourself in some way: not at all Total score: 0 Depression Screening Interpretation: Negative Depression Screening Done: Yes 25836 - PHQ-9 Billing: Yes Source: Developed by Drs. Nathan Guthrie, Fernanda Sarah, Paul Ellsworth and colleagues, with an educational sabrina from [employer]. Thrive Questionnaire Date Thrive assessed: 03/18/24 I am a: Patient What is your living situation today?: I have a steady place to live Within the past 12 months, did the food you bought not last and you didn't have the money to get more?: Never true Within the past 12 months, did you worry whether your food would run out before you got money to buy more?: Never true Do you have trouble paying for medicines?: No Do you have trouble getting transportation to medical appointments?: No Do you have trouble paying your heating and electricity bill?: No Do you have trouble taking care of your child, family member or friend?: No Do you have trouble with day-to-day activities such as bathing, preparing meals, shopping, managing finances, etc.?: No Are you currently unemployed and looking for a job?: No Are you interested in more education?: No Please select the resources that you would like help with: None Currently or been in a relationship where the following occur: No concerns reported THRIVE Score: 0 AUDIT C Alcohol Use Questionnaire (AUDIT-C) 1. How often do you have a drink containing alcohol?: Monthly or less 2. How many drinks containing alcohol do you have on a typical day when you are drinking?: 1 or 2 Total Score: 1 Score Reviewed/Action Taken: Yes PRIMO-7 AMB Questionnaire PRIMO-7 Date PRIMO - 7 assessed: 03/18/24 Feeling nervous, anxious, or on edge: 0 = Not at all Not being able to stop or control worryin = Not at all Worrying too much about different things: 0 = Not at all Trouble relaxin = Not at all Being so restless that it is hard to sit still: 0 = Not at all Becoming easily annoyed or irritable: 0 = Not at all Feeling afraid as if something awful might happen: 0 = Not at all Total PRIMO-7 score (0-4 normal; 5-9 mild; 10-14 moderate; 15-21 severe): 0 Source: Developed by Drs. Nathan Guthrie, Fernanda Sarah, Paul Ellsworth and colleagues, with an educational sabrina from [employer]. PRIMO-7 Assessment Billing PRIMO-7 Assessment Tool: PRIMO-7 Assessment 01484 Review of Systems Const Denies chills, Reports fatigue, Denies fever(s) and Denies headache(s) ENT Denies dysphagia, Denies dizziness, Denies otalgia, Denies headache(s), Denies odynophagia and Denies sore throat Card Denies chest pain, Denies palpitations and Reports dyspnea on exertion (mild) Resp Denies chest congestion, Reports cough (occasional; coughs up thick whitish phlegm at times), Reports dyspnea on exertion (mild) and Denies wheezing GI Denies abdominal pain, Denies constipation, Denies dysphagia, Denies heartburn, Denies diarrhea, Denies nausea, Denies odynophagia and Denies vomiting Denies difficulty voiding, Denies nocturia, Denies dysuria and Denies urinary urgency Musc Reports arthralgias (left knee; both hands) and Reports stiffness Skin/Breast Denies rash Neuro Denies dizziness and Denies headache(s) Endo Reports fatigue and Denies palpitations Aller/Immun Denies wheezing Physical exam (Primary Care) Vital Signs: Last Vital Signs Pulse 99 03/18/24 16:01 BP 142/70 H 03/18/24 16:01 Pulse Ox 96 03/18/24 16:01 Oxygen Delivery Method Room Air 03/18/24 16:01 BMI result Body Mass Index 41.9 Tobacco/Smoking Status: Tobacco use Status Tobacco use date assessed 03/18/24 03/18/24 16:02 Patient Tobacco Use Status Former Tobacco user 03/18/24 16:02 Tobacco use type Cigarette 03/18/24 16:02 e-Cigarette/Vaping Use Never Used 03/18/24 16:02 PHQ-9: PHQ-9 Score PHQ-9: Total score 0 03/19/24 00:08 Depression Screening Interpretation: Negative Thrive Assessment: Date of Thrive Assessment Date Thrive assessed 03/18/24 03/18/24 16:30 Currently or been in a relationship where the following occur: No concerns reported Const General: no acute distress and alert HENMT Ears: TM's normal bilaterally and EAC's normal Throat: Yes posterior oropharynx normal and Yes tonsils normal (no TP congestion) Neck Neck: Yes no lymphadenopathy and Yes supple Thyroid: Thyroid normal Resp Auscultation: clear to auscultation bilaterally, no rales, no wheezes and diminished lung sounds (slightly) bilateral Cardio Rate: regular rate Rhythm: regular rhythm Heart sounds: no murmurs GI Palpation (GI): Soft to palpation and nontender Auscultation: normal bowel sounds General: Yes no CVA tenderness Back/Spine/Pelvis Back: no CVA tenderness Skin Rashes: no rashes Extrem General: Yes no clubbing, cyanosis or edema Left lower extremity: knee Details: tenderness; no swelling Results AMB Hemoglobin A1c AMB Hemoglobin A1c 10.3 % Last Edit by SAMIRA Murphy on 03/18/24 16:33 Results Reviewed Results Reviewed: Laboratory Last Values Hgb A1c (Clinic) 10.3 % (4.0-6.0) H 03/18/24 16:30 Assessment and Plan Assessment & Plan (1) Diabetes mellitus: Code(s): E11.9 - Type 2 diabetes mellitus without complications Qualifiers: Diabetes mellitus complication status: without complication Diabetes mellitus alf insulin use: without intermediate accountant use Diabetes mellitus type: type 2 Qualified Code(s): E11.9 - Type 2 diabetes mellitus without complications Plan: In-office HgbA1c done today is at 10.3% (she was at 11.3% a few months ago) - goal is <7.0% Reinforced diabetic diet Continue Metformin 500 mg BID and Jardiance 10 mg Q AM but will consider increasing her Jardiance to 25 mg QD if her PRIMO Ab and C-peptide level come back normal when patient gets her labs done in the next few days (2) COPD (chronic obstructive pulmonary disease): Comment: SHE DOES HAVE EVIDENCE OF MODERATELY SEVERE OBSTRUCTIVE PULMONARY DISEASE. GOOD RESPONSE TO BRONCHODILATORS IS INDICATED OF OF ASTHMA COPD OVERLAP SYNDROME. TX AFTER GOOD DISCUSSION WITH THE PATIENT WE HAVE AGREED TO TRY COMBINATION ICS /LABD AGENT ( ADVAIR OR WIXELA 250-50 )ONE INH BID Code(s): J44.9 - Chronic obstructive pulmonary disease, unspecified Qualifiers: COPD type: unspecified COPD Qualified Code(s): J44.9 - Chronic obstructive pulmonary disease, unspecified Plan: She is an ex-smoker - patient quit smoking back in September 2020 Continue Albuterol HFA 2 inhalations Q 6 hours PRN Was supposed to also be on Advair or Wixela but states that she was supposedly advised by Dr. Brown that she does not need to continue on them She currently only uses her Albuterol inhaler occasionally when needed Follow up with pulmonary (Dr. Brown) as scheduled (3) Essential hypertension: Code(s): I10 - Essential (primary) hypertension Plan: Reinforced low sodium diet - goal is systolic BP of at least 120 to 130 mm or less Continue Lisinopril 40 mg QD; she also takes Furosemide 40 mg Q AM for her edema States that her blood pressure is elevated at this time as she just got out of work after a 12 hour shift and has not gotten any sleep yet Patient is advised to continue monitoring her blood pressure regularly (4) Ureterolithiasis: Code(s): N20.1 - Calculus of ureter Plan: Patient had moderate hydronephrosis of the left kidney with obstructing calculus a few months ago that required stenting - this has resolved with Tx and she had the stent removed by urology subsequently and has not had any recurrence/bouts of kidney stones since Abdominal and pelvic CT revealed a 2 mm non-obstructing stone in the lower pole of the left kidney but there were no evidence or findings of urinary tract obstruction Follow up with urology as scheduled (5) Elevated LFTs: Code(s): R79.89 - Other specified abnormal findings of blood chemistry Plan: Her LFTs have been gradually improving on her recent labs Advised again that these are most likely related to her weight and improvement should continue with weight loss Abdominal CT done back in November 2022 and more recently in late May 2023 revealed NO liver abnormalities or enlargement Will continue to monitor her LFTs regularly (6) Osteoarthritis: Code(s): M19.90 - Unspecified osteoarthritis, unspecified site Qualifiers: Osteoarthritis location: multiple joints Osteoarthritis type: primary Qualified Code(s): M15.9 - Polyosteoarthritis, unspecified Plan: Involving multiple joints, especially her left knee and both hands Continue OTC Tylenol PRN for pain Follow up with rheumatology (Dr. Forde) at the [facility] as scheduled (9) GERD without esophagitis: Code(s): K21.9 - Gastro-esophageal reflux disease without esophagitis Category: Medical Plan: Dietary restrictions reinforced Continue Omeprazole 20 mg QD (10) Anxiety: Code(s): F41.9 - Anxiety disorder, unspecified Category: Medical Plan: Continue Clonazepam 0.5 mg BID PRN (11) Morbid obesity with BMI of 40.0-44.9, adult: Comment: BMI 42.6 on 05/31/22 Code(s): E66.01 - Morbid (severe) obesity due to excess calories; Z68.41 - Body mass index [BMI] 40.0-44.9, adult Category: Medical Plan: Reinforced diet/exercise as tolerated/lose weight Plan Follow up in 3 months Orders: Orders IRON PROFILE 04/05/25 D50.9 - Iron deficiency anemia, unspecified Reticulocyte Count 04/05/25 D64.9 - Anemia, unspecified Complete Blood Count Auto Diff 04/05/25 D64.9 - Anemia, unspecified Complete Blood Count Auto Diff 3 Months D64.9 - Anemia, unspecified Lipid Panel 3 Months E78.00 - Pure hypercholesterolemia, unspecified Microalbumin, Random (w Creat) 3 Months E11.9 - Type 2 diabetes mellitus without complications Vitamin D 25-OH Total 3 Months E55.9 - Vitamin D deficiency, unspecified Erythropoietin (EPO) 04/05/25 D64.9 - Anemia, unspecified Hemoglobin A1c 3 Months E11.9 - Type 2 diabetes mellitus without complications Comprehensive [place]. Panel Fast 3 Months E78.00 - Pure hypercholesterolemia, unspecified TSH reflex Free T4 3 Months E78.00 - Pure hypercholesterolemia, unspecified UA CC w/rflx Micro + Cult 3 Months R30.0 - Dysuria Medications: New doxycycline hyclate 100 mg PO BID 14 caps 0RF 7 days ferrous sulfate 325 mg PO DAILY 90 tabs 1RF 90 days D64.9 - Anemia, unspecified doxycycline hyclate 100 mg PO BID 7 days 14 caps 0RF
== END 2025-04-05 14:18 | disposition home or self-care (01) ==
LOC: HO.HMCH 12:54
PROVIDERS: PCP Internal Medicine; Visit Provider Internal Medicine
DX: E11.9 Type 2 diabetes mellitus without complications (principal); J44.9 Chronic obstructive pulmonary disease, unspecified; E66.01 Morbid (severe) obesity due to excess calories; Z68.41 Body mass index [BMI] 40.0-44.9, adult; L03.116 Cellulitis of left lower limb; I10 Essential (primary) hypertension; D64.9 Anemia, unspecified; N20.1 Calculus of ureter; R79.89 Other specified abnormal findings of blood chemistry; M15.9 Polyosteoarthritis, unspecified; K21.9 Gastro-esophageal reflux disease without esophagitis; F41.9 Anxiety disorder, unspecified

== ENCOUNTER → 2025-04-15 07:43 | Outpatient (BNV) | payer OTHER, SELFPAY | PROVIDERS: PCP Internal Medicine; Visit Provider Nurse Practitioner Family | DX: D64.9 Anemia, unspecified (principal) | CPT/HCPCS: 99204 ==

== ENCOUNTER 2025-05-11 08:00 | Outpatient (RCR) | payer OTHER, SELFPAY ==
[2025-05-03 07:45] VITALS: BP 177/76; RESP 16; TEMP 36.6; O2SAT 97
[2025-05-03] MEDS: 0.9 % Sodium Chloride Flush 10 ML SYRINGE 5 ML IVFLUSH (09:09)
[2025-05-11 07:47] VITALS: BP 169/59; PULSE 109; RESP 16; TEMP 36.9; O2SAT 97
[2025-05-11] MEDS: 0.9 % Sodium Chloride Flush 10 ML SYRINGE 5 ML IVFLUSH (08:43)
== END 2025-05-11 08:49 | disposition home or self-care (01) ==
LOC: HO.INF 08:00
PROVIDERS: Visit Provider Nurse Practitioner Family
DX: D61.1 Drug-induced aplastic anemia (principal)
CPT/HCPCS: 96365; J1439

== ENCOUNTER 2025-06-17 08:09 | Outpatient (REF) | payer OTHER, SELFPAY ==
--- NOTE | ~2025-06-17 | MM_ITS ---
EXAMINATION: BONE DENSITOMETRY CLINICAL INDICATION: Postmenopausal; first screening dexa. COMPARISON: This is the patient's baseline examination. TECHNIQUE: Using a Splash.FM dual-energy x-ray absorptiometry was performed of the left femur and spine. The images are of good technical quality. Summary results are attached. FINDINGS: AP SPINE L2-L4: BMD 0.881 g/cm2, Z-score -2.2, T-score -2.7, osteoporosis. LEFT FEMUR, NECK: BMD 0.73 g/cm2, Z-score -1.4, T-score -2.2, osteopenia. LEFT FEMUR, TOTAL: BMD 0.791 g/cm2, Z-score -1.3, T-score -1.7, osteopenia. IDENTIFIED RISK FACTORS: Postmenopausal HISTORY OF FRACTURE: None listed. MEDICATIONS: Vitamin D MM/XR DEXA axial skeleton IMPRESSION: 1. DIAGNOSIS: Osteoporosis based on the lowest T-score value of -2.7 in the lumbar spine applying World Health Organization criteria. 2. Fracture risk is high. 3. Treatment Recommendations: NOF guidelines recommend consideration for treatment in postmenopausal women and men age 50 and older presenting with the following: -A hip or vertebral (clinical or morphometric) fracture. -T-score less than or equal to -2.5 at the femoral neck or spine after appropriate evaluation to exclude secondary causes. -Low bone mass at the hip or spine and a 10-year fracture probability by FRAX of greater than or equal to 3% for hip fracture or greater than or equal to 20% for major osteoporotic fracture based on the [place] adapted WHO algorithm. FUTURE SCAN RECOMMENDATION: People with diagnosed cases of osteoporosis or at high risk for fracture should have regular bone mineral density tests. For patients eligible for Medicare, routine testing is allowed once every 2 years. The testing frequency can be increased to one year for patients who have rapidly progressing disease, those who are receiving or discontinuing medical therapy to restore bone mass, or have additional risk factors. Electronically signed by: Kathy Mendez MD 06/17/2025 03:54 PM EDT
--- OUTSIDE RECORDS SUMMARY | 2025-06-17 08:14 | XMS_ITS | Clinical Summary ---
Author Organization [facility] Facility Address [address] [place] [id number] Care Team Providers Care Seed Sales Manager Name Role Phone Barb Khan MD Primary Care Provider [phone] Social History Tobacco Use Types Packs/Day Years [...] Pneumococcal Vaccine: 50+ Ye ars (1 of 1 - PCV) 2008 Influenza Vaccine (#1) 2025 Hepatitis B Vaccine Aged Out No longe r eligible based on patient's age to complete this topic Insurance [employer] Administrators MD JAYLA [id number] [employer] Administ[employer] MD JAYLA [id number] Care Teams Seed Sales Manager Relationship Specialty Start Date End Date Barb Khan MD [address] [place], [place] PCP - General Internal Medicine 12/12/22
== END 2025-06-17 08:10 | disposition home or self-care (01) ==
LOC: HO.MAMMO 08:09
PROVIDERS: PCP Internal Medicine; Visit Provider Internal Medicine
DX: Z12.31 Encounter for screening mammogram for malignant neoplasm of breast (principal); Z13.820 Encounter for screening for osteoporosis; Z78.0 Asymptomatic menopausal state
CPT/HCPCS: 77063; 77067; 77080

== ENCOUNTER → 2025-06-17 08:45 | Outpatient (BNV) | payer OTHER, SELFPAY | PROVIDERS: PCP Internal Medicine; Visit Provider Radiology Diagnostic Radiology | DX: E28.39 Other primary ovarian failure (principal) | CPT/HCPCS: 77080 ==

== ENCOUNTER 2025-06-23 08:03 | Outpatient (AMB) | payer OTHER, SELFPAY ==
--- NOTE | 2025-06-23 08:08 | MHC.PC.OV ---
Intake Visit Reasons: EP-rt knee, elbow, shoulder pain from a fall Allergies bee pollen (BEE STINGS) Allergy (Intermediate, Verified 06/18/25 09:01) SWELLING, ITCHING--SENSITIVITY oxycodone (From PERCOCET) Allergy (Intermediate, Verified 06/18/25 09:01) N/V, RASH Penicillins (PENICILLINS) Allergy (Intermediate, Verified 06/18/25 09:01) RASH/ITCH vancomycin (VANCOMYCIN) Allergy (Intermediate, Verified 06/18/25 09:01) ITCHING codeine (Codeine) Allergy (Unknown, Verified 06/18/25 09:01) HIVES,VOMITING Tobacco use date assessed: 04/05/25 Dental Screening Dental Screen Date: 04/05/25 [facility] Medical History Anemia Osteoarthritis GERD without esophagitis Screen for colon cancer COVID-19 COPD (chronic obstructive pulmonary disease) Ex-smoker Obesity Ex-smoker Hand pain Diabetes mellitus Calcification of right hand joint Calcification of left hand joint Left knee pain Obese Chronic bronchitis Impaired glucose tolerance Essential hypertension Anxiety Surgical History Ganglion cyst History of appendectomy Hx laparoscopic cholecystectomy Previous section Family History Mother Hypertension Father Cancer Social History Household Members: Family Household Members Other:: daughter Housing: House Do you presently have visiting nurse or other home services: No Alcohol intake: current Alcohol intake frequency: does not drink Patient Tobacco Use Status: Former Tobacco user Tobacco use type: Cigarette e-Cigarette/Vaping Use: Never Used Second Hand Smoke Exposure: No service: No 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 Nathan Guthrie, Fernanda Sarah, Paul Ellsworth and colleagues, with an educational sabrina from [employer]. Physical exam (Primary Care) Tobacco/Smoking Status: Tobacco use Status Tobacco use date assessed 04/05/25 04/05/25 13:22 Patient Tobacco Use Status Former Tobacco user 04/05/25 13:22 Tobacco use type Cigarette 04/05/25 13:22 e-Cigarette/Vaping Use Never Used 04/05/25 13:22 Thrive Assessment: Date of Thrive Assessment Date Thrive assessed 04/05/25 04/05/25 13:22 Coding
[2025-06-23 08:11] VITALS: BP 160/92; PULSE 100; O2SAT 95; BMI 41.9
--- NOTE | 2025-06-23 08:12 | AM.OFFWIN_ITS ---
Intake Vital Signs 06/23/25 08:11 Height 5 ft 5 in Weight 252 lb BMI 41.9 BP 160/92 H Blood Pressure Location Lt brachial Position Sitting Pulse 100 Pulse Source Pulse Oximeter Pulse Oximetry (%) 95 Intake Visit Reasons: EP-rt knee, elbow, shoulder pain from a fall Patient Tobacco Use Status: Former Tobacco user Allergies bee pollen (BEE STINGS) Allergy (Intermediate, Verified 06/23/25 08:12) SWELLING, ITCHING--SENSITIVITY oxycodone (From PERCOCET) Allergy (Intermediate, Verified 06/23/25 08:12) N/V, RASH Penicillins (PENICILLINS) Allergy (Intermediate, Verified 06/23/25 08:12) RASH/ITCH vancomycin (VANCOMYCIN) Allergy (Intermediate, Verified 06/23/25 08:12) ITCHING codeine (Codeine) Allergy (Unknown, Verified 06/23/25 08:12) HIVES,VOMITING Do you need a note to return to daycare/school/sports/work: No HPI HPI Comments History of Present Illness Details History of Present Illness - The patient is a 64-year-old female pr esenting with a fall resulting in right shoulder and elbow pain. - The fall occurred 3 days ago when she slipped on a grape in the [employer] grocery store, leading to pain in the right shoulder and elbow, right hand/wrist and leg, with no head injury or loss of consciousness. - She is not on a blood thinner. - She has limited right shoulder movemen t and tenderness in the right elbow and right knee. She is unable to lift shoulder over head or to the side without pain and cannot reach behind her back at all with the right arm. Her right wrist is painful at the base of the thumb mostly. She has a previous laceration injury years ago and sometimes has loses her floor hand strength and has reduced sensation in her right 3rd and 4th digits. Feels hand strength and sensation is at her baseline. Has some knee swelling, no bruising but is able to walk okay. - She has used tylenol with minimal reli ef - Her hypertension is managed with medic ation that was just started, to which she is compliant, and she has a follow-up appointment scheduled in a few weeks. - She has lymphedema, managed with daily machine use and weekly wound clinic visits. - Neuropathic pain is present, described as tingling and burning, with some improvement noted. Physical Exam General: Cooperative, healthy appearing, comfortable, no acute distress and well developed Orientation: Patient oriented x3 Limitations: Limited range of motion in the right shoulder Head: Normal to inspection Ears: Hearing grossly normal bilaterally Face and sinus: Normal facial exam Eyes: Appearance normal, both eyes and all related structures Neck: Normal visual inspection, full ROM Respiratory: Normal respiratory effort and able to speak in complete sentences. Skin: No rashes or lesions noted; redness noted on right lower leg due to lymphedema (baseline) Neuro: Patient oriented x3, gait normal Extremities: right shoulder with limited ROM, cannot abduct, invert or lift past 90 degrees anteriorly, negative empty can test. TTP in right elbow medial and lateral epicondyles, full ROM right elbow, no ecchymosis on right arm or other skin changes. no TTP right forearm, TTP base of thumb, negative snuffbox tenderness, full ROM thumb and all digits on right hand, Fingers NVI (reduced sensation at baseline). Right knee with neg patellar ballotment, no TTP full knee, full ROM right knee, no ecchymosis, slight edema, right knee with no joint laxity/negative anterior drawer, negative posterior drawer, negative medial and lateral laxity of right knee. Review of Systems - Musculoskeletal: Reports pain and limi mario range of motion in the right shoulder and elbow. Denies head injury or loss of consciousness. - Neurological: Reports neuropathic pain with tingling and burning sensations. - Cardiovascular: Reports history of hyp ertension. Denies dizziness or headaches. All systems reviewed and are unremarkable except as noted in HPI [facility] Medical History (Updated 06/23/25 @ 09:00 by Lilibeth Carrillo PA-C) Anemia Osteoarthritis GERD without esophagitis Screen for colon cancer COVID-19 COPD (chronic obstructive pulmonary disease) Ex-smoker Obesity Ex-smoker Hand pain Diabetes mellitus Calcification of right hand joint Calcification of left hand joint Left knee pain Obese Chronic bronchitis Impaired glucose tolerance Essential hypertension Anxiety Surgical History Ganglion cyst History of appendectomy Hx laparoscopic cholecystectomy Previous section Family History Mother Hypertension Father Cancer Social History Household Members: Family Household Members Other:: daughter Housing: House Do you presently have visiting nurse or other home services: No Alcohol intake: current Alcohol intake frequency: does not drink Patient Tobacco Use Status: Former Tobacco user Tobacco use type: Cigarette e-Cigarette/Vaping Use: Never Used Second Hand Smoke Exposure: No service: No 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 - Continue Tramadol use (has RX) as needed, can wean to Aleve as able. Rest and ice. - Gave patient shoulder sling to use, wean as able, twice daily ROM to avoid frozen shoulder. - Hypertension management will continue with current medications, and a follow- up appointment is scheduled. - Lymphedema management will continue with daily machine use and weekly wound clinic visits. Patient was informed and verbally consented to the use of an ambient scribe for clinic note documentation during this visit. (2) Shoulder pain: Code(s): M25.519 - Pain in unspecified shoulder Qualifiers: Chronicity: acute Laterality: right Qualified Code(s): M25.511 - Pain in right shoulder Plan: as above (3) Elbow injury: Code(s): S59.909A - Unspecified injury of unspecified elbow, initial encounter Qualifiers: Encounter type: initial encounter Laterality: right Qualified Code(s): S59.901A - Unspecified injury of right elbow, initial encounter Plan: as above (4) Wrist pain, right: Code(s): M25.531 - Pain in right wrist Plan: as above (5) Fall: Code(s): W19.XXXA - Unspecified fall, initial encounter Plan: duplicate (6) Shoulder pain: Code(s): M25.519 - Pain in unspecified shoulder Plan: duplicate (7) Wrist pain, right: Code(s): M25.531 - Pain in right wrist Plan: duplicate Orders: Orders XR shoulder RT min 2V Today M25.519 - Pain in unspecified shoulder, M25.531 - Pain in right wrist, S59.909A - Unspecified injury of unspecified elbow, initial encounter, W19.XXXA - Unspecified fall, initial encounter XR elbow RT min 3V Today M25.519 - Pain in unspecified shoulder, M25.531 - Pain in right wrist, S59.909A - Unspecified injury of unspecified elbow, initial encounter, W19.XXXA - Unspecified fall, initial encounter XR wrist RT w scaphoid Today M25.519 - Pain in unspecified shoulder, M25.531 - Pain in right wrist, W19.XXXA - Unspecified fall, initial encounter Coding Level of Care Code Est Pt Level 4 (14367) Diagnoses Fall, initial encounter W19.XXXA Encounter type: initial encounter Acute pain of right shoulder M25.511 Chronicity: acute Laterality: right Injury of right elbow, initial encounter S59.901A Encounter type: initial encounter Laterality: right Wrist pain, right M25.531
== END 2025-06-23 09:06 | disposition home or self-care (01) ==
PROVIDERS: PCP Internal Medicine; Visit Provider Physician Assistant
DX: M25.511 Pain in right shoulder (principal); S59.901A Unspecified injury of right elbow, initial encounter; M25.531 Pain in right wrist; W19.XXXA Unspecified fall, initial encounter

== ENCOUNTER 2025-06-23 08:03 | Outpatient (REF) | payer OTHER, SELFPAY ==
--- NOTE | ~2025-06-23 | XR_ITS ---
EXAMINATION: XR SHOULDER 2 OR MORE VIEWS RIGHT HISTORY: S59.909A - Unspecified injury of unspecified elbow, initial encounter COMPARISON: There are no prior studies available for comparison. FINDINGS: Three views of the right shoulder are submitted. Osseous mineralization is normal. There is no fracture or dislocation. The glenohumeral joint space is maintained. There is mild to moderate osteoarthritis of the AC joint. A soft tissue calcification adjacent to the greater tuberosity of the humerus is likely related to the rotator cuff. XR/XR shoulder RT min 2V IMPRESSION: No evidence of fracture of the right shoulder. Degenerative changes as described. Electronically signed by: Nathan Prakash MD 06/23/2025 09:31 AM EDT
--- NOTE | ~2025-06-23 | XR_ITS ---
EXAMINATION: XR WRIST NAVICULAR RIGHT HISTORY: W19.XXXA - Unspecified fall, initial encounter COMPARISON: There are no prior studies available for comparison. FINDINGS: Four right wrist, including a scaphoid view views of the are submitted. Osseous mineralization is normal. There is no fracture or dislocation. There is moderate to severe osteoarthritis of the 1st carpometacarpal joint with joint space narrowing and osteophyte formation. The soft tissues are unremarkable. XR/XR wrist RT w scaphoid IMPRESSION: Moderate to severe osteoarthritis of the 1st carpometacarpal joint. No evidence of fracture of the right wrist. Electronically signed by: Nathan Prakash MD 06/23/2025 09:29 AM EDT
--- NOTE | ~2025-06-23 | XR_ITS ---
EXAMINATION: XR ELBOW 3 VIEWS RIGHT HISTORY: W19.XXXA - Unspecified fall, initial encounter COMPARISON: There are no prior studies available for comparison. FINDINGS: Four views of the right elbow are submitted. Osseous mineralization is normal. There is no fracture or dislocation. The joint spaces are preserved. The soft tissues are unremarkable. There is no joint effusion. XR/XR elbow RT min 3V IMPRESSION: No evidence of fracture of the right elbow. Electronically signed by: Nathan Prakash MD 06/23/2025 09:30 AM EDT
[2025-06-23 13:29] LABS: MANUAL DIFF FLAG NO
[2025-06-23 13:43] LABS: Hematocrit 37.5 % (37.0-47.0); Hemoglobin 12.8 g/dl (12.0-16.0); Imm Gran Abs Auto 0.05 X10*3/uL (0.00-0.03); Imm Gran Pct Auto 0.8 % (0.0-0.4); Lymphocytes Absolute Auto 1.4 X10*3/uL (1.2-4.9); Mean Corpuscular HGB Conc 34.1 g/dl (31.0-35.0); Mean Corpuscular Hemoglobin 31.7 pg (27.0-33.0); Mean Corpuscular Volume 92.8 fL (80.0-98.0); NRBC Abs Auto 0.000 X10*3/uL (0.0-0.012); NRBC Pct Auto 0.0 /100WBC (0.0-0.2); Platelet Count 184 X10*3/uL (160-400); Red Blood Count 4.04 X10*6/uL (4.20-5.50); White Blood Count 6.6 X10*3/uL (4.8-10.8)
[2025-06-23 13:44] LABS: Appearance Urine Turbid; Glucose Urine UA 100 mg/dL (Negative); PH 6.0 (5.0-9.0); Specific Gravity - Urine 1.025 (1.005-1.025); UMIC TRIGGER UACC YES
[2025-06-23 14:06] LABS: UACC Culture Trigger YES
[2025-06-23 14:17] LABS: Alanine Aminotransferase 65 U/L (0-31); Albumin Level 3.7 g/dL (3.5-5.0); Alkaline Phosphatase 47 U/L (39-117); Anion Gap 14 (12-20); Aspartate Amino Transferase 126 U/L (5-31); Blood Urea Nitrogen 13 mg/dL (9-16); Calcium 10.1 mg/dL (8.4-10.2); Carbon Dioxide 28 mmol/L (22-29); Chloride 102 mmol/L (96-108); Cholesterol 148 mg/dL (<200); Estimated Glomerular Filt Rate > 60; HDL Cholesterol 67 mg/dL (>40); Potassium 3.9 mmol/L (3.3-5.1); Sodium 140 mmol/L (135-145); Total Protein 7.5 g/dL (6.5-8.0); Triglycerides 109 mg/dL (<150)
[2025-06-23 14:38] LABS: Microalbum/Creatinine Ratio Ur 15.0 ug/mg cr (<30)
== END 2025-06-23 08:04 | disposition home or self-care (01) ==
LOC: HO.HMGCX 08:03
PROVIDERS: Absent Provider Physician Assistant; PCP Internal Medicine; Visit Provider Internal Medicine
DX: S59.901A Unspecified injury of right elbow, initial encounter (principal); M25.531 Pain in right wrist; M25.511 Pain in right shoulder; I10 Essential (primary) hypertension; I89.0 Lymphedema, not elsewhere classified; E11.9 Type 2 diabetes mellitus without complications; E55.9 Vitamin D deficiency, unspecified; E78.00 Pure hypercholesterolemia, unspecified; D64.9 Anemia, unspecified; Z79.899 Other long term (current) drug therapy; W01.0XXA Fall on same level from slipping, tripping and stumbling without subsequent striking against object, initial encounter; Y92.512 Supermarket, store or market as the place of occurrence of the external cause
CPT/HCPCS: 36415; 73030; 73080; 73110; 80053; 80061; 81001; 82043; 82306; 82570; 83036; 84443; 85025; 87086

== ENCOUNTER → 2025-06-23 09:07 | Outpatient (BNV) | payer OTHER, SELFPAY | PROVIDERS: Absent Provider Physician Assistant; PCP Internal Medicine; Visit Provider Radiology Diagnostic Radiology | DX: M19.011 Primary osteoarthritis, right shoulder (principal); M18.11 Unilateral primary osteoarthritis of first carpometacarpal joint, right hand; M25.521 Pain in right elbow | CPT/HCPCS: 73030; 73080; 73110 ==

== ENCOUNTER 2025-07-14 09:44 | Outpatient (AMB) | payer OTHER, SELFPAY ==
--- NOTE | 2025-07-14 09:47 | A.OFFPC_ITS ---
Vital Signs 07/14/25 09:48 Height 5 ft 5 in BMI Reason not done Patient refused/unable BP 138/60 Blood Pressure Location Lt brachial Position Sitting Respiration 18 Pulse 104 H Pulse Source Pulse Oximeter Temp 97.3 F Temp Source Temporal Artery Scan Pulse Oximetry (%) 96 Oxygen Delivery Method Room Air Intake Visit Reasons: 3 month f/u It Training Specialist Required: No Accompanied by: Self / Same As Patient Allergies bee pollen (BEE STINGS) Allergy (Intermediate, Verified 07/14/25 10:06) SWELLING, ITCHING--SENSITIVITY oxycodone (From PERCOCET) Allergy (Intermediate, Verified 07/14/25 10:06) N/V, RASH Penicillins (PENICILLINS) Allergy (Intermediate, Verified 07/14/25 10:06) RASH/ITCH vancomycin (VANCOMYCIN) Allergy (Intermediate, Verified 07/14/25 10:06) ITCHING codeine (Codeine) Allergy (Unknown, Verified 07/14/25 10:06) HIVES,VOMITING Medication List - Last Reconciled 07/14/25 by CORINNE Gerardo amlodipine 5 mg PO DAILY calcium carbonate (Calcium 500) 500 mg PO DAILY cholecalciferol (vitamin D3) 50 mcg PO DAILY clonazepam 0.5 mg PO BID PRN ferrous sulfate 325 mg PO DAILY 90 days furosemide 40 mg PO DAILY 30 days gabapentin 100 mg PO BID 30 days lisinopril 40 mg PO DAILY metformin 1,000 mg (2 x 500 mg) PO BID 30 days omeprazole 20 mg PO DAILY tramadol 50 mg PO BEDTIME Ventolin HFA 90 mcg/actuation (albuterol sulfate) 2 puffs PO Q4-6H PRN 30 days NS Tobacco use date assessed: 07/14/25 Fall risk assessment: 1 Fall in past year Last assessed Fall Risk: 07/14/25 Dental Screening Dental Screen Date: 07/14/25 Did you have a dental visit in the last 12 months?: No Did you have a dental problem in the last 6 months where you did not have access to dental care?: No Was dental information given to patient?: No HPI 3 month f/u HPI Details The patient is a 64-year-old female presenting for evaluation of right shoulder pain after a recent fall and management of multiple chronic conditions. The patient sustained a fall on the fifth of this month after slipping at a grocery store. She was evaluated at a walk-in clinic where an x-ray was negative for fracture and was diagnosed with a badly sprained and strained shoulder, also showed osteoarthritis. She was advised to follow up for a physical therapy referral if her symptoms did not improve in two weeks. The patient reports persistent pain in the front of her shoulder and biceps, with limited range of motion, noting she cannot raise her arm fully. She also has an x-ray for the right wrist that showed moderate to severe osteoarthritis of the 1st carpometacarpal joint of the first digit. The patient has several ongoing health issues, including a foot wound being managed by a wound clinic, which is almost healed but remains painful and recurrent swelling prevents her from wearing shoes. She has lymphedema and has been told the skin color will not return to normal. A recent bone density scan revealed osteoporosis in her spine, with a T-score of -2.7, and osteopenia in her left femur, for which she has been referred to endocrinology. The patient reports a history of low hemoglobin and hematocrit, for which she received two iron infusions at hematology/oncology, with subsequent improvement in her bloodwork. Her HbA1c has improved, coming down from 8.6% to 8.3%, though recent labs showed slightly elevated liver enzymes. A recent mammogram showed a density, requiring a follow-up appointment; the patient notes a history of a large cyst in the same breast which has since drained. 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 She reports feeling nervous, depressed, and afraid to drive due to her health issues. Her hypertension is managed with medication, though she notes falsely high readings with electronic cuffs at other clinics, which she attributes to her arm size. [facility] Medical History Anemia Osteoarthritis GERD without esophagitis Screen for colon cancer COVID-19 COPD (chronic obstructive pulmonary disease) Ex-smoker Obesity Ex-smoker Hand pain Diabetes mellitus Calcification of right hand joint Calcification of left hand joint Left knee pain Obese Chronic bronchitis Impaired glucose tolerance Essential hypertension Anxiety Surgical History Ganglion cyst History of appendectomy Hx laparoscopic cholecystectomy Previous section Family History Mother Hypertension Father Cancer Social History Household Members: Family Household Members Other:: daughter Housing: House Do you presently have visiting nurse or other home services: No Alcohol intake: current Alcohol intake frequency: does not drink Patient Tobacco Use Status: Former Tobacco user Tobacco use type: Cigarette e-Cigarette/Vaping Use: Never Used Second Hand Smoke Exposure: No service: No 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 Depression Screening Interpretation: Negative Depression Screening Done: Yes Source: Developed by Drs. Nathan Guthrie, Fernanda Sarah, Paul Ellsworth and colleagues, with an educational sabrina from [employer] [place]. Thrive Questionnaire Date Thrive assessed: 04/05/25 I am a: Patient What is your living situation today?: I have a steady place to live Within the past 12 months, did the food you bought not last and you didn't have the money to get more?: Never true Within the past 12 months, did you worry whether your food would run out before you got money to buy more?: Never true Do you have trouble paying for medicines?: No Do you have trouble getting transportation to medical appointments?: No Do you have trouble paying your heating and electricity bill?: No Do you have trouble taking care of your child, family member or friend?: No Do you have trouble with day-to-day activities such as bathing, preparing meals, shopping, managing finances, etc.?: No Are you currently unemployed and looking for a job?: No Are you interested in more education?: No Please select the resources that you would like help with: None Currently or been in a relationship where the following occur: No concerns reported THRIVE Score: 0 PRIMO-7 AMB Questionnaire PRIMO-7 Date PRIMO - 7 assessed: 12/16/24 Source: Developed by Drs. Nathan Guthrie, Fernanda Sarah, Paul Ellsworth and colleagues, with an educational sabrina from [employer] [place]. Review of Systems Const Denies chills, Reports fatigue, Denies fever(s) and Denies headache(s) ENT Denies dysphagia, Denies dizziness, Denies otalgia, Denies headache(s), Denies neck pain, Denies odynophagia and Denies sore throat Card Denies chest pain, Denies palpitations and Reports dyspnea on exertion (mild) Resp Denies chest congestion, Denies cough and Reports dyspnea on exertion (mild) GI Denies abdominal pain, Denies constipation, Denies dysphagia, Denies heartburn, Denies diarrhea, Denies nausea, Denies odynophagia and Denies vomiting Denies difficulty voiding, Denies nocturia, Denies dysuria and Denies urinary urgency Musc Denies back pain, Reports arthralgias (left knee and both hands) and Denies neck pain Skin/Breast Details: (+) increased redness and some swelling noted over the left lower leg Reports other (swelling in bilateral lower extremities) Neuro Denies dizziness and Denies headache(s) Endo Reports fatigue and Denies palpitations Physical exam (Primary Care) Vital Signs: Last Vital Signs Temp 97.3 F 07/14/25 09:48 Pulse 104 H 07/14/25 09:48 Resp 18 07/14/25 09:48 BP 138/60 07/14/25 09:48 Pulse Ox 96 07/14/25 09:48 Oxygen Delivery Method Room Air 07/14/25 09:48 Tobacco/Smoking Status: Tobacco use Status Tobacco use date assessed 07/14/25 07/14/25 10:00 Patient Tobacco Use Status Former Tobacco user 07/14/25 10:00 Tobacco use type Cigarette 07/14/25 10:00 e-Cigarette/Vaping Use Never Used 07/14/25 10:00 Depression Screening Interpretation: Negative Thrive Assessment: Date of Thrive Assessment Date Thrive assessed 04/05/25 07/14/25 10:00 Currently or been in a relationship where the following occur: No concerns reported Const General: no acute distress and alert HENMT Ears: TM's normal bilaterally and EAC's normal Throat: Yes posterior oropharynx normal and Yes tonsils normal (no TP congestion) Neck Neck: Yes supple and No lymphadenopathy Thyroid: Thyroid normal Resp Auscultation: clear to auscultation bilaterally, no rales, no wheezes and diminished lung sounds (slightly) bilateral Cardio Rate: regular rate Rhythm: regular rhythm Heart sounds: S1 normal heart sound present, S2 normal heart sound present and no murmurs GI Palpation (GI): Soft to palpation and nontender Auscultation: normal bowel sounds General: Yes no CVA tenderness Back/Spine/Pelvis Back: no CVA tenderness Thoracic/Lumbar Spine: No lumbar spinal tenderness Skin Rashes: no rashes Extrem Other: (+) increased erythema of the left lower leg, with 2+ edema noted Right upper extremity: full ROM and shoulder/upper arm Details: tenderness Location: over the biceps tendon; no swelling Left upper extremity: full ROM Left lower extremity: knee Details: tenderness; no swelling Results Reviewed Results Reviewed: Laboratory Tests 06/23/25 06/23/25 09:42 09:50 RBC 4.04 L Hgb 12.8 Hct 37.5 MCV 92.8 MCH 31.7 MCHC 34.1 RDW 15.1 Plt Count 184 MPV 10.0 Sodium 140 Potassium 3.9 Chloride 102 Carbon Dioxide 28 Anion Gap 14 BUN 13 Creatinine 0.62 Estimated GFR > 60 Fasting Glucose 208 H Hemoglobin A1c % 8.3 H Calcium 10.1 D Urine Color Yellow Urine Appearance Turbid Urine pH 6.0 Ur Specific [place] 1.025 Urine Protein Trace Urine Glucose (UA) 100 H Urine Ketones Trace Urine Blood Negative Urine Nitrite Positive H Ur Leukocyte Esterase Negative Urine RBC 0-2 Urine WBC 0-5 Ur Squamous Epith Cells 3-5 Calcium Oxalate Crystal Present Urine Bacteria 2+ Hyaline Casts 0-2 Urine Creatinine 205.65 Urine Microalbumin 31.0 Microalb/Creat Ratio 15.0 Coding Level of Care Code Est Pt Level 4 (40311) Diagnoses Type 2 diabetes mellitus without complication, without long-term current use of insulin E11.9 Diabetes mellitus complication status: without complication 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: without buttermilk drier operator use Diabetes mellitus type: type 2 Chronic obstructive pulmonary disease, unspecified COPD type J44.9 COPD type: unspecified COPD Essential hypertension I10 Anemia, unspecified type D64.9 Anemia type: unspecified type Ureterolithiasis N20.1 Elevated LFTs R79.89 GERD without esophagitis K21.9 Anxiety F41.9 Morbid obesity with BMI of 40.0-44.9, adult E66.01; Z68.41 Lymphedema I89.0 Acute pain of right shoulder M25.511 Chronicity: acute Osteoporosis, unspecified osteoporosis type, unspecified pathological fracture presence M81.0 Osteoporosis type: unspecified Presence of current pathological fracture: unspecified Chronic pain of left knee M25.562; G89.29 Chronicity: chronic Time Spent (min) 39 Assessment & Plan Assessment & Plan (1) Diabetes mellitus: Code(s): E11.9 - Type 2 diabetes mellitus without complications Category: Medical Qualifiers: Diabetes mellitus complication status: without complication 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 GOOD RESPONSE TO BRONCHODILATORS IS INDICATED OF OF ASTHMA COPD OVERLAP SYNDROME. TX AFTER GOOD DISCUSSION WITH THE PATIENT WE HAVE AGREED TO TRY COMBINATION ICS /LABD AGENT ( ADVAIR OR WIXELA 250-50 )ONE INH BID Code(s): J44.9 - Chronic obstructive pulmonary disease, unspecified Category: Medical Qualifiers: COPD type: unspecified COPD Qualified Code(s): J44.9 - Chronic obstructive pulmonary disease, unspecified Plan: She is an ex-smoker - patient quit smoking back in September 2020 Continue Albuterol HFA 2 inhalations Q 6 hours PRN She was supposed to also be on Advair or Wixela but states that she was advised by Dr. Brown that she does not need to continue on them She currently only uses her Albuterol inhaler occasionally when needed Follow up with pulmonary (Dr. Brown) as scheduled (3) Essential hypertension: Code(s): I10 - Essential (primary) hypertension Category: Medical Plan: Reinforced low sodium diet - goal is systolic BP of at least 120 to 130 mm or less Continue Lisinopril 40 mg QD and Amlodipine 5 mg QD; she also takes Furosemide 40 mg Q AM for her edema Patient is reminded to continue monitoring her blood pressure regularly (4) Anemia: Code(s): D64.9 - Anemia, unspecified Category: Medical Qualifiers: Anemia type: unspecified type Qualified Code(s): D64.9 - Anemia, unspecified Plan: Microcytic, hyperchromic anemia consistent with iron-deficiency. Patient is followed by Hematology she was given 2 doses of Injectafer 750 mg IV on 05/03/25 and 05/11/25 and tolerated it well. H&H 12.8/37.5. Continue ferrous sulfate 325 mg daily. Follow up with Hematology as scheduled (5) Ureterolithiasis: Code(s): N20.1 - Calculus of ureter Category: Medical Plan: Patient had moderate hydronephrosis of the left kidney with obstructing calculus a few months ago that required stenting - this has resolved with Tx and she had the stent removed by urology subsequently and has not had any recurrence/bouts of kidney stones since Abdominal and pelvic CT revealed a 2 mm non-obstructing stone in the lower pole of the left kidney but there were no evidence or findings of urinary tract obstruction Follow up with urology as scheduled (6) Elevated LFTs: Code(s): R79.89 - Other specified abnormal findings of blood chemistry Category: Medical Plan: Her LFTs was improving prior but another to be increasing again . AST 126 and ALT [address] done back in November 2022 and more recently in late May 2023 revealed NO liver abnormalities or enlargement Recent labs showed a slight elevation in liver enzymes. A routine (non-urgent) ultrasound of the liver with elasticity will be ordered to further evaluate this finding. (7) GERD without esophagitis: Code(s): K21.9 - Gastro-esophageal reflux disease without esophagitis Category: Medical Plan: Dietary restrictions reinforced Continue Omeprazole 20 mg QD (8) Anxiety: Code(s): F41.9 - Anxiety disorder, unspecified Category: Medical Plan: Continue Clonazepam 0.5 mg BID PRN (9) Morbid obesity with BMI of 40.0-44.9, adult: Comment: BMI 42.6 on 05/31/22 Code(s): E66.01 - Morbid (severe) obesity due to excess calories; Z68.41 - Body mass index [BMI] 40.0-44.9, adult Category: Medical Plan: Reinforced diet/exercise as tolerated/lose weight (10) Lymphedema: Code(s): I89.0 - Lymphedema, not elsewhere classified Category: Medical Plan: Patient has longstanding lymphedema in bilateral lower extremities. She was seen by by vascular and was ordered lymphedema pumps-appears to not being covered by her insurance. Reports that she is not a fan of the compression stockings either. She currently seeing the wound clinic who has her left leg wrapped due to recurrent wounds. Right leg remains pink and swollen without infection. Follow up with wound clinic as scheduled. 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 (11) Right shoulder pain: Code(s): M25.511 - Pain in right shoulder Category: Medical Qualifiers: Chronicity: acute Qualified Code(s): M25.511 - Pain in right shoulder Plan: The patient reports persistent right shoulder and biceps pain with limited range of motion following a fall, with an x-ray negative for fracture. A referral will be placed for physical therapy for evaluation and treatment. A referral to orthopedics may be considered in the future if PT is not beneficial. (12) Osteoporosis: Code(s): M81.0 - Age-related osteoporosis without current pathological fracture Category: Medical Qualifiers: Osteoporosis type: unspecified Presence of current pathological fracture: unspecified Qualified Code(s): M81.0 - Age-related osteoporosis without current pathological fracture Plan: A bone density scan confirmed osteoporosis in the spine with a T-score of -2.7. The patient has a pending referral to endocrinology and will be encouraged to follow up on that appointment. (13) Left knee pain: Code(s): M25.562 - Pain in left knee Category: Medical Qualifiers: Chronicity: chronic Qualified Code(s): M25.562 - Pain in left knee; G89.29 - Other chronic pain Plan: Positive osteoarthritis. Continue gabapentin 100 mg b.i.d., tramadol 50 mg at bedtime. Plan Follow up in 3 months Orders: Orders Comprehensive [place]. Panel Fast 3 Months D64.9 - Anemia, unspecified, E11.8 - Type 2 diabetes mellitus with unspecified complications, E11.9 - Type 2 diabetes mellitus without complications, E66.9 - Obesity, unspecified, F41.9 - Anxiety disorder, unspecified, I10 - Essential (primary) hypertension, I83.11 - Varicose veins of right lower extremity with inflammation, I83.12 - Varicose veins of left lower extremity with inflammation, I89.0 - Lymphedema, not elsewhere classified, J42 - Unspecified chronic bronchitis, K21.9 - Gastro-esophageal reflux disease without esophagitis, R73.02 - Impaired glucose tolerance (oral), R79.89 - Other specified abnormal findings of blood chemistry, Z13.29 - Encounter for screening for other suspected endocrine disorder TSH reflex Free T4 3 Months D64.9 - Anemia, unspecified, E11.8 - Type 2 diabetes mellitus with unspecified complications, E11.9 - Type 2 diabetes mellitus without complications, E66.9 - Obesity, unspecified, F41.9 - Anxiety disorder, unspecified, I10 - Essential (primary) hypertension, I83.11 - Varicose veins of right lower extremity with inflammation, I83.12 - Varicose veins of left lower extremity with inflammation, I89.0 - Lymphedema, not elsewhere classified, J42 - Unspecified chronic bronchitis, K21.9 - Gastro-esophageal reflux disease without esophagitis, R73.02 - Impaired glucose tolerance (oral), R79.89 - Other specified abnormal findings of blood chemistry, Z13.29 - Encounter for screening for other suspected endocrine disorder Complete Blood Count Auto Diff 3 Months D64.9 - Anemia, unspecified, E11.8 - Type 2 diabetes mellitus with unspecified complications, E11.9 - Type 2 diabetes mellitus without complications, E66.9 - Obesity, unspecified, F41.9 - Anxiety disorder, unspecified, I10 - Essential (primary) hypertension, I83.11 - Varicose veins of right lower extremity with inflammation, I83.12 - Varicose veins of left lower extremity with inflammation, I89.0 - Lymphedema, not elsewhere classified, J42 - Unspecified chronic bronchitis, K21.9 - Gastro-esophageal reflux disease without esophagitis, R73.02 - Impaired glucose tolerance (oral), R79.89 - Other specified abnormal findings of blood chemistry, Z13.29 - Encounter for screening for other suspected endocrine disorder Lipid Panel 3 Months D64.9 - Anemia, unspecified, E11.8 - Type 2 diabetes mellitus with unspecified complications, E11.9 - Type 2 diabetes mellitus without complications, E66.9 - Obesity, unspecified, F41.9 - Anxiety disorder, unspecified, I10 - Essential (primary) hypertension, I83.11 - Varicose veins of right lower extremity with inflammation, I83.12 - Varicose veins of left lower extremity with inflammation, I89.0 - Lymphedema, not elsewhere classified, J42 - Unspecified chronic bronchitis, K21.9 - Gastro-esophageal reflux disease without esophagitis, R73.02 - Impaired glucose tolerance (oral), R79.89 - Other specified abnormal findings of blood chemistry, Z13.29 - Encounter for screening for other suspected endocrine disorder UA CC w/rflx Micro + Cult 3 Months D64.9 - Anemia, unspecified, E11.8 - Type 2 diabetes mellitus with unspecified complications, E11.9 - Type 2 diabetes m ellitus without complications, E66.9 - Obesity, unspecified, F41.9 - Anxiety disorder, unspecified, I10 - Essential (primary) hypertension, I83.11 - Varicose veins of right lower extremity with inflammation, I83.12 - Varicose veins of left lower extremity with inflammation, I89.0 - Lymphedema, not elsewhere classified, J42 - Unspecified chronic bronchitis, K21.9 - Gastro-esophageal reflux disease without esophagitis, R73.02 - Impaired glucose tolerance (oral), R79.89 - Other specified abnormal findings of blood chemistry, Z13.29 - Encounter for screening for other suspected endocrine disorder Vitamin D 25-OH Total 3 Months D64.9 - Anemia, unspecified, E11.8 - Type 2 diabetes mellitus with unspecified complications, E11.9 - Type 2 diabetes mellitus without complications, E66.9 - Obesity, unspecified, F41.9 - Anxiety disorder, unspecified, I10 - Essential (primary) hypertension, I83.11 - Varicose veins of right lower extremity with inflammation, I83.12 - Varicose veins of left lower extremity with inflammation, I89.0 - Lymphedema, not elsewhere classified, J42 - Unspecified chronic bronchitis, K21.9 - Gastro-esophageal reflux disease without esophagitis, R73.02 - Impaired glucose tolerance (oral), R79.89 - Other specified abnormal findings of blood chemistry, Z13.29 - Encounter for screening for other suspected endocrine disorder PT Evaluation and Treatment 07/14/25 M25.511 - Pain in right shoulder, S46.211A - Strain of muscle, fascia and tendon of other parts of biceps, right arm, initial encounter US abdomen camara w elastography 07/14/25 E11.8 - Type 2 diabetes mellitus with unspecified complications, E66.9 - Obesity, unspecified, R79.89 - Other specified abnormal findings of blood chemistry Medications: Refilled clonazepam 0.5 mg PO BID PRN 60 tabs 0RF Anxiety
[2025-07-14 09:48] VITALS: BP 138/60; PULSE 104; RESP 18; TEMP 36.3; O2SAT 96
--- OUTSIDE RECORDS SUMMARY | 2025-07-14 11:39 | XMS_ITS | Clinical Summary ---
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
== END 2025-07-14 10:36 | disposition home or self-care (01) ==
LOC: HO.HMCH 09:45
DX: E11.9 Type 2 diabetes mellitus without complications (principal); J44.9 Chronic obstructive pulmonary disease, unspecified; E66.01 Morbid (severe) obesity due to excess calories; Z68.41 Body mass index [BMI] 40.0-44.9, adult; I10 Essential (primary) hypertension; N20.1 Calculus of ureter; D64.9 Anemia, unspecified; R79.89 Other specified abnormal findings of blood chemistry; K21.9 Gastro-esophageal reflux disease without esophagitis; F41.9 Anxiety disorder, unspecified; I89.0 Lymphedema, not elsewhere classified; M25.511 Pain in right shoulder

== ENCOUNTER 2025-07-19 11:07 | Outpatient (REF) | payer OTHER, SELFPAY ==
--- NOTE | ~2025-07-19 | US_ITS ---
EXAMINATION(S): 1. MM DIAGNOSTIC DIGITAL BREAST TOMOSYNTHESIS, LEFT 2. Targeted ultrasound of the left breast CLINICAL INFORMATION: Callback from screening for left breast focal asymmetry in the upper outer quadrant in the anterior to middle depth. COMPARISON: Comparison made to multiple prior, most recent June 17, 2025, and most remote August 24, 2004. TECHNIQUE: Digital breast tomosynthesis is performed in full field ML 90 degrees along with computer-aided detection (CAD). Synthesized 2D images are generated from the tomosynthesis. Spot compression tomosynthesis were obtained. FINDINGS: BREAST COMPOSITION: There are scattered areas of fibroglandular density. LEFT BREAST: Previously suggested focal asymmetry is pliable with spot compression. On today's images, the local parenchyma has similar appearance to prior study as in 2016 and probably 2003, therefore, most likely represented overlapping fibroglandular breast tissue. Targeted ultrasound of the left breast was performed at the location of the mammographic finding. The survey throughout the upper outer quadrant did not reveal suspicious sonographic findings. US/US Breast LT Limited Mamm Only IMPRESSION: LEFT BREAST: Negative, no mammographic evidence of malignancy. Normal interval follow-up is recommended in 12 months. ASSESSMENT: BI-RADS: Category 1: Negative RECOMMENDATION: 1 year F/U Results were provided to the patient at time of visit by the technologist. This patient's information was entered into a reminder system with a target due date for their next mammogram. Electronically signed by: Ulises Rebollar MD 07/19/2025 12:52 PM [facility]
--- OUTSIDE RECORDS SUMMARY | 2025-07-19 14:06 | XMS_ITS | Clinical Summary ---
Author Organization [facility] Facility Address [address] [place] [id number] Care Team Providers Care Art Handler Name Role Phone Barb Khna MD Primary Care Provider [phone] Social History Tobacco Use Types Packs/Day Years [...] patient's age to complete this topic Insurance [place] Plan Administrators MD JAYLA [id number] [place] Plan Administrators MD JAYLA [id number] Care Teams Art Handler Relationship Specialty Start Date End Date Barb Khan MD [address] [place], [place] PCP - General Internal Medicine 12/12/22
== END 2025-07-19 11:08 | disposition home or self-care (01) ==
LOC: HO.MAMMO 11:07
PROVIDERS: Visit Provider Internal Medicine
DX: N64.89 Other specified disorders of breast (principal)
CPT/HCPCS: 76642; 77061; 77065

== ENCOUNTER → 2025-07-19 11:11 | Outpatient (BNV) | payer OTHER, SELFPAY | PROVIDERS: Visit Provider Radiology Body Imaging | DX: R92.8 Other abnormal and inconclusive findings on diagnostic imaging of breast (principal) | CPT/HCPCS: 76642; 77061; 77065 ==